=== PATIENT | female | born 1980 | race Caucasian/White ===

== ENCOUNTER → 2017-04-23 12:18 | Outpatient (CLI) | payer OTHER, SELFPAY ==
--- NOTE | 2017-04-23 12:27 | RAD_ITS ---
STUDY: X-RAY - LUMBAR SPINE REASON FOR EXAM: Female, 36 years old. Back pain TECHNIQUE: 5 view(s) of the lumbar spine were obtained. COMPARISON: None FINDINGS: Normal lumbar lordosis. There is no substantial scoliosis. There is a normal alignment of the vertebrae. Normal vertebral bodies and endplates. Normal disc space heights. The soft tissue structures are unremarkable. Left renal calculi. Tubal ligation clips in the pelvis. RAD/L/S Spine Min 4 Views IMPRESSION: No acute bone injury of the lumbar spine. Left renal calculi. Electronically Signed: Leo Unger DO at 22:17 EST Tel [phone], Service support ,
== END ==
PROVIDERS: Family Provider Family Medicine; PCP Family Medicine; Visit Provider Family Medicine
DX: M43.17 Spondylolisthesis, lumbosacral region (principal); N20.0 Calculus of kidney
CPT/HCPCS: 72110

== ENCOUNTER → 2018-08-20 10:00 | Outpatient (CLI) | payer OTHER, SELFPAY ==
[2017-12-31 10:02] VITALS: BMI 24.3
--- NOTE | 2018-08-20 10:06 | BI_ITS ---
MAMMOGRAPHY - BILATERAL SCREENING REASON FOR EXAM: Female, 38 years old. Routine annual screening examination. PERTINENT HISTORY: Grandmother with breast cancer. TECHNIQUE: Digital bilateral breast tian (3D mammographic acquisition) in the CC and MLO projections. 2-D mediolateral oblique (MLO) and craniocaudad (CC) views of both breasts were obtained. CAD: Full Field Digital Mammography with Computer Added Detection was performed. COMPARISON: Comparison is made with prior study October 20, 2013. FINDINGS: Breast Composition: The breasts are extremely dense, which lowers the sensitivity of mammography. There are no dominant masses or suspicious calcifications. No other significant abnormalities are identified. There has been no significant change since the prior study. BI/SCREEN MAMM (CAD) W/TIAN BILAT IMPRESSION: Stable bilateral screening mammogram. Yearly follow-up mammogram recommended. (A) ASSESSMENT CATEGORY: BIRADS Category 1: Negative. A letter regarding these results will be sent to the patient by the facility within 30 days. Approximately 10% of breast cancers are not detected by mammography. A normal mammogram should not delay biopsy of a clinically suspicious abnormality. [id number] Electronically Signed: Jesus Lizama, at 11:03 EDT , Service support ,
== END ==
PROVIDERS: Family Provider Family Medicine; PCP Family Medicine; Referring Provider Obstetrics & Gynecology; Visit Provider Obstetrics & Gynecology
DX: Z12.31 Encounter for screening mammogram for malignant neoplasm of breast (principal)
CPT/HCPCS: 77063; 77067

== ENCOUNTER 2019-03-02 12:00 | Outpatient (RCR) | payer OTHER, SELFPAY ==
--- NOTE | 2018-06-19 07:58 | MASS.EVAL ---
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 SHE WAS REFERRED TO [facility] FOR A MASSOTHERAPY EVALUATION BY DR. SHER WITH THE DIAGNOSIS OF SHOULDER/BACK PAIN. SHE PRESENTS TODAY WITH TENSION IN THE BACK AND NECK. SHE REPORTS THAT SHE HAS MORE OF A DULL ACHE THAN REPORTING IT PAIN. THE SYMPTOMS HAVE BEEN PRESENT FOR A FEW YEARS RELATED TO WORKING AND STRESS OF LIFE. JARAD RATES HER OVERALL HEALTH TO BE IN GREAT CONDITION WITH NO LIMITATIONS DURING HER DAILY ACTIVITIES. SHE IS CURRENTLY TAKING ALDACTONE, VYANSE, AND BRISPAR. OBJECTIVE: THE FIRST TREATMENT CONSISTED OF A MOD-DEEP TISSUE UPPER BODY MASSAGE. I FOCUSED ON THE TEMPORALIS, SUBOCCIPITALS, LEVATOR, UPPER TRAPEZIUM, SCALENES, PECTORALS, RHOMBOIDS, AND PARASPINALS. NECK STRETCHES, TRIGGER POINT THERAPY, MUSCLE STRIPPING, AND MYOFASCIAL RELEASE WERE ALL PERFORMED. ASSESSMENT: THE MOST TENDERNESS PLACES FOR THE PATIENT WAS THE TOP OF THE SHOULDERS AND AND BASE OF NECK. THE MUSCLE TISSUE WAS VERY HARD WITH NO NATURAL MYOFASCIAL MOVEMENT. THE WHOLE NECK AND UPPER BACK WAS TIGHT WITH TRIGGER POINTS IN LEVATOR, UPPER TRAPS, AND RHOMBOIDS. WELL ALONG THE SPINE. MODERATE RELEASE POST THE MASSAGE. THE PATIENT HAS NOT BEEN TREATED FOR A FEW YEARS. I FEEL JARAD IS A GREAT CANDIDATE FOR MASSOTHERAPY AT THIS TIME. PLAN: THE PLAN OF CARE WAS REVIEWED WITH THE PATIENT. THE PATIENT IS TO BE SEEN IN TWO WEEKS THEN ON A MONTHLY BASIS FOR A TOTAL OF 10 VISITS FOR ONE HOUR SESSIONS OF MASSOTHERAPY.
--- NOTE | 2018-06-19 08:14 | MASS.EVAL_ITS ---
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 SHE WAS REFERRED TO [facility] FOR A MASSOTHERAPY EVALUATION BY DR. SHER WITH THE DIAGNOSIS OF SHOULDER/BACK PAIN. SHE PRESENTS TODAY WITH TENSION IN THE BACK AND NECK. SHE REPORTS THAT SHE HAS MORE OF A DULL ACHE THAN REPORTING IT PAIN. THE SYMPTOMS HAVE BEEN PRESENT FOR A FEW YEARS RELATED TO WORKING AND STRESS OF LIFE. JARAD RATES HER OVERALL HEALTH TO BE IN GREAT CONDITION WITH NO LIMITATIONS DURING HER DAILY ACTIVITIES. SHE IS CURRENTLY TAKING ALDACTONE, VYANSE, AND BRISPAR. OBJECTIVE: THE FIRST TREATMENT CONSISTED OF A MOD-DEEP TISSUE UPPER BODY MASSAGE. I FOCUSED ON THE TEMPORALIS, SUBOCCIPITALS, LEVATOR, UPPER TRAPEZIUM, SCALENES, PECTORALS, RHOMBOIDS, AND PARASPINALS. NECK STRETCHES, TRIGGER POINT THERAPY, MUSCLE STRIPPING, AND MYOFASCIAL RELEASE WERE ALL PERFORMED. ASSESSMENT: THE MOST TENDERNESS PLACES FOR THE PATIENT WAS THE TOP OF THE SHOULDERS AND AND BASE OF NECK. THE MUSCLE TISSUE WAS VERY HARD WITH NO NATURAL MYOFASCIAL MOVEMENT. THE WHOLE NECK AND UPPER BACK WAS TIGHT WITH TRIGGER POINTS IN LEVATOR, UPPER TRAPS, AND RHOMBOIDS. WELL ALONG THE SPINE. MODERATE RELEASE POST THE MASSAGE. THE PATIENT HAS NOT BEEN TREATED FOR A FEW YEARS. I FEEL JARAD IS A GREAT CANDIDATE FOR MASSOTHERAPY AT THIS TIME. PLAN: THE PLAN OF CARE WAS REVIEWED WITH THE PATIENT. THE PATIENT IS TO BE SEEN IN TWO WEEKS THEN ON A MONTHLY BASIS FOR A TOTAL OF 10 VISITS FOR ONE HOUR SESSIONS OF MASSOTHERAPY.
--- NOTE | 2019-03-03 10:53 | MASS.DISCH ---
Massage Therapy Discharge Summary: DATE: 03/03/19 V#: [id number] PT NAME: JARAD AVALOS : 1980 REF PHYS: DR. SHER THE PATIENT WAS SEEN FOR MASSOTHERAPY EVALUATION ON 06/09/18 WITH A DIAGNOSIS OF NECK/BACK PAIN. THE PATIENT WAS TREATED WITH 9 SESSIONS OF MASSAGE CONSISTING OF DEEP TISSUE UPPER BODY MASSAGE. HER GOALS OF TREATMENT WERE MET SHE REPORTED THAT SHE IS NOT IN PAIN SHE USE TO BE. AT THIS TIME I AM DISCHARGING THE PATIENT FROM OUR CARE AT THE [facility] FOR 2019. ROMELIA SHEETS LMT
== END 2019-03-02 19:00 | disposition home or self-care (01) ==
LOC: MASS 12:00
PROVIDERS: Family Provider Family Medicine; PCP Family Medicine; Referring Provider Family Medicine; Visit Provider Family Medicine
DX: M25.519 Pain in unspecified shoulder (principal); M54.9 Dorsalgia, unspecified
CPT/HCPCS: 97124

== ENCOUNTER 2019-05-23 10:30 | Outpatient (RCR) | payer OTHER, SELFPAY ==
[2019-05-06 06:55] VITALS: BMI 25.7
--- NOTE | 2019-05-12 12:16 | HP.PTEVAL ---
Patient's Visit Information JARAD AVALOS is a 38 year old F referred to Physical Therapy by Indigo Diaz NP-C with a diagnosis of LOW BACK PAIN,CHRONIC BACK PAIN. Date of Evaluation: 05/11/19 Physical Therapist: Stanley Hatch, PT, Cert MDT, OCS - Visit Plan Frequency: 2x /Week Duration: 4 Weeks Plan: PT INTERVENTION INTIALLY POSTURE TRAINING,TANIYA EX'S ,PROGRESS TO DLS WHEN FUNCTION OF RECOVERY IMPROVES/PAIN,MANUAL THERAPY AND MOD LITIES NEEDED - Subjective Findings: This 38 y/o female presents to physical therapy with back paiin. Patient injuried LBP and radiated to Right L-S while bending foward to brass pickler ball of floor. Patient had immediate pain fell to ground due to pain.[facility]. Patient followed MODEL DRESSER on Thursday recommended. Patient to seen chiroprcator ESTIM ,adjustmentsAggraveting factors,suitting,bending twisting,lifting. Allevaiting factors heat TENS. Coughing/sneezing -. Bowel/bladder -. Denies parathesia/tingling. Stmptoms described as cahe ,burbing. Pateint symptoms affects sleeping. Patient has h/o lumbar pain picking laundry basket. Patient affects ability to perform job demands ,housework tasks . Patient symptoms affects QOL. 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 GAIT: reciprocal pattern antalgic gait. SYMMTRIES: align. PALAPTION: tender LS. MMT: quads/hams/hip 4/5,ankle 4/5. LUMBAR ROM: flexion mod loss,extension min loss,side glides min loss. MUSCULAR ENDUARNCE: poor - Special Tests L/S Slump test left side: Negative L/S Slump test right side: Positive L/S Left Straight Leg Raise: Negative L/S Right Straight Leg Raise: Negative Lumbar Standing: Flexion - Mechanical Response: No effect Lumbar Standing: Flexion - Symptoms During Testing: Increases Lumbar Standing: Flexion - Symptoms After Testing: Worse Lumbar Standing: Extension - Mechanical Response: No effect Lumbar Standing: Extension - Symptoms During Testing: Decreases Lumbar Standing: Extension - Symptoms After Testing: Better Lumbar Standing: Right Side Glides - Mechanical Response: No effect Lumbar Standing: Right Side [place] - Symptoms During Testing: Increases Lumbar Standing: Right Side [place] - Symptoms After Testing: No worse Lumbar Standing: Left Side [place] - Mechanical Response: No effect Lumbar Standing: Left Side [place] - Symptoms During Testing: No effect Lumbar Standing: Left Side [place] - Symptoms After Testing: No effect Lumbar Lying: Flexion - Mechanical Response: No effect Lumbar Lying: Flexion - Symptoms During Testing: Increases Lumbar Lying: Flexion - Symptoms After Testing: Worse Lumbar Lying: Extension - Mechanical Response: Increases motion Lumbar Lying: Extension - Symptoms During Testing: Increases Lumbar Lying: Extension - Symptoms After Testing: Better - Goals Goal 1:: Patient to be I with HEP Goal Time Frame: 4-6 Weeks Goal 2:: Patient improve posture/body meechanics for jod demamds. Goal Time Frame: 4-6 Weeks Goal 3:: Patient to decrease low back pain by 50% or > to improve function. Goal Time Frame: 4-6 Weeks Goal 4:: Patient to improve lumbar ROM for function of recovery Goal Time Frame: 4-6 Weeks Goal 5:: Patient to increase back owestry score by 5 points or > to improve QOL. Goal Time Frame: 4-6 Weeks - Rehabilitation Potential Physical Therapy Diagnosis: This patient has lumbar pain with possible derrangement symptoms worse with flexion,unable to return to function of recovery, pain that affects to perform ADLS'and job demands , Rehabilitation Potential: Good - Anticipated Interventions Patient/Client Instruction: Educate patient on: Condition, Plan of Care For the Purpose of:: To decrease pain, To increase ROM, To improve muscle performance and motor function, To improve ability to perform ADL's, To increase tolerance to activity/condition/position, To improve ability of physical actions for home/community/work/leisure, To improve health of tissue, To decrease soft tissue restriction, To increase flexibility/ROM, To reduce risk of recurrence Therapeutic Exercise to Include: Strength training, Postural training, Dynamic Lumbar Stabilization, Taniya Exercises For the Purpose of:: To decrease pain, To increase ROM, To improve muscle performance and motor function, To increase tolerance to activity/condition/position, To improve ability of physical actions for home/community/work/leisure, To improve health of tissue, To decrease soft tissue restriction, To increase flexibility/ROM, To reduce risk of recurrence Thank you for the opportunity to evaluate your patient. For Medicare and Medicare HMO plans, please review the plan of care and approve it. It will need to be FAXED BACK to us at [phone] for Medicare purposes. For Medicare only, by signing this I certify the plan of care. Please let me know if there are questions or concerns regarding this plan of care. Physician Signature: Date:
--- NOTE | 2019-05-12 12:20 | HP.PTEVAL_ITS ---
Patient's Visit Information JARAD AVALOS is a 38 year old F referred to Physical Therapy by Indigo Diaz NP-C with a diagnosis of LOW BACK PAIN,CHRONIC BACK PAIN. Date of Evaluation: 05/11/19 Physical Therapist: Stanley Hatch, PT, Cert MDT, OCS - Visit Plan Frequency: 2x /Week Duration: 4 Weeks Plan: PT INTERVENTION INTIALLY POSTURE TRAINING,TANIYA EX'S ,PROGRESS TO DLS WHEN FUNCTION OF RECOVERY IMPROVES/PAIN,MANUAL THERAPY AND MOD LITIES NEEDED - Subjective Findings: This 38 y/o female presents to physical therapy with back paiin. Patient injuried LBP and radiated to Right L-S while bending foward to picker and sorter load and unload ball of floor. Patient had immediate pain fell to ground due to pain.[facility]. Patient followed CUSTOMER SERVICE SUPERVISOR on Thursday recommended. Patient to seen chiroprcator ESTIM ,adjustmentsAggraveting factors,suitting,bending twisting,lifting. Allevaiting factors heat TENS. Coughing/sneezing -. Bowel/bladder -. Denies parathesia/tingling. Stmptoms described as cahe ,burbing. Pateint symptoms affects sleeping. Patient has h/o lumbar pain picking laundry basket. Patient affects ability to perform job demands ,housework tasks . Patient symptoms affects QOL. 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 GAIT: reciprocal pattern antalgic gait. SYMMTRIES: align. PALAPTION: tender LS. MMT: quads/hams/hip 4/5,ankle 4/5. LUMBAR ROM: flexion mod loss,extension min loss,side glides min loss. MUSCULAR ENDUARNCE: poor - Special Tests L/S Slump test left side: Negative L/S Slump test right side: Positive L/S Left Straight Leg Raise: Negative L/S Right Straight Leg Raise: Negative Lumbar Standing: Flexion - Mechanical Response: No effect Lumbar Standing: Flexion - Symptoms During Testing: Increases Lumbar Standing: Flexion - Symptoms After Testing: Worse Lumbar Standing: Extension - Mechanical Response: No effect Lumbar Standing: Extension - Symptoms During Testing: Decreases Lumbar Standing: Extension - Symptoms After Testing: Better Lumbar Standing: Right Side Glides - Mechanical Response: No effect Lumbar Standing: Right Side [place] - Symptoms During Testing: Increases Lumbar Standing: Right Side [place] - Symptoms After Testing: No worse Lumbar Standing: Left Side [place] - Mechanical Response: No effect Lumbar Standing: Left Side [place] - Symptoms During Testing: No effect Lumbar Standing: Left Side [place] - Symptoms After Testing: No effect Lumbar Lying: Flexion - Mechanical Response: No effect Lumbar Lying: Flexion - Symptoms During Testing: Increases Lumbar Lying: Flexion - Symptoms After Testing: Worse Lumbar Lying: Extension - Mechanical Response: Increases motion Lumbar Lying: Extension - Symptoms During Testing: Increases Lumbar Lying: Extension - Symptoms After Testing: Better - Goals Goal 1:: Patient to be I with HEP Goal Time Frame: 4-6 Weeks Goal 2:: Patient improve posture/body meechanics for jod demamds. Goal Time Frame: 4-6 Weeks Goal 3:: Patient to decrease low back pain by 50% or > to improve function. Goal Time Frame: 4-6 Weeks Goal 4:: Patient to improve lumbar ROM for function of recovery Goal Time Frame: 4-6 Weeks Goal 5:: Patient to increase back owestry score by 5 points or > to improve QOL. Goal Time Frame: 4-6 Weeks - Rehabilitation Potential Physical Therapy Diagnosis: This patient has lumbar pain with possible derrang ement symptoms worse with flexion,unable to return to function of recovery, pain that affects to perform ADLS'and job demands , Rehabilitation Potential: Good - Anticipated Interventions Patient/Client Instruction: Educate patient on: Condition, Plan of Care For the Purpose of:: To decrease pain, To increase ROM, To improve muscle performance and motor function, To improve ability to perform ADL's, To increase tolerance to activity/condition/position, To improve ability of physical actions for home/community/work/leisure, To improve health of tissue, To decrease soft tissue restriction, To increase flexibility/ROM, To reduce risk of recurrence Therapeutic Exercise to Include: Strength training, Postural training, Dynamic Lumbar Stabilization, Taniya Exercises For the Purpose of:: To decrease pain, To increase ROM, To improve muscle performance and motor function, To increase tolerance to activity/condition/position, To improve ability of physical actions for home/community/work/leisure, To improve health of tissue, To decrease soft tissue restriction, To increase flexibility/ROM, To reduce risk of recurrence Manual Therapy Techniques to Include: Mobilization Comment: LUMBAR For the Purpose of:: To decrease pain, To improve health of tissue, To decrease soft tissue restriction TENS: Yes IF ES: Yes Cryotherapy (ice pack, ice massage): Yes Thermo therapy (hot pack): Yes Ultrasound (thermal/non thermal): Yes For the Purpose of:: To decrease pain, To increase ROM, To improve nutrient delivery to tissue, To increase oxygenation perfusion, To improve health of tissue, To decrease soft tissue restriction Thank you for the opportunity to evaluate your patient. For Medicare and Medicare HMO plans, please review the plan of care and approve it. It will need to be FAXED BACK to us at [phone] for Medicare purposes. For Medicare only, by signing this I certify the plan of care. Please let me know if there are questions or concerns regarding this plan of care. Physician Signature: Date:
--- NOTE | 2019-07-06 09:20 | HP.PTDCSUM ---
It has been my pleasure to treat JARAD AVALOS referred by ALFONSO Lopez, with the diagnosis of LOW BACK PAIN,CHRONIC BACK PAIN for a total of 4 visit(s). Discharge Date: Please see the following information for a summary of their discharge status. Subjective: Doing well ..ready to RTW. Right Back Pain Intensity (Out of 10): 0 % Improvement: 90 Objective/Function: Thang tx well with tx. Lumbar ROM flexion min loss,extension WNL,side glides WFL,improved lumbar ROM for function of recovery. okay to RTW without restriction Goal 1:: Patient to be I with HEP Goal 2:: Patient improve posture/body meechanics for jod demamds. Goal 3:: Patient to decrease low back pain by 50% or > to improve function. Goal 4:: Patient to improve lumbar ROM for function of recovery Goal 5:: Patient to increase back owestry score by 5 points or > to improve QOL. Plan: PT INTERVENTION INTIALLY POSTURE TRAINING,TANIYA EX'S ,PROGRESS TO DLS WHEN FUNCTION OF RECOVERY IMPROVES/PAIN,MANUAL THERAPY AND MOD LITIES NEEDED If there are questions or concerns regarding this patient's physical therapy, please feel free to call me at [phone]. Thank you for the referral of this patient. Sincerely, Stanley Hatch, PT, Cert MDT, OCS
== END 2019-05-23 19:00 | disposition home or self-care (01) ==
LOC: PT 10:30
PROVIDERS: PCP Family Medicine; Visit Provider Nurse Practitioner Adult Health
DX: M54.5 Low back pain (principal); G89.29 Other chronic pain
CPT/HCPCS: 97014; 97110; 97161; 97530; G0283

== ENCOUNTER → 2019-08-03 11:32 | Outpatient (CLI) | payer OTHER, SELFPAY ==
[2019-05-06 06:55] VITALS: BMI 25.7
[2019-08-05 03:07] LABS: Age Gdln ACOG Testing 30-65 (.)
[2019-08-05 03:39] LABS: HPV APTIMA, High Risk Negative (Negative); HPV Reflexed? YES, CHARGE PATIENT
== END ==
PROVIDERS: PCP Family Medicine; Visit Provider Obstetrics & Gynecology
DX: Z12.4 Encounter for screening for malignant neoplasm of cervix (principal)
CPT/HCPCS: 87624; 88175; G0145

== ENCOUNTER 2019-08-31 08:15 | Outpatient (RCR) | payer OTHER, SELFPAY ==
--- NOTE | 2019-04-09 07:53 | MASS.EVAL ---
Massage Therapy Evaluation: INITIAL EVALUATION: DATE: 04/07/2019 PT NAME: JARAD AVALOS : 1980 V#: [id number] REF PHYS: DR. 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 WILBERT SHER WITH THE DIAGNOSIS OF NECK AND SHOULDER PAIN. SHE PRESENTS TODAY WITH A HEADACHE IN THE BACK OF THE NECK, AND TIGHTNESS ACROSS HER SHOULDERS AND UPPER BACK. THE SYMPTOMS COMMENCED DUE TO STRESS AND WORKING LONG HOURS. JARAD RATES HER HEALTH TO BE IN GOOD CONDITION WITH NO LIMITATIONS DURING HER DAILY ACTIVITIES. JARAD IS CURRENTLY TAKING VYVAUSE, AIDACTONE, BUSPAR. OBJECTIVE: UPON PALPATION THE PATIENTS MUSCLES HAD HIGH TENSION AND NO NATURAL MYOFASCIAL MOVEMENT. THE FIRST TREATMENT CONSISTED OF AN UPPER BODY DEEP TISSUE ONE HOUR MASSAGE. I FOCUSED ON THE TEMPORALIS, SUBOCCIPITALS, CERVICAL AND THORACIC PARASPINALS, LEVATOR, SCALENES, PECTORALS, UPPER TRAPEZIUM, AND RHOMBOIDS. TRIGGER POINT THERAPY, MYOFASCIAL RELEASE, AND MUSCLE STRIPPING WERE PERFORMED. ASSESSMENT: THE PATIENTS MUSCLES WERE VERY HARD AND ROPEY. THE PATIENT SEEMED TO HAVE A HARD TIME RELAXING AND LETTING GO OF THE TENSION. I HAVE WORKED WITH THE PATIENT IN THE PAST AND HAD GREAT SUCCESS WITH REDUCING STRESS LEVEL, RELIEVING HEADACHES, AND PAIN IN THE NECK AND SHOULDERS. I FEEL THAT JARAD IS A GREAT CANDIDATE FOR MASSOTHERAPY AT THIS TIME. PLAN: THE PLAN OF CARE WAS REVIEWED WITH THE PATIENT. THE PATIENT IS TO BE SEEN ON A REGULAR BASIS FOR ONE HOUR SESSIONS OF MASSOTHERAPY.
--- NOTE | 2020-02-23 09:09 | DS.PCM_ITS ---
Massage Therapy Discharge Summary: DATAE: 02/23/20 PT NAME: JARAD AVALOS V#: [id number] : 76 REF PHYS: CHRISTOS THE PATIENT WAS SEEN FOR A MASSOTHERAPY EVALUATION ON 04/07/19 WITH A DIAGNOSIS OF NECK/SHOULDER/HEADACHE PAIN. THE PATIENT WAS TREATED WITH 5 SESSIONS OF MASSAGE CONSISTING OF UPPER BODY DEEP TISSUE WITH TRIGGER POINT THERAPY. AT THIS TIME I AM DISCHARGING THE PATIENT FROM OUR CARE AT THE [facility]. ROMELIA SHEETS LMT
== END 2019-08-31 19:00 | disposition home or self-care (01) ==
LOC: MASS 08:15
PROVIDERS: Family Provider Family Medicine; PCP Family Medicine; Referring Provider Family Medicine; Visit Provider Family Medicine
DX: M25.519 Pain in unspecified shoulder (principal); M54.9 Dorsalgia, unspecified
CPT/HCPCS: 97124

== ENCOUNTER 2019-09-01 11:30 | Outpatient (RCR) | payer OTHER, SELFPAY ==
[2019-05-06 06:55] VITALS: BMI 25.7
--- NOTE | 2019-08-10 10:08 | HP.PTEVAL ---
Patient's Visit Information JARAD AVALOS is a 39 year old F referred to Physical Therapy by Dr. Hernan Esparza MD with a diagnosis of L lateral epicondylitis. Date of Evaluation: 08/10/19 Physical Therapist: Hernan Perdomo, MAHINT, OCS, CSCS - Visit Plan Frequency: 3x /Week Duration: 2-4 Weeks Plan: 3x/week for 3-4 weeks for. 1. wrist ext massage STM and stretching. 2. eccentric strength wrist ext. 3. activitiy mdofiication to limit future inflammation. 4. ionto with dex(US until it gets here) - Subjective L elbow hurts for a couple months since April adn may have started with pressups for LBP. Got slightly better but worse again over the last month due to painting house. R handed. Mostly lateral pain up to 2-5/10 and is worse in am and at night. stiff and achy in the am. Repetitive movement adn lifting make it worse. Had injection August 02 and prednisone taper which helped 80%. But is worse again. Tried a compression sleeve for elbow and wrap for golfer's elbow but still wears compression wrap, not sure it helps. Sleeps on back and it used to wake her up at night but not since dose pack. 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 Working sporadically right now. Does most things at home but hurt L elbow. - Pain L elbow pain laterally. Pain Intensity (Out of 10): 2 Pain Intensity Range: 2, 5 - Objective L elbow tender at lateral epicondyle. Full wrist and shoulder AROM without pain. wrist extension max painful as is middle finger ext. strength wrist ext is 4 on L and 5 on R, wrist flexion is not painful and 4+ B. Elbow flexion and ext is 4+/5. Shoulder 4/5 without pain. Neck aROM WFL and without pain. - Goals Goal 1:: No tenderness L lateral epicondyle adn pain 90% better at 1/10 intermittently Goal Time Frame: 4-6 Weeks Goal 2:: Sleep without waking with pain. Goal Time Frame: 4-6 Weeks Goal 3:: Quick DASH 12 or less. Goal Time Frame: 4-6 Weeks - Rehabilitation Potential Physical Therapy Diagnosis: L lateral epicondylitis Rehabilitation Potential: Fair - Anticipated Interventions Patient/Client Instruction: Educate patient on: Condition, Plan of Care For the Purpose of:: To decrease pain, To improve muscle performance and motor function, To improve ability of physical actions for home/community/work/leisure Therapeutic Exercise to Include: Strength training, Passive ROM, Active ROM For the Purpose of:: To decrease pain, To improve muscle performance and motor function, To increase tolerance to activity/condition/position Manual Therapy Techniques to Include: Mobilization, Passive ROM, Soft tissue mobilization For the Purpose of:: To decrease pain, To decrease swelling/inflammation, To improve muscle performance and motor function, To increase tolerance to activity/condition/position, To improve ability of physical actions for home/community/work/leisure Iontophoresis (with Dexamethozone, with Acetic acid): Yes Cryotherapy (ice pack, ice massage): Yes Ultrasound (thermal/non thermal): Yes - nonthermal For the Purpose of:: To decrease pain, To decrease swelling/inflammation Thank you for the opportunity to evaluate your patient. For Medicare and Medicare HMO plans, please review the plan of care and approve it. It will need to be FAXED BACK to us at [phone] for Medicare purposes. For Medicare only, by signing this I certify the plan of care. Please let me know if there are questions or concerns regarding this plan of care. Physician Signature: Date:
--- NOTE | 2019-09-01 11:55 | HP.PTDCSUM ---
It has been my pleasure to treat JARAD AVALOS referred by Dr. Hernan Esparza MD, with the diagnosis of L lateral epicondylitis for a total of 10 visit(s). Discharge Date: 09/01/19 Please see the following information for a summary of their discharge status. Subjective: Better but up and down. 3/10 pain intermittent since last session. Worse after doing stuff as in pouring pot or using hand alot. Will call doctor after this visit. can carry a gallon of milk now. No pain at rest currently. Not needing wrist brace for a while. Exercises with 3# weight elbow and wrist concentrics. Also stretches adn icing. L elbow pain laterally. Pain Intensity (Out of 10): 2 % Improvement: 80 Objective/Function: ROM L wrist and elbow full, wrist felx adn ext painfree, resisted supinationa dn pronation still mildly painful. Overall much improvement and wants to cotninue herself with HEP vs more therapy and contact doctor if condition worsens. Goal 1:: No tenderness L lateral epicondyle adn pain 90% better at 1/10 intermittently Goal Progress: Progressing Goal 2:: Sleep without waking with pain. Goal Progress: Goal Met Goal 3:: Quick DASH 12 or less. Goal Progress: Progressing Plan: d/c If there are questions or concerns regarding this patient's physical therapy, please feel free to call me at [phone]. Thank you for the referral of this patient. Sincerely, Hernan Perdomo, DPT, OCS, CSCS
== END 2019-09-01 19:00 | disposition home or self-care (01) ==
LOC: PT 11:30
PROVIDERS: PCP Family Medicine; Referring Provider Family Medicine; Visit Provider Family Medicine
DX: M77.10 Lateral epicondylitis, unspecified elbow (principal)
CPT/HCPCS: 97033; 97035; 97110; 97140; 97162; 97164

== ENCOUNTER → 2020-03-01 11:59 | Outpatient (CLI) | payer OTHER, SELFPAY ==
[2019-05-06 06:55] VITALS: BMI 25.7
[2020-03-01 12:03] LABS: Bacteria 0 SEEN /hpf (None Seen); Mucous, Urine 0 SEEN /hpf (<or=2+); Red Blood Cells-Urine 0 SEEN /hpf (0-5); White Blood Cells 0 SEEN /hpf (0-5)
[2020-03-01 12:35] LABS: Color, Urine Yellow (Yellow); Glucose, Dipstick Normal (Normal); Ketone-Dipstick Negative (Negative); Leukocyte Esterase-Dipstick Negative /ul (Negative); Nitrite-Dipstick Negative (Negative); Occult Blood-Urine Negative /ul (Negative); Protein-Dipstick Negative (Negative); Urine Bilirubin Dipstick Negative (Negative); Urine Clarity Sl. Cloudy (Clear); Urine Urobilinogen Normal (Normal)
[2020-03-01 12:48] LABS: Squamous Epithelial Cells - UA 0-5 SEEN /hpf (5-10)
== END ==
PROVIDERS: PCP Family Medicine; Referring Provider Family Medicine; Visit Provider Family Medicine
DX: R30.0 Dysuria (principal)
CPT/HCPCS: 81001; 87086

== ENCOUNTER → 2020-09-06 06:28 | Outpatient (CLI) | payer OTHER, SELFPAY ==
[2019-05-06 06:55] VITALS: BMI 25.7
[2020-09-06 08:52] LABS: Vitamin D,25 Hydroxy 39.2 ng/mL
== END ==
PROVIDERS: PCP Family Medicine; Referring Provider Family Medicine; Visit Provider Family Medicine
DX: E55.9 Vitamin D deficiency, unspecified (principal)
CPT/HCPCS: 36415; 82306

== ENCOUNTER 2020-11-13 11:26 | Outpatient (RCR) | payer OTHER, SELFPAY | END 2020-11-13 23:59 | LOC: EMPH 11:26 | PROVIDERS: PCP Family Medicine; Referring Provider Family Medicine Geriatric Medicine; Visit Provider Family Medicine Geriatric Medicine | DX: Z03.818 Encounter for observation for suspected exposure to other biological agents ruled out (principal) | CPT/HCPCS: 87426 ==

== ENCOUNTER → 2020-12-18 12:21 | Outpatient (CLI) | payer OTHER, SELFPAY | PROVIDERS: PCP Family Medicine; Referring Provider Family Medicine; Visit Provider Family Medicine | DX: J34.89 Other specified disorders of nose and nasal sinuses (principal) | CPT/HCPCS: 87633; 87635; U0005; U0003 ==

== ENCOUNTER → 2021-02-12 13:12 | Outpatient (CLI) | payer OTHER, SELFPAY ==
[2021-02-12 16:34] LABS: AST(SGOT) 28 U/L (15-37); Alanine Aminotransfer ALT/SGPT 77 U/L (13-56); Albumin, Serum 3.9 g/dL (3.2-5.0); Alkaline Phosphatase 136 U/L (45-117); Anion Gap 7 (5-15); BUN 12 mg/dL (7-18); BUN/Creat Ratio 18.8 RATIO (10-20); Calcium,Total 8.9 mg/dL (8.5-10.1); Chloride 103 mmol/L (98-107); Creatinine, Serum 0.64 mg/dL (0.55-1.02); EST Glomerular Filtration Rate 109 mL/min (>60); Est Glom Filt Rate - Afr Amer 131 mL/min (>60); Glucose 132 mg/dL (74-106); Potassium 3.8 mmol/L (3.5-5.1); Protein, Total 7.9 g/dL (6.4-8.2); Sodium Level 138 mmol/L (136-145); Thyroid Stim Hormone (TSH) 0.82 uIU/mL (0.358-3.74)
== END ==
PROVIDERS: PCP Family Medicine; Referring Provider Family Medicine; Visit Provider Family Medicine
DX: F41.9 Anxiety disorder, unspecified (principal)
CPT/HCPCS: 36415; 80053; 84443

== ENCOUNTER 2021-02-13 09:30 | Outpatient (RCR) | payer OTHER, SELFPAY ==
[2019-05-06 06:55] VITALS: BMI 25.7
--- NOTE | 2020-03-26 15:02 | MASS.EVAL ---
Massage Therapy Evaluation: Initial Evaluation Date: 03/20/2020 SUBJECTIVE: Farrah is a 39 year old female who was referred to the [facility] facility for a massotherapy evaluation by Dr. Hernan Esparza with the diagnosis of neck, back, shoulder and head pain. She presents today with the symptoms of pain, stiffness and tension in the neck, mid back, low back and hips. Farrah reports having a past medical history of radiating pain in her neck and right leg. She reports having minimal improvement with exercise and stretching over the last few months. OBJECTIVE: Upon observation Farrah has some posture issues with her head and shoulders forward from the neutral position in sitting and standing. After examination and palpation, I found Farrah to have high muscle tension with tenderness and myofascial restrictions in her sub occipitals, levator scapulae, trapezius, rhomboids, scalenes, and thoracic paraspinals. Her QL?s, lumbar paraspinals, piriformis, glute medius and minimus all were very tight with fascial restrictions, tender points and trigger points. The first treatment consisted of a one hour massage to her upper body with myofascial release, muscle stripping, trigger point compression techniques, and cervical manual traction. ASSESSMENT: I feel that Farrah is a good candidate for massotherapy at this time. She had a favorable response to the first treatment with reduction in her muscle aches, pain and tension. She also had improvement in her cervical flexibility and low back flexibility. PLAN: The plan of care was reviewed with the patient. The patient is to be seen on an as needed basis for a total of ten sessions with the recommendation of once every month for a one hour treatment.
--- NOTE | 2021-02-28 13:04 | DS.PCM_ITS ---
Massage Therapy Discharge Summary: Discharge Date: 02/28/2021 Farrah was seen for a massotherapy evaluation on 03/20/2020 with the diagnosis of myalgias. She was treated with ten sessions of massage therapy consisting of deep pressure soft tissue techniques, myofascial release and trigger point compression to his cervical, thoracic, lower back and hips. Farrah responded well to the therapy by reporting decreased tension and pain throughout her neck, shoulders, lower back, lower extremities and hips. Her goals for therapy were met throughout the treatment sessions. At this time this patient is being discharged from our care at [facility] facility.
== END 2021-02-13 19:00 | disposition home or self-care (01) ==
LOC: MASS 09:30
PROVIDERS: PCP Family Medicine; Referring Provider Family Medicine; Visit Provider Family Medicine
DX: M54.2 Cervicalgia (principal); M54.9 Dorsalgia, unspecified; M25.519 Pain in unspecified shoulder; R51.9 Headache, unspecified
CPT/HCPCS: 97124

== ENCOUNTER → 2021-02-26 15:49 | Outpatient (CLI) | payer OTHER, SELFPAY ==
[2021-02-26 18:13] LABS: AST(SGOT) 28 U/L (15-37); Alanine Aminotransfer ALT/SGPT 55 U/L (13-56); Albumin, Serum 3.6 g/dL (3.2-5.0); Alkaline Phosphatase 125 U/L (45-117); Bilirubin, Direct 0.06 mg/dL (0.00-0.30); Globulin 3.7 g/dL (2.2-4.2); Protein, Total 7.3 g/dL (6.4-8.2)
== END ==
PROVIDERS: PCP Family Medicine; Referring Provider Family Medicine; Visit Provider Family Medicine
DX: R74.01 Elevation of levels of liver transaminase levels (principal)
CPT/HCPCS: 36415; 80076

== ENCOUNTER 2021-03-26 08:39 | Outpatient (CLI) | payer OTHER, SELFPAY ==
--- NOTE | 2021-03-26 08:42 | BI_ITS ---
MAMMOGRAPHY - BILATERAL SCREENING REASON FOR EXAM: Female, 40 years old. Routine annual screening examination. PERTINENT HISTORY: Grandmother with breast cancer. TECHNIQUE: Digital bilateral breast sheila (3D mammographic acquisition) in the CC and MLO projections. 2-D mediolateral oblique (MLO) and craniocaudad (CC) views of both breasts were obtained. CAD: Full Field Digital Mammography with Computer Added Detection was performed. COMPARISON: Comparison is made with prior study dated 08/20/2018 and 10/20/2013. FINDINGS: Breast Composition: The breasts are extremely dense, which lowers the sensitivity of mammography. There are no dominant masses or suspicious calcifications. No other significant abnormalities are identified. There has been no significant change since the prior study. BI/SCREENING MAMM (CAD), BILAT IMPRESSION: Stable bilateral screening mammogram. Yearly follow-up mammogram recommended. (A) ASSESSMENT CATEGORY: BIRADS Category 1: Negative. A letter regarding these results will be sent to the patient by the facility within 30 days. Approximately 10% of breast cancers are not detected by mammography. A normal mammogram should not delay biopsy of a clinically suspicious abnormality. [id number] Electronically Signed: Jesus Lizama MD at 9:56 EST , Service support ,
== END 2021-03-26 23:59 | disposition short-term general hospital (02) ==
LOC: OPBI 08:40
PROVIDERS: PCP Family Medicine; Referring Provider Family Medicine; Visit Provider Family Medicine
DX: Z12.31 Encounter for screening mammogram for malignant neoplasm of breast (principal); Z80.3 Family history of malignant neoplasm of breast
CPT/HCPCS: 77067

== ENCOUNTER → 2021-12-11 | Outpatient (CLI) | payer OTHER, SELFPAY ==
--- NOTE | 2021-12-11 07:51 | US_ITS ---
STUDY: ABDOMINAL ULTRASOUND REASON FOR EXAM: Female, 41 years old. Elevated liver enzymes; dull ache. TECHNIQUE: Transabdominal ultrasound was performed with real-time and static lincoln scale imaging. TECHNICAL QUALITY: Adequate. COMPARISON: Comparison is made with prior examination dated 04/03/2015. FINDINGS: Liver: The liver measures 16.5 cm. There is normal echogenicity of the liver. The bile ducts are within normal limits. There is hepatic color flow. The direction of portal flow is hepatopetal. There is no demonstrated mass lesion. Gallbladder: Normal distended gallbladder. The gallbladder wall measures 1.4 mm. There is a negative sonographic Cline''s sign. There is no pericholecystic fluid. There are no gallstones. Common Bile Duct (C.B.D.): The common bile duct measures 2.2 mm. Pancreas: Normal size of the head, body and tail of the pancreas. There is increased echogenicity of the pancreas. There is no demonstrated pancreatic mass or cyst. Spleen: Normal size of the spleen. The spleen measures 9.1 cm x 7.7 cm x 2.9 cm. Right Kidney: Normal size of the right kidney. The right kidney measures 10.7 cm x 5.1 cm x 4.2 cm. Normal renal cortex. The right cortex measures 1.0 cm. There is no demonstrated renal mass or cyst. There is no right hydronephrosis. Left Kidney: Normal size of the left kidney. The left kidney measures 10.5 cm x 4.6 cm x 5.1 cm. Normal renal cortex. The left cortex measures 1.1 cm. There is no demonstrated renal mass or cyst. There is no left hydronephrosis. Aorta: Unremarkable I.V.C.: The IVC is patent. There is no ascites. US/Abdomen Complete IMPRESSION: Normal abdominal ultrasound examination. Electronically Signed: Jesus Lizama MD at 10:37 EDT ,
== END | disposition home or self-care (01) ==
LOC: US 07:49
PROVIDERS: PCP Family Medicine; Referring Provider Nurse Practitioner Family; Visit Provider Nurse Practitioner Family
DX: R74.8 Abnormal levels of other serum enzymes (principal)
CPT/HCPCS: 76700

== ENCOUNTER → 2022-01-09 | Outpatient (CLI) | payer OTHER, SELFPAY | END | disposition home or self-care (01) | LOC: MFPLAB 14:01 | PROVIDERS: PCP Family Medicine; Referring Provider Family Medicine; Visit Provider Family Medicine | DX: J06.9 Acute upper respiratory infection, unspecified (principal) | CPT/HCPCS: 87070 ==

== ENCOUNTER → 2022-01-21 | Outpatient (CLI) | payer OTHER, SELFPAY ==
--- NOTE | 2022-01-21 09:44 | NM_ITS ---
CLINICAL: 41-year-old female with history of right upper quadrant abdominal pain. RADIONUCLIDE HEPATOBILIARY SCINTIGRAPHY COMPARISON: Abdominal ultrasound report 12/11/2021 FINDINGS: Following the intravenous administration of 5.5 mCi of 99m Tc Mebrofenin, hepatobiliary images reveal: 1. Relatively prompt and homogeneous radiopharmaceutical concentration is noted by a normal sized liver. No parenchymal defects are identified. 2. Gallbladder activity is identified at 15 minutes post radiopharmaceutical administration. 3. Small intestinal tract is observed at 15 minutes following tracer injection. 4. Washout of the radiopharmaceutical by the hepatic parenchyma appears qualitatively normal. Cholecystokinin (0.02 ug/kg) was administered intravenously over a 30-minute period. The post CCK gallbladder ejection fraction calculated at 20 minutes following Cholecystokinin administration was noted to be 93.0 % (normal greater than 35%). During 30 minutes of post CCK imaging, there is no scintigraphic evidence of reflux of the radiotracer into the common hepatic duct or refilling of the gallbladder. MA/Hepatobilliary Img w/Pharm Int IMPRESSION: 1. NORMAL 99m Tc Mebrofenin hepatobiliary imaging examination with Cholecystokinin. A. A gallbladder ejection fraction calculated to be greater than 35% following the administration of Cholecystokinin makes the probability of functional hepatobiliary disease (gallbladder and/or sphincter of Oddi dyskinesia) and/or organic hepatobiliary disease (chronic acalculous cholecystitis and/or cystic duct syndrome) to be low. (Mandy Underwood et al, Journal of Nuclear Medicine 32:1695, 1991). Electronically Signed: Jerrod Gonzales, at 21:41 EST ,
== END | disposition home or self-care (01) ==
LOC: NM 09:43
PROVIDERS: PCP Family Medicine; Referring Provider Family Medicine; Visit Provider Family Medicine
DX: R10.11 Right upper quadrant pain (principal)
CPT/HCPCS: 78227; A9537; J2805

== ENCOUNTER → 2022-01-28 | Outpatient (CLI) | payer OTHER, SELFPAY ==
[2022-01-28 07:35] LABS: Absolute Lymphocyte Count 1.98 X10^3/uL (0.83-4.51); Absolute Neutrophil Count 3.2 X10^3/uL (2.0-7.7); Basophil# 0.05 X10^3/uL; Basophil% 0.8 % (0-1); Eosinophil# 0.37 X10^3/uL; Hematocrit 38.7 % (37-47); Hemoglobin 12.6 g/dL (12.0-15.0); Lymphocyte # 1.98 X10^3/ul (0.83-4.51); Lymphocyte % 31.9 % (19-41); Mean Corp Hgb Conc 32.6 g/dL (32-36); Mean Corpuscular Hgb 31.2 pg (27.0-32.0); Mean Corpuscular Volume 95.8 fL (81-99); Mean Platelet Vol. 12.1 fl (6.2-12.0); Monocyte# 0.62 X10^3/uL; NRBC Flagged by Analyzer 0 % (0-5); Neutrophil # 3.17 X10^3/uL (2.7-7.7); Platelet Count 159 K/mm3 (150-450); RBC Distribution Width CV 13.3 % (11.6-14.6); RBC Distribution Width SD 46.7 fl (35.1-43.9); Red Blood Count 4.04 M/mm3 (4.2-5.4); White Blood Count 6.2 K/mm3 (4.4-11.0)
[2022-01-28 08:04] LABS: AST(SGOT) 22 U/L (15-37); Alanine Aminotransfer ALT/SGPT 44 U/L (13-56); Albumin, Serum 3.3 g/dL (3.2-5.0); Alkaline Phosphatase 112 U/L (45-117); Anion Gap 5 (5-15); BUN 12 mg/dL (7-18); BUN/Creat Ratio 17.5 RATIO (10-20); Calcium,Total 8.6 mg/dL (8.5-10.1); Chloride 105 mmol/L (98-107); Creatinine, Serum 0.68 mg/dL (0.55-1.02); EST Glomerular Filtration Rate 99 mL/min (>60); Est Glom Filt Rate - Afr Amer 120 mL/min (>60); GGTP 70 U/L (5-55); Globulin 3.4 g/dL (2.2-4.2); Glucose 144 mg/dL (74-106); Potassium 3.8 mmol/L (3.5-5.1); Protein, Total 6.7 g/dL (6.4-8.2); Sodium Level 139 mmol/L (136-145)
== END | disposition home or self-care (01) ==
LOC: LAB 06:52
PROVIDERS: PCP Family Medicine; Referring Provider Family Medicine; Visit Provider Family Medicine
DX: R74.8 Abnormal levels of other serum enzymes (principal)
CPT/HCPCS: 36415; 80053; 82977; 85025

== ENCOUNTER → 2022-02-20 | Outpatient (CLI) | payer OTHER, SELFPAY ==
[2022-02-20 12:29] LABS: Erythrocyte Sedimentation Rate 15 mm/hr (0-30)
[2022-02-20 12:40] LABS: Prothrombin Time (Protime)PT. 12.8 SECONDS (11.7-14.9)
[2022-02-20 13:00] LABS: AST(SGOT) 20 U/L (15-37); Alanine Aminotransfer ALT/SGPT 38 U/L (13-56); Albumin, Serum 4.1 g/dL (3.2-5.0); Alkaline Phosphatase 120 U/L (45-117); Bilirubin, Direct 0.12 mg/dL (0.00-0.30); CRP 4.53 mg/L (0.0-3.0); Ferritin 119 ng/mL (8-252); GGTP 49 U/L (5-55); Globulin 3.8 g/dL (2.2-4.2); LDH 178 U/L (84-246); Protein, Total 7.9 g/dL (6.4-8.2)
[2022-02-21 15:08] LABS: Anti-Centromere B Ab <0.2 AI (0.0-0.9); Anti-Chromatin <0.2 AI (0.0-0.9); Anti-Jo <0.2 AI (0.0-0.9); Anti-Scleroderma-70 AB <0.2 AI (0.0-0.9); RNP Ab <0.2 AI (0.0-0.9); SJOGREN'S Anti-SS-A test < 0.2 AI (0.0-0.9); SJOGREN'S Anti-SS-B test < 0.2 AI (0.0-0.9); Smith Ab <0.2 AI (0.0-0.9)
[2022-02-21 16:38] LABS: Anti-Mitochondrial AB <20.0 Units (0.0-20.0); Anti-dsDNA Ab 1 IU/mL (0-9)
== END | disposition home or self-care (01) ==
PROVIDERS: PCP Family Medicine; Referring Provider Nurse Practitioner Adult Health; Visit Provider Nurse Practitioner Adult Health
DX: R74.8 Abnormal levels of other serum enzymes (principal); R74.01 Elevation of levels of liver transaminase levels
CPT/HCPCS: 36415; 80074; 80076; 82105; 82140; 82390; 82525; 82728; 82977; 83010; 83516; 83615; 85610; 85652; 86140; 86225; 86235; 86256

== ENCOUNTER → 2022-04-21 | Outpatient (CLI) | payer OTHER, SELFPAY ==
--- NOTE | 2022-04-21 08:07 | MRI_ITS ---
ACR Level 3 findings have been noted. An addendum which confirms receipt of the report will follow. INDICATION: RUQ pain, elevated liver/bile enzymes EXAMINATION: MR MRCP W/O Contrast TECHNIQUE: Multiplanar and multisequence MR images of the abdomen were obtained with MRCP sequence. Three-dimensional post-processing reconstructions were performed. IV Contrast Dosage and Agent: None. COMPARISON: None. FINDINGS: LIVER: No mass. Questionable slightly nodular contour. GALLBLADDER AND BILIARY TREE: No gallstones. No gallbladder distension or wall edema. The CBD measures 2 mm. There is a slightly beaded appearance to the intra and axial hepatic biliary ducts. The peripheral intrahepatic biliary ducts are not well depicted. There is focal dilatation of the distal common hepatic duct at the bifurcation of the left and right hepatic ducts. No choledochal filling defect. PANCREAS: Prominent size. No obvious mass. No pancreatic duct dilation. SPLEEN: Non-enlarged. ADRENAL GLANDS: No nodules. KIDNEYS: Normal renal size and position. No hydronephrosis. No mass. LYMPH NODES: No enlarged periportal or retroperitoneal lymph nodes. PERITONEUM: No ascites or fluid collection. VESSELS: Aorta is non-dilated. LOWER CHEST: No pleural effusion. 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 Focal dilatation of the distal common hepatic duct could represent a choledochal cyst versus versus a saccular dilatation/diverticula secondary to a distal stricture. Consider ERCP. Prominent pancreas with no surrounding inflammatory changes. Correlate with lipase and IgG4 levels for possible autoimmune pancreatitis. Electronically Signed: Julian Padgett MD at 16:56 EST ,
== END | disposition home or self-care (01) ==
PROVIDERS: PCP Family Medicine; Referring Provider Nurse Practitioner Adult Health; Visit Provider Nurse Practitioner Adult Health
DX: R10.11 Right upper quadrant pain (principal); R74.8 Abnormal levels of other serum enzymes; R74.01 Elevation of levels of liver transaminase levels
CPT/HCPCS: 74181

== ENCOUNTER → 2022-04-22 | Outpatient (CLI) | payer OTHER, SELFPAY ==
[2022-04-22 09:26] LABS: Lipase 120 U/L (73-393)
[2022-04-22 09:43] LABS: AST(SGOT) 25 U/L (15-37); Alanine Aminotransfer ALT/SGPT 48 U/L (13-56); Albumin, Serum 3.8 g/dL (3.2-5.0); Alkaline Phosphatase 110 U/L (45-117); Bilirubin, Direct 0.09 mg/dL (0.00-0.30); Globulin 3.7 g/dL (2.2-4.2); Protein, Total 7.5 g/dL (6.4-8.2)
[2022-04-23 17:07] LABS: IgG, Quant 1055 mg/dL (586-1602); Immunoglobulin G, Subclass 1 580 mg/dL (248-810); Immunoglobulin G, Subclass 2 309 mg/dL (130-555); Immunoglobulin G, Subclass 3 50 mg/dL (15-102)
[2022-04-23 20:19] LABS: Immunoglobulin G, Subclass 4 12 mg/dL (2-96)
== END | disposition home or self-care (01) ==
LOC: LAB 07:31
PROVIDERS: PCP Family Medicine; Referring Provider Nurse Practitioner Adult Health; Visit Provider Nurse Practitioner Adult Health
DX: R93.3 Abnormal findings on diagnostic imaging of other parts of digestive tract (principal); R74.01 Elevation of levels of liver transaminase levels
CPT/HCPCS: 36415; 80076; 82784; 82787; 83690

== ENCOUNTER → 2022-04-23 | Outpatient (CLI) | payer OTHER, SELFPAY | END | disposition home or self-care (01) | PROVIDERS: PCP Family Medicine; Visit Provider Nurse Practitioner Adult Health | DX: K60.4 Rectal fistula (principal) | CPT/HCPCS: 36415 ==

== ENCOUNTER → 2022-04-24 | Outpatient (CLI) | payer OTHER, SELFPAY ==
[2022-04-28 23:25] LABS: Calprotectin, Stool <16 ug/g (0-120)
== END | disposition home or self-care (01) ==
LOC: LABSPEC 10:50
PROVIDERS: PCP Family Medicine; Referring Provider Nurse Practitioner Adult Health; Visit Provider Nurse Practitioner Adult Health
DX: K60.4 Rectal fistula (principal); R79.82 Elevated C-reactive protein (CRP)
CPT/HCPCS: 83630; 83993

== ENCOUNTER → 2022-04-29 | Outpatient (CLI) | payer OTHER, SELFPAY ==
[2022-04-29] VITALS (7 sets, daily range): BP systolic 110–127; BP diastolic 61–82; PULSE 88–101; RESP 13–19; TEMP 36.6–36.9; O2SAT 95–100; BMI 27.1
--- NOTE | 2022-04-29 | LIVB_PTH ---
PATIENT: JARAD AVALOS LOC: CT U#:[id number] AGE/SX: 41/F ROOM: RE04/29/[address]: ALFONSO Casey : 1980 BED: DIS: 04/29/2022 SPEC #: [id number] RECD: 04/29/22 09:32 STATUS: KELLY REBrit #: [id number] HAYDEN: 04/29/22 00:[address]: Jarad Dillon NP DEPT: SURGICAL PATHOLOGY RECD BY: Cindy Steven ENTERED: 04/29/22 11:09 SP TYPE: LIVER BX OTHR DR: Dr. Hernan Esparza MD Tissues: Liver, NOS Procedures: PAS with Diastase (control) Trichrome (control) Special Stain Group II PAS Stain (control) Surgery Specimen Level V Retic (control) Iron Stain (control) HEADER OPERATION: CT-guided left biopsy PRE-OP DIAGNOSIS: PSC, PBC, autoimmune hepatitis TISSUE SUBMITTED: Right lobe liver 18-gauge core x4 MICROSCOPIC DIAGNOSIS Right lobe liver, CT-guided core biopsy: Liver parenchymal tissue with focal mild macrovesicular steatosis. See microscopic description and comment. SJ:phoebe 04/30/2022 COMMENT Correlation with clinical, laboratory and radiologic findings and appropriate follow up are necessary. MICROSCOPIC DESCRIPTION Slides are reviewed. The specimen shows liver parenchymal tissue with preserved lobular architecture. Hepatocytes show focal mild macrovesicular steatosis. Portal areas are essentially unremarkable. No significant portal or lobular inflammation is noted. Iron stain shows trace amount of iron in the hepatocytes. Reticulin stain show normal hepatic architecture. Trichrome stain does not show significant increased portal or periportal fibrosis. PAS stain with and without diastase do not show any abnormal accumulation of protein. All stains are performed with appropriate matched controls. GROSS DESCRIPTION Received in fixative is one container labeled with the patient's name and designated liver biopsy. The specimen consists of multiple elongated fragments of davalos tissue that in aggregate measure 1.5 x 0.2 x <0.1 cm. The specimen is totally submitted in one cassette. / AM:phoebe 04/29/2022 TC:5 CPT: 69282, 72773 x5
--- NOTE | 2022-04-29 08:08 | CT_ITS ---
PROCEDURE: CT DIRECTED CORE LIVER BIOPSY INDICATION: Female, 41 years old. Nodular liver contour on MRCP, possible PSC PHYSICIAN: Dr. THIERNO Phillips CONSENT: Written informed consent was obtained having explained the risks, benefits and alternatives in detail with the patient who accepted the risks and agreed to proceed. Laboratory review and clinical assessment was performed. CONSCIOUS SEDATION PROTOCOL: The Drugs used were: 3 mg Versed, IV., and 75 mcg Fentanyl, IV. The sedation time was: 17 minutes. Conscious sedation was started at 8:58 AM and terminated at 9:15 AM The conscious sedation protocol was independently monitored. RADIATION DOSAGE (If Supplied By Facility): CTDIvol = ( 18 ) mGy, DLP = ( 250.08 ) mGycm Individualized dose optimization techniques were used for this CT. TECHNIQUE: Using CT image guidance with image documentation, a suitable location in the right lobe of the liver was identified. Using an anterior approach, puncture of the liver was uneventful with an 18-gauge core needle system. 4, 18-gauge core samples were obtained, and submitted in formalin to the pathologist for further assessment. Followup CT scan revealed no distinct sequelae. CT/Biopsy/Inj or Needle Placement IMPRESSION: 1. CT directed core needle biopsy of the liver, using CT image guidance with image documentation as described. 2. Conscious Sedation protocol utilized with independent monitoring. Electronically Signed: Jesus Lizama MD at 9:41 EST ,
[2022-04-29 08:09] LABS: Platelet Count 203 K/mm3 (150-450)
[2022-04-29 08:48] LABS: International Normalized Ratio 1.1; Partial Thromboplast Time 32.1 Seconds (24.1-36.2); Prothrombin Time (Protime)PT. 13.4 SECONDS (11.7-14.9)
[2022-04-29] MEDS: fentaNYL 100 MCG/2 ML Ampul IV ×3 (08:58→10:04)
[2022-04-29] MEDS: Midazolam 2 MG/2 ML Syringe IV ×3 (08:58→10:04)
[2022-04-29] MEDS: Lidocaine 2% (20 ml mdv) 20 ML Vial INFILT (09:00)
== END | disposition home or self-care (01) ==
PROVIDERS: PCP Family Medicine; Referring Provider Nurse Practitioner Adult Health; Visit Provider Nurse Practitioner Adult Health
DX: R93.3 Abnormal findings on diagnostic imaging of other parts of digestive tract (principal); R93.2 Abnormal findings on diagnostic imaging of liver and biliary tract; R74.8 Abnormal levels of other serum enzymes; R10.11 Right upper quadrant pain; K76.0 Fatty (change of) liver, not elsewhere classified
CPT/HCPCS: 47000; 36415; 77012; 85049; 85610; 85730; 88307; 88313; 99156; J7050; A4216

== ENCOUNTER → 2022-05-09 | Outpatient (CLI) | payer OTHER, SELFPAY ==
[2022-05-11 09:11] LABS: Carbohydrate Ag 19-9 2261 7 U/mL (0-35); Carcinoembryonic Antigen 1.2 ng/mL (0.0-4.7)
== END | disposition home or self-care (01) ==
LOC: LAB 09:49
PROVIDERS: PCP Family Medicine; Visit Provider Nurse Practitioner Adult Health
DX: K83.01 Primary sclerosing cholangitis (principal)
CPT/HCPCS: 36415; 82378; 86301

== ENCOUNTER → 2022-06-19 | Outpatient (CLI) | payer OTHER, SELFPAY ==
[2022-06-23 04:06] LABS: Beef <0.10 kU/L (Class 0); Corn <0.10 kU/L (Class 0); Egg, Whole <0.10 kU/L (Class 0); Milk (Cow) <0.10 kU/L (Class 0); Peanut <0.10 kU/L (Class 0); Pork <0.10 kU/L (Class 0); Soybean <0.10 kU/L (Class 0); Wheat <0.10 kU/L (Class 0)
[2022-06-23 11:14] LABS: Chocolate <0.10 kU/L (Class 0)
== END | disposition home or self-care (01) ==
PROVIDERS: PCP Family Medicine; Referring Provider Nurse Practitioner Adult Health; Visit Provider Nurse Practitioner Adult Health
DX: R10.11 Right upper quadrant pain (principal)
CPT/HCPCS: 36415; 86003; 86005

== ENCOUNTER → 2022-07-02 | Outpatient (CLI) | payer OTHER, SELFPAY ==
--- NOTE | 2022-07-02 09:17 | BI_ITS ---
MAMMOGRAPHY - BILATERAL SCREENING REASON FOR EXAM: Female, 41 years old. Routine annual screening examination. PERTINENT HISTORY: Grandmother with breast cancer. TECHNIQUE: Digital bilateral breast tian (3D mammographic acquisition) in the CC and MLO projections. 2-D mediolateral oblique (MLO) and craniocaudad (CC) views of both breasts were obtained. CAD: Full Field Digital Mammography with Computer Added Detection was performed. FINDINGS: Breast Composition: The breasts are extremely dense, which lowers the sensitivity of mammography. There are no dominant masses or suspicious calcifications. No other significant abnormalities are identified. There has been no significant change since the prior study. BI/SCRN MAMM (CAD)W/TIAN BILAT IMPRESSION: Stable bilateral screening mammogram. Yearly follow-up mammogram recommended. (A) ASSESSMENT CATEGORY: BIRADS Category 1: Negative. A letter regarding these results will be sent to the patient by the facility within 30 days. Approximately 10% of breast cancers are not detected by mammography. A normal mammogram should not delay biopsy of a clinically suspicious abnormality. [id number] Electronically Signed: Jesus Lizama MD at 9:52 EDT ,
--- NOTE | 2022-07-02 09:37 | NM_ITS ---
CLINICAL: 41-year-old female with history of right upper quadrant abdominal pain. SEMI-SOLID PHASE 99m Tc SULFUR COLLOID GASTRIC EMPTYING STUDY COMPARISON: None available FINDINGS: The patient was administered 1.2 mCi of 99m Tc sulfur colloid mixed with oatmeal and consumed per os. Image acquisitions in the anterior-posterior projections were obtained for 60 minutes. There is prompt visualization of the stomach. There is no gastroesophageal reflux identified. First order kinetics are maintained throughout the duration of the acquisitions. The T ? linear fit was calculated to be 92.46 minutes, (Normal: 12-56 minutes). NM/Gastric Emptying Study IMPRESSION: 1. ABNORMAL 99m Tc sulfur colloid semi-solid phase (oatmeal) gastric emptying imaging examination. A. There is delayed semi-solid phase gastric emptying compared to normal controls with maintained first order kinetics throughout all components of the examination. (Daryl et al, J Nucl Med Tech 38: 186, 2010). Electronically Signed: Jerrod Gonzales, at 20:26 EDT ,
== END | disposition home or self-care (01) ==
LOC: NM 09:16
PROVIDERS: PCP Family Medicine; Referring Provider Student in an Organized Health Care Education/Training Program; Visit Provider Student in an Organized Health Care Education/Training Program
DX: R10.11 Right upper quadrant pain (principal); Z12.31 Encounter for screening mammogram for malignant neoplasm of breast
CPT/HCPCS: 77063; 77067; 78264; A9541

== ENCOUNTER 2022-07-15 13:50 | Day surgery (SDC) | payer OTHER, SELFPAY ==
[2022-07-15 14:29] VITALS: BP 122/72; PULSE 88; RESP 16; TEMP 37.1; O2SAT 100; BMI 25.7
[2022-07-15] MEDS: Lactated Ringers 1,000 ML 15 ML IV (14:43)
--- NOTE | 2022-07-15 15:00 | EGD_PTH ---
PATIENT: JARAD AVALOS LOC: EN U#:[id number] AGE/SX: 41/F ROOM: RE07/15/[address]: Dr. Morgan Dexter DO : 1980 BED: DIS: 07/15/2022 SPEC #: [id number] RECD: 07/15/22 18:51 STATUS: KELLY SCHNEIDERBrit #: [id number] HAYDEN: 07/15/22 15:[address]: Morgan Dexter DEPT: SURGICAL PATHOLOGY RECD BY: Franco Austin ENTERED: 07/16/22 07:40 SP TYPE: EGD BIOPSY NAT DR: Dr. Hernan Esparza MD Tissues: A - Duodenum, NOS B - Esophagus, NOS Procedures: Surgery Specimen Level IV HEADER OPERATION: EGD with biopsy and dilation (MAC) PRE-OP DIAGNOSIS: Dysphagia TISSUE SUBMITTED: A ? Duodenum, B ? Distal esophagus MICROSCOPIC DIAGNOSIS A. Duodenum, biopsy: Fragments of duodenal mucosa, no pathologic diagnosis. B. Distal esophagus, biopsy: Fragments of squamous mucosa with chronic inflammation. EDILMA:phoebe 07/17/2022 MICROSCOPIC DESCRIPTION Slides are reviewed. GROSS DESCRIPTION A - Received in fixative is one container labeled with the patient's name and designated duodenum. The specimen consists of multiple irregular fragments of light davalos soft tissue that in aggregate measure 1.0 x 0.4 x 0.1 cm. The specimen is totally submitted in one cassette. B - Received in fixative is one container labeled with the patient's name and designated distal esophagus. The specimen consists of multiple irregular fragments of light davalos soft tissue that in aggregate measure 0.5 x 0.5 x 0.1 cm. The specimen is totally submitted in one cassette. / EDILMA:phoebe 07/16/2022 TC:3 [facility]: [id number] x2
[2022-07-15 16:50] VITALS: BP 121/72; BP 122/72; PULSE 112; RESP 16; TEMP 36.7; O2SAT 100
--- NOTE | 2022-07-15 16:51 | HP.PCM_ITS ---
History and Physical Date of Admission: 07/15/22 41 F who presents to the office today for f/u intermittent RUQ pain, intermittent mild elevation in ALT, alk phos and GGT. For approx one yr she has had intermittent RUQ pain and transient elevations of ALT, alkaline phosphatase and GGT. She had normal RUQ US and normal HIDA scan. MRCP is abnormal--a slightly beaded appearance to the intra and extra hepatic biliary ducts; focal dilatation of the distal common hepatic duct at the bifurcation of the left and right hepatic ducts; slightly nodular liver contour; and prominent pancreas. Radiologist raised question of PSC considering the beaded appearance of biliary ducts, slightly nodular liver contour, and hx rectal fistula. She had fistula in ano repaired by Dr Vizcarra in approx 2009; it was thought possibly due to constipation post-. AMA and ASMA negative. IgG subclasses normal. Liver biopsy was obtained due to nodular contour of liver on MRCP and the possibility of PSC--focal mild macrovesicular steatosis. We started her on ursodiol 300 mg BID for possible PSC and liver steatosis. The RUQ pain is never severe, feels like a spasm, is dull. Maybe occurs 1-2x per week. Pain doesn't radiate. Can occur after eating, but doesn't have to be postprandial. No associated symptom, no nausea or vomiting. The RUQ pain didn't occur when on decadron for bronchitis, but she did have acid reflux while on steroid. Takes pepcid prn for heartburn. Intermittent bloating upper abd. No bowel issues; no diarrhea, constipation, melena, hematochezia. 04/2022 liver panel normal, lipase normal 120, IgG subclasses normal, stool calprotectin normal, stool lactoferrin normal 02/2022 esr 15, crp 4.5, ferr 119, normal ggt, normal ast, normal alt, alk phos 120 H, LDH normal, AFP normal, AMA neg, ASMA neg, ROBB-comprehensive neg, ANCA normal 01/2022 Elevated GGT 70 (5-55), remainder of liver profile normal 10/2021 ast normal 35, alt slighty elevated 59, alk phos slightly elevated 119 01/2021 ast normal 28, alt 77, alk phos 136 08/2020 ast normal 18, alt normal 29, alk phos 119 2014 colonoscopy for abd pain, minimal erythema, no gross inflammatory changes, no pathologic diagnosis on biopsies 04/30/22 Liver Biopsy MICROSCOPIC DIAGNOSIS Right lobe liver, CT-guided core biopsy: ?Liver parenchymal tissue with focal mild macrovesicular steatosis. ?See microscopic description and comment. MICROSCOPIC DESCRIPTION Slides are reviewed. The specimen shows liver parenchymal tissue with preserved lobular architecture.? Hepatocytes show focal mild macrovesicular steatosis.? Portal areas are essentially unremarkable.? No significant portal or lobular inflammation is noted.? Iron stain shows trace amount of iron in the hepatocytes.? Reticulin stain show normal hepatic architecture.? Trichrome stain does not show significant increased portal or periportal fibrosis.? PAS stain with and without diastase do not show any abnormal accumulation of protein.? All stains are performed with appropriate matched controls 04/21/22 MRI/MRCP Abdomen without Contrast IMPRESSION: FINDINGS: LIVER: No mass. Questionable slightly nodular contour. GALLBLADDER AND BILIARY TREE: No gallstones. No gallbladder distension or wall edema. The CBD measures 2 mm. There is a slightly beaded appearance to the intra and axial hepatic biliary ducts. The peripheral intrahepatic biliary ducts are not well depicted. There is focal dilatation of the distal common hepatic duct at the bifurcation of the left and right hepatic ducts. No choledochal filling defect. PANCREAS: Prominent size.? No obvious mass. No pancreatic duct dilation. SPLEEN: Non-enlarged. ADRENAL GLANDS: No nodules. KIDNEYS: Normal renal size and position. No hydronephrosis.? No mass. LYMPH NODES: No enlarged periportal or retroperitoneal lymph nodes. PERITONEUM: No ascites or fluid collection. VESSELS: Aorta is non-dilated. LOWER CHEST: No pleural effusion. Constellation of findings including beaded appearance to the intrahepatic and extrahepatic biliary ducts, slightly nodular liver contour and history of rectal fistulas is concerning for primary sclerosing cholangitis. Focal dilatation of the distal common hepatic duct could represent a choledochal cyst versus versus a saccular dilatation/diverticula secondary to a distal stricture.? Consider ERCP. Prominent pancreas with no surrounding inflammatory changes.? Correlate with lipase and IgG4 levels for possible autoimmune pancreatitis. 12/11/21 US/Abdomen Complete IMPRESSION: Normal abdominal ultrasound examination. 01/21/22 NM/Hepatobilliary Img w/Pharm Int IMPRESSION: 1.? NORMAL 99m Tc Mebrofenin hepatobiliary imaging examination with Cholecystokinin. A.? A gallbladder ejection fraction calculated to be greater than 35% following the administration of Cholecystokinin makes the probability of functional hepatobiliary disease (gallbladder and/or sphincter of Oddi dyskinesia) and/or organic hepatobiliary disease (chronic acalculous cholecystitis and/or cystic duct syndrome) to be low. (Mandy Marmolejo al, Journal of Nuclear Medicine 32:1695, 1991). ROS Const Constitutional: No fatigue ENT ENT: No difficulty swallowing Gastro GI: No abdominal pain, belching, bloating, change in bowel habits, change in stool character, coffee ground emesis, constipation, cramping, diarrhea, heartburn, difficulty swallowing, feeling full early, excessive flatus, incontinent of stools, Vomiting blood/hematemesis, Blood in stool, loose stools, Black,tarry stools, nausea/dyspepsia, pain with swallowing, vomiting or other Musc Musculoskeletal: No joint pain Skin Skin: No yellowing of the eye or itchy eyes Psych Psychiatric: No anxiety and No depression Endo Endocrine: No fatigue Aller/Imm Allergy/Immunologic: No itchy eyes Dariusz/Lymp Hematologic/Lymphatic: No easy bleeding or easy bruising Exam Const General: cooperative, healthy appearing and comfortable Nutritional Appearance: average body habitus Orientation: alert, awake and oriented x3 Quality Reporting Tobacco Screening ([facility] 138) Smoking Status: Never smoker Assessment and Plan Assessment and Plan (1) PSC (primary sclerosing cholangitis): ?Status:?Chronic ?Plan: 41 yr old female with intermittent RUQ pain, intermittent elevations of alk phos, ggt, ALT. Working diagnosis of PSC based on beaded appearance of bile ducts on MRCP. Next step is ERCP so Dr Dexter can evaluate for strictures and chaparrita greer, get biopsies. Liver bx showed focal mild macrovesicular steatosis. She is now on ursodiol 300 mg bid. f/u with Dr Dexter after the ERCP. I have examined the patient and the H&P has been reviewed. There are no clinical changes since date of exam.
[2022-07-15 16:55] VITALS: BP 122/72; BP 122/85; PULSE 110; RESP 16; O2SAT 100
--- NOTE | 2022-07-15 16:57 | OP.CCLET_ITS ---
07/15/2022 Hernan Esparza [address] [place] [address] Re : Upper GI endoscopy procedure for Farrah Frederick Dear Dr. Esparza This procedure was performed on Friday, July 15, 2022. My impressions and recommendations are as follows: Impressions : - Non-severe chronic esophagitis. Biopsied. - Moderate Schatzki ring. Dilated. - Normal stomach. - Chronic duodenitis. Biopsied. Recommendations : - Discharge patient to home. - Resume previous diet. - Continue present medications. - Await pathology results. My findings are described in the full procedure note, which is enclosed. If I can be of further assistance, please feel free to contact me at . Sincerely, Morgan Dexter, 07/15/2022 4:56:17 PM This report has been signed electronically.
--- NOTE | 2022-07-15 16:57 | OP.EGD_ITS ---
Patient Name: Farrah Mack Procedure Date: 07/15/2022 4:18 PM Date of : 1980 Age: 41 Procedure: Upper GI endoscopy Indications: Epigastric abdominal pain Providers: Morgan Dexter DO Medicines: Monitored Anesthesia Care Patient Profile: This is a 41 year old female. Refer to note in patient chart for documentation of history and physical. Patient has symptoms of acute abdominal cramping and chronic right upper quadrant abdominal pain. Complications: No immediate complications. Procedure: Pre-Anesthesia Assessment: - Prior to the procedure, a History and Physical was performed, and patient medications and allergies were reviewed. The patient is competent. The risks and benefits of the procedure and the sedation options and risks were discussed with the patient. All questions were answered and informed consent was obtained. Patient identification and proposed procedure were verified by the physician in the pre-procedure area. Mental Status Examination: normal. Prophylactic Antibiotics: The patient does not require prophylactic antibiotics. Prior Anticoagulants: The patient has taken no previous anticoagulant or antiplatelet agents. ASA Grade Assessment: II - A patient with mild systemic disease. After reviewing the risks and benefits, the patient was deemed in satisfactory condition to undergo the procedure. The anesthesia plan was to use monitored anesthesia care (MAC). Immediately prior to administration of medications, the patient was re-assessed for adequacy to receive sedatives. The heart rate, respiratory rate, oxygen saturations, blood pressure, adequacy of pulmonary ventilation, and response to care were monitored throughout the procedure. The physical status of the patient was re-assessed after the procedure. After obtaining informed consent, the endoscope was passed under direct vision. Throughout the procedure, the patient's blood pressure, pulse, and oxygen saturations were monitored continuously. The Endoscope was introduced through the mouth, and advanced to the second part of duodenum. The upper GI endoscopy was accomplished without difficulty. The patient tolerated the procedure well. Scope In: 4:35:35 PM Scope Out: 4:43:18 PM Total Procedure Duration Time 0 hours 7 minutes 43 seconds Findings: Non-severe esophagitis with no bleeding was found 39 to 40 cm from the incisors. Biopsies were taken with a cold forceps for histology. Verification of patient identification for the specimen was done. Estimated blood loss was minimal. A moderate Schatzki ring was found in the lower third of the esophagus. A guidewire was placed and the scope was withdrawn. Dilation was performed with a Savary dilator with no resistance at 51 Fr. The dilation site was examined and showed moderate improvement in luminal narrowing. Estimated blood loss was minimal. The entire examined stomach was normal. Localized moderate inflammation characterized by erosions, erythema and serpentine ulcerations was found in the duodenal bulb. Biopsies were taken with a cold forceps for histology. Verification of patient identification for the specimen was done. Estimated blood loss was minimal. Impression: - Non-severe chronic esophagitis. Biopsied. - Moderate Schatzki ring. Dilated. - Normal stomach. - Chronic duodenitis. Biopsied. Recommendation: - Discharge patient to home. - Resume previous diet. - Continue present medications. - Await pathology results. Procedure Code(s): --- Professional --- 29920, Esophagogastroduodenoscopy, flexible, transoral; with insertion of guide wire followed by passage of dilator(s) through esophagus over guide wire 71537, 59,51, Esophagogastroduodenoscopy, flexible, transoral; with biopsy, single or multiple CPT copyright 2017 [employer]. All rights reserved. The codes documented in this report are preliminary and upon button sewer hand review may be revised to meet current compliance requirements. Morgan Dexter DO 07/15/2022 4:56:17 PM This report has been signed electronically. Number of Addenda: 0 Note Initiated On: 07/15/2022 4:18 PM
[2022-07-15 17:00] VITALS: BP 120/85; BP 122/72; PULSE 106; RESP 18; O2SAT 100
[2022-07-15 17:05] VITALS: BP 116/87; BP 122/72; PULSE 108; RESP 18; TEMP 36.8; O2SAT 97
[2022-07-15 17:34] VITALS: BP 122/72
== END 2022-07-15 17:40 | disposition home or self-care (01) ==
LOC: EN 13:52 → AC 13:52
PROVIDERS: PCP Family Medicine; Referring Provider Family Medicine; Visit Provider Internal Medicine Gastroenterology
PROC: 0DJ08ZZ Inspection of Upper Intestinal Tract, Via Natural or Artificial Opening Endoscopic (ICD-10-PCS; CPT 43235; principal; 2022-07-15 14:55)
DX: K22.2 Esophageal obstruction (principal); K20.90 Esophagitis, unspecified without bleeding; K29.80 Duodenitis without bleeding; K83.09 Other cholangitis; F90.9 Attention-deficit hyperactivity disorder, unspecified type; F41.9 Anxiety disorder, unspecified; Z79.899 Other long term (current) drug therapy
CPT/HCPCS: 43248; 43239; 88305; J7120; C1769; J2405

== ENCOUNTER → 2022-09-17 | Outpatient (CLI) | payer OTHER, SELFPAY ==
[2022-09-17 15:38] LABS: Absolute Lymphocyte Count 2.73 X10^3/uL (0.83-4.51); Absolute Neutrophil Count 4.2 X10^3/uL (2.0-7.7); Basophil# 0.05 X10^3/uL; Basophil% 0.6 % (0-1); Eosinophil# 0.16 X10^3/uL; Eosinophils% 2.1 % (0-5); Hematocrit 38.6 % (37-47); Hemoglobin 13.3 g/dL (12.0-15.0); Lymphocyte # 2.73 X10^3/ul (0.83-4.51); Lymphocyte % 35.3 % (19-41); Mean Corp Hgb Conc 34.5 g/dL (32-36); Mean Corpuscular Hgb 31.8 pg (27.0-32.0); Mean Corpuscular Volume 92.3 fL (81-99); Mean Platelet Vol. 11.6 fl (6.2-12.0); Monocyte# 0.54 X10^3/uL; NRBC Flagged by Analyzer 0 % (0-5); Neutrophil # 4.23 X10^3/uL (2.7-7.7); Neutrophil % 54.7 % (47-70); Platelet Count 187 K/mm3 (150-450); RBC Distribution Width CV 12.5 % (11.6-14.6); RBC Distribution Width SD 42.5 fl (35.1-43.9); Red Blood Count 4.18 M/mm3 (4.2-5.4); White Blood Count 7.7 K/mm3 (4.4-11.0)
[2022-09-17 16:14] LABS: AST(SGOT) 20 U/L (15-37); Alanine Aminotransfer ALT/SGPT 26 U/L (13-56); Albumin, Serum 3.7 g/dL (3.2-5.0); Alkaline Phosphatase 103 U/L (45-117); Anion Gap 4 (5-15); BUN 17 mg/dL (7-18); BUN/Creat Ratio 22.3 RATIO (10-20); Calcium,Total 8.9 mg/dL (8.5-10.1); Chloride 105 mmol/L (98-107); Creatinine, Serum 0.76 mg/dL (0.55-1.02); EST Glomerular Filtration Rate 88 mL/min (>60); Est Glom Filt Rate - Afr Amer 106 mL/min (>60); Globulin 3.7 g/dL (2.2-4.2); Glucose 108 mg/dL (74-106); Potassium 3.6 mmol/L (3.5-5.1); Protein, Total 7.4 g/dL (6.4-8.2); Sodium Level 137 mmol/L (136-145)
== END | disposition home or self-care (01) ==
LOC: LAB 15:12
PROVIDERS: PCP Family Medicine; Referring Provider Family Medicine; Visit Provider Family Medicine
DX: R10.11 Right upper quadrant pain (principal)
CPT/HCPCS: 36415; 80053; 85025

== ENCOUNTER → 2022-12-02 | Outpatient (CLI) | payer OTHER, SELFPAY ==
--- NOTE | 2022-12-02 10:13 | NM_ITS ---
CLINICAL: 42-year-old female with history of gastroparesis. SOLID PHASE 99m Tc SULFUR COLLOID GASTRIC EMPTYING STUDY COMPARISON: Previous gastric emptying study report dated 06/22/2022 FINDINGS: The patient was administered 1.1 mCi of 99m Tc sulfur colloid mixed with egg and consumed per os. Image acquisitions in the anterior-posterior projections were obtained for 233 minutes following meal consumption. There is prompt visualization of the stomach. There is no gastroesophageal reflux identified. First order kinetics are maintained throughout the duration of the acquisitions. The T ? linear fit was extrapolated to be 152.06 minutes, (Normal 65-110 minutes). 79 % emptying and 21 % retention are defined at 4 hours post meal ingestion. NM/Gastric Emptying Study - 4 HR IMPRESSION: 1. ABNORMAL 99m Tc sulfur colloid solid phase gastric emptying imaging examination. A. There is abnormal solid phase gastric emptying compared to normal controls with maintained first order kinetics throughout all components of the examination. (Zeferino et al, Gastroenterology 77: 75, 1979 Shahida et al, Semin Nucl Med 12: 116, 1981 Sg et al, SNM Procedure Guidelines Adult Solid Meal Gastric Emptying Study 3.0 [email or web address]). B. Greater than 10% retention of the initial gastric contents at 4 hours post dose is consistent with abnormal solid phase gastric emptying which correlates with the results of the T ? emptying calculation. (Digna et al, J Nucl Med 48: 568, 2007). Electronically Signed: Jerrod Gonzales DO at 22:59 EDT ,
== END | disposition home or self-care (01) ==
LOC: NM 10:13
PROVIDERS: PCP Family Medicine; Referring Provider Internal Medicine Gastroenterology; Visit Provider Internal Medicine Gastroenterology
DX: K31.84 Gastroparesis (principal)
CPT/HCPCS: 78264; A9541

== ENCOUNTER → 2023-02-19 | Outpatient (CLI) | payer OTHER, SELFPAY ==
[2023-02-19 08:14] LABS: Erythrocyte Sedimentation Rate 2 mm/hr (0-30)
[2023-02-19 08:32] LABS: CPK Total, Creatine Kinase 72 U/L (26-192); CRP < 2.90 mg/L (0.0-3.0); LDH 212 U/L (84-246); T4 Free Direct 1.11 ng/dL (0.76-1.46); Thyroid Stim Hormone (TSH) 1.08 uIU/mL (0.358-3.74)
[2023-02-19 09:06] LABS: Hemoglobin A1c 5.5 % (3.8-5.6)
[2023-02-23 16:08] LABS: Acetylcholine Receptor Binding < 0.03 nmol/L (0.00-0.24); Estrogen, Total, Serum 358 pg/mL (.); Immunoglobulin A 279 mg/dL (87-352); Immunoglobulin G 1021 mg/dL (586-1602); Immunoglobulin M 118 mg/dL (26-217)
== END | disposition home or self-care (01) ==
PROVIDERS: PCP Family Medicine
DX: K31.84 Gastroparesis (principal)
CPT/HCPCS: 36415; 82550; 82672; 82784; 83036; 83615; 84238; 84439; 84443; 85652; 86140

== ENCOUNTER → 2023-02-26 | Outpatient (CLI) | payer OTHER, SELFPAY | END | disposition home or self-care (01) | PROVIDERS: PCP Family Medicine | DX: K31.84 Gastroparesis (principal) | CPT/HCPCS: 36415 ==

== ENCOUNTER → 2023-04-23 | Outpatient (CLI) | payer OTHER, SELFPAY ==
[2023-04-23 17:57] LABS: AST(SGOT) 17 U/L (15-37); Alanine Aminotransfer ALT/SGPT 29 U/L (13-56); Alkaline Phosphatase 99 U/L (45-117); Bilirubin, Direct 0.09 mg/dL (0.00-0.30); Globulin 3.8 g/dL (2.2-4.2); Protein, Total 7.8 g/dL (6.4-8.2)
[2023-04-25 12:08] LABS: Carbohydrate Ag 19-9 2261 3 U/mL (0-35)
== END | disposition home or self-care (01) ==
LOC: LAB 17:13
PROVIDERS: PCP Family Medicine; Referring Provider Internal Medicine Gastroenterology; Visit Provider Internal Medicine Gastroenterology
DX: K83.01 Primary sclerosing cholangitis (principal)
CPT/HCPCS: 36415; 80076; 82378; 86301

== ENCOUNTER → 2023-04-24 | Outpatient (CLI) | payer OTHER, SELFPAY ==
--- NOTE | 2023-04-24 07:20 | MRI_ITS ---
Abdominal MRI and MRCP without contrast 04/24/2023 7:49 AM COMPARISON: 04/21/2022 CLINICAL HISTORY: Primary sclerosing cholangitis, YEARLY FOLLOW UP PLEASE COMPARE TO PREVIOUS TECHNIQUE: Multiplanar and multisequence MR images of the abdomen were obtained with MRCP sequence. Three-dimensional post-processing reconstructions were performed. FINDINGS: LIVER: No mass. Questionable slightly nodular contour. GALLBLADDER AND BILIARY TREE: No gallstones. No gallbladder distension or wall edema. The CBD measures 2 mm. There is a slightly beaded appearance to the intra and extra hepatic biliary ducts, similar as prior. The peripheral intrahepatic biliary ducts are again not well depicted. Stable 1.8 cm choledochol cyst of the distal common hepatic duct at the bifurcation of the left and right hepatic ducts. No choledochal filling defect. PANCREAS: No obvious mass. No pancreatic duct dilation. SPLEEN: Non-enlarged. ADRENAL GLANDS: No nodules. KIDNEYS: Normal renal size and position. No hydronephrosis. No mass. LYMPH NODES: No enlarged periportal or retroperitoneal lymph nodes. PERITONEUM: No ascites or fluid collection. VESSELS: Aorta is non-dilated. LOWER CHEST: No pleural effusion. MRI/MRCP Abdomen without Contrast IMPRESSION: Stable appearance of primary sclerosing cholangitis. Stable 1.8 cm choledochol cyst of the common hepatic duct. Electronically Signed: Julian Padgett MD at 18:36 EST ,
--- OUTSIDE RECORDS SUMMARY | 2023-04-24 07:31 | XMS RPT_ITS | CCD ---
Author Name Unknown Address [facility] [address] [place] [address] Organization [facility] Care Team Providers Care Account Installer Name Role Phone Unavailable Primary Care Provider Unavailabl e FRIEND, ONEAL Temple Referring Unavailable FRIEND, ONEAL Temple Referring Unavailable CECI MCKINNEY Attending Unavailable MARIO HEREDIA Attending Unavailable FRIEND, ONEAL Temple Referring Unavailable ASHLIE TORRES Attending Unavaila ble FRIEND, ONEAL Temple Referring Unavailable Allergies Allergy Classification Reported Allergen(s) Allergy Type Date of Onset Reaction(s) Facility (5 sources) Clarithromycin; Translations: [CLARITHROMYCIN ] Drug Allergy 9 GI Upset [facility] Work Phone: (5 sources) Latex; Translations: [LATEX] Drug Intolerance 5 Other: See Comments [facility] (5 sources) levoFLOXacin; Translations: [LEVOFLOXACIN] Drug Allergy 4 Intolerance [facility] Work Phone: Medications Completed/Discontinued Medications Medication Drug Class(es) Dates Sig (Normalized) Sig (Original) busPIRone hydrochloride 5 mg oral tablet (5 sources) Start: 02-18-2023 take 1 tablet by mouth three times daily busPIRone (BUSPAR) 5 mg tablet Indications: Gastroparesis Take 1 tablet by mouth three times a day. 90 tablet 5 02/18/2023 Active Problems Active Problems Problem Classification Problem Date Documented Date Episodic/Chronic Other disorders of stomach and duodenum (7 sources) Gastroparesis syndrome; Translations: [Gastroparesis] Onset: 02-18-2023 02-18-2023 Episodic Past or Other Problems Problem Classification Problem Date Documented Da te Episodic/Chronic Allergic reactions (4 sources) Inflammatory dermatosis; Translations: [Irritant contact dermatitis, unspecified cause] Onset: 02-26-2010 02-26-2010 Episodic Anal and rectal conditions (8 sources) Anal fistula; Translations: [Anal fistula] Onset: 07-11-2008 07-11-2008 Episodic Other skin disorders (4 sources) Acne; Translations: [Other acne] Onset: 02-26-2010 02-26-2010 Episodic Other skin disorders (4 sources) Scar; Translations: [Scar conditions and fibrosis of skin] Onset: 02-26-2010 02-26-2010 Episodic Other skin disorders (4 sources) Asteatosis cutis; Translations: [Xerosis cutis] Onset: 02-26-2010 02-26-2010 Episodic Results Test Name Value Interpretation Reference Range Facil ity Vital Signs Date Time Vital Sign Value Performing Clinician Faci satish 02-18-2023 09:46-0500 Body height 157.5 cm Ceci Mckinney MD Work Phone: [facility] 02-18-2023 09:46-0500 Body weight 55.5 kg Ceci Mckinney MD Work Phone: [facility] 02-18-2023 09:46-0500 Diastolic blood pressure 70 mm[Hg] Ceci Mckinney MD Work Phone: [facility] 02-18-2023 09:46-0500 Heart rate 76 /min Ceci Mckinney MD Work Phone: [facility] 02-18-2023 09:46-0500 Systolic blood pressure 112 mm[Hg] Ceci Mckinney MD Work Phone: [facility] 02-18-2023 09:15-0500 Body height 157.5 cm Mario Heredia DO Work Phone: [facility] 02-18-2023 09:15-0500 Body weight 55.5 kg Mario Heredia DO Work Phone: [facility] 02-18-2023 09:15-0500 Diastolic blood pressure 70 mm[Hg] Mario Heredia DO Work Phone: [facility] 02-18-2023 09:15-0500 Heart rate 76 /min Mario Heredia DO Work Phone: [facility] 02-18-2023 09:15-0500 SaO2% (BldA) [Mass fraction] 100 % Mario Heredia DO Work Phone: [facility] 02-18-2023 09:15-0500 Systolic blood pressure 112 mm[Hg] Mario Heredia DO Work Phone: [facility] Encounters Encounter Date Encounter Type Care Provider Facility Start: 02-24-2023 Telephone encounter Mario Heredia DO Work Phone: Gastroenterology Start: 02-18-2023 End: 02-18-2023 ambulatory ONEAL Temple FRIEND Facility:[facility] Start: 02-18-2023 End: 02-18-2023 Patient encounter procedure Mario Heredia DO Work Phone: Gastroenterology Plan of Treatment Date Care Activity Detail Author Start: 12-10-2030 Urine microalbumin profile DTaP,Tdap,Td Vaccine (10 - Td or Tdap) [facility] Start: 02-18-2023 End: 05-20-2023 ACETYLCHOLINE REC BINDING AB ACETYLCHOLINE REC BINDING AB Lab Routine Gastroparesis Expected: 02/18/2023, Expires: 05/20/2023 [facility] Work Phone: Payers Date Payer Category Payer Private Health Insurance [facility] [id number] 2022-Present [phone] [address] [place] [address] PPO [id number] 2022 Private Health Insurance [id number] Social History Date Type Detail Facility Start: 03-28-2014 Tobacco smoking stat us KSIS Never smoked tobacco [facility] Start: 03-28-2014 Tobacco use and exposure Smoke less tobacco non-user [facility] Start: 02-18-2023 Alcohol intake 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 Patient outside medical report scanned into [employer] documented in this encounter [facility] Progress note 02-18-2023 Note Date & Type Note Facility 02-18-2023 Note HNO ID: [id number] Author: Ashlie Torres, PhD Service: ? Author Type: Psychologist Type: Progress Notes Filed: 02/18/2023 4:45 PM Note Text: [facility] [place] Name: Farrah Mack MR#: [id number] Date: 02/18/2023 Time: ? hour Referred by: Dr. Heredia Reason for Referral: gastroparesis interdisciplinary clinic - address psychological factors as they affect physical condition Information relayed back to referral source via electronic medical record Her chart was reviewed, and she gave her own medical and psych history. She was seen with her . 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 The basic principles of the brain gut connection were explored. Emphasis was placed on the effects of stress and emotions on physiology. She discussed ways in which her medical condition had had an effect on her life. She has been eating much less and her lost ~20#. She was given information about ways to mediate her emotional and physiological response. She was introduced to relaxation training. She was given the website for the [facility] and shown the relaxation recordings with the recommendation to practice this and the rationale behind their use. Follow-up with Dr. Campos was discussed. Ashlie Schultz, Ph.D. [facility] History of Present illness Narrative 02-18-2023 Ashlie Torres, PhD - 02/18/2023 4:40 PM EST Note Date & Type Note Facility 02-18-2023 History of Presen t illness Narrative [facility] Name: Farrah Mack MR#: [id number] Date: 02/18/2023 Time: hour Referred by: Dr. Heredia Reason for Referral: gastroparesis interdisciplinary clinic - address psychological factors as they affect physical condition Information relayed back to referral source via electronic medical record Her chart was reviewed, and she gave her own medical and psych history. She was seen with her . 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 The basic principles of the brain gut connection were explored. Emphasis was placed on the effects of stress and emotions on physiology. She discussed ways in which her medical condition had had an effect on her life. She has been eating much less and her lost ~20#. She was given information about ways to mediate her emotional and physiological response. She was introduced to relaxation training. She was given the website for the [facility] and shown the relaxation recordings with the recommendation to practice this and the rationale behind their use. Follow-up with Dr. Campos was discussed. Ashlie Schultz, Ph.D. documented in this encounter [facility] Progress note 02-18-2023 Note Date & Type Note Facility 02-18-2023 Note HNO ID: [id number] Author: Ceci Mckinney MD Service: ? Author Type: Physician Type: Progress Notes Filed: 02/18/2023 10:18 AM Note Text: Assessment ASSESSMENT 42 year old female with medical refractory gastroparesis. PLAN I discussed surgical therapy for gastroparesis in detail. Farrah Mack is candidate for Continued diet and medical management as her GCSI score is relatively low with diet control. She will contact me if that changes. We did briefly discuss a POP if her symptoms should worsen. NAME: Farrah Mack CLINIC NO: [id number] DATE OF SERVICE: February 16, 2023 This is an initial consultation for Farrah Mack who was referred to me by Dr. Mario Heredia for evaluation of medical refractory gastroparesis. My final recommendation will be communicated via shared electronic medical record. CHIEF COMPLAINT Idiopathic Gastroparesis HISTORY OF PRESENT ILLNESS Farrah Mack is a 42 year old female who comes in today for surgical evaluation for management of gastroparesis. The patient has been evaluated thoroughly including an EGD, and gastric emptying study. History of rectal fistula, primary sclerosing cholangitis, MRCP 04/21/2022, lower esophageal obstruction/Schatzki's ring dilated, elevated LFTs with CT directed core core liver biopsy 04/29/2022 Duration of symptoms (months): Started 2020 with bloating and then RUQ pain in 2021, better now with diet changes back in July Weight changes in last 3 months: Loss of 7 pounds since October 2022 Diet: Breakfast: 2% milk with pure protein and carnation instant breakfast, chobani flip with peanut butter. Lunch leftovers - protein and potato, pretzels body armour or Gatorade. Dinner if at work milk with protein powder, home - protein and a carb, ice cream with protein powder GERD: No Dysphagia: At times - did resolve after dilation but now back, mid chest (pills only, not food) Bowel Movements: Daily BMs with metamucil Pain: Intermittent RUQ abdominal pain with eating, controlled by small portions Narcotics: No Smoking/Vaping: No THC: No Previous surgery: x 2, fistulotomy with seton placement 07/22/2008. 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 Impression: Abnormal solid phase gastric emptying imaging exa SMART Pill (none) Anorectal Manometry 03/28/2014 IMPRESSION: Normal resting and squeeze pressures. Low volume studies. Patient experienced cramping during at [employer]. RAIR present. Normal defecometry. Patient expelled balloon Gastroparesis cardinal symptom index 1. nausea 1 2. retching 0 3. vomiting 0 4. stomach fullness 3 5. not able to finish a normal-sized meal 5 6. feeling excessively full after meals 3 7. loss of appetite 0 8. bloating (feeling like you need to loosen your clothes) 1 9. stomach or belly visibly larger 0 GCSI - 1.25 Scale (0-none; 1-very mild; 2-mild; 3-moderate; 4-severe; 5-very severe) PAST HISTORY PAST MEDICAL HISTORY Diagnosis Date ADD (attention deficit disorder) 02/26 Anal fistula Mitral valve prolapse 1997 Repeat ecchos are neg, no premedication prior to dental appts. Rosacea PAST SURGICAL HISTORY Procedure Laterality Date ADENOIDECTOMY PRIMARY Adenoidectomy DELIVERY ONLY 06/2005 , low cervical DELIVERY ONLY 12/2007 , low cervical DELIVERY ONLY 2005, 2007 , low transverse COLONOSCOPY W/BIOPSY SINGLE/MULTIPLE 04-14-14 ENDOMETRIAL ABLATION WITH US GUIDANCE 04/26 EXC BARTHOLINS GLAND/CYST 02/2001 LIG/TRNSXJ FLP TUBE ABDL/VAG APPR UNI/BI 2007 PAST SURGICAL HISTORY OF 07/22/08 fistulotomy w/seton suture placement PAST SURGICAL HISTORY OF 10/18/08 fistula curettage w/placement of cutting 2/0 silk seton suture PAST SURGICAL HISTORY OF 11/21/08 debridement interior perianal granulation tissue SIGMOIDOSCOPY FLX DX W/COLLJ SPEC BR/WA IF PFRMD 07/30/10 Normal SIGMOIDOSCOPY FLX DX W/COLLJ SPEC BR/WA IF PFRMD 06/11/12 Sigmoidoscopy, biopsy TONSILLECTOMY PRIMARY/SECONDARY Tonsillectomy FAMILY HISTORY Problem Relation Age of Onset Allergies Father Coronary Artery Disease Paternal Grandmother Coronary Artery Disease Paternal Grandfather Diabetes Paternal Grandmother Heart Paternal Grandmother 59 CHF Heart Paternal Grandfather (more content not included)... [facility] Progress note 02-18-2023 Note Date & Type Note Facility 02-18-2023 Note HNO ID: [id number] Author: Mario Heredia, DO Service: ? Author Type: Physician Type: Progress Notes Filed: 02/18/2023 9:56 AM Note Text: GASTROPARESIS CONSULT Patient is referred by Dr. Oneal Temple Friend for an opinion regarding GP and my final recommendations will be communicated back to the requesting physician by way of a copy of today's office notes. PRESENTING COMPLAINT AND HISTORY Farrah is a 42 yr old female w/hx of ADD, anal fistula, Schatzki's ring, PSC, former mitral valve prolapse, C section x2, endometrial ablation, fistulotomy w/seton, tubal ligation, and uterine ablation that had an abnormal gastric emptying study 11/2022 showing 21% retention at 4 hours. Symptoms started in 2020 with severe bloating and then in 2021 developed a sharp pain with eating. Abdominal pain with eating is controlled with monitoring food intake. Has daily bms with metamucil daily. C/o stomach fullness, early satiety and unable to finish a meal. Diet: tries to eat throughout the day; smaller portioned meals. Pure Protein powder. Taking Buspar for anxiety. The abdominal pain that started the work up has now resolved. She is controlling the symptoms with diet including soft diet and protein shakes. Last 3 months she has lost 5 more pounds. Patient is interested in learning more about EMPTIES Trial: Yes Patient is a candidate for EMPTIES Trial: Yes Gastrointestinal Symptoms Reflux/heartburn: No Abdominal pain/discomfort: intermittent with eating too much. Has to monitor the amount Weight loss: Yes Lost 20 lbs over 1 year Weight gain: No Do you have less than 3 bowel movements per week? No Diarrhea: No Constipation: No daily bms with metamucil Malnutrition: No Gastroparesis Cardinal Symptom Index (CGSI) 1. Nausea: 1 2. Retchin 3. Vomitin 4. Stomach fullness: 3 5. Not able to finish a normal-sized meal: 5 6. Feeling excessively full after meals: 3 7. Loss of appetite: 0 8. Bloating (feeling like you need to loosen your clothes): 1 9. Stomach or belly visibly larger: 0 CGSI Score: 1.25 Scale (0-none; 1-very mild; 2-mild; 3-moderate; 4-severe; 5-very severe) MEDICATION HISTORY Promotility Drugs - Reglan (Metoclopramide): No - Gimoti (Metoclopramide nasal): No - Motilium (Domperidone): No - Erythromycin (E-mycin): No - Propulsid (Cisapride)_: No Other - Tricyclic Antidepressants (nortriptyline - Pamelor; amitriptyline - Elavil): No - Buspirone (Buspar): Yes currently taking for anxiety - Mirtazapin (Remeron): No Anti-Nausea Medications - Compazine (Prochlorperazine): No - Phenergan (Promethazine): No - Benadryl (Diphenhydramine): No - Zofran (Ondansetron): No - Scopace (Scopolamine Patch): No - Granisetron (Kytril or Sancuso): No - Tigan (Trimethobenzamide)_: No Constipation Medications - Bulking Agents (Metamucil,Citrucel, Fibercon): Yes daily - Osmotic Laxatives (MOM, Polyethylene glycol (PEG), lactulose, sorbitol,MiraLax, Chronulal, Cephulac,Xylitol): No - Stimulant Laxatives (Ex-Lax, Senokot,Correctol, Dulcolax): No - Stool Softeners (Colace): No - Chloride Channel Activator (Amitiza): No - Linzess: No - Trulance: No - Motegrity: No Pain Medications - Does the patient see a apprentice painter brush for chronic abdominal pain?No - Is the patient taking narcotic pain medication for chronic abdominal pain? 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 No - Jejunostomy (J-tube): _No - Gastrostomy (G-tube): No - Gastro-Jejunostomy (GJ-tube): _No - Nasojejunal (NJ-tube): _No - Nasogastric (NG-tube): _No - TPN (IV): _No - IV home hydration (IV): _No Medical Records - Has the patient had a smart capsule study completed? No - Does the patient have a history of any foregut surgery (vagotomy, hiatal hernia repair/SUNSHINE Fundoplication, Heller Myotomy, gastrectomy, gastric bypass)?No If surgery, recent UGI? No - EGD: Yes - Botox Injections: No Patient Name Farrah Mack Age [id number] year old Gastroparesis Consult Test Date Completed Results Labs EGD Findings: Impression: Pathology: Colonoscopy 04/14/14 [facility] Op: minimal erythema of the transverse colon and proximal descending colon. MRI/MRCP Abd 04/21/22 [facility] Impression: See scanned records Gastric Emptying Study 12/02/2022 [facility] Findings: 79% emptying and 21% retention are defined at 4 hours post meal ing (more content not included)... [facility] History of Present illness Narrative 02-18-2023 Ceci Mckinney MD - 02/18/2023 10:00 AM EST Note Date & Type Note Facility 02-18-2023 History of Presen t illness Narrative Assessment ASSESSMENT 42 year old female with medical refractory gastroparesis. PLAN I discussed surgical therapy for gastroparesis in detail. Farrah Mack is candidate for Continued diet and medical management as her GCSI score is relatively low with diet control. She will contact me if that changes. We did briefly discuss a POP if her symptoms should worsen. NAME: Farrah Mack CLINIC NO: [id number] DATE OF SERVICE: February 16, 2023 This is an initial consultation for Farrah Mack who was referred to me by Dr. Mario Heredia for evaluation of medical refractory gastroparesis. My final recommendation will be communicated via shared electronic medical record. CHIEF COMPLAINT Idiopathic Gastroparesis HISTORY OF PRESENT ILLNESS Farrah Mack is a 42 year old female who comes in today for surgical evaluation for management of gastroparesis. The patient has been evaluated thoroughly including an EGD, and gastric emptying study. History of rectal fistula, primary sclerosing cholangitis, MRCP 04/21/2022, lower esophageal obstruction/Schatzki's ring dilated, elevated LFTs with CT directed core core liver biopsy 04/29/2022 Duration of symptoms (months): Started 2020 with bloating and then RUQ pain in 2021, better now with diet changes back in July Weight changes in last 3 months: Loss of 7 pounds since October 2022 Diet: Breakfast: 2% milk with pure protein and carnation instant breakfast, chobani flip with peanut butter. Lunch leftovers - protein and potato, pretzels body armour or Gatorade. Dinner if at work milk with protein powder, home - protein and a carb, ice cream with protein powder GERD: No Dysphagia: At times - did resolve after dilation but now back, mid chest (pills only, not food) Bowel Movements: Daily BMs with metamucil Pain: Intermittent RUQ abdominal pain with eating, controlled by small portions Narcotics: No Smoking/Vaping: No THC: No Previous surgery: x 2, fistulotomy with seton placement 07/22/2008. 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 Impression: Abnormal solid phase gastric emptying imaging exa SMART Pill (none) Anorectal Manometry 03/28/2014 IMPRESSION: Normal resting and squeeze pressures. Low volume studies. Patient experienced cramping during at [employer]. RAIR present. Normal defecometry. Patient expelled balloon Gastroparesis cardinal symptom index 1. nausea 1 2. retching 0 3. vomiting 0 4. stomach fullness 3 5. not able to finish a normal-sized meal 5 6. feeling excessively full after meals 3 7. loss of appetite 0 8. bloating (feeling like you need to loosen your clothes) 1 9. stomach or belly visibly larger 0 GCSI - 1.25 Scale (0-none; 1-very mild; 2-mild; 3-moderate; 4-severe; 5-very severe) PAST HISTORY PAST MEDICAL HISTORY Diagnosis Date ADD (attention deficit disorder) 02/26 Anal fistula Mitral valve prolapse 1997 Repeat ecchos are neg, no premedication prior to dental appts. Rosacea PAST SURGICAL HISTORY Procedure Laterality Date ADENOIDECTOMY PRIMARY <AGE 10 Adenoidectomy DELIVERY ONLY 06/2005 , low cervical DELIVERY ONLY 12/2007 , low cervical DELIVERY ONLY 2005, 2007 , low transverse COLONOSCOPY W/BIOPSY SINGLE/MULTIPLE 04-14-14 ENDOMETRIAL ABLATION WITH US GUIDANCE 04/26 EXC BARTHOLINS GLAND/CYST 02/2001 LIG/TRNSXJ FLP TUBE ABDL/VAG APPR /2007 PAST SURGICAL HISTORY OF 07/22/08 fistulotomy w/seton suture placement PAST SURGICAL HISTORY OF 10/18/08 fistula curettage w/placement of cutting 2/0 silk seton suture PAST SURGICAL HISTORY OF 11/21/08 debridement interior perianal granulation tissue SIGMOIDOSCOPY FLX DX W/COLLJ SPEC BR/WA IF PFRMD 07/30/10 Normal SIGMOIDOSCOPY FLX DX W/COLLJ SPEC BR/WA IF PFRMD 06/11/12 Sigmoidoscopy, biopsy TONSILLECTOMY PRIMARY/SECONDARY <AGE 10 1984 Tonsillectomy FAMILY HISTORY Problem Relation Age of Onset Allergies Father Coronary Artery Disease Paternal Grandmother Coronary Artery Disease Paternal Grandfather Diabetes Paternal Grandmother Heart Paternal Grandmother 59 CHF Heart Paternal Grandfather CO - at 70 Hypertension Paternal Grandmother Hypertension Paternal Grandfather Hypertension Father Psychiatry Paternal Grandfather nervous breakdown - no diagnosis Stroke Maternal Grandfather massisve anneurysm in brain 2001, hereditary per pt other (colon polyp [Other]) Paternal Grandfather Breast Cancer Maternal Grandmother diagnosed 12/26 mets to colon, pancreas and bone Social History Tobacco Use Smoking status: Never Smokeless tobacco: Never Substance Use Topics Alcohol use: No Drug use: No Current Outpatient Medications on File Prior to Visit Medication Sig busPIRone (BUSPAR) 5 mg tablet Take 5 mg by mouth twice daily. Only takes 1/2 pill during October through August lisdexamfetamine (VYVANSE) 40 mg capsule Take 40 mg by mouth once daily. spironolactone (ALDACTONE) 100 mg tablet Take 100 mg by mouth once daily. ERGOCALCIFEROL Take 1 tablet by mouth once daily. Psyllium Seed-Sucrose (METAMUCIL) ORAL Powd Take one tablespoon daily. No current facility-administered medications on file prior to visit. REVIEW OF SYSTEMS: General: Weight loss Neuro: No Hx of stroke or seizures Respiratory: No history of current cough or dyspnea, or pneumonia in the past 6 weeks. No history of respiratory/pulmonary symptoms or problems Cardiovascular: Positive for: Nothing GI: See HPI : No history of UTI in past 6 weeks. No history of renal failure. Not currently on or requiring dialysis. No history of symptoms or problems. AREA DEVELOPMENT CONSULTANT: Negative for abnormal vaginal bleeding, abnormal vaginal discharge., N/A : N/A Endocrine: No history of diabetes. Has not taken steroids within the past 30 days. No history of endocrinological symptoms or problems. Hematology: No history of bleeding or clotting disorder. Pt is not taking anti-coagulation or platelet medications. No history of hematological symptoms or problems. Oncology: No history of CA metastasis, chemo within 30 days, or radiotherapy within 90 days. Has not lost 10% of body wt in 6 months. No history of oncological symptoms or problems. Psych: Anxiety, ADD Musculoskeletal: Negative for joint pain or swelling, back pain or muscle pain. Skin: Negative for lesions, rash and itching. Physical Exam BP 112/70 (BP Site: Right Arm, BP Position: Sitting, BP Cuff Size: Large Adult) Pulse 76 Ht 157.5 cm (5' 2 ) Wt 55.5 kg (122 lb 5.7 oz) BMI 22.38 kg/m Gen - NAD Cervical - No Cervical LN, normal ROM HEENT - Anicteric sclera, MMM CV - RRR Pulm - No accessory muscle use, breaths appear even Abd - Soft, ND, NT Ext - No LE Edema documented in this encounter [facility] History of Present illness Narrative 02-18-2023 Mario Heredia, DO - 02/18/2023 9:30 AM EST Note Date & Type Note Facility 02-18-2023 History of Presen t illness Narrative GASTROPARESIS CONSULT Patient is referred by Dr. Oneal Temple Friend for an opinion regarding GP and my final recommendations will be communicated back to the requesting physician by way of a copy of today's office notes. PRESENTING COMPLAINT & HISTORY Farrah is a 42 yr old female w/hx of ADD, anal fistula, Schatzki's ring, PSC, former mitral valve prolapse, C section x2, endometrial ablation, fistulotomy w/seton, tubal ligation, and uterine ablation that had an abnormal gastric emptying study 11/2022 showing 21% retention at 4 hours. Symptoms started in 2020 with severe bloating and then in 2021 developed a sharp pain with eating. Abdominal pain with eating is controlled with monitoring food intake. Has daily bms with metamucil daily. C/o stomach fullness, early satiety and unable to finish a meal. Diet: tries to eat throughout the day; smaller portioned meals. Pure Protein powder. Taking Buspar for anxiety. The abdominal pain that started the work up has now resolved. She is controlling the symptoms with diet including soft diet and protein shakes. Last 3 months she has lost 5 more pounds. Patient is interested in learning more about EMPTIES Trial: Yes Patient is a candidate for EMPTIES Trial: Yes Gastrointestinal Symptoms Reflux/heartburn: No Abdominal pain/discomfort: intermittent with eating too much. Has to monitor the amount Weight loss: Yes Lost 20 lbs over 1 year Weight gain: No Do you have less than 3 bowel movements per week? No Diarrhea: No Constipation: No daily bms with metamucil Malnutrition: No Gastroparesis Cardinal Symptom Index (CGSI) 1. Nausea: 1 2. Retchin 3. Vomitin 4. Stomach fullness: 3 5. Not able to finish a normal-sized meal: 5 6. Feeling excessively full after meals: 3 7. Loss of appetite: 0 8. Bloating (feeling like you need to loosen your clothes): 1 9. Stomach or belly visibly larger: 0 CGSI Score: 1.25 Scale (0-none; 1-very mild; 2-mild; 3-moderate; 4-severe; 5-very severe) MEDICATION HISTORY Promotility Drugs - Reglan (Metoclopramide): No - Gimoti (Metoclopramide nasal): No - Motilium (Domperidone): No - Erythromycin (E-mycin): No - Propulsid (Cisapride)_: No Other - Tricyclic Antidepressants (nortriptyline - Pamelor; amitriptyline - Elavil): No - Buspirone (Buspar): Yes currently taking for anxiety - Mirtazapin (Remeron): No Anti-Nausea Medications - Compazine (Prochlorperazine): No - Phenergan (Promethazine): No - Benadryl (Diphenhydramine): No - Zofran (Ondansetron): No - Scopace (Scopolamine Patch): No - Granisetron (Kytril or Sancuso): No - Tigan (Trimethobenzamide)_: No Constipation Medications - Bulking Agents (Metamucil,Citrucel, Fibercon): Yes daily - Osmotic Laxatives (MOM, Polyethylene glycol (PEG), lactulose, sorbitol,MiraLax, Chronulal, Cephulac,Xylitol): No - Stimulant Laxatives (Ex-Lax, Senokot,Correctol, Dulcolax): No - Stool Softeners (Colace): No - Chloride Channel Activator (Amitiza): No - Linzess: No - Trulance: No - Motegrity: No Pain Medications - Does the patient see a apprentice painter brush for chronic abdominal pain?No - Is the patient taking narcotic pain medication for chronic abdominal pain? 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 No - Jejunostomy (J-tube): _No - Gastrostomy (G-tube): No - Gastro-Jejunostomy (GJ-tube): _No - Nasojejunal (NJ-tube): _No - Nasogastric (NG-tube): _No - TPN (IV): _No - IV home hydration (IV): _No Medical Records - Has the patient had a smart capsule study completed? No - Does the patient have a history of any foregut surgery (vagotomy, hiatal hernia repair/SUNSHINE Fundoplication, Heller Myotomy, gastrectomy, gastric bypass)?No If surgery, recent UGI? No - EGD: Yes - Botox Injections: No Patient Name Farrah Mack Age [age] year old Gastroparesis Consult Test Date Completed Results Labs EGD Findings: Impression: Pathology: Colonoscopy 04/14/14 [facility] Post Op: minimal erythema of the transverse colon and proximal descending colon. MRI/MRCP Abd 04/21/22 [facility] Impression: See scanned records Gastric Emptying Study 12/02/2022 [facility] Findings: 79% emptying and 21% retention are defined at 4 hours post meal ingestion. Impression: Abnormal solid phase gastric emptying imaging exam. Consults GI PAST SURGICAL HISTORY Procedure Laterality Date ADENOIDECTOMY PRIMARY <AGE 10 Adenoidectomy DELIVERY ONLY 06/2005 , low cervical DELIVERY ONLY 12/2007 , low cervical DELIVERY ONLY 2005, 2007 , low transverse COLONOSCOPY W/BIOPSY SINGLE/MULTIPLE 04-14-14 ENDOMETRIAL ABLATION WITH US GUIDANCE 04/26 EXC BARTHOLINS GLAND/CYST 02/2001 LIG/TRNSXJ FLP TUBE ABDL/VAG APPR UNI/BI 2007 PAST SURGICAL HISTORY OF 07/22/08 fistulotomy w/seton suture placement PAST SURGICAL HISTORY OF 10/18/08 fistula curettage w/placement of cutting 2/0 silk seton suture PAST SURGICAL HISTORY OF 11/21/08 debridement interior perianal granulation tissue SIGMOIDOSCOPY FLX DX W/COLLJ SPEC BR/WA IF PFRMD 07/30/10 Normal SIGMOIDOSCOPY FLX DX W/COLLJ SPEC BR/WA IF PFRMD 06/11/12 Sigmoidoscopy, biopsy TONSILLECTOMY PRIMARY/SECONDARY <AGE 10 1984 Tonsillectomy Current Outpatient Medications Medication Sig Dispense Refill busPIRone (BUSPAR) 5 mg tablet Take 5 mg by mouth twice daily. Only takes 1/2 pill during October through August lisdexamfetamine (VYVANSE) 40 mg capsule Take 40 mg by mouth once daily. spironolactone (ALDACTONE) 100 mg tablet Take 100 mg by mouth once daily. ERGOCALCIFEROL Take 1 tablet by mouth once daily. Psyllium Seed-Sucrose (METAMUCIL) ORAL Powd Take one tablespoon daily. No current facility-administered medications for this visit. ALLERGIES Allergen Reactions Biaxin [Clarithromy* GI Upset Latex Other: See Comments Cold sore on lips after dental appt. Levaquin [Levofloxa* Intolerance very red hands and feet/ burning/ itching Family History Problem Relation Age of Onset Allergies Father Coronary Artery Disease Paternal Grandmother Coronary Artery Disease Paternal Grandfather Diabetes Paternal Grandmother Heart Paternal Grandmother 59 CHF Heart Paternal Grandfather CO - at 70 Hypertension Paternal Grandmother Hypertension Paternal Grandfather Hypertension Father Psychiatry Paternal Grandfather nervous breakdown - no diagnosis Stroke Maternal Grandfather massisve anneurysm in brain 2001, hereditary per pt other (colon polyp [Other]) Paternal Grandfather Breast Cancer Maternal Grandmother diagnosed 12/26 mets to colon, pancreas and bone Social History Tobacco Use Smoking status: Never Smokeless tobacco: Never Substance Use Topics Alcohol use: No Drug use: No GI SPECIFIC ROS Difficulty swallowing / foods sticking in throat: No Hoarseness: No Chronic cough: No Regurgitation: Yes Chest pain: No Recent change in bowel movements: No Bloody or black, bowel movements: No Loss of control of bowel movements: No Night sweats, fever, chills: No Thought or memory problems: No Fluid in abdomen (ascites): No Prominent leg swelling: No Vomiting blood: No REVIEW OF SYSTEMS GENERAL: Weight loss HEENT: No changes in hearing or vision, no nose bleeds or other nasal problems RESPIRATORY: Negative for cough, hemoptysis, wheezing, COPD, dyspnea or shortness of breath CARDIOVASCULAR: Negative for chest pain, leg swelling, hypertension, CHF or palpitations : No history of dysuria, frequency or incontinence AREA DEVELOPMENT CONSULTANT: SEE HPI MUSCULOSKELETAL: Negative for joint pain or swelling, back pain or muscle pain SKIN: Negative for lesions, rash, and itching PSYCH: sleep disturbance ENDOCRINE: Negative for cold or heat intolerance, polyuria, polydipsia and goiter NEURO: SEE HPI PHYSICAL EXAMINATION There were no vitals taken for this visit. General appearance: alert and in no acute distress Skin: Skin color, texture, turgor normal, no suspicious rashes or lesions Head: normal Eyes: Anicteric sclera. Pupils are equally round and reactive to light. Extraocular movements are intact. Ears: Negative Nose/Sinuses: Negative Oropharynx: Negative findings: lips normal without lesions Neck: Negative findings: no jugular venous distention Back: motor and sensory appear to be normal Lungs: Unlabored on room air Heart: RRR without murmur, gallop, or rubs. No ectopy Abdomen: Normal abdominal exam Extremities: Negative findings: No deformities present Musculoskeletal: No joint swelling or tenderness Peripheral pulses: Normal Neuro: Negative findings: speech normal, mental status intact, cranial nerves 2-12 intact Plan Given the risk of autoimmune gastrointestinal dysmotility (AGID) as a possible cause for this patient's symptoms, as well as the fact the patient has yet to be evaluated for AGID, a full workup will be undertaken. If the antibody tests reveal a positive result the patient will then need to be treated with IVIG therapy as this is the only known treatment available at this time for AGID. Encounter Diagnosis ICD-10-CM 1. Gastroparesis K31.84 busPIRone (BUSPAR) 5 mg tablet CK CREATINE KINASE LD LACTATE DEHYDRO HGB A1C TSH BLD T4 FREE/FREE THYROX PYRUVATE+LACTATE BL AMINO ACIDS, PLASMA W/ CONSULTATION CARNITINE FREE/TOTAL, PLASMA ACETYLCHOLINE REC BINDING AB VOLTAGE GATED CA IGG VOLTAGE-GATED POTASSIUM MAHAN AB GLUTAMIC AC DECARBOXYLASE AB ORGANIC ACIDS UR, QUANT W/CONSULTATION IGA BLD IGG IGM C-REACTIVE PROTEIN (CRP) SED RATE [facility] CYTOKINE PANEL 13, SERUM ESTROGEN FRACTION BL Mario Heredia DO 02/17/2023 documented in this encounter [facility] Evaluation note Note Date & Type Note Facility documented in this encounter [facility] Evaluation note Note Date & Type Note Facility documented in this encounter [facility] Evaluation note Note Date & Type Note Facility documented in this encounter [facility] Summary Purpose Family History No Family History Records Found Advance Directives No Advanced Directives Records Found Additional Source Comments Source Comments (unrecognize d section and content) In the event this informatio n is protected by the Federal Confidentiality of Alcohol and Drug Abuse Patient Records regulations: The Federal rules restrict any use of the information to criminally investigate or prosecute any alcohol or drug abuse patient.[facility] the event this information is protected by the Federal Confidentiality of Alcohol and Drug Abuse Patient Records regulations: The Federal rules restrict any use of the information to criminally investigate or prosecute any alcohol or drug abuse patient.[facility] the event this information is protected by the Federal Confidentiality of Alcohol and Drug Abuse Patient Records regulations: The Federal rules restrict any use of the information to criminally investigate or prosecute any alcohol or drug abuse patient.[facility] the event this information is protected by the Federal Confidentiality of Alcohol and Drug Abuse Patient Records regulations: The Federal rules restrict any use of the information to criminally investigate or prosecute any alcohol or drug abuse patient.[facility] Reason for Visit (unrecogniz ed section and content) Reason Comments New Patient Gp consult INFORMATION SOURCE (unrecogn ized section and content) FOR RECORDS PERTAINING TO PATIENTS WHO ARE OR HAVE BEEN ENROLLED IN A CHEMICAL DEPENDENCY/SUBSTANCEABUSE PROGRAM, SOME INFORMATION MAY BE OMITTED. This clinical summary was aggregated from multiple sources. Caution should be exercised in using it in the provision of clinical care. This summary normalizes information from multiple sources, and as a consequence, information in this document may materially change the coding, format and clinical context of patient data. In addition, data may be omitted in some cases. CLINICAL DECISIONS SHOULD BE BASED ON THE PRIMARY CLINICAL RECORDS. [employer] provides no warranty or guarantee of the accuracy or completeness of information in this document.
== END | disposition home or self-care (01) ==
LOC: MRI 07:17
PROVIDERS: PCP Family Medicine; Referring Provider Internal Medicine Gastroenterology; Visit Provider Internal Medicine Gastroenterology
DX: K83.01 Primary sclerosing cholangitis (principal)
CPT/HCPCS: 74181

== ENCOUNTER → 2023-06-01 | Outpatient (CLI) | payer OTHER, SELFPAY ==
[2023-06-01 11:17] LABS: Vitamin B12 1158 pg/mL (211-911)
[2023-06-03 15:08] LABS: Anti-Parietal Cell AB, QN 20.9 Units (0.0-20.0); Gastrin, Serum 117 pg/mL (0-115); Intrinsic Factor Ab 1.1 AU/mL (0.0-1.1)
== END | disposition home or self-care (01) ==
LOC: LAB 10:08
PROVIDERS: PCP Family Medicine; Visit Provider Internal Medicine Gastroenterology
DX: Q44.4 Choledochal cyst (principal); K31.84 Gastroparesis; K22.2 Esophageal obstruction
CPT/HCPCS: 36415; 82607; 82746; 82941; 83516; 86340

== ENCOUNTER → 2023-07-27 | Outpatient (CLI) | payer OTHER, SELFPAY ==
--- NOTE | 2023-07-27 07:36 | MRI_ITS ---
MRI Abdomen w/ and w/out contrast 07/27/2023 8:12 AM COMPARISON: None CLINICAL HISTORY: PRIMARY SCLEROSING CHOLANGITIS WITH CHOLEDOCHAL CYST, EVALUATE CIRRHOSIS TECHNIQUE: Multiplanar T1 and T2 weighted, diffusion and dynamic post-gadolinium images were obtained through the abdomen before and after administration of 12 cc of IV Clariscan. FINDINGS: Liver: Questionable slightly nodular liver contour, unchanged since prior. Gallbladder: Unremarkable Pancreas: Unremarkable Spleen: Unremarkable Adrenal Glands: Unremarkable Kidneys: Unremarkable GI Tract: Unremarkable Lymphadenopathy: Absent Ascites: Absent Bones: No suspicious lesions MRI/MRI Abd WITH and W/O Contrast IMPRESSION: Difficult to evaluate previously described choledochal cyst and primary sclerosing cholangitis without MRCP sequences. Questionable slightly nodular liver contour, unchanged since prior. No arterially hyperenhancing or delayed washout lesions. Electronically Signed: Julian Padgett MD at 23:44 EDT ,
== END | disposition home or self-care (01) ==
LOC: MRI 07:10
PROVIDERS: PCP Family Medicine
DX: K83.01 Primary sclerosing cholangitis (principal)
CPT/HCPCS: 74183; A9575; A4216

== ENCOUNTER → 2023-07-29 | Outpatient (CLI) | payer OTHER, SELFPAY ==
[2023-07-29 08:45] LABS: Absolute Lymphocyte Count 2.44 X10^3/uL (0.83-4.51); Absolute Neutrophil Count 3.6 X10^3/uL (2.0-7.7); Basophil# 0.04 X10^3/uL; Basophil% 0.6 % (0-1); Eosinophil# 0.18 X10^3/uL; Eosinophils% 2.6 % (0-5); Hematocrit 40.2 % (37-47); Hemoglobin 13.5 g/dL (12.0-15.0); Lymphocyte # 2.44 X10^3/ul (0.83-4.51); Lymphocyte % 35.4 % (19-41); Mean Corp Hgb Conc 33.6 g/dL (32-36); Mean Corpuscular Hgb 31.7 pg (27.0-32.0); Mean Corpuscular Volume 94.4 fL (81-99); Mean Platelet Vol. 11.5 fl (6.2-12.0); Monocyte% 8.7 % (0-10); NRBC Flagged by Analyzer 0 % (0-5); Neutrophil # 3.63 X10^3/uL (2.7-7.7); Neutrophil % 52.6 % (47-70); Platelet Count 203 K/mm3 (150-450); RBC Distribution Width CV 13.2 % (11.6-14.6); RBC Distribution Width SD 45.4 fl (35.1-43.9); Red Blood Count 4.26 M/mm3 (4.2-5.4); White Blood Count 6.9 K/mm3 (4.4-11.0)
[2023-07-29 08:57] LABS: International Normalized Ratio 1.1; Prothrombin Time (Protime)PT. 14.3 SECONDS (11.7-14.9)
[2023-07-29 09:12] LABS: AST(SGOT) 15 U/L (15-37); Alanine Aminotransfer ALT/SGPT 20 U/L (13-56); Albumin, Serum 3.7 g/dL (3.2-5.0); Alkaline Phosphatase 89 U/L (45-117); Anion Gap 3 (5-15); BUN 10 mg/dL (7-18); BUN/Creat Ratio 15.2 RATIO (10-20); Bilirubin, Direct 0.13 mg/dL (0.00-0.30); Calcium,Total 8.5 mg/dL (8.5-10.1); Chloride 106 mmol/L (98-107); Cholesterol 185 mg/dL (200); Creatinine, Serum 0.66 mg/dL (0.55-1.02); EST Glomerular Filtration Rate 103 mL/min (>60); Est Glom Filt Rate - Afr Amer 125 mL/min (>60); Ferritin 88 ng/mL (8-252); Globulin 3.4 g/dL (2.2-4.2); Glucose 95 mg/dL (74-106); High Density Lipoprotein 59 mg/dL; Iron 106 ug/dL (50-170); Iron Binding Capacity,Total 332 ug/dL (250-450); PERCENT IRON SATURATION 31.9 % (15.0-55.0); Potassium 3.7 mmol/L (3.5-5.1); Protein, Total 7.1 g/dL (6.4-8.2); Sodium Level 137 mmol/L (136-145); Triglycerides 51 mg/dL; Very Low Density Lipoprotein 10 mg/dL (5-40)
[2023-07-30 16:10] LABS: AFP, Tumor Marker < 1.8 ng/mL (0.0-6.4); Anti-Mitochondrial AB <20.0 Units (0.0-20.0); Anti-Nuclear Antibody Test Negative (.); Anti-Smooth Muscle ABS 7 Units (0-19); Ceruloplasmin 20.5 mg/dL (19.0-39.0); Hepatitis A AB, Total Negative (Negative); PROEL- A/G Ratio 1.4 (0.7-1.7); PROEL- Albumin 3.9 g/dL (2.9-4.4); PROEL- Alpha-1 Globulin 0.2 g/dL (0.0-0.4); PROEL- Alpha-2 Globulin 0.6 g/dL (0.4-1.0); PROEL- Beta Globulin 0.9 g/dL (0.7-1.3); PROEL- Globulin, Total 2.7 g/dL (2.2-3.9); PROEL- TOTAL PROTEIN 6.6 g/dL (6.0-8.5); PROEL-M-Spike Not Observed g/dL (Not Observed); Transferrin 257 mg/dL (192-364)
== END | disposition home or self-care (01) ==
LOC: LAB 07-27 07:21 → LAB.FUTURE 06:41 → LAB 06:44
PROVIDERS: PCP Family Medicine
DX: K83.01 Primary sclerosing cholangitis (principal)
CPT/HCPCS: 36415; 80048; 80061; 80076; 82105; 82390; 82728; 83516; 83540; 83550; 84165; 84466; 85025; 85610; 86038; 86708

== ENCOUNTER → 2023-07-31 | Outpatient (CLI) | payer OTHER, SELFPAY ==
[2023-07-31 11:57] LABS: Hepatitis B Surface Antibody Reactive; Hepatitis B Surface Antigen Non-Reactive (Nonreactive); Hepatitis C Antibody Non-Reactive (Nonreactive)
[2023-08-03 16:56] LABS: Hepatitis B Core AB IgM Negative (Negative); Hepatitis B Core Ab Total Negative (Negative); IgG, Quant 1033 mg/dL (586-1602); Immunoglobulin G, Subclass 1 533 mg/dL (248-810); Immunoglobulin G, Subclass 2 303 mg/dL (130-555); Immunoglobulin G, Subclass 3 45 mg/dL (15-102); Immunoglobulin G, Subclass 4 11 mg/dL (2-96)
== END | disposition home or self-care (01) ==
PROVIDERS: PCP Family Medicine
DX: K83.01 Primary sclerosing cholangitis (principal)
CPT/HCPCS: 36415; 82784; 82787; 86704; 86705; 86706; 86803; 87340

== ENCOUNTER 2023-08-21 10:43 | Day surgery (SDC) | payer OTHER, SELFPAY ==
[2023-08-21 10:58] VITALS: BP 120/79; PULSE 96; RESP 20; TEMP 36.6; O2SAT 100; BMI 23.1
[2023-08-21] MEDS: Lactated Ringers 1,000 ML 15 ML IV (11:11)
--- NOTE | 2023-08-21 11:17 | HP.PCM_ITS ---
History and Physical Date of Admission: 08/21/23 42 F who presents to the office today for PCP OV 12.03.21 for annual appointment noting history of elevated LFT. ? Biochemical 11.01.21 CBC, CMP, LDH, triglycerides without pertinent abnormality. ? AST 35-ALT H59-AP H119, cholesterol 211 ? US complete 12.11.21 hepatic measurement 16.5cm with normal ech ogenicity. ? HIDA 01.21.22 EF 93% ? Biochemical 01.28.22 CBC, CMP, LFT without pertinent abnormality ? GGT H70 *BGI established 02.20.22 with RUQ discomfort and abnormal bloodwork. ? Biochemical ESR, haptoglobin, coag, ferritin, ammonia, LDH, ceruloplasmin, AFP, ASM, ANCA, ROBB comp, AMA WNL. ? NCO26-LSO03-OJ H120, CRP H4.53 MRCP 2.6.23 beaded appearance of intra/axial hepatic biliary ducts; focal dilation of distal common hepatic duct at bifurcation; slightly nodular hepatic contour, with history of rectal fistula concerning for PSC. Biochemical 2.7.23 IgG subclasses, lipase, LFT WNL ? Stool 2.9.23 calprotectin, lactoferrin WNL ? Liver biopsy 2.14.23 mild macrovesicular steatosis. ? Biochemical 2.24.23 CEA, CA19-9 WNL OV 2.22.23 recommending ursodiol and ERCP. ? Biochemical 4.6.23 RAST WNL. GET 4.19.23 92.46 minutes. ERCP 5.2.23 esophagitis; moderate Schatzki ring, Savary 51F moderate improvement ; local inflammation with serpentine ulcerations of duodenal bulb. OV 08.25.22 finished Carafate, while on this she was not having any abdominal pain. Since cessation (Thursday) she has had a return of RUQ ache/pressure postprandially. ? GET 4Hour 12.02.22 152.06 minutes (65-110) Contact, portal 12.08.22 recommend proceeding with gastroparesis clinic. [facility] gastroparesis clinic 02.16.23 start buspar. Referred to GI behavioral medicine ? Biochemical 04.23.23 LFT, CEA, CA19-9 WNL MRCP 04.24.23 slightly beaded intra/extra hepatic ductal appearance, stable; poor visualization of peripheral intrahepatic ducts; stable 1.8cm choledochal cyst of distal CHD at bifurcation. Stable primary sclerosing cholangitis. Contact 05.07.23 recommending referral to [facility] for choledochal cyst OV 3 report intermittent pressure in RUQ but is much improved. She did establish with [facility] gastroparesis who did biochemical testing which she reports as normal and does not require f/u; they did increase buspar to 5mg TID. [facility] hepatology apt scheduled for June to review cyst. ROS Const Constitutional: No fatigue ENT ENT: No difficulty swallowing Gastro GI: No abdominal pain, belching, bloating, change in bowel habits, change in s tool character, coffee ground emesis, constipation, cramping, diarrhea, heartburn, difficulty swallowing, feeling full early, excessive flatus, incontinent of stools, Vomiting blood/hematemesis, Blood in stool, loose stools, Black,tarry stools, nausea/dyspepsia, pain with swallowing, vomiting or other Musc Musculoskeletal: No joint pain Skin Skin: No yellowing of the eye or itchy eyes Psych Psychiatric: No anxiety and No depression Endo Endocrine: No fatigue Aller/Imm Allergy/Immunologic: No itchy eyes Dariusz/Lymp Hematologic/Lymphatic: No easy bleeding or easy bruising Exam Const General: cooperative, healthy appearing and comfortable Nutritional Appearance: average body habitus Orientation: alert, awake and oriented x3 Quality Reporting Tobacco Screening ([facility] 138) Smoking Status: Never smoker Assessment and Plan Assessment and Plan (1) Choledochal cyst: Status: Chronic Plan: She is scheduled to go down to [facility] for evaluation of her choledochal cyst. 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 We will see what the recommendations are from [facility] hepatology. (2) PSC (primary sclerosing cholangitis): Status: Chronic Plan: As of now she is doing very well regarding her primary sclerosing cholangitis. She did have a liver biopsy and that did not show any signs of significant liver disease. Her CA 19-9 was 7 and her CEA was 1.2. We will continue with surveillance MRIs yearly and yearly CA 19-9 along with CEA's. Recommendations are for colonoscopy in the future. I think she can wait until she is 43 in order to have a screening colonoscopy. (3) Schatzki's ring: Status: Chronic Plan: She is not having any signs or symptoms of esophageal dysphagia at this time. She is doing well on PPI therapy and we will continue that. (4) Gastroparesis: Status: Chronic Plan: Her gastric emptying time was 92 minutes with solid foods. We will put her on a gastroparesis diet prior to instituting medications for her. After 3 months she will need a 4-hour gastric emptying time so we can see exactly how she is doing with a more diagnostic test and the screening 1 hour gastric emptying time. From her for-hour gastric emptying study it was still prolonged more than 20% at 4 hours. She was started on BuSpar therapy and is at 5 mg p.o. 3 times daily and doing very well. We will get gastrin level along with antiparietal cell antibody and antiintrinsic factor antibody because of the association with autoimmune gastritis with idiopathic gastroparesis. (5) Duodenitis: Status: Acute Plan: She did have duodenitis that was seen on upper endoscopy and I think that is secondary to her underlying gastroparesis being that she has bile descending around in her duodenal sweep in the first portion of the duodenum causing inflammation in the area as she does not take NSAID therapy. She completed Carafate therapy and was doing very well while she was taking the Carafate however she did have some pain that she attributed to her duodenitis. I have examined the patient and the H&P has been reviewed. There are no clinical changes since date of exam.
--- NOTE | 2023-08-21 12:00 | EGD_PTH ---
PATIENT: JARAD AVALOS LOC: EN U#:[id number] AGE/SX: 43/F ROOM: RE08/21/[address]: Dr. Morgan Dexter DO : 1980 BED: DIS: 08/21/2023 SPEC #: [id number] RECD: 08/21/23 18:29 STATUS: KELLY MAYNOR #: [id number] HAYDEN: 08/21/23 12:[address]: Morgan Dexter DEPT: SURGICAL PATHOLOGY RECD BY: Cindy Steven ENTERED: 08/24/23 11:34 SP TYPE: EGD BIOPSY OT DR: Dr. Hernan Esparza MD Tissues: A - Duodenum, NOS B - Esophagus, NOS C - Cecum, NOS D - Rectum, NOS Procedures: Special Stain Group I Surgery Specimen Level IV Alcian Blue/PAS (control) HEADER OPERATION: Colonoscopy with biopy, bipolar electrohemostasis, EGD PRE-OP DIAGNOSIS: Choledochal cyst, primary sclerosing cholangitis, Schatzki's ring, gastroparesis, duodenitis TISSUE SUBMITTED: A- Duodenum biopsy, B- Distal esophagus, C- Cecum biopsy, D- Rectum biopsy MICROSCOPIC DIAGNOSIS A. Duodenum, biopsy: No pathologic change. B. Distal esophagus, biopsy: Gastroesophageal junction mucosa with mild chronic inflammation. No evidence of goblet cell metaplasia. See comment. C. Cecum, biopsy: No pathologic change. D. Rectum, biopsy: No pathologic change. / 08/25/2023 COMMENT B. Alcian blue/PAS stain with matched control is used in the evaluation of the specimen. MICROSCOPIC DESCRIPTION Slides are reviewed. GROSS DESCRIPTION A. Received in fixative is one container labeled with the patient's name and designated Duodenum biopsy. The specimen consists of two irregular fragments of light davalos soft tissue that in aggregate measure 0.6 x 0.6 x 0.1 cm. The specimen is totally submitted in one cassette. B. Received in fixative is one container labeled with the patient's name and designated Distal esophagus biopsy. The specimen consists of multiple irregular fragments of light davalos soft tissue that in aggregate measure 0.8 x 0.8 x 0.1 cm. The specimen is totally submitted in one cassette. C. Received in fixative is one container labeled with the patient's name and designated Cecum biopsy. The specimen consists of two irregular fragments of light davalos soft tissue that in aggregate measure 1.0 x 0.5 x 0.1 cm. The specimen is totally submitted in one cassette. D. Received in fixative is one container labeled with the patient's name and designated Rectum biopsy. The specimen consists of one irregular fragment of light davalos soft tissue that measures 0.4 x 0.3 x 0.1 cm. The specimen is totally submitted in one cassette. EDILMA/ 08/24/23 TC:3 CPT:[id number]
[2023-08-21 12:45] VITALS: BP 110/71; BP 120/79; PULSE 103; RESP 16; TEMP 36.4; O2SAT 100
--- NOTE | 2023-08-21 12:49 | OP.EGD_ITS ---
Patient Name: Farrah Mack Procedure Date: 08/21/2023 12:03 PM Date of : 1980 Age: 43 Procedure: Upper GI endoscopy Indications: Functional Dyspepsia Providers: Morgan Dexter DO Medicines: Monitored Anesthesia Care Patient Profile: This is a 43 year old female. Refer to note in patient chart for documentation of history and physical. Patient has symptoms of chronic dyspepsia and chronic nausea. Complications: No immediate complications. Procedure: Pre-Anesthesia Assessment: - Prior to the procedure, a History and Physical was performed, and patient medications and allergies were reviewed. The patient is competent. The risks and benefits of the procedure and the sedation options and risks were discussed with the patient. All questions were answered and informed consent was obtained. Patient identification and proposed procedure were verified by the physician in the pre-procedure area. Mental Status Examination: alert and oriented. Airway Examination: normal oropharyngeal airway and neck mobility. Respiratory Examination: clear to auscultation. CV Examination: normal. Prophylactic Antibiotics: The patient does not require prophylactic antibiotics. Prior Anticoagulants: The patient has taken no anticoagulant or antiplatelet agents. ASA Grade Assessment: II - A patient with mild systemic disease. After reviewing the risks and benefits, the patient was deemed in satisfactory condition to undergo the procedure. The anesthesia plan was to use monitored anesthesia care (MAC). Immediately prior to administration of medications, the patient was re-assessed for adequacy to receive sedatives. The heart rate, respiratory rate, oxygen saturations, blood pressure, adequacy of pulmonary ventilation, and response to care were monitored throughout the procedure. The physical status of the patient was re-assessed after the procedure. After obtaining informed consent, the endoscope was passed under direct vision. Throughout the procedure, the patient's blood pressure, pulse, and oxygen saturations were monitored continuously. The colonoscope was introduced through the mouth, and advanced to the duodenal bulb. The upper GI endoscopy was accomplished without difficulty. The patient tolerated the procedure well. Scope In: 12:13:28 PM Scope Out: 12:18:11 PM Total Procedure Duration Time 0 hours 4 minutes 43 seconds Findings: A moderate Schatzki ring was found at the gastroesophageal junction. Biopsies were taken with a cold forceps for histology. Verification of patient identification for the specimen was done. Estimated blood loss was minimal. A small hiatal hernia was present. No other significant abnormalities were identified in a careful examination of the stomach. Patchy mildly erythematous mucosa without active bleeding and with no stigmata of bleeding was found in the duodenal bulb. Biopsies were taken with a cold forceps for histology. Verification of patient identification for the specimen was done. Estimated blood loss was minimal. Impression: - Moderate Schatzki ring. Biopsied. - Small hiatal hernia. - Erythematous duodenopathy. Biopsied. Recommendation: - Discharge patient to home. - Resume previous diet. - Continue present medications. - Await pathology results. Procedure Code(s): --- Professional --- 42594, Esophagogastroduodenoscopy, flexible, transoral; with biopsy, single or multiple CPT copyright 2021 [employer]. All rights reserved. The codes documented in this report are preliminary and upon customer assistant review may be revised to meet current compliance requirements. Morgan Dexter DO 08/21/2023 12:48:48 PM This report has been signed electronically. Number of Addenda: 0 Note Initiated On: 08/21/2023 12:03 PM
--- NOTE | 2023-08-21 12:49 | OP.CCLET_ITS ---
08/21/2023 Hernan Esparza [address] [facility] [address] [place] [address] Re : Upper GI endoscopy procedure for Farrah Mack Dear Dr. Esparza This procedure was performed on Monday, August 21, 2023. My impressions and recommendations are as follows: Impressions : - Moderate Schatzki ring. Biopsied. - Small hiatal hernia. - Erythematous duodenopathy. Biopsied. Recommendations : - Discharge patient to home. - Resume previous diet. - Continue present medications. - Await pathology results. My findings are described in the full procedure note, which is enclosed. If I can be of further assistance, please feel free to contact me at . Sincerely, Morgan Dexter, 08/21/2023 12:48:48 PM This report has been signed electronically.
[2023-08-21 12:50] VITALS: BP 103/74; BP 120/79; PULSE 96; RESP 16; O2SAT 100
[2023-08-21 12:55] VITALS: BP 103/66; BP 120/79; PULSE 95; RESP 16; TEMP 36.1; O2SAT 98
--- NOTE | 2023-08-21 12:56 | OP.COLON_ITS ---
Patient Name: Farrah Mack Procedure Date: 08/21/2023 12:18 PM Date of : 1980 Age: 43 Procedure: Colonoscopy Indications: Screening for colorectal malignant neoplasm Providers: Morgan Dexter DO Medicines: Monitored Anesthesia Care Patient Profile: This is a 43 year old female. Refer to note in patient chart for documentation of history and physical. Patient has symptoms of chronic dyspepsia and chronic nausea. Last Colonoscopy: none. The patient's first colonoscopy is today. Complications: No immediate complications. Procedure: Pre-Anesthesia Assessment: - Prior to the procedure, a History and Physical was performed, and patient medications and allergies were reviewed. The patient is competent. The risks and benefits of the procedure and the sedation options and risks were discussed with the patient. All questions were answered and informed consent was obtained. Patient identification and proposed procedure were verified by the physician in the pre-procedure area. Mental Status Examination: alert and oriented. Airway Examination: normal oropharyngeal airway and neck mobility. Respiratory Examination: clear to auscultation. CV Examination: normal. Prophylactic Antibiotics: The patient does not require prophylactic antibiotics. Prior Anticoagulants: The patient has taken no anticoagulant or antiplatelet agents. ASA Grade Assessment: II - A patient with mild systemic disease. After reviewing the risks and benefits, the patient was deemed in satisfactory condition to undergo the procedure. The anesthesia plan was to use monitored anesthesia care (MAC). Immediately prior to administration of medications, the patient was re-assessed for adequacy to receive sedatives. The heart rate, respiratory rate, oxygen saturations, blood pressure, adequacy of pulmonary ventilation, and response to care were monitored throughout the procedure. The physical status of the patient was re-assessed after the procedure. After I obtained informed consent, the scope was passed under direct vision. Throughout the procedure, the patient's blood pressure, pulse, and oxygen saturations were monitored continuously. The colonoscope was introduced through the anus and advanced to the terminal ileum. The colonoscopy was performed without difficulty. The patient tolerated the procedure well. The quality of the bowel preparation was good. The terminal ileum, ileocecal valve, appendiceal orifice, and rectum were photographed. Scope In: 12:20:12 PM Scope Withdrawal Time 0 hours 13 minutes 59 seconds Scope Out: 12:37:03 PM Total Procedure Duration Time 0 hours 16 minutes 51 seconds Findings: The perianal and digital rectal examinations were normal. An area of mildly congested mucosa was found in the rectum and in the cecum. Biopsies were taken with a cold forceps for histology. Verification of patient identification for the specimen was done. Estimated blood loss was minimal. The exam was otherwise without abnormality on direct and retroflexion views. Impression: - Congested mucosa in the rectum and in the cecum. Biopsied. - The examination was otherwise normal on direct and retroflexion views. Recommendation: - Discharge patient to home. - Resume previous diet. - Continue present medications. - Await pathology results. - Repeat colonoscopy in 10 years for screening purposes. Procedure Code(s): --- Professional --- 66614, Colonoscopy, flexible; with biopsy, single or multiple CPT copyright 2021 [employer]. All rights reserved. The codes documented in this report are preliminary and upon home supervisor review may be revised to meet current compliance requirements. Morgan Dexter DO 08/21/2023 12:56:07 PM This report has been signed electronically. Number of Addenda: 0 Note Initiated On: 08/21/2023 12:18 PM
--- NOTE | 2023-08-21 12:56 | OP.CCLET_ITS ---
08/21/2023 Hernan Esparza [address] [facility] [address] [place] [address] Re : Colonoscopy procedure for Farrah Mack Dear Dr. Esparza This procedure was performed on Monday, August 21, 2023. My impressions and recommendations are as follows: Impressions : - Congested mucosa in the rectum and in the cecum. Biopsied. - The examination was otherwise normal on direct and retroflexion views. Recommendations : - Discharge patient to home. - Resume previous diet. - Continue present medications. - Await pathology results. - Repeat colonoscopy in 10 years for screening purposes. My findings are described in the full procedure note, which is enclosed. If I can be of further assistance, please feel free to contact me at . Sincerely, Morgan Dexter, 08/21/2023 12:56:07 PM This report has been signed electronically.
[2023-08-21 13:11] VITALS: BP 120/79
== END 2023-08-21 13:19 | disposition home or self-care (01) ==
LOC: EN 10:45 → AC 10:45
PROVIDERS: PCP Family Medicine; Referring Provider Family Medicine; Visit Provider Internal Medicine Gastroenterology
PROC: 0DJD8ZZ Inspection of Lower Intestinal Tract, Via Natural or Artificial Opening Endoscopic (ICD-10-PCS; CPT 45378; principal; 2023-08-21 11:55)
DX: K83.01 Primary sclerosing cholangitis (principal); Q44.4 Choledochal cyst; K44.9 Diaphragmatic hernia without obstruction or gangrene; K22.2 Esophageal obstruction; K31.84 Gastroparesis; K29.80 Duodenitis without bleeding; K31.89 Other diseases of stomach and duodenum; K62.89 Other specified diseases of anus and rectum; K63.89 Other specified diseases of intestine
CPT/HCPCS: 45380; 43239; 88305; 88312; J7120; J2405

== ENCOUNTER 2023-10-30 07:59 | Outpatient (RCR) | payer OTHER, SELFPAY ==
[2023-10-30 08:56] LABS: Absolute Lymphocyte Count 2.01 X10^3/uL (0.83-4.51); Absolute Neutrophil Count 2.4 X10^3/uL (2.0-7.7); Basophil# 0.05 X10^3/uL; Eosinophil# 0.15 X10^3/uL; Hematocrit 41.8 % (37-47); Hemoglobin 13.9 g/dL (12.0-15.0); Lymphocyte # 2.01 X10^3/ul (0.83-4.51); Lymphocyte % 40.6 % (19-41); Mean Corp Hgb Conc 33.3 g/dL (32-36); Mean Corpuscular Hgb 31.2 pg (27.0-32.0); Mean Corpuscular Volume 93.7 fL (81-99); Mean Platelet Vol. 11.4 fl (6.2-12.0); Monocyte# 0.35 X10^3/uL; Monocyte% 7.1 % (0-10); NRBC Flagged by Analyzer 0 % (0-5); Neutrophil # 2.38 X10^3/uL (2.7-7.7); Neutrophil % 48.1 % (47-70); Platelet Count 193 K/mm3 (150-450); RBC Distribution Width SD 42.1 fl (35.1-43.9); Red Blood Count 4.46 M/mm3 (4.2-5.4)
[2023-10-30 09:00] LABS: International Normalized Ratio 1.1
[2023-10-30 09:15] LABS: AST(SGOT) 20 U/L (15-37); Alanine Aminotransfer ALT/SGPT 33 U/L (13-56); Alkaline Phosphatase 104 U/L (45-117); Bilirubin, Direct 0.13 mg/dL (0.00-0.30); Globulin 3.6 g/dL (2.2-4.2); Protein, Total 7.6 g/dL (6.4-8.2)
[2023-10-30 09:18] LABS: Vitamin B12 1043 pg/mL (211-911)
[2023-10-30 09:22] LABS: ALB/GLOB Ratio 1.1 RATIO (0.9-2.4); AST(SGOT) 24 U/L (15-37); Alanine Aminotransfer ALT/SGPT 33 U/L (13-56); Albumin, Serum 3.9 g/dL (3.2-5.0); Alkaline Phosphatase 100 U/L (45-117); Anion Gap 5 (5-15); BUN 14 mg/dL (7-18); BUN/Creat Ratio 19.4 RATIO (10-20); Bilirubin, Direct 0.12 mg/dL (0.00-0.30); Calcium,Total 8.8 mg/dL (8.5-10.1); Chloride 105 mmol/L (98-107); Creatinine, Serum 0.72 mg/dL (0.55-1.02); EST Glomerular Filtration Rate 93 mL/min (>60); Est Glom Filt Rate - Afr Amer 112 mL/min (>60); Globulin 3.7 g/dL (2.2-4.2); Glucose 102 mg/dL (74-106); Protein, Total 7.6 g/dL (6.4-8.2); Sodium Level 138 mmol/L (136-145)
[2023-10-31 08:16] LABS: Carbohydrate AG 19-9 3 U/mL (0-35)
[2023-11-02 17:07] LABS: Gastrin, Serum 19 pg/mL (0-115)
== END 2023-10-30 18:00 | disposition home or self-care (01) ==
LOC: LAB 07:59
PROVIDERS: Internal Medicine Gastroenterology; PCP Family Medicine
DX: K83.01 Primary sclerosing cholangitis (principal); Q44.4 Choledochal cyst
CPT/HCPCS: 36415; 80053; 80076; 82248; 82607; 82746; 82941; 85025; 85610; 86301; 86340

== ENCOUNTER → 2023-12-24 | Outpatient (CLI) | payer OTHER, SELFPAY ==
[2023-12-30 16:11] LABS: HPV APTIMA, High Risk Negative (Negative)
== END | disposition home or self-care (01) ==
LOC: LABSPEC 13:59
PROVIDERS: PCP Family Medicine; Referring Provider Nurse Practitioner Family; Visit Provider Nurse Practitioner Family
DX: Z12.4 Encounter for screening for malignant neoplasm of cervix (principal)
CPT/HCPCS: 87624; 88175; G0145

== ENCOUNTER → 2024-01-22 | Outpatient (CLI) | payer OTHER, SELFPAY | END | disposition home or self-care (01) | LOC: OPBI 13:02 | PROVIDERS: PCP Family Medicine; Referring Provider Nurse Practitioner Family; Visit Provider Nurse Practitioner Family | DX: Z12.31 Encounter for screening mammogram for malignant neoplasm of breast (principal) | CPT/HCPCS: 77063; 77067 ==

== ENCOUNTER 2024-01-27 09:01 | Outpatient (RCR) | payer OTHER, SELFPAY ==
[2024-01-27 09:21] LABS: Absolute Lymphocyte Count 2.08 X10^3/uL (0.83-4.51); Absolute Neutrophil Count 2.2 X10^3/uL (2.0-7.7); Basophil# 0.04 X10^3/uL; Basophil% 0.8 % (0-1); Eosinophil# 0.15 X10^3/uL; Eosinophils% 3.1 % (0-5); Lymphocyte # 2.08 X10^3/ul (0.83-4.51); Lymphocyte % 42.8 % (19-41); Mean Corp Hgb Conc 33.3 g/dL (32-36); Mean Corpuscular Hgb 31.2 pg (27.0-32.0); Mean Corpuscular Volume 93.5 fL (81-99); Mean Platelet Vol. 11.3 fl (6.2-12.0); Monocyte# 0.37 X10^3/uL; Monocyte% 7.6 % (0-10); NRBC Flagged by Analyzer 0 % (0-5); Neutrophil # 2.22 X10^3/uL (2.7-7.7); Neutrophil % 45.7 % (47-70); Platelet Count 179 K/mm3 (150-450); RBC Distribution Width SD 41.9 fl (35.1-43.9); Red Blood Count 4.49 M/mm3 (4.2-5.4); White Blood Count 4.9 K/mm3 (4.4-11.0)
[2024-01-27 09:33] LABS: Prothrombin Time (Protime)PT. 13.5 SECONDS (11.7-14.9)
[2024-01-27 09:41] LABS: AST(SGOT) 17 U/L (15-37); Alanine Aminotransfer ALT/SGPT 27 U/L (13-56); Alkaline Phosphatase 103 U/L (45-117); Anion Gap 5 (5-15); BUN 14 mg/dL (7-18); BUN/Creat Ratio 19.2 RATIO (10-20); Bilirubin, Direct 0.13 mg/dL (0.00-0.30); Calcium,Total 9.2 mg/dL (8.5-10.1); Chloride 106 mmol/L (98-107); Creatinine, Serum 0.73 mg/dL (0.55-1.02); EST Glomerular Filtration Rate 92 mL/min (>60); Est Glom Filt Rate - Afr Amer 111 mL/min (>60); Globulin 3.7 g/dL (2.2-4.2); Glucose 74 mg/dL (74-106); Protein, Total 7.7 g/dL (6.4-8.2); Sodium Level 140 mmol/L (136-145)
[2024-02-01 13:07] LABS: AFP, Tumor Marker < 1.8 ng/mL (0.0-6.4); Anti-Parietal Cell AB, QN 23.4 Units (0.0-20.0); Carbohydrate AG 19-9 4 U/mL (0-35); Intrinsic Factor Ab 1.1 AU/mL (0.0-1.1)
== END 2024-02-13 23:59 ==
LOC: PAVLAB 09:01
PROVIDERS: Student in an Organized Health Care Education/Training Program; PCP Family Medicine
DX: K83.01 Primary sclerosing cholangitis (principal); K31.84 Gastroparesis; K29.80 Duodenitis without bleeding
CPT/HCPCS: 36415; 80048; 80076; 82105; 83516; 85025; 85610; 86301; 86340

== ENCOUNTER 2024-05-05 10:00 | Outpatient (RCR) | payer OTHER, SELFPAY ==
[2024-05-05 10:32] LABS: Absolute Lymphocyte Count 2.53 X10^3/uL (0.83-4.51); Absolute Neutrophil Count 5.1 X10^3/uL (2.0-7.7); Basophil# 0.05 X10^3/uL; Basophil% 0.6 % (0-1); Eosinophil# 0.14 X10^3/uL; Eosinophils% 1.6 % (0-5); Hematocrit 39.9 % (37-47); Hemoglobin 13.2 g/dL (12.0-15.0); Lymphocyte # 2.53 X10^3/ul (0.83-4.51); Lymphocyte % 29.7 % (19-41); Mean Corp Hgb Conc 33.1 g/dL (32-36); Mean Corpuscular Hgb 30.6 pg (27.0-32.0); Mean Corpuscular Volume 92.4 fL (81-99); Mean Platelet Vol. 11.1 fl (6.2-12.0); Monocyte# 0.64 X10^3/uL; Monocyte% 7.5 % (0-10); NRBC Flagged by Analyzer 0 % (0-5); Neutrophil # 5.12 X10^3/uL (2.7-7.7); Neutrophil % 60.2 % (47-70); Platelet Count 212 K/mm3 (150-450); RBC Distribution Width CV 12.4 % (11.6-14.6); RBC Distribution Width SD 42.1 fl (35.1-43.9); Red Blood Count 4.32 M/mm3 (4.2-5.4); White Blood Count 8.5 K/mm3 (4.4-11.0)
[2024-05-05 11:04] LABS: AST(SGOT) 22 U/L (15-37); Alanine Aminotransfer ALT/SGPT 38 U/L (13-56); Albumin, Serum 3.9 g/dL (3.2-5.0); Alkaline Phosphatase 120 U/L (45-117); Anion Gap 6 (5-15); BUN 17 mg/dL (7-18); BUN/Creat Ratio 24.4 RATIO (10-20); Calcium,Total 9.3 mg/dL (8.5-10.1); Chloride 103 mmol/L (98-107); EST Glomerular Filtration Rate 96 mL/min (>60); Est Glom Filt Rate - Afr Amer 117 mL/min (>60); Globulin 3.9 g/dL (2.2-4.2); Glucose 93 mg/dL (74-106); Potassium 3.8 mmol/L (3.5-5.1); Protein, Total 7.8 g/dL (6.4-8.2); Sodium Level 138 mmol/L (136-145); Thyroid Stim Hormone (TSH) 0.944 uIU/mL (0.358-3.740)
[2024-05-05 12:22] LABS: International Normalized Ratio 1.1
[2024-05-10 17:08] LABS: AFP, Tumor Marker < 1.8 ng/mL (0.0-6.4); Carbohydrate Ag 19-9 2261 4 U/mL (0-35); Gastrin, Serum 81 pg/mL (0-115)
== END 2024-05-13 23:59 ==
LOC: PAVLAB 10:00
PROVIDERS: Student in an Organized Health Care Education/Training Program; PCP Family Medicine
DX: K83.01 Primary sclerosing cholangitis (principal); K31.84 Gastroparesis; K29.80 Duodenitis without bleeding
CPT/HCPCS: 36415; 80053; 82105; 82378; 82941; 84443; 85025; 85610; 86301

== ENCOUNTER → 2024-05-10 | Outpatient (CLI) | payer OTHER, SELFPAY ==
[2024-05-11 04:27] LABS: Estradiol 25.5 pg/mL; Follicle Stimulating Hormone 93.6 mIU/mL
== END | disposition home or self-care (01) ==
LOC: PAVLAB 09:38
PROVIDERS: PCP Family Medicine; Referring Provider Nurse Practitioner Family; Visit Provider Nurse Practitioner Family
DX: R23.2 Flushing (principal)
CPT/HCPCS: 36415; 82670; 83001

== ENCOUNTER → 2024-05-31 | Outpatient (CLI) | payer OTHER, SELFPAY ==
--- NOTE | 2024-05-31 08:36 | BD_ITS ---
PROCEDURE: DEXA BONE DENSITY STUDY REASON FOR EXAM: HX OF PRIMARY SCLEROSING CHOLANGITIS TECHNIQUE: DEXA scan of the lumbar spine and hip(s). COMPARISON: None FINDINGS: LUMBAR SPINE: Bone mineral denisty, L1-L4: 0.976 g/cm??? T-score: -0.6 LEFT FEMORAL NECK: Bone mineral denisty: 0.707 g/cm??? T-score: -1.3 LEFT TOTAL HIP: Bone mineral denisty: 0.892 g/cm??? T-score: -0.4 RIGHT FEMORAL NECK: Bone mineral denisty: 0.718 g/cm??? T-score: -1.2 RIGHT TOTAL HIP: Bone mineral denisty: 0.878 g/cm??? T-score: -0.5 FRAX*: 10 Year Probability of Fracture: Major Osteoporotic Fracture(1): 3.0% Hip Fracture(2): 0.2% *FRAX is a trademark of the [employer]'s [employer] for Metabolic Bone Disease, World Health Organization (WHO) Collaborating [employer]. 1-Major Osteoporotic Fracture: Clinical Spine, Forearm, Hip or Shoulder. 2-The 10-year probability of fracture may be lower than reported if the patient has received treatment. BD/Dexa Bone Density Study IMPRESSION: 1. Osteopenia. 2. No prior exams are available for comparison. 3. Additional description as above. Reading Location: [id number]
== END | disposition home or self-care (01) ==
LOC: OPBD 08:32
PROVIDERS: PCP Family Medicine; Referring Provider Student in an Organized Health Care Education/Training Program; Visit Provider Student in an Organized Health Care Education/Training Program
DX: K83.01 Primary sclerosing cholangitis (principal)
CPT/HCPCS: 77080

== ENCOUNTER → 2024-06-29 | Outpatient (CLI) | payer OTHER, SELFPAY ==
[2024-07-02 22:06] LABS: PROLACTIN 13.1 ng/mL (4.8-33.4); Testosterone Free 7.3 pg/mL (0.0-4.2)
== END | disposition home or self-care (01) ==
LOC: LAB 15:51
PROVIDERS: PCP Family Medicine; Referring Provider Nurse Practitioner Family; Visit Provider Nurse Practitioner Family
DX: N95.1 Menopausal and female climacteric states (principal)
CPT/HCPCS: 36415; 82627; 84146; 84402; 82626

== ENCOUNTER 2024-08-03 09:09 | Outpatient (RCR) | payer OTHER, SELFPAY ==
[2024-08-03 09:30] LABS: Absolute Lymphocyte Count 2.35 X10^3/uL (0.83-4.51); Absolute Neutrophil Count 3.2 X10^3/uL (2.0-7.7); Basophil# 0.04 X10^3/uL; Basophil% 0.6 % (0-1); Eosinophil# 0.15 X10^3/uL; Eosinophils% 2.4 % (0-5); Hematocrit 38.2 % (37-47); Hemoglobin 12.8 g/dL (12.0-15.0); Lymphocyte # 2.35 X10^3/ul (0.83-4.51); Lymphocyte % 36.8 % (19-41); Mean Corp Hgb Conc 33.5 g/dL (32-36); Mean Corpuscular Hgb 31.3 pg (27.0-32.0); Mean Corpuscular Volume 93.4 fL (81-99); Mean Platelet Vol. 10.9 fl (6.2-12.0); Monocyte# 0.61 X10^3/uL; Monocyte% 9.6 % (0-10); NRBC Flagged by Analyzer 0 % (0-5); Neutrophil % 50.1 % (47-70); Platelet Count 185 K/mm3 (150-450); RBC Distribution Width CV 13.1 % (11.6-14.6); RBC Distribution Width SD 44.8 fl (35.1-43.9); Red Blood Count 4.09 M/mm3 (4.2-5.4); White Blood Count 6.4 K/mm3 (4.4-11.0)
[2024-08-03 09:41] LABS: International Normalized Ratio 1.1; Prothrombin Time (Protime)PT. 13.9 SECONDS (11.7-14.9)
[2024-08-03 10:08] LABS: AST(SGOT) 19 U/L (<=31); Alanine Aminotransfer ALT/SGPT 17 U/L (<=34); Albumin, Serum 4.3 g/dL (3.5-5.0); Alkaline Phosphatase 91 U/L (35-104); Anion Gap 10 (5-15); BUN 15 mg/dL (4-19); BUN/Creat Ratio 24.4 RATIO (10-20); Bilirubin, Direct 0.19 mg/dL (0.00-0.30); Calcium,Total 9.1 mg/dL (7.6-11.0); Carbon Dioxide 24.5 mmol/L (21.0-32.0); Chloride 103 mmol/L (98-108); Creatinine, Serum 0.62 mg/dL (0.70-1.20); EST Glomerular Filtration Rate 111 (>60); Globulin 2.9 g/dL (2.2-4.2); Glucose 96 mg/dL (70-99); Potassium 4.2 mmol/L (3.3-5.1); Protein, Total 7.2 g/dL (5.9-8.4); Sodium Level 137 mmol/L (133-145); Total Bilirubin 0.47 mg/dL (0.00-1.30)
[2024-08-03 10:17] LABS: Estradiol 13.5 pg/mL; Follicle Stimulating Hormone 38.3 mIU/mL
[2024-08-06 21:07] LABS: Testosterone Free 8.3 pg/mL (0.0-4.2)
== END 2024-08-13 23:59 ==
LOC: PAVLAB 09:09
PROVIDERS: Nurse Practitioner Family; PCP Family Medicine
DX: K83.01 Primary sclerosing cholangitis (principal); Q44.4 Choledochal cyst; N95.1 Menopausal and female climacteric states; R23.2 Flushing
CPT/HCPCS: 36415; 80048; 80076; 82670; 83001; 84402; 85025; 85610

== ENCOUNTER → 2024-08-16 | Outpatient (CLI) | payer OTHER, SELFPAY ==
--- NOTE | 2024-08-16 12:26 | US_ITS ---
PROCEDURE: PELVIC W/ TRANSVAGINAL 08/16/2024 REASON FOR EXAM: ELEVATED TESTOSTERONE--OVARIAN CONCERN. TECHNIQUE: Transabdominal and transvaginal pelvic ultrasound. Color doppler analysis of the ovaries. COMPARISON: None. FINDINGS: Measurements: Uterus: 8.9 x 3.8 x 6.5 cm for volume of 114.1 mL Endometrial Thickness: Not well visualized due to the prominent vessels Right Ovary: 2.6 x 1.2 x 2.6 cm for volume of 4.3 mL. Left Ovary: Not well visualized due to shadowing bowel gas Uterus: Retroverted. There is an anechoic avascular lesion in the lower uterine segment measuring 2.8 x 2.2 x 2.4 cm.. There are prominent myometrial vessels throughout the uterus. Right ovary: Normal size and echotexture. Left ovary: Not well visualized due to shadowing bowel gas Cul-de-sac: No free intraperitoneal fluid identified. Color Doppler: Normal color flow doppler signal in the right ovary. US/Pelvic w/ Transvaginal IMPRESSION: 1. Numerous prominent myometrial vessels, as can be seen with enhanced myometr ial vascularity or pelvic congestion syndrome. Correlate with symptoms. 2. Cystic lesion near the cervix measuring up to 2.8 cm, likely a nabothian cy st. 3. Poor visualization of the endometrium and left ovary. Unremarkable right o vary. Reading Location: [id number]
== END | disposition home or self-care (01) ==
PROVIDERS: PCP Family Medicine; Referring Provider Nurse Practitioner Family; Visit Provider Nurse Practitioner Family
DX: R79.89 Other specified abnormal findings of blood chemistry (principal)
CPT/HCPCS: 76830; 76856

== ENCOUNTER → 2024-09-07 | Outpatient (CLI) | payer OTHER, SELFPAY ==
--- NOTE | 2024-09-07 13:14 | MRI_ITS ---
PROCEDURE: PELVIS W/WO CONTRAST, 09/07/2024 REASON FOR EXAM: PELVIC CONGESTION SYNDROME TECHNIQUE: Multisequence multiplanar MR of the pelvis was performed with and without IV contrast. IV contrast: 11 mL Clariscan COMPARISON: 08/16/2024 FINDINGS: Variable overall mild motion limitation. Some sequences are mild/moderately motion degraded. Note axial T1 fat-sat precontrast, diffusion, and large [id number] sequences were not performed. Visualized bowel: Grossly unremarkable. Lymph nodes: Unremarkable. Vasculature: Redemonstrated prominent bilateral parauterine vasculature. Peritoneum: Unremarkable. Bladder: Underdistended and suboptimally evaluated, grossly unremarkable. Reproductive Organs: Markedly heterogeneous and slightly atrophic appearance of the uterus with distorted architecture, conceivably in part related to reported uterine ablation and/or adenomyosis. Unable to identify/measure a normal endometrium. Prominent myometrial vascularity again noted and may be related to the above findings. Cystic structure along the cervix measures 2.1 x 1.0 x 1.5 cm and may reflect a prominent nabothian cyst. There are 2 small T1 bright RIGHT ovarian likely hemorrhagic cysts up to 5 mm. LEFT ovary nonvisualized, obscured by prominent parauterine vasculature; difficult to utilize the LEFT ovarian vein to aid in localization in the absence of a large [id number] sequence. Body Wall: Operative changes. Bones: Unremarkable. MRI/Pelvis W/WO Contrast IMPRESSION: 1. Prominent bilateral parauterine vasculature, nonspecific finding which can b e seen in the setting of pelvic congestion syndrome given the appropriate clinical context as previously suggested. Consi loraine CT abdomen and pelvis with contrast for visualization of the more proximal ovarian veins above the field of view of thi s exam, as indicated. 2. Markedly heterogeneous and slightly atrophic appearance of the uterus with d istorted architecture and prominent myometrial vasculature, conceivably related to a combination of the reported history of ut erine ablation, possible underlying adenomyosis, and pelvic congestion syndrome. Unable to identify or measure a normal endomet rium, which may be an associated finding. 3. LEFT ovary again nonvisualized, possibly obscured by prominent vasculature a nd artifact. CT could be helpful as above to allow better tracing of the LEFT ovarian vein. 4. Tiny hemorrhagic cysts in the RIGHT ovary up to 5 mm. 5. Additional description as above. Reading Location: [id number]
== END | disposition home or self-care (01) ==
LOC: OPMRI 13:10
PROVIDERS: PCP Family Medicine; Referring Provider Nurse Practitioner Family; Visit Provider Nurse Practitioner Family
DX: N94.89 Other specified conditions associated with female genital organs and menstrual cycle (principal)
CPT/HCPCS: 72197; A9575

== ENCOUNTER → 2024-10-15 | Outpatient (CLI) | payer OTHER, SELFPAY ==
--- OUTSIDE RECORDS SUMMARY | 2024-10-15 10:14 | XMS RPT_ITS | CCD ---
Author Organization [facility] Care Team Providers Care Nursing Informatics Clinical Analyst Name Role Phone Dr. Wilbert Esparza Primary Care Provider Dr. Wilbert Esparza Referring Provider [phone] GOPAL Boss Attending Provider GOPAL Mac Attending Provider Dr. Wilbert Esparza Primary Care Provider [phone] Wilbert Esparza Referring Provider [phone] GOPAL Boss Attending Provider GOPAL Mac Attending Provider [phone] Santana INDUSTRIAL PAINTER, INDUSTRIAL PAINTER-C Jarad Shay Attending Provider [phone] Dr. Wilbert Esparza Primary Care Provider [phone] Wilbert Esparza Referring Provider [phone] GOPAL Boss Attending Provider Dr. Wilbert Esparza Primary Care Provider [phone] Wilbert Esparza Referring Provider Dr. Wilbert Esparza Primary Care Provider [phone] Wilbert Esparza Referring Provider Dr. Wilbert Esparza Primary Care Provider [phone] Wilbert Esparza Referring Provider Santana CURRIE, INDUSTRIAL PAINTER-C Jarad Shay Attending Provider [phone] Friend, Dr. Mora Attending Provider [phone]Dr[address] Mora Other Provider Dr. Wilbert Esparza Primary Care Provider [phone] Wilbert Esparza Referring Provider Dr. Wilbert Esparza Primary Care Provider Dr. Wilbert Esparza Referring Provider Dr. Oneal Villalobos Attending Provider Unavailable Primary Care Provider Dr. Wilbert Somers Primary Care Provider [phone] Wilbert Esparza Referring Provider Chai HERRON PA Felipe Shay Attending Provider FRIENDONEAL Referring Unavailable ONEAL VILLALOBOS Referring Unavailable CECI MCKINNEY Attending Unavailable NEO HEREDIA Attending Unavailable FRIENDONEAL Referring Unavailable ASHLIE TORRES Attending Unavaila ble ONEAL VILLALOBOS Referring Unavailable Dr. Wilbert Esparza Primary Care Provider [phone] Wilbert Esparza Referring Provider GOPAL Boss Attending Provider Dr. Wilbert Esparza Referring Provider [phone] Dr. Oneal Villalobos Attending Provider Unavailable Primary Care Provider Wilbert Somers MD Primary Care Provider [phone] Oneal Villalobos DO Unavailable Unavailable Dr. Wilbert Esparza MD Primary Care Provider HAYES MENJIVAR Attending Provider [phone] HAYES MENJIVAR Referring Provider AMITA CALDWELL Other Provider Dr. Oneal Villalobos DO Other Provider [phone] ABENA ZUNIGA Other Provider Nathaly Braxton Other Provider Cleveland CURRIE-CElvia Attending Provider Cleveland CASTILLOCElvia Referring Provider Dr. Wilbert Esparza MD Primary Care Provider TIARA, KHALID Attending Provider TIARA, KHALID Referring Provider JAVI AMITA Other Provider Isacc DO, Dr. Mora Other Provider ABENA ZUNIGA Other Provider Nathaly Braxton Other Provider Isaias RODRIGUEZ, Dr. Becerra Referring Provider Nathaly Braxton Attending Provider Nathaly Braxton Referring Provider Wilbert Esparza MD A Primary Care Provider [place] CURRIE-CElvia Other Provider JAVI, AMITA A Referring Unavailable ROLAND RUIZ Attending Unavailable ESPARZA, WILBERT A Primary Care Unavailable ESPARZA, WILBERT A Primary Care Unavailable TIARA, KHALID Referring Unavailable LESLIE, ROLAND M Attending Unavailable ESPARZA, WILBERT A Primary Care Unavailable LESLIEROLAND M Attending Unavailable SELF, SELF Referring Unavailable ESPARZA, WILBERT A Primary Care Unavailable JAVI, AMITA A Referring Unavailable JAVI, AMITA A Attending Unavailable TIARA, KHALID Attending Unavailable SELF, SELF Referring Unavailable ESPARZA, WILBERT A Primary Care Unavailable LESLIEROLAND M Attending Unavailable LESLIEROLAND M Referring Unavailable ESPARZA, WILBERT A Primary Care Unavailable JAVI, AMITA A Referring Unavailable LESLIE, ROLAND M Attending Unavailable ESPARZA, WILBERT A Primary Care Unavailable EFRAIN, ABENA L Attending Unavailable EFRAIN, ABENA L Referring Unavailable ESPARZA, WILBERT A Primary Care Unavailable LESLIE, ROLAND M Attending Unavailable SELF, SELF Referring Unavailable ESPARZA, WILBERT A Primary Care Unavailable Isaias RODRIGUEZ, Dr. Becerra Primary Care Provider [place] CURRIE-CElvia Attending Provider [place] INDUSTRIAL PAINTER-CElvia Referring Provider TIARA, KHALIMarie Attending Provider TIARA, KHALID Referring Provider JAVI AMITA Other Provider Isacc DO, Dr. Mora Other Provider [phone] ABENA ZUNIGA Other Provider Nathaly Braxton Other Provider Esparza, Wilbert Primary Care Unavailable Barkman, Elvia Referring Unavailable Barkman, Elvia Attending Unavailable Esparza, Wilbert Primary Care Unavailable Barkman, Elvia Referring Unavailable Barkman, Elvia Attending Unavailable Esparza, Wilbert Primary Care Unavailable Barkman, Elvia Referring Unavailable Barkman, Elvia Attending Unavailable Eve, Nathaly Attending Unavailable Esparza, Wilbert Referring Unavailable Esparza, Wilbert Primary Care Unavailable Esparza, Wilbert Referring Unavailable Esparza, Wilbert Primary Care Unavailable Barkman, Elvia Attending Unavailable Esparza, Wilbert Referring Unavailable Esparza, Wilbert Primary Care Unavailable Barkman, Elvia Attending Unavailable Esparza, Wilbert Primary Care Unavailable Nathaly Prado Attending Unavailable Esparza, Wilbert Referring Unavailable Esparza, Wilbert Primary Care Unavailable Esparza, Wilbert Referring Unavailable Elvia Guthrie Attending Unavailable GEORGIN, BOZENA Attending Unavailable GEORGIN, BOZENA Referring Unavailable Friend, Oneal Consulting Unavailable Esparza, Wilbert Primary Care Unavailable GEORGIN, BOZENA Consulting Unavailable Esparza, Wilbert Primary Care Unavailable Barkman, Elvia Referring Unavailable Barkgabriel, Elvia Attending Unavailable Esparza, Wilbert Primary Care Unavailable Barkman, Elvia Referring Unavailable Barkgabriel, Elvia Attending Unavailable GEORGIN, BOZENA Attending Unavailable GEORGIN, BOZENA Referring Unavailable Friend, Oneal Consulting Unavailable Esparza, Wilbert Primary Care Unavailable GEORGIN, BOZENA Consulting Unavailable Nathaly Prado Consulting Unavailable Froy Guthriemen Consulting Unavailable GEORGIN, BOZENA Attending Unavailable GEORGIN, BOZENA Referring Unavailable Esparza, Wilbert Primary Care Unavailable Friend, Oneal Consulting Unavailable ISABELGIN, BOZENA Consulting Unavailable Eve, Nathaly Consulting Unavailable Elvia Guthrie Consulting Unavailable GEORGIN, BOZENA Attending Unavailable GEORGIN, BOZENA Referring Unavailable Esparza, Wilbert Primary Care Unavailable Friend, Oneal Consulting Unavailable BENJAMIN, BOZENA Consulting Unavailable Nathaly Prado Consulting Unavailable Assessment, Health Risk Attending Unavaila ble Assessment, Health Risk Referring Unavaila ble Esparza, Wilbert Primary Care Unavailable BOZENA ALEXANDER Attending Unavailable BOZENA ALEXANDER Referring Unavailable Esparza, Wilbert Primary Care Unavailable Friend, Oneal Consulting Unavailable BOZENA ALEXANDER Consulting Unavailable Nathaly Prado Consulting Unavailable Esparza, Wilbert Primary Care Unavailable Elvia Guthrie Referring Unavailable Elvia Guthrie Attending Unavailable Nathaly Prado Attending Unavailable Nathaly Prado Referring Unavailable Esparza, Wilbert Primary Care Unavailable Allergies Allergy Classification Reported Allergen(s) Allergy Type Date of Onset Reaction(s) Facility (20 sources) Clarithromycin; Translations: [CLARITHROMYCIN] Drug Allergy 07-12-19 09 GI Upset [facility] (20 sources) levoFLOXacin; Translations: [LEVOFLOXACIN] Drug Allergy 02-24-20 14 Intolerance, Abdominal Discomfort, Itching [facility] (20 sources) Latex; Translations: [LATEX] Allergy to substance 03-28-19 15 Other: See Comments [facility] (8 sources) Latex Propensity to adverse reactions to drug 03-28-19 [facility]) Clarithromycin Propensity to adverse reactions to drug 09-03-19 24 Nausea Only [facility] (1 source) Clarithromycin Drug Allergy 06-10-19 25 [facility] (1 source) Latex Drug allergy (disorder) 06-10-19 25 [facility] (1 source) levoFLOXacin Drug Allergy 06-10-19 25 [facility] Medications Current Medications Medication Drug Class(es) Dates Sig (Normalized) Sig (Original) baclofen 5 mg oral tablet (20 sources) gamma-Aminobutyri c Acid-ergic Agonist Start: 12-24-2023 take 1 tablet by mouth twice daily Baclofen 5 mg tablet Active 5 mg PO TWICE A DAY December 24, 2023 12:00am Start: 05-06-2019 End: 05-11-2019 take 1 tablet by mouth three times daily as needed for muscle spasms Baclofen 5 mg tablet Discontinued 5 mg PO THREE TIMES A DAY as needed for spasms 14 5 0 May 06, 2019 1:00am May 10, 2019 1:00am May 11, 2019 1:08am busPIRone hydrochloride 5 mg oral tablet (20 sources) Start: 04-01-2017 take 1 tablet by mouth three times daily Buspirone 5 mg tablet Active 5 mg PO THREE TIMES A DAY April 01, 2017 1:00am GASTROPARESIS Start: 04-01-2017 take 5 mg by mouth twice daily Buspirone Active 5 MG PO TWICE A DAY April 01, 2017 1:00am Start: 04-01-2017 take 5 mg by mouth once Buspir one Active 5 MG PO ONCE April 01, 2017 1:00am End: 02-18-2023 take 0.5 tablet by mouth every month busPIRone (BUSPAR) 5 mg tablet Take 5 mg by mouth twice daily. Only takes 1/2 pill during October through August 0 02/18/2023 Discontinued Comment on above: Take 1 tablet by [facility] three times a day. Take 5 mg by mouth t wice daily. Only takes 1/2 pill during October through August cholecalciferol 1.25 mg oral capsule (18 sources) Vitamin D Start: 12-24-19 take 1 capsule by mouth every week Cholecalciferol (Vitamin D3) 1,250 mcg (50,000 unit) capsule Active 1250 ug PO EVERY WEEK December 24, 2023 12:00am Start: 02-12-2013 take 2500 [IU] by [facility] once daily Cholecalciferol (Vitamin D3) Active 2500 UNITS PO DAILY February 12, 2013 1:00am estradiol 0.1 mg/ml vaginal cream (4 sources) Estrogen Start: 06-21-2024 Estradiol 0.01 % (0.1 mg/gram) cream Active 0 VAGINAL DAILY 42.5 0 June 21, 2024 12:00am pea sized amount using finger tip method every night x 2 weeks then 2-3 times a week there after. fexofenadine hydrochloride 180 mg oral tablet (15 sources) Histamine-1 Receptor Antagonist Start: 08-19-2023 take 1 tablet by mouth once daily Fexofenadine (Willow Allergy) 180 mg tablet Active 180 mg PO DAILY August 19, 2023 12:00am fexofenadine HCl (WILLOW ORAL) Take by mouth. 0 Active Comment on above: Take by mouth. lisdexamfetamine dimesylate 20 mg oral capsule (20 sources) Central Nervous System Stimulant Start: take 1 capsule by mouth once daily Lisdexamfetamine (Vyvanse) 20 mg capsule Active 20 mg PO DAILY 0 December 18, 2021 12:00am Start: 04-14-2014 End: 02-18-2023 take 1 capsule by mouth once daily Lisdexamfetamine 40 MG capsule Discontinued 40 mg PO DAILY April 14, 2014 1:00am February 21, 2022 8:26am Comment on above: Take 40 mg by mouth once daily. melatonin 3 mg oral capsule (20 sources) Start: 2021 take 1 capsule by mouth at bedtime as needed Melatonin 3 mg capsule Active 3 mg PO BEDTIME as needed for Insomnia December 18, 2021 12:00am Multiple Vitamins-Minerals (WOMENS MULTI VITAMIN & MINERAL PO) (7 sources) take 1 tablet by mouth once daily Multiple Vitamins-Minerals (WOMENS MULTI VITAMIN & MINERAL PO) Take 1 tablet by mouth daily. Active Multivitamin (Daily Multi-Vitamin) tablet (6 sources) Start: 2023 Multivitamin (Daily Multi-Vitamin) tablet Active 1 {tbl} PO DAILY August 19, 2023 12:00am pantoprazole 40 mg delayed release oral tablet (20 sources) Proton Pump Inhibitor Start: 2022 End: 2022 take 1 tablet by mouth once daily Pantoprazole [address] tablet DR Take 1 tablet by mouth daily. 01/12/2023 Active prochlorperazine 10 mg oral tablet (6 sources) Phenothiazine Start: 2023 take 1 tablet by mouth three times daily as needed for nausea and vomiting Prochlorperazine Maleate 10 mg tablet Active 10 mg PO THREE TIMES A DAY as needed for nausea and vomiting 90 30 November 25, 2023 12:00am psyllium 3400 mg powder for oral suspension (20 sources) Start: 2012 take 1 dose by mouth once daily Psyllium Husk 1 PACKET packet Active 1 NMA PO DAILY February 12, 2013 1:00am spironolactone 25 mg oral tablet (20 sources) Aldosterone Antagonist Start: 2022 take 1 tablet by mouth once daily Spironolactone 25 MG tablet Take 1 tablet by mouth daily. 01/12/2023 Active Start: 04-14-2014 Spironolactone 100 MG tablet Active 25 mg PO DAILY April 14, 2014 1:00am Start: 04-14-2014 take 25 mg by mouth once daily Spironolactone Active 25 MG PO DAILY April 14, 2014 1:00am Start: 04-14-2014 End: 02-18-2023 take 100 mg by mouth once daily Spironolactone Active 100 MG PO DAILY April 14, 2014 1:00am Comment on above: Take 100 mg by mouth once daily. valACYclovir 500 mg oral tablet (18 sources) Herpesvirus Nucleoside Analog DNA Polymerase Inhibitor, Herpes Simplex Virus Nucleoside Analog DNA Polymerase Inhibitor, Herpes Zoster Virus Nucleoside Analog DNA Polymerase Inhibitor Start: take 1 tablet by mouth twice daily Valacyclovir (Valtrex) 500 mg tablet Active 500 mg PO TWICE A DAY December 24, 2023 12:00am Start: 12-05-2022 take 1 tablet by mychal th twice daily as needed Valacyclovir 1 g tablet Take 1 tablet by mouth 2 times daily as needed for Other (cold sores). 12/05/2022 Active Completed/Discontinued Medications Medication Drug Class(es) Dates Sig (Normalized) Sig (Original) amoxicillin 500 mg oral capsule (20 sources) Penicillin-class Antibacterial Start: 11-28-2021 End: 12-08-2021 take 2 capsules by mouth twice daily Amoxicillin 500 mg capsule Discontinued 1000 mg PO TWICE A DAY 40 10 November 28, 2021 12:00am December 07, 2021 12:00am December 08, 2021 12:04am Start: 11-28-2021 End: 12-08-2021 take 1000 mg by mouth twice daily Amoxicillin Discontinued 1000 MG PO TWICE A DAY 40 November 28, 2021 12:00am December 08, 2021 12:04am Start: 04-01-2017 End: 04-11-2017 take 2 capsules by mouth twice daily Amoxicillin 500 mg capsule Discontinued 1000 mg PO TWICE A DAY 40 10 April 01, 2017 1:00am April 10, 2017 1:00am April 11, 2017 1:09am Start: 04-01-2017 End: 04-11-2017 take 1000 mg by mouth twice daily Amoxicillin Discontinued 1000 MG PO TWICE A DAY 40 April 01, 2017 1:00am April 11, 2017 1:09am amoxicillin 875 mg / clavulanate 125 mg oral tablet (20 sources) Penicillin-class Antibacterial Start: 12-19-2020 End: 12-29-2020 Amoxicillin-Pot Clavulanate (Augmentin) 875-125 mg tablet Discontinued 1 {tbl} PO Q12H 20 10 0 December 19, 2020 12:00am December 28, 2020 12:00am December 29, 2020 12:01am Acute sinusitis, unspecified DULoxetine 20 mg delayed release oral capsule (20 sources) Serotonin and Norepinephrine Reuptake Inhibitor Start: 05-03-2014 End: 04-01-2017 take 1 capsule by mouth once daily Duloxetine 20 MG capsule Discontinued 20 mg PO DAILY May 03, 2014 1:00am April 01, 2017 9:47am Ergocalciferol (3 sources) Provitamin D2 Compound End: 02-18-2023 take 1 tablet by mouth once daily ERGOCALCIFEROL Take 1 tablet by mouth once daily. 0 02/18/2023 Discontinued Comment on above: Take 1 tablet by mychal th once daily. Gadopiclenol SOLN 1-25 mL (3 sources) Start: 08-23-2024 End: 08-23-2024 1-25 mL, Intravenous, ONCE, 1 dose, On Thu08/23/24 at 0900 Start: 02-22-2024 End: 02-22-2024 1-25 mL, Intravenous, ONCE, 1 dose, On Thu02/22/24 at 0815 Start: 11-24-2023 End: 11-24-2023 1-25 mL, Intravenous, ONCE, 1 dose, On Thu11/24/23 at 0815 hyoscyamine sulfate 0.125 mg disintegrating oral tablet (20 sources) Start: 06-10-2022 End: 06-01-2023 Hyoscyamine Sulfate 0.125 mg tablet,disintegrating Discontinued 0.125 mg PO NEEDED as needed for Indigestion July 10, 2022 1:21pm June 01, 2023 9:37am medroxyPROGESTERone acetate 10 mg oral tablet (4 sources) Progestin Start: 06-29-2024 End: 07-09-2024 take 1 tablet by mouth once daily Medroxyprogesterone (Provera) 10 mg tablet Discontinued 10 mg PO daily 10 10 0 June 29, 2024 12:00am July 08, 2024 12:00am July 09, 2024 12:14am multivit with calcium,iron,min (WOMEN'S MULTIPLE VITAMINS ORAL) (4 sources) multivit with calcium,iron,min (WOMEN'S MULTIPLE VITAMINS ORAL) Take by mouth. 0 Active Comment on above: Take by mouth. ondansetron 4 mg disintegrating oral tablet (6 sources) Serotonin-3 Receptor Antagonist Start: 07-13-2023 End: 12-24-2023 take 1 tablet by mouth every eight hours as needed for nausea and vomiting Ondansetron 4 mg tablet,disintegrating Discontinued 4 mg PO Q8H as needed for nausea and vomiting 90 0 July 13, 2023 12:00am December 24, 2023 1:02pm predniSONE 10 mg oral tablet (20 sources) Start: 12-31-2017 End: 02-20-2022 take 4 tablets by mouth once daily, then take 3 tablets by mouth once daily, then take 2 tablets by mouth once daily, then take 1 tablet by mouth once daily Prednisone 10 mg tablet Discontinued 10 mg PO DAILY 30 December 31, 2017 12:00am February 20, 2022 12:41pm 4 tabs daily for 3 days, then 3 tabs daily for 3 days, then 2 tabs daily for 3 days, then 1 tab daily for 3 days Psyllium Seed-Sucrose (METAMUCIL) ORAL Powd (4 sources) Psyllium Seed-Valente crose (METAMUCIL) ORAL Powd Take one tablespoon daily. 0 Active Comment on above: Take one tablespoon daily. 20 ml sodium chloride 9 mg/ml injection (3 sources) Start: 08-23-2024 End: 08-23-2024 1-250 mL, Intravenous, ONCE NEEDED, 1 dose, Starting on Thu08/23/24 at 0859, Until Thu08/23/24 at 0859, Flush, MR Procedure Start: 02-22-2024 End: 02-22-2024 1-250 mL, Intravenous, ONCE NEEDED, 1 dose, Starting on Thu02/22/24 at 0811, Until Thu02/22/24 at 0853, Flush, MR Procedure Start: 11-24-2023 End: 11-24-2023 1-250 mL, Intravenous, ONCE NEEDED, 1 dose, Starting on Thu11/24/23 at 0805, Until Thu11/24/23 at 0923, Flush, MR Procedure sucralfate 1000 mg oral tablet (12 sources) Aluminum Complex Start: 07-21-2022 End: 06-01-2023 take 1 tablet by mouth before mealtime Sucralfate 1 gram tablet Discontinued 1 g PO before meals 90 0 July 21, 2022 12:00am June 01, 2023 9:37am ursodiol 300 mg oral capsule (20 sources) Bile Acid Start: 04-24-2022 End: 05-12-2022 take 1 capsule by mouth twice daily Ursodiol 300 mg capsule Discontinued 300 mg PO TWICE A DAY 180 3 April 24, 2022 1:00am May 12, 2022 10:40am Problems Active Problems Problem Classification Problem Date Documented Date Episodic/Chronic Abdominal pain (20 sources) Right upper quadrant pain; Translations: [Right upper quadrant pain] Episodic Administrative/socia l admission (20 sources) Occupational exposure to unspecified risk factor; Translations: [Occupational exposure in workplace] 02-12-2013 Episodic Allergic reactions (20 sources) Contact dermatitis due to poison hermelindo; Translations: [Allergic contact dermatitis due to plants, except food] Onset: 02-26-2010 12-31-2017 Episodic Anal and rectal conditions (20 sources) Rectal fistula; 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] Onset: 07-11-2008 04-23-2022 Episodic Biliary tract disease (20 sources) Primary sclerosing cholangitis; 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] Onset: 07-03-2023 05-07-2022 Chronic Digestive congenital anomalies (20 sources) Choledochal cyst; 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] Onset: 11-15-2023 06-01-2023 Chronic Esophageal disorders (15 sources) Lower esophageal ring; Translations: [Esophageal obstruction] 08-25-2022 Chronic Immunizations and screening for infectious disease (20 sources) Contact with and (suspected) exposure to other viral communicable diseases; Translations: [Contact with or suspected exposure to other viral communicable disease] Episodic Menopausal disorders (5 sources) Menopausal syndrome; Translations: [Menopausal and female climacteric states] Onset: 08-14-2024 06-29-2024 Chronic Other disorders of stomach and duodenum (20 sources) Gastroparesis syndrome; Translations: [Gastroparesis] Onset: 02-18-2023 08-25-2022 Episodic Other female genital disorders (1 source) Other specified conditions associated with female genital organs and menstrual cycle; Translations: [Other specified conditions associated with female genital organs and menstrual cycle] Onset: 09-12-2024 Episodic Other liver diseases (20 sources) Alkaline phosphatase raised; Translations: [Abnormal levels of other serum enzymes] 02-20-2022 Episodic Other liver diseases (20 sources) ALT (SGPT) level raised; Translations: [High alanine aminotransferase (ALT) level] Episodic Other liver diseases (20 sources) Gamma-glutamyl transferase raised; Translations: [Abnormal levels of other serum enzymes] 02-20-2022 Episodic Other liver diseases (12 sources) Abnormal levels of other serum enzymes; Translations: [Other nonspecific abnormal serum enzyme levels] Episodic Other liver diseases (20 sources) Liver enzymes abnormal; Translations: [Abnormal levels of other serum enzymes] 04-23-2022 Episodic Other screening for suspected conditions (not mental disorders or infectious disease) (20 sources) Imaging of liver abnormal; Translations: [Abnormal findings on diagnostic imaging of liver and biliary tract] Onset: 01-12-2024 04-23-2022 Episodic Other upper respiratory infections (20 sources) Sinusitis; Translations: [Chronic sinusitis, unspecified] 04-01-2017 Chronic Other upper respiratory infections (20 sources) Acute sinusitis; Translations: [Acute sinusitis, unspecified] Episodic Residual codes; unclassified (10 sources) Flushing; Translations: [Flushing] 05-09-2024 Episodic Residual codes; unclassified (1 source) Flushing; Translations: [Flushing] Onset: 08-14-2024 Episodic Sprains and strains (20 sources) Low back strain; Translations: [Strain of muscle, fascia and tendon of lower back, initial encounter] 05-06-2019 Episodic Past or Other Problems Problem Classification Problem Date Documented Da te Episodic/Chronic Gastritis and duodenitis (17 sources) Duodenitis; Translations: [Duodenitis without bleeding] Onset: 11-15-2023 08-25-2022 Episodic Mood disorders (5 sources) Mood disorders Onset: 12-03-2023 Resolved: 02-25-2024 12-03-2023 Other disorders of stomach and duodenum (4 sources) Gastroparesis; Translations: [Gastroparesis] Onset: 05-14-2024 08-25-2022 Episodic Other skin disorders (4 sources) Acne; Translations: [Other acne] Onset: 02-26-2010 02-26-2010 Episodic Other skin disorders (4 sources) Scar; Translations: [Scar conditions and fibrosis of skin] Onset: 02-26-2010 02-26-2010 Episodic Other skin disorders (4 sources) Asteatosis cutis; Translations: [Xerosis cutis] Onset: 02-26-2010 02-26-2010 Episodic Unclassified (20 sources) uterine ablation 10-12-2021 Unclassified (1 source) Choledochal cyst 08-23-2024 Results Test Name Value Interpretation Reference Range Facility Magnetic resonance imaging r eportOrdered By: Carmen Myers on 09-08-2024 Study report [facility] [address] [place] [address] Pelvis W/WO Contrast MR#: [id number] Acct: [id number] Name: JARAD AVALOS LOUISE Rep #: [id number] : [id number] F [id number] From: Aida Myers MD PCP: Dr. Wilbert Esparza MD Status: REG CLI Study:Pelvis W/WO Contrast Date of Exam: 09/07/24 Exam# [id number] Ordering Dr: Elvia Guthrie INDUSTRIAL PAINTER-C PROCEDURE: PELVIS W/WO CONTRAST, 09/07/2024 REASON FOR EXAM: PELVIC CONGESTION SYNDROME TECHNIQUE: Multisequence multiplanar MR of the pelvis was performed with and without IV contrast. IV contrast: 11 mL Clariscan COMPARISON: 08/16/2024 FINDINGS: Variable overall mild motion limitation. Some sequences are mild/moderately motion degraded. Note axial T1 fat-sat precontrast, diffusion, and large [id number] sequences were not performed. Visualized bowel: Grossly unremarkable. Lymph nodes: Unremarkable. Vasculature: Redemonstrated prominent bilateral parauterine vasculature. Peritoneum: Unremarkable. Bladder: Underdistended and suboptimally evaluated, grossly unremarkable. Reproductive Organs: Markedly heterogeneous and slightly atrophic appearance of the uterus with distorted architecture, conceivably in part related to reported uterine ablation and/or adenomyosis. Unable to identify/measure a normal endometrium. Prominent myometrial vascularity again noted and may be related to the above findings. Cystic structure along the cervix measures 2.1 x 1.0 x 1.5 cm and may reflect a prominent nabothian cyst. There are 2 small T1 bright RIGHT ovarian likely hemorrhagic cysts up to 5 mm. LEFT ovary nonvisualized, obscured by prominent parauterine vasculature; difficult to utilize the LEFT ovarian vein to aid in localization in the absence of a large eytmw-cw-qegejxcslnux. Body Wall: Operative changes. Bones: Unremarkable. MRI/Pelvis W/WO Contrast IMPRESSION: 1. Prominent bilateral parauterine vasculature, nonspecific finding which can beseen in the setting of pelvic congestion syndrome given the appropriate clinical context as previously suggested. Consider CT abdomen and pelvis with contrast for visualization of the more proximal ovarian veins above the field of view of thisexam, as indicated. 2. Markedly heterogeneous and slightly atrophic appearance of the uterus with distorted architecture and prominent myometrial vasculature, conceivably related to a combination of the reported history of uterine ablation, possible underlying adenomyosis, and pelvic congestion syndrome. Unable to identify or measure a normal endometrium, which may be an associated finding. 3. LEFT ovary again nonvisualized, possibly obscured by prominent vasculature and artifact. CT could be helpful as above to allow better tracing of the LEFT ovarian vein. 4. Tiny hemorrhagic cysts in the RIGHT ovary up to 5 mm. 5. Additional description as above. Reading Location: [facility] CC: ALFONSO Guthrie; Dr. Wilbert Esparza MD ~ Legal Billing Analyst: Signed [facility] Pelvis W/WO Contraston 09-07 Pelvis W/WO Contrast [facility] [address] [place] [address] Pelvis W/WO Contrast MR#: [id number] Acct: [id number] Name: JARAD AVALOS LOUISE Rep #: [id number] : 1980 F 44 From: Carmen Myers MD PCP: Dr. Wilbert Esparza MD Status: REG CLI Study: Pelvis W/WO Contrast Date of Exam: 09/07/24 Exam# [id number] Ordering Dr: Elvia Guthrie PROCEDURE: PELVIS W/WO CONTRAST, 09/07/2024 REASON FOR EXAM: PELVIC CONGESTION SYNDROME TECHNIQUE: Multisequence multiplanar MR of the pelvis was performed with and without IV contrast. IV contrast: 11 mL Clariscan COMPARISON: 08/16/2024 FINDINGS: Variable overall mild motion limitation. Some sequences are mild/moderately motion degraded. Note axial T1 fat-sat precontrast, diffusion, and large czalz-am-wnyy sequences were not performed. Visualized bowel: Grossly unremarkable. Lymph nodes: Unremarkable. Vasculature: Redemonstrated prominent bilateral parauterine vasculature. Peritoneum: Unremarkable. Bladder: Underdistended and suboptimally evaluated, grossly unremarkable. Reproductive Organs: Markedly heterogeneous and slightly atrophic appearance of the uterus with distorted architecture, conceivably in part related to reported uterine ablation and/or adenomyosis. Unable to identify/measure a normal endometrium. Prominent myometrial vascularity again noted and may be related to the above findings. Cystic structure along the cervix measures 2.1 x 1.0 x 1.5 cm and may reflect a prominent nabothian cyst. There are 2 small T1 bright RIGHT ovarian likely hemorrhagic cysts up to 5 mm. LEFT ovary nonvisualized, obscured by prominent parauterine vasculature; difficult to utilize the LEFT ovarian vein to aid in localization in the absence of a large nauts-gt-izgd sequence. Body Wall: Operative changes. Bones: Unremarkable. MRI/Pelvis W/WO Contrast IMPRESSION: 1. Prominent bilateral parauterine vasculature, nonspecific finding which can be seen in the setting of pelvic congestion syndrome given the appropriate clinical context as previously suggested. Consider CT abdomen and pelvis with contrast for visualization of the more proximal ovarian veins above the field of view of this exam, as indicated. 2. Markedly heterogeneous and slightly atrophic appearance of the uterus with distorted architecture and prominent myometrial vasculature, conceivably related to a combination of the reported history of uterine ablation, possible underlying adenomyosis, and pelvic congestion syndrome. Unable to identify or measure a normal endometrium, which may be an associated finding. 3. LEFT ovary again nonvisualized, possibly obscured by prominent vasculature and artifact. CT could be helpful as above to allow better tracing of the LEFT ovarian vein. 4. Tiny hemorrhagic cysts in the RIGHT ovary up to 5 mm. 5. Additional description as above. Reading Location: [facility] CC: ALFONSO Guthrie; Dr. Wilbert Esparza MD Legal Billing Analyst: Signed Normal [facility] MR Abdomen WO and W contrast [place] 08-23-2024 IMPRESSION: 1. 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 No enhancement or nodularity to suggest malignant transformation. 2. No biliary ductal dilatation. No imaging evidence of PSC. 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 T2 weighted MRCP imaging was performed. CONTRAST: Gadopiclenol SOLN 1-25 mL; Route of Administration: Intravenous; Dose: 5.5 mL. FINDINGS: Lung Bases: Normal. Liver: Normal size and morphology. No focal liver lesion. Gallbladder: Normal. Bile Ducts: Assessment is limited due to motion on both standard and T2 and MRCP images, but to the extent of valuable, there is no stricturing or irregularity to correspond with the clinically reported PSC. Cystic structure near the kate hepatis has increased slightly in size measuring 1.7 x 1.3 cm (8/32), previously 1.5 x 1.1 cm. This appears to communicate with the cystic duct along its inferior margin (13/50-47). No enhancement or nodularity. Spleen: Normal. Pancreas: Normal. Adrenals: Normal. Right Kidney: Normal. No hydronephrosis. Left Kidney: Normal. No hydronephrosis. Gastrointestinal: No bowel dilation or wall thickening. Peritoneum/retroperitoneu m: No ascites. Lymph nodes: No enlarged or morphologically abnormal lymph nodes. Vasculature: The abdominal aorta is normal in course and caliber. Patent celiac and superior mesenteric arteries. Patent portal, splenic, and superior mesenteric veins. Body Wall: Normal. Bones: Normal for patient age. No aggressive lesion. 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 T2 weighted MRCP imaging was performed. CONTRAST: Gadopiclenol SOLN 1-25 mL; Route of Administration: Intravenous; Dose: 5.5 mL. FINDINGS: Lung Bases: Normal. Liver: Normal size and morphology. No focal liver lesion. Gallbladder: Normal. Bile Ducts: Assessment is limited due to motion on both standard and T2 and MRCP images, but to the extent of valuable, there is no stricturing or irregularity to correspond with the clinically reported PSC. Cystic structure near the kate hepatis has increased slightly in size measuring 1.7 x 1.3 cm (/32), previously 1.5 x 1.1 cm. This appears to communicate with the cystic duct along its inferior margin (/50-47). No enhancement or nodularity. Spleen: Normal. Pancreas: Normal. Adrenals: Normal. Right Kidney: Normal. No hydronephrosis. Left Kidney: Normal. No hydronephrosis. Gastrointestinal: No bowel dilation or wall thickening. Peritoneum/retroperitoneu m: No ascites. Lymph nodes: No enlarged or morphologically abnormal lymph nodes. Vasculature: The abdominal aorta is normal in course and caliber. Patent celiac and superior mesenteric arteries. Patent portal, splenic, and superior mesenteric veins. Body Wall: Normal. Bones: Normal for patient age. No aggressive lesion. IMPRESSION IMPRESSION: 1. 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 No enhancement or nodularity to suggest malignant transformation. 2. No biliary ductal dilatation. No imaging evidence of PSC. [facility] Radiology [facility]narrative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 T2 weighted MRCP imaging was performed. CONTRAST: Gadopiclenol SOLN 1-25 mL; Route of Administration: Intravenous; Dose: 5.5 mL. FINDINGS: Lung Bases: Normal. Liver: Normal size and morphology. No focal liver lesion. Gallbladder: Normal. Bile Ducts: Assessment is limited due to motion on both standard and T2 and MRCP images, but to the extent of valuable, there is no stricturing or irregularity to correspond with the clinically reported PSC. Cystic structure near the kate hepatis has increased slightly in size measuring 1.7 x 1.3 cm (/32), previously 1.5 x 1.1 cm. This appears to communicate with the cystic duct along its inferior margin (/50-47). No enhancement or nodularity. Spleen: Normal. Pancreas: Normal. Adrenals: Normal. Right Kidney: Normal. No hydronephrosis. Left Kidney: Normal. No hydronephrosis. Gastrointestinal: No bowel dilation or wall thickening. Peritoneum/retroperitoneu m: No ascites. Lymph nodes: No enlarged or morphologically abnormal lymph nodes. Vasculature: The abdominal aorta is normal in course and caliber. Patent celiac and superior mesenteric arteries. Patent portal, splenic, and superior mesenteric veins. Body Wall: Normal. Bones: Normal for patient age. No aggressive lesion. IMPRESSION: 1. 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 No enhancement or nodularity to suggest malignant transformation. 2. No biliary ductal dilatation. No imaging evidence of PSC. Normal [facility] Pelvic w/ Transvaginalon Pelvic w/ Transvaginal [facility] [address] [place], [place] [address] Pelvic w/ Transvaginal MR#: [id number] Acct: [id number] Name: JARAD AVALOS Rep #: [id number] : 1980 F 44 From: Jamie Bowens MD PCP: Dr. Wilbert Esparza MD Status: REG CLI Study: Pelvic w/ Transvaginal Date of Exam: 08/16/24 Exam# [id number] Ordering Dr: Elvia Guthrie [employer] PROCEDURE: PELVIC W/ TRANSVAGINAL 08/16/2024 REASON FOR EXAM: ELEVATED TESTOSTERONE--OVARIAN CONCERN. TECHNIQUE: Transabdominal and transvaginal pelvic ultrasound. Color doppler analysis of the ovaries. COMPARISON: None. FINDINGS: Measurements: Uterus: 8.9 x 3.8 x 6.5 cm for volume of 114.1 mL Endometrial Thickness: Not well visualized due to the prominent vessels Right Ovary: 2.6 x 1.2 x 2.6 cm for volume of 4.3 mL. Left Ovary: Not well visualized due to shadowing bowel gas Uterus: Retroverted. There is an anechoic avascular lesion in the lower uterine segment measuring 2.8 x 2.2 x 2.4 cm.. There are prominent myometrial vessels throughout the uterus. Right ovary: Normal size and echotexture. Left ovary: Not well visualized due to shadowing bowel gas Cul-de-sac: No free intraperitoneal fluid identified. Color Doppler: Normal color flow doppler signal in the right ovary. US/Pelvic w/ Transvaginal IMPRESSION: 1. Numerous prominent myometrial vessels, as can be seen with enhanced myometrial vascularity or pelvic congestion syndrome. Correlate with symptoms. 2. Cystic lesion near the cervix measuring up to 2.8 cm, likely a nabothian cyst. 3. Poor visualization of the endometrium and left ovary. Unremarkable right ovary. Reading Location: [id number] CC: INDUSTRIAL PAINTER-C Elvia Guthrie; Dr. Wilbert Esparza MD Legal Billing Analyst: Signed Normal [facility] Testosterone Freeon 08-07-19 TESTOSTER FREE 8.3 pg/mL Abnormal 0.0-4.2 [facility] Comment on above: Result Comment: Perf ormed at: - [facility] [id number] [employer] Developer: Daryn Grande MD, Phone: [phone] Performed By: #### L 3100.5125, L3300.5770, L3400.0570 #### [facility] [address] [place], [address] Absolute lymphocyte counton 08-03-2024 Lymphocytes Auto (Unsp spec) [#/Vol] 2.35 10*3/uL 0.83-4.51 [facility] Absolute neutrophil counton 08-03-2024 Neutrophils (Bld) [#/Vol] 3.2 10*3/uL 2.0-7.7 [facility] Anion gap in Serum or Plasma on 08-03-2024 Anion gap [Moles/Vol] 10 mmol/L 5- [facility] Automated lymphocyte count a s percentage of total leukocyteson 08-03-2024 Lymphocytes/100 WBC Auto (Unsp spec) 36.8 % [facility] BUN/creatinine ratioon 08-03 Urea nitrogen/Creatinine [Mass ratio] 24.4 mg/mg High 01-02 [facility] Basic Metabolic Profile (BMP )on 08-03-2024 BUN/CRE 24.4 RATIO High 01-02 [facility] Comment on above: Performed By: #### L 100.0100, L500.2500, L500.3400, L300.3900 #### [facility] [address] [place], [address] Calcium [Mass/Vol] 9.1 mg/dL Normal 7.6-11.0 [facility] Comment on above: Performed By: #### L 100.0100, L500.2500, L500.3400, L300.3900 #### [facility] [address] [place], [address] Chloride [Moles/Vol] 103 mmol/L Normal 98-108 [facility] Comment on above: Performed By: #### L 100.0100, L500.2500, L500.3400, L300.3900 #### [facility] [address] [place], [address] CO2 [Moles/Vol] 24.5 mmol/L Normal 21.0-32.0 [facility] Comment on above: Performed By: #### L 100.0100, L500.2500, L500.3400, L300.3900 #### [facility] [address] [place], [address] Creatinine [Mass/Vol] 0.62 mg/dL Low 0.70-1.20 [facility] Comment on above: Performed By: #### L 100.0100, L500.2500, L500.3400, L300.3900 #### [facility] [address] [place], [address] GAP 10 Normal 5-15 [facility] Comment on above: Performed By: #### L 100.0100, L500.2500, L500.3400, L300.3900 #### [facility] [address] [place], [address] GFR/1.73 sq M.predicted among non-blacks MDRD (S/P/Bld) [Vol rate/Area] 111 mL/min/{1.73_m2} Normal >60 [facility] Comment on above: Result Comment: mL/m in/1.73m2 CKD-EPI Creatinine Equation (2020) Performed By: #### L 100.0100, L500.2500, L500.3400, L300.3900 #### [facility] [address] [place], [address] Glucose [Mass/Vol] 96 mg/dL Normal 70-99 [facility] Comment on above: Performed By: #### L 100.0100, L500.2500, L500.3400, L300.3900 #### [facility] [address] [place], [address] Potassium [Moles/Vol] 4.2 mmol/L Normal 3.3-5.1 [facility] Comment on above: Performed By: #### L 100.0100, L500.2500, L500.3400, L300.3900 #### [facility] [address] [place], [address] Sodium [Moles/Vol] 137 mmol/L Normal 133-145 [facility] Comment on above: Performed By: #### L 100.0100, L500.2500, L500.3400, L300.3900 #### [facility] [address] [place], [address] Urea nitrogen [Mass/Vol] 15 mg/dL Normal 4-19 [facility] Comment on above: Performed By: #### L 100.0100, L500.2500, L500.3400, L300.3900 #### [facility] [address] [place], [address] Basophil percentageon 2024 Basophils/100 WBC (Bld) 0.6 % 0-1 [facility] Bilirubin directon 5 Bilirubin.direct [Mass/Vol] 0.19 mg/dL 0.00-0.30 [facility] Bilirubin, totalon 5 Bilirubin [Mass/Vol] 0.47 mg/dL 0.00-1.30 [facility] CBC W/Diff, Automatedon - Absolute Lymph 2.35 X10 3/uL Normal 0.83-4.51 [facility] Comment on above: Performed By: #### L 100.0100, L500.2500, L500.3400, L300.3900 #### [facility] [address] [place], [address] Absolute Neut 3.2 X10 3/uL Normal 2.0-7.7 [facility] Comment on above: Performed By: #### L 100.0100, L500.2500, L500.3400, L300.3900 #### [facility] [address] [place], [address] Basophils/100 WBC (Bld) 0.6 % Normal 0-1 [facility] Comment on above: Performed By: #### L 100.0100, L500.2500, L500.3400, L300.3900 #### [facility] [address] [place], [address] Eosinophils/100 WBC (Bld) 2.4 % Normal 0-5 [facility] Comment on above: Performed By: #### L 100.0100, L500.2500, L500.3400, L300.3900 #### [facility] [address] [place], [address] Erythrocyte distribution width (RBC) [Ratio] 13.1 % Normal 11.6-14.6 [facility] Comment on above: Performed By: #### L 100.0100, L500.2500, L500.3400, L300.3900 #### [facility] [address] [place], [address] Hematocrit (Bld) [Volume fraction] 38.2 % Normal 37-47 [facility] Comment on above: Performed By: #### L 100.0100, L500.2500, L500.3400, L300.3900 #### [facility] [address] [place], [address] Hemoglobin (Bld) [Mass/Vol] 12.8 g/dL Normal 12.0-15.0 [facility] Comment on above: Performed By: #### L 100.0100, L500.2500, L500.3400, L300.3900 #### [facility] [address] [place], [address] IG% 0.500 Normal 0.0-0.9 [facility] Comment on above: Result Comment: IG% - Immature Granulocytes (promyelocytes, myelocytes and metamyelocytes) > 1% indicates that a LEFT SHIFT is Present. Performed By: #### L 100.0100, L500.2500, L500.3400, L300.3900 #### [facility] [address] [place], [address] Lymphocytes/100 WBC (Bld) 36.8 % Normal 19-41 [facility] Comment on above: Performed By: #### L 100.0100, L500.2500, L500.3400, L300.3900 #### [facility] [address] [place], [address] MCH (RBC) [Entitic mass] 31.3 pg Normal 27.0-32.0 [facility] Comment on above: Performed By: #### L 100.0100, L500.2500, L500.3400, L300.3900 #### [facility] [address] [place], [address] MCHC (RBC) [Mass/Vol] 33.5 g/dL Normal 32-36 [facility] Comment on above: Performed By: #### L 100.0100, L500.2500, L500.3400, L300.3900 #### [facility] [address] [place], [address] MCV (RBC) [Entitic vol] 93.4 fL Normal 81-99 [facility] Comment on above: Performed By: #### L 100.0100, L500.2500, L500.3400, L300.3900 #### [facility] [address] [place], [address] Monocytes/100 WBC (Bld) 9.6 % Normal 0-10 [facility] Comment on above: Performed By: #### L 100.0100, L500.2500, L500.3400, L300.3900 #### [facility] [address] [place], [address] Neutrophils/100 WBC (Bld) 50.1 % Normal 47-70 [facility] Comment on above: Performed By: #### L 100.0100, L500.2500, L500.3400, L300.3900 #### [facility] [address] [place], [address] Nucleated RBC (Bld) [#/Vol] 0 10*3/uL Normal 0-5 [facility] Comment on above: Performed By: #### L 100.0100, L500.2500, L500.3400, L300.3900 #### [facility] [address] [place], [address] Platelet mean volume (Bld) [Entitic vol] 10.9 fL Normal 6.2-12.0 [facility] Comment on above: Performed By: #### L 100.0100, L500.2500, L500.3400, L300.3900 #### [facility] [address] [place], [address] Platelets (Bld) [#/Vol] 185 10*3/uL Normal 150-450 [facility] Comment on above: Performed By: #### L 100.0100, L500.2500, L500.3400, L300.3900 #### [facility] [address] [place], [address] RBC (Bld) [#/Vol] 4.09 10*6/uL Low 4.2-5.4 [facility] Comment on above: Performed By: #### L 100.0100, L500.2500, L500.3400, L300.3900 #### [facility] [address] [place], [address] RDW SD 44.8 fl High 35.1-43.9 [facility] Comment on above: Performed By: #### L 100.0100, L500.2500, L500.3400, L300.3900 #### [facility] [address] [place], [address] WBC (Bld) [#/Vol] 6.4 10*3/uL Normal 4.4-11.0 [facility] Comment on above: Performed By: #### L 100.0100, L500.2500, L500.3400, L300.3900 #### [facility] [address] [place], [address] Carbon dioxide, total [Moles /volume] in Central venous bloodon 08-03-2024 CO2 [Moles/Vol] 24.5 mmol/L 21.0-32.0 [facility] Chloride assayon 08-03-2024 Chloride [Moles/Vol] 103 mmol/L 98-108 [facility] Eosinophil percentageon 05- Eosinophils/100 WBC (Bld) 2.4 % 0-5 [facility] Erythrocyte distribution wid th ratioon 08-03-2024 Erythrocyte distribution width (RBC) [Ratio] 13.1 % 11.6-14.6 [facility] Erythrocyte distribution wid th standard deviationon 08-03-2024 Erythrocyte distribution width (RBC) [Ratio] 44.8 fl High 35.1-43.9 [facility] Estradiolon 08-03-2024 ESTRADIOL 13.5 pg/mL Normal [facility] Comment on above: Result Comment: FEMA LES ADULT FEMALE: Premenopausal: 15-350 pg/mL(E2 levels vary widely through the menstrual cycle) Postmenopausal: <10 pg/mL VENU STAGES MEAN AGE REFERENCE RANGES Stage I(>14 days and prepubertal) 7.1 years Undetectable-20 pg/mLL Stage II 10.5 years Undetectable-24 pg/mL Stage III 11.6 years Undetectable-60 pg/mL Stage IV 12.3 years 15-85 pg/mL Stage V 14.5 years 15-350 pg/mL Puberty onset (transition from Venu stage I to Venu stage II) occurs for girls at a median age of 10.5 (/- 2) years. There is evidence that it may occur up to 1 year earlier in obese girls and in girls. Progression through Venu stages is variable. Venu stage V (adult) should be reached by age 18. Performed By: #### L 3100.5125, L3300.1750, L3400.4800 #### [facility] [address] [place], [place], [address] Follicle Stimulating Hormone on 08-03-2024 FSH 38.3 mIU/mL Normal [facility] Comment on above: Result Comment: FEMA LE: Follicular: 1.4 - 18.1 mIU/mL Midcycle: 3.4 - 33.4 mIU/mL Luteal: 1.5 - 9.1 mIU/mL Post Menopause: 23.0 - 116.3 mIU/mL MALE: 1.4 - 18.1 mIU/mL NORMAL REFERENCE RANGES FEMALE FOLLICULAR 2.3 - 12.6 mIU/mL MID-CYCLE PEAK 5.2 - 17.5 mIU/mL LUTEAL 1.7 - 12.9 mIU/mL POST-MENOPAUSAL ON MHT 5.9 - 72.8 mIU/mL NOT ON MHT 12.7 - 132.2 mlU/mL MALE 0.7 - 10.8 mIU/mL Performed By: #### L 3100.5125, L3300.1750, L3400.4800 #### [facility] [address] [place], [place], [address] Glomerular filtration rate ( GFR) estimation/1.73 sq m using serum, plasma, or whole bon 08-03-2024 GFR/1.73 sq M.predicted among non-blacks MDRD (S/P/Bld) [Vol rate/Area] 111 mL/min/{1.73_m2} >60 [facility] Comment on above: mL/min/1.73m2 CKD-EP I Creatinine Equation (2020) Hematocrit Auto (Bld) [Volum e fraction]on 08-03-2024 Hematocrit (Bld) [Volume fraction] 38.2 % 37-47 [facility] Hemoglobin measurementon Hemoglobin (Bld) [Mass/Vol] 12.8 g/dL 12.0-15.0 [facility] Immature granulocytes/100 WB C Auto (Bld)on 08-03-2024 Immature granulocytes/100 WBC (Bld) 0.500 % 0.0-0.9 [facility] Comment on above: IG% - Immature Granu locytes (promyelocytes, myelocytes and metamyelocytes) > 1% indicates that a LEFT SHIFT is Present. International normalized rat io (INR) calculationon 08-03-2024 INR Coag (Bld) [Relative time] 1.1 {INR} [facility] Laboratory - Chemistry and C hemistry - challengeon 08-03-2024 AST [Catalytic activity/Vol] 19 U/L <32 [facility] Liver Profileon 08-03-2024 Albumin [Mass/Vol] 4.3 g/dL Normal 3.5-5.0 [facility] Comment on above: Performed By: #### L 100.0100, L500.2500, L500.3400, L300.3900 #### [facility] [address] [place], [address] ALK PHOS 91 U/L Normal 35-104 [facility] Comment on above: Performed By: #### L 100.0100, L500.2500, L500.3400, L300.3900 #### [facility] [address] [place], [address] ALT [Catalytic activity/Vol] 17 U/L Normal <=34 [facility] Comment on above: Performed By: #### L 100.0100, L500.2500, L500.3400, L300.3900 #### [facility] [address] [place], [address] AST [Catalytic activity/Vol] 19 U/L Normal <=31 [facility] Comment on above: Performed By: #### L 100.0100, L500.2500, L500.3400, L300.3900 #### [facility] [address] [place], [address] Bilirubin [Mass/Vol] 0.47 mg/dL Normal 0.00-1.30 [facility] Comment on above: Performed By: #### L 100.0100, L500.2500, L500.3400, L300.3900 #### [facility] [address] [place], [address] Bilirubin.direct [Mass/Vol] 0.19 mg/dL Normal 0.00-0.30 [facility] Comment on above: Performed By: #### L 100.0100, L500.2500, L500.3400, L300.3900 #### [facility] [address] [place], [address] Globulin (S) [Mass/Vol] 2.9 g/dL Normal 2.2-4.2 [facility] Comment on above: Performed By: #### L 100.0100, L500.2500, L500.3400, L300.3900 #### [facility] [address] [place], [address] T PROT 7.2 g/dL Normal 5.9-8.4 [facility] Comment on above: Performed By: #### L 100.0100, L500.2500, L500.3400, L300.3900 #### [facility] [address] [place], [address] MCV (mean corpuscular volume ) determinationon 08-03-2024 MCV (RBC) [Entitic vol] 93.4 fL 81-99 [facility] Mean corpuscular hemoglobin (MCH) determinationon 08-03-2024 MCH (RBC) [Entitic mass] 31.3 pg 27.0-32.0 [facility] Mean corpuscular hemoglobin concentration (MCHC) determinationon 08-03-2024 MCHC (RBC) [Mass/Vol] 33.5 g/dL 32-36 [facility] Mean platelet volume determi nationon 08-03-2024 Platelet mean volume (Bld) [Entitic vol] 10.9 fL 6.2-12.0 [facility] Monocyte percentageon 2024 Monocytes/100 WBC (Bld) 9.6 % 0-10 [facility] Neutrophil percentageon - Neutrophils/100 WBC (Bld) 50.1 % 47-70 [facility] Nucleated red blood cell per centageon 08-03-2024 Nucleated RBC/100 WBC (Bld) [Ratio] 0 % 0-5 [facility] Platelet counton 08-03-2024 Platelets (Bld) [#/Vol] 185 10*3/uL 150-450 [facility] Potassium measurement (mass/ volume)on 08-03-2024 Potassium (Unsp spec) [Mass/Vol] 4.2 mmol/L 3.3-5.1 [facility] Prothrombin Time w/INRon INR Coag (PPP) [Relative time] 1.1 {INR} Normal [facility] Comment on above: Performed By: #### L 100.0100, L500.2500, L500.3400, L300.3900 #### [facility] [address] [place], [address] PT Coag (PPP) [Time] 13.9 s Normal 11.7-14.9 [facility] Comment on above: Performed By: #### L 100.0100, L500.2500, L500.3400, L300.3900 #### [facility] [address] [place], [address] Prothrombin timeon PT Coag (PPP) [Time] 13.9 s 11.7-14.9 [facility] RBC Auto (Bld) [#/Vol]on RBC (Bld) [#/Vol] 4.09 10*6/uL Low 4.2-5.4 [facility] Serum creatinine measurement (mass/volume)on 08-03-2024 Creatinine [Mass/Vol] 0.62 mg/dL Low 0.70-1.20 [facility] Serum globulin measurementon 08-03-2024 Globulin (S) [Mass/Vol] 2.9 g/dL 2.2-4.2 [facility] Serum glucose measurement (m ass/volume)on 08-03-2024 Glucose [Mass/Vol] 96 mg/dL 70-99 [facility] Serum or plasma alanine valdes otransferase (ALT) measurementon 08-03-2024 ALT [Catalytic activity/Vol] 17 U/L <35 [facility] Serum or plasma albumin eunice urement (mass/volume)on 08-03-2024 Albumin [Mass/Vol] 4.3 g/dL 3.5-5.0 [facility] Serum or plasma alkaline iraj sphatase measurementon 08-03-2024 ALP [Catalytic activity/Vol] 91 U/L 35-104 [facility] Serum or plasma calcium eunice urement (mass/volume)on 08-03-2024 Calcium [Mass/Vol] 9.1 mg/dL 7.6-11.0 [facility] Serum or plasma estradiol me asurement after follitropin dose (mass/volume)Ordered By: Elvia Guthrie on 08-03-2024 E2 post dose follitropin [Mass/Vol] 13.5 pg/mL [facility] Comment on above: FEMALES ADULT FEMALE : Premenopausal: 15-350 pg/mL(E2 levels vary widely through the menstrual cycle) Postmenopausal: <10 pg/mL VENU STAGES MEAN AGE REFERENCE RANGES Stage I(>14 days and prepubertal) 7.1 years Undetectable-20 pg/mLL Stage II 10.5 years Undetectable-24 pg/mL Stage III 11.6 years Undetectable-60 pg/mL Stage IV 12.3 years 15-85 pg/mL Stage V 14.5 years 15-350 pg/mL Puberty onset (transition from Venu stage I to Venu stage II) occurs for girls at a median age of 10.5 (/- 2) years. There is evidence that it may occur up to 1 year earlier in obese girls and in girls.Progression through Venu stages is variable. Venu stage V (adult) should be reached by age 18. Serum or plasma free testost erone measurement (mass/volume)Ordered By: Elvia Guthrie on 08-03-2024 Testosterone Free [Mass/Vol] 8.3 pg/mL High 0.0-4.2 [facility] Comment on above: Performed at: [facility] [address] [id number] Director: Daryn Grande MD, Phone: [phone] Serum or plasma urea nitroge n measurement (mass/volume)on 08-03-2024 Urea nitrogen [Mass/Vol] 15 mg/dL 07-02 [facility] Sodium levelon 08-03-2024 Sodium [Moles/Vol] 137 mmol/L 133-145 [facility] Total proteinon 08-03-2024 Protein [Mass/Vol] 7.2 g/dL 5.9-8.4 [facility] White blood cell (WBC) count on 08-03-2024 WBC (Bld) [#/Vol] 6.4 10*3/uL 4.4-11.0 [facility] DHEA Sulfateon 07-02-2024 DHEA SULFATE 153.0 ug/dL Normal 41.2-243.7 [facility] Comment on above: Order Comment: N Performed By: #### L 3100.5125, L3300.1750, L3400.4800 #### [facility] [address] [place], [place], [address] PROLACTIN 4465on 07-02-2024 PROLACTIN 13.1 ng/mL Normal 4.8-33.4 [facility] Comment on above: Performed By: #### L 3100.5125, L3300.1750, L3400.4800 #### [facility] [address] [place], [address] Testosterone Freeon 07-03-19 25 TESTOSTER FREE 7.3 pg/mL Abnormal 0.0-4.2 [facility] Comment on above: Result Comment: Perf ormed at: CB - [facility] [address] [id number] [employer] Developer: Lloyd Garnica PhD, Phone: [phone] Performed at: [facility] [id number] [employer] Developer: Daryn Grande MD, Phone: [phone] Performed By: #### L 3100.5125, L3300.1750, L3400.4800 #### [facility] [address] [place], [address] Dehydroepiandrosterone sulfa te (DHEA-S) measurementOrdered By: Elvia Guthrie on 06-29-2024 Dehydroepiandrosterone Sulfate 153.0 ug/dL 41.2-243.7 [facility] Prolactin [Mass/Vol]Ordered By: Elvia Guthrie on 06-29-2024 Prolactin 13.1 ng/mL 4.8-33.4 [facility] Serum or plasma free testost erone measurement (mass/volume)Ordered By: Elvia Guthrie on 06-29-2024 Testosterone Free [Mass/Vol] 7.3 pg/mL High 0.0-4.2 [facility] Comment on above: Performed at: [facility] [address] [id number] Director: Lloyd Garnica PhD, Phone: [phone] at: [employer] [id number] Director: Daryn Grande MD, Phone: [phone] Serum or plasma prolactin me asurement (mass/volume)Ordered By: Elvia Guthrie on 06-29-2024 Prolactin [Mass/Vol] 13.1 ng/mL 4.8-33.4 [facility] Testosterone Free [Mass/Vol] Ordered By: Elvia Guthrie on 06-29-2024 Free Testosterone 7.3 pg/mL High 0.0-4.2 [facility] Comment on above: Performed at: [facility] [address] [id number] Director: Lloyd Garnica PhD, Phone: [phone] at: [employer] [id number] Director: Daryn Grande MD, Phone: [phone] Remote Rec[employer]iter Office Visit Reporton 06-09-2024 Remote Recruiter Office Visit Report [facility] [address], [address] [place] [address] OFFICE VISIT Date of Service: 06/09/24 MR#: [id number] Acct: [id number] Name: JARAD AVALOS Rep #: [id number] : 1980 Provider: ALFONSO Peralta Age/Sex: 43/F Location: [facility] Status: Signed Intake Vital Signs 12/24/23 13:07 06/09/24 10:30 Height 5 ft 1 in 5 ft 1 in Weight: 122 lb 4 oz BMI 23.1 BP 111/74 Intake Visit Reasons: MENOP[facility]SE LAB F/U Program Administrator Required: No Is patient in pain?: No Feel stressed/tense/nervous/an xious/difficulty sleeping: not at all Allergies latex Allergy (Intermediate, Verified 06/09/24 10:33) Rash levofloxacin (From Levaquin) Allergy (Verified 06/09/24 10:33) Itching clarithromycin (From Biaxin) Adverse Reaction (Verified 06/09/24 10:33) Nausea Medications ???Medication ???Instructions ???Recorded ???Confirmed ???Type psyllium husk (aspartame) 3.4 gram 1 packet PO DAILY 02/12/1306/09 History oral powder packet spironolactone 100 mg tablet 25 mg PO DAILY 04/14/14 06/09/24 H istory buspirone 5 mg tablet 5 mg PO TID GASTROPARESIS 04/01/17 06/09/24 History lisdexamfetamine 20 mg capsule 20 mg PO DAILY 12/18/21 06/09/24 H istory (Vyvanse) melatonin 3 mg capsule 3 mg PO HS PRN Insomnia 12/18/21 0 06/09/24 History pantoprazole 40 mg tablet,delayed 40 mg PO QAM #90 tabs 12/30/22 Rx release fexofenadine 180 mg tablet 180 mg PO DAILY 08/19/23 06/09/24 History ([facility] All[facility]) multivitamin (Daily Multi-Vitamin 1 tab PO DAILY 08/19/23 06/09/24 History tablet) prochlorperazine maleate 10 mg 10 mg PO TID PRN nausea and 06/09/24 Rx tablet vomiting 1 month #90 tabs baclofen 5 mg tablet 5 mg PO BID 12/24/23 06/09/24 Hist ory cholecalciferol (vitamin D3) 1,250 1,250 mcg PO QWEEK 12/24/2305/15 History mcg (50,000 unit) capsule valacyclovir 500 mg tablet 500 mg PO BID 12/24/23 06/09/24 Hi story (Valtrex) Patient : No : No PFSH Medical History Primary sclerosing cholangitis Gastroparesis Wears contact lenses Injury of back Heartburn History of echocardiogram Wears glasses Non-smoker Mitral valve prolapse Vitamin D deficiency Hyperlipidemia Anxiety Elevated liver enzymes Acute sinusitis, unspecified Contact with and (suspected) exposure to other viral communicable diseases Rosacea ADHD (attention deficit hyperactivity disorder) Hemorrhoids Surgical History History of esophagogastroduodenoscop y (EGD) History of liver biopsy uterine ablation Fistula Hx of section H/O removal of cyst Tubal ligation status History of tonsillectomy and adenoidectomy Family History Grandmother Breast cancer, Onset Age: 80 Social History adopted: No number of children: 2 current occupational status: employed 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 She had an FSH level that confirms she was post menopausal; she deals with hot flashes as well as insomnia at night time. LMP greater than 1 year ago. She is interested in her treatment options. She does have history of gastroparesis. History 2 Elective abortions Hx Para 2 Spontaneous abortions Hx # Term Pregnancies Ectopic pregnancies Hx # Pregnancies Multiple births # of living children 2 Past Pregnancies Del. Date Name GA/Weeks Outcome Route Bth Weight Gen Labor Lgth Anesthesia Del Locatn Provider FOB 07/04/05 Brian live - full term 5 lbs [address] 12/20/07 Rene live - full term 8 lbs 9 oz [place] ROS Const ROS Unobtainable: All systems reviewed are unremarkable except as noted in H Exam Const General: cooperative, healthy appearing, comfortable, no acute distress, well groomed and well hydrated Nutritional Appearance: well nourished Orientation: alert, awake and oriented x3 Eyes General: appearance normal, both eyes and all related structures Resp Effort Inspection: normal respiratory effort, able to speak in complete sentences and symmetric chest movement Neuro General: patient alert, patient awake and patient oriented x3 Psych Appearanc (more content not included)... Normal [facility] Bone density reportOrdered B y: Carmen Myers on 05-31-2024 Study report Skeletal system DXA [facility] [address] [place] [address] Dexa Bone Density Study MR#: [id number] Acct: [id number] Name: JARAD AVALOS LOUISE Rep #: [id number] : 1980 F 43 From: Aida Myers MD PCP: Dr. Wilbert Esparza MD Status: [facility] Study:Dexa Bone Density Study Date of Exam: 05/31/24 Exam# [id number] Ordering Dr: Nathaly Prado PROCEDURE: DEXA BONE DENSITY STUDY REASON FOR EXAM: HX OF PRIMARY SCLEROSING CHOLANGITIS TECHNIQUE: DEXA scan of the lumbar spine and hip(s). COMPARISON: None FINDINGS: LUMBAR SPINE: Bone mineral denisty, L1-L4: 0.976 g/cm? T-score: -0.6 LEFT FEMORAL NECK: Bone mineral denisty: 0.707 g/cm? T-score: -1.3 LEFT TOTAL HIP: Bone mineral denisty: 0.892 g/cm? T-score: -0.4 RIGHT FEMORAL NECK: Bone mineral denisty: 0.718 g/cm? T-score: -1.2 RIGHT TOTAL HIP: Bone mineral denisty: 0.878 g/cm? T-score: -0.5 FRAX*: 10 Year Probability of Fracture: Major Osteoporotic Fracture(1): 3.0% Hip Fracture(2): 0.2% *FRAX is a trademark of the [employer]'s [facility] for Metabolic Bone Disease, World Health Organization (WHO) Collaborating Nicollet. 1-Major Osteoporotic Fracture: Clinical Spine, Forearm, Hip or Shoulder. 2-The 10-year probability of fracture may be lower than reported if the patient has received treatment. BD/Dexa Bone Density Study IMPRESSION: 1. Osteopenia. 2. No prior exams are available for comparison. 3. Additional description as above. Reading Location: [facility] CC: Dr. Wilbert Esparza MD; Hayes Menjivar MD; GOPAL Farah ~ Legal Billing Analyst: Signed [facility] Dexa Bone Density Studyon Dexa Bone Density Study [facility] Imaging Services [address] [place] [id number] Dexa Bone Density Study MR#: [id number] Acct: [id number] Name: JARAD AVALOS Rep #: [id number] : 1980 F 43 From: Carmen Myers MD PCP: Dr. Wilbert Esparza MD Status: REG CLI Study: Dexa Bone Density Study Date of Exam: 05/31/24 Exam# [id number] Ordering Dr: Nathaly Prado PROCEDURE: DEXA BONE DENSITY STUDY REASON FOR EXAM: HX OF PRIMARY SCLEROSING CHOLANGITIS TECHNIQUE: DEXA scan of the lumbar spine and hip(s). COMPARISON: None FINDINGS: LUMBAR SPINE: Bone mineral denisty, L1-L4: 0.976 g/cm??? T-score: -0.6 LEFT FEMORAL NECK: Bone mineral denisty: 0.707 g/cm??? T-score: -1.3 LEFT TOTAL HIP: Bone mineral denisty: 0.892 g/cm??? T-score: -0.4 RIGHT FEMORAL NECK: Bone mineral denisty: 0.718 g/cm??? T-score: -1.2 RIGHT TOTAL HIP: Bone mineral denisty: 0.878 g/cm??? T-score: -0.5 FRAX*: 10 Year Probability of Fracture: Major Osteoporotic Fracture(1): 3.0% Hip Fracture(2): 0.2% *FRAX is a trademark of the [employer]'s [facility] for Metabolic Bone Disease, World Health Organization (WHO) Collaborating Nicollet. 1-Major Osteoporotic Fracture: Clinical Spine, Forearm, Hip or Shoulder. 2-The 10-year probability of fracture may be lower than reported if the patient has received treatment. BD/Dexa Bone Density Study IMPRESSION: 1. Osteopenia. 2. No prior exams are available for comparison. 3. Additional description as above. Reading Location: [id number] CC: Dr. Wilbert Esparza MD; Hayes Menjivar MD; GOPAL Farah Legal Billing Analyst: Signed Normal [facility] Gastroenterology Visit Repor ton 05-31-2024 Gastroenterology Visit Report [facility] [address] [place] [address] OFFICE VISIT Date of Service: 05/31/24 MR#: [id number] Acct: [id number] Name: JARAD AVALOS LOUISE Rep #: [id number] : 1980 Provider: GOPAL Farah Age/Sex: 43/F Location: [facility] Status: Signed Intake Vital Signs 08/21/23 10:58 12/24/23 13:07 Height 5 ft 1 in 5 ft 1 in Intake Visit Reasons: 6 M FU Chief Complaint: annual Allergies latex Allergy (Intermediate, Verified 12/24/23 13:01) Rash levofloxacin (From Levaquin) Allergy (Verified 12/24/23 13:01) Itching clarithromycin (From Biaxin) Adverse Reaction (Verified 12/24/23 13:01) Nausea Nurse's Note: OV 05.03.24 Pt here for f/u. Pt reports nausea and RUQ abdominal pain. Denies vomiting. Continues pantoprazole. [facility] Medical History Primary sclerosing cholangitis Gastroparesis Wears contact lenses Injury of back Heartburn History of echocardiogram Wears glasses Non-smoker Mitral valve prolapse Vitamin D deficiency Hyperlipidemia Anxiety Elevated liver enzymes Acute sinusitis, unspecified Contact with and (suspected) exposure to other viral communicable diseases Rosacea ADHD (attention deficit hyperactivity disorder) Hemorrhoids Surgical History History of esophagogastroduodenoscop y (EGD) History of liver biopsy uterine ablation Fistula Hx of section H/O removal of cyst Tubal ligation status History of tonsillectomy and adenoidectomy Family History (Updated 12/24/23 @ 13:05 by Faviola Zamora) Grandmother Breast cancer, Onset Age: 80 Social History (Updated 12/24/23 @ 13:06 by Faviola Zamora) adopted: No number of children: 2 current occupational status: employed 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 BGI established in 2021 with RUQ discomfort and elevated LFTs Biochemical ESR, haptoglobin, coag, ferritin, ammonia, LDH, ceruloplasmin, AFP, ASM, ANCA, ROBB comp, AMA WNL. 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 Biochemical 2.7.23 IgG subclasses, lipase, LFT WNL Stool 2.9.23 calprotectin, lactoferrin WNL Liver biopsy 2.14.23 mild macrovesicular steatosis. GET 4.19.23 92.46 minutes. ERCP 5.2.23 esophagitis; moderate Schatzki ring, Savary 51F moderate improvement; local inflammation with serpentine ulcerations of duodenal bulb. 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 Stable primary sclerosing cholangitis. Contact 05.07.23 recommending referral to [facility] for choledochal cyst Last OV 9 with occasional RUQ pain and nausea. Overall doing well. Continues Buspar and gastroparesis diet. Following with [facility] for choledochal cyst. Biochemical work up 05.11.24; AFP wnl, CA 19-9 wnl, CEA wnl, AST wnl, ALT wnl, ALP 120 H OV 3.. Pt doing well since last visit. SHe has upcoming MRCP in August 2024. Bone density test following appointment today. She has occasional RUQ pain and nausea. ROS Const Constitutional: No fatigue, fever(s) or weight change ENT ENT: No difficulty swallowing Gastro GI: Positive for abdominal pain and nausea/dyspepsia; No belching, bloating, change in bowel habits, change in stool character, coffee ground emesis, constipation, cramping, diarrhea, heartburn, difficulty swallowing, feeling full early, excessive flatus, incontinent of stools, Vomiting blood/hematemesis, Blood in stool, loose stools, Black,tarry stools, pain with swallowing, vomiting or other Musc Musculoskeletal: No joint pain Skin Skin: No yellowing of the eye or itchy eyes Psych Psychiatric: No anxiety and No depression Endo Endocrine: No fatigue or weight change Aller/Imm Allergy/Immunologic: No itchy eyes Dariusz/Lymp Hematologic/Lymphatic: No easy bleeding or easy bruising Exam Const General: cooperative and comfortable Nutritional Appearance: average body habitus and well nourished [facility] Head: normal to inspection Ears: hearing grossly normal bilaterally Nose: external nose normal Face and sinus: normal facial exam Eyes General: appearance normal, both eyes (more content not included)... Normal [facility] Estradiolon 05-11-2024 ESTRADIOL 25.5 pg/mL Normal [facility] Comment on above: Result Comment: FEMA LES ADULT FEMALE: Premenopausal: 15-350 pg/mL(E2 levels vary widely through the menstrual cycle) Postmenopausal: <10 pg/mL VENU STAGES MEAN AGE REFERENCE RANGES Stage I(>14 days and prepubertal) 7.1 years Undetectable-20 pg/mLL Stage II 10.5 years Undetectable-24 pg/mL Stage III 11.6 years Undetectable-60 pg/mL Stage IV 12.3 years 15-85 pg/mL Stage V 14.5 years 15-350 pg/mL Puberty onset (transition from Venu stage I to Venu stage II) occurs for girls at a median age of 10.5 (/- 2) years. There is evidence that it may occur up to 1 year earlier in obese girls and in girls. Progression through Venu stages is variable. Venu stage V (adult) should be reached by age 18. Performed By: #### L 100.0100, L500.2500, L500.3400, L300.3900 #### [facility] [address] [place], [address] Follicle Stimulating Hormone on 05-11-2024 FSH 93.6 mIU/mL Normal [facility] Comment on above: Result Comment: FEMA LE: Follicular: 1.4 - 18.1 mIU/mL Midcycle: 3.4 - 33.4 mIU/mL Luteal: 1.5 - 9.1 mIU/mL Post Menopause: 23.0 - 116.3 mIU/mL MALE: 1.4 - 18.1 mIU/mL NORMAL REFERENCE RANGES FEMALE FOLLICULAR 2.3 - 12.6 mIU/mL MID-CYCLE PEAK 5.2 - 17.5 mIU/mL LUTEAL 1.7 - 12.9 mIU/mL POST-MENOPAUSAL ON MHT 5.9 - 72.8 mIU/mL NOT ON MHT 12.7 - 132.2 mlU/mL MALE 0.7 - 10.8 mIU/mL Performed By: #### L 100.0100, L500.2500, L500.3400, L300.3900 #### [facility] [address] [place], [address] AFP, Tumor Markeron 05-10-19 AFP TUMOR CARMEN < 1.8 Normal 0.0-6.4 [facility] Comment on above: Order Comment: N Result Comment: [employer] Electrochemiluminescence Immunoassay (ECLIA) Values obtained with different assay methods or kits cannot be used interchangeably. Results cannot be interpreted as absolute evidence of the presence or absence of malignant disease. This test is not interpretable in females. Performed By: #### L 100.0100, L500.2500, L500.3400, L300.3900 #### [facility] [address] [place], [address] CA 19-9 Serial Monitoron CA 19-9 4 U/mL Normal 0-35 [facility] Comment on above: Result Comment: [employer] Electrochemiluminescence Immunoassay (ECLIA) Values obtained with different assay methods or kits cannot be used interchangeably. Results cannot be interpreted as absolute evidence of the presence or absence of malignant disease. Performed By: #### L 100.0100, L500.2500, L500.3400, L300.3900 #### [facility] [address] [place], [address] Carcinoembryonic Antigenon 0 05-10-2024 CEA 1.0 ng/mL Normal 0.0-4.7 [facility] Comment on above: Result Comment: Nons mokers <3.9 Smokers <5.6 [employer] Electrochemiluminescence Immunoassay (ECLIA) Values obtained with different assay methods or kits cannot be used interchangeably. Results cannot be interpreted as absolute evidence of the presence or absence of malignant disease. Performed By: #### L 100.0100, L500.2500, L500.3400, L300.3900 #### [facility] [address] [place], [address] E2 post dose follitropin [Ma ss/Vol]Ordered By: Elvia Guthrie on 05-10-2024 Estradiol (E2) Level 25.5 pg/mL [facility] Comment on above: FEMALES ADULT FEMALE : Premenopausal: 15-350 pg/mL(E2 levels vary widely through the menstrual cycle) Postmenopausal: <10 pg/mL VENU STAGES MEAN AGE REFERENCE RANGES Stage I(>14 days and prepubertal) 7.1 years Undetectable-20 pg/mLL Stage II 10.5 years Undetectable-24 pg/mL Stage III 11.6 years Undetectable-60 pg/mL Stage IV 12.3 years 15-85 pg/mL Stage V 14.5 years 15-350 pg/mL Puberty onset (transition from Venu stage I to Venu stage II) occurs for girls at a median age of 10.5 (/- 2) years. There is evidence that it may occur up to 1 year earlier in obese girls and in girls.Progression through Venu stages is variable. Venu stage V (adult) should be reached by age 18. Follicle stimulating hormone (FSH) levelOrdered By: Elvia Guthrie on 05-10-2024 Follicle Stimulating Hormone 93.6 mIU/mL [facility] Comment on above: FEMALE:Follicular: 1 .4 - 18.1 mIU/mLMidcycle: 3.4 - 33.4 mIU/mLLuteal: 1.5 - 9.1 mIU/mLPost Menopause: 23.0 - 116.3 mIU/mLMALE: 1.4 - 18.1 mIU/mL NORMAL REFERENCE RANGES FEMALE FOLLICULAR 2.3 - 12.6 mIU/mL MID-CYCLE PEAK 5.2 - 17.5 mIU/mL LUTEAL 1.7 - 12.9 mIU/mL POST-MENOPAUSAL ON MHT 5.9 - 72.8 mIU/mL NOT ON MHT 12.7 - 132.2 mlU/mL MALE 0.7 - 10.8 mIU/mL Gastrin, Serumon 05-10-2024 GASTRIN 81 pg/mL Normal 0-115 [facility] Comment on above: Result Comment: [employer] 2000 Immunochemiluminometric assay (ICMA) Values obtained with different assay methods or kits cannot be used interchangeably. Results cannot be interpreted as absolute evidence of the presence or absence of malignant disease. Performed at: [address] [id number] [employer] Developer: Lloyd Garnica PhD, Phone: [phone] Performed at: [facility] [id number] [employer] Developer: Daryn Grande MD, Phone: [phone] Performed By: #### L 100.0100, L500.2500, L500.3400, L300.3900 #### [facility] [place], [address] Serum or plasma estradiol me asurement after follitropin dose (mass/volume)Ordered By: Elvia Guthrie on 05-10-2024 E2 post dose follitropin [Mass/Vol] 25.5 pg/mL [facility] Comment on above: FEMALES ADULT FEMALE : Premenopausal: 15-350 pg/mL(E2 levels vary widely through the menstrual cycle) Postmenopausal: <10 pg/mL VENU STAGES MEAN AGE REFERENCE RANGES Stage I(>14 days and prepubertal) 7.1 years Undetectable-20 pg/mLL Stage II 10.5 years Undetectable-24 pg/mL Stage III 11.6 years Undetectable-60 pg/mL Stage IV 12.3 years 15-85 pg/mL Stage V 14.5 years 15-350 pg/mL Puberty onset (transition from Venu stage I to Venu stage II) occurs for girls at a median age of 10.5 (/- 2) years. There is evidence that it may occur up to 1 year earlier in obese girls and in girls.Progression through Venu stages is variable. Venu stage V (adult) should be reached by age 18. Absolute lymphocyte countOrd ered By: Nathaly Prado on 05-05-2024 Lymphocytes Auto (Unsp spec) [#/Vol] 2.53 10*3/uL 0.83-4.51 [facility] Absolute neutrophil countOrd ered By: Nathaly Prado on 05-05-2024 Neutrophils (Bld) [#/Vol] 5.1 10*3/uL 2.0-7.7 [facility] Albumin to globulin ratioOrd ered By: Nathaly Prado on 05-05-2024 Albumin/Globulin [Mass ratio] 1.0 {ratio} 0.9-2.4 [facility] Alpha fetoprotein measuremen t as tumor markerOrdered By: Nathaly Prado on 05-05-2024 Tumor Marker Alpha Fetoprotein < 1.8 ng/mL 0.0-6.4 [facility] Comment on above: [employer] El ectrochemiluminescence Immunoassay(ECLIA)Values obtained with different assay methods or kits cannotbe used interchangeably. Results cannot be interpreted asabsolute evidence of the presence or absence of malignantdisease.This test is not interpretable in females. Automated lymphocyte count a s percentage of total leukocytesOrdered By: Nathaly Prado on 05-05-2024 Lymphocytes/100 WBC Auto (Unsp spec) 29.7 % [facility] Basophil percentageOrdered B y: Nathaly Prado on 05-05-2024 Basophils/100 WBC (Bld) 0.6 % 0-1 [facility] Bilirubin, totalOrdered By: Nathaly Prado on 05-05-2024 Bilirubin [Mass/Vol] 0.50 mg/dL 0.20-1.00 [facility] Comment on above: For patients on eltr ombopag therapy, use of Dimension [place] TBIL is not recommended. Blood urea nitrogen (BUN)/cr eatinine ratioOrdered By: Nathaly Prado on 05-05-2024 Urea nitrogen/Creatinine [Mass ratio] 24.4 mg/mg High 01-02 [facility] CBC W/Diff, Automatedon 04-17 Absolute Lymph 2.53 X10 3/uL Normal 0.83-4.51 [facility] Comment on above: Performed By: #### L 100.0100, L500.2500, L500.3400, L300.3900 #### [facility] [address] [place], [address] Absolute Neut 5.1 X10 3/uL Normal 2.0-7.7 [facility] Comment on above: Performed By: #### L 100.0100, L500.2500, L500.3400, L300.3900 #### [facility] [address] [place], [address] Basophils/100 WBC (Bld) 0.6 % Normal 0-1 [facility] Comment on above: Performed By: #### L 100.0100, L500.2500, L500.3400, L300.3900 #### [facility] [address] [place], [address] Eosinophils/100 WBC (Bld) 1.6 % Normal 0-5 [facility] Comment on above: Performed By: #### L 100.0100, L500.2500, L500.3400, L300.3900 #### [facility] [address] [place], [address] Erythrocyte distribution width (RBC) [Ratio] 12.4 % Normal 11.6-14.6 [facility] Comment on above: Performed By: #### L 100.0100, L500.2500, L500.3400, L300.3900 #### [facility] [address] [place], [address] Hematocrit (Bld) [Volume fraction] 39.9 % Normal 37-47 [facility] Comment on above: Performed By: #### L 100.0100, L500.2500, L500.3400, L300.3900 #### [facility] [address] [place], [address] Hemoglobin (Bld) [Mass/Vol] 13.2 g/dL Normal 12.0-15.0 [facility] Comment on above: Performed By: #### L 100.0100, L500.2500, L500.3400, L300.3900 #### [facility] [address] [place], [address] IG% 0.400 Normal 0.0-0.9 [facility] Comment on above: Result Comment: IG% - Immature Granulocytes (promyelocytes, myelocytes and metamyelocytes) > 1% indicates that a LEFT SHIFT is Present. Performed By: #### L 100.0100, L500.2500, L500.3400, L300.3900 #### [facility] [address] [place], [address] Lymphocytes/100 WBC (Bld) 29.7 % Normal 19-41 [facility] Comment on above: Performed By: #### L 100.0100, L500.2500, L500.3400, L300.3900 #### [facility] [address] [place], [address] MCH (RBC) [Entitic mass] 30.6 pg Normal 27.0-32.0 [facility] Comment on above: Performed By: #### L 100.0100, L500.2500, L500.3400, L300.3900 #### [facility] [address] [place], [address] MCHC (RBC) [Mass/Vol] 33.1 g/dL Normal 32-36 [facility] Comment on above: Performed By: #### L 100.0100, L500.2500, L500.3400, L300.3900 #### [facility] [address] [place], [address] MCV (RBC) [Entitic vol] 92.4 fL Normal 81-99 [facility] Comment on above: Performed By: #### L 100.0100, L500.2500, L500.3400, L300.3900 #### [facility] [address] [place], [address] Monocytes/100 WBC (Bld) 7.5 % Normal 0-10 [facility] Comment on above: Performed By: #### L 100.0100, L500.2500, L500.3400, L300.3900 #### [facility] [address] [place], [address] Neutrophils/100 WBC (Bld) 60.2 % Normal 47-70 [facility] Comment on above: Performed By: #### L 100.0100, L500.2500, L500.3400, L300.3900 #### [facility] [address] [place], [address] Nucleated RBC (Bld) [#/Vol] 0 10*3/uL Normal 0-5 [facility] Comment on above: Performed By: #### L 100.0100, L500.2500, L500.3400, L300.3900 #### [facility] [address] [place], [address] Platelet mean volume (Bld) [Entitic vol] 11.1 fL Normal 6.2-12.0 [facility] Comment on above: Performed By: #### L 100.0100, L500.2500, L500.3400, L300.3900 #### [facility] [address] [place], [address] Platelets (Bld) [#/Vol] 212 10*3/uL Normal 150-450 [facility] Comment on above: Performed By: #### L 100.0100, L500.2500, L500.3400, L300.3900 #### [facility] [address] [place], [address] RBC (Bld) [#/Vol] 4.32 10*6/uL Normal 4.2-5.4 [facility] Comment on above: Performed By: #### L 100.0100, L500.2500, L500.3400, L300.3900 #### [facility] [address] [place], [address] RDW SD 42.1 fl Normal 35.1-43.9 [facility] Comment on above: Performed By: #### L 100.0100, L500.2500, L500.3400, L300.3900 #### [facility] [address] [place], [address] WBC (Bld) [#/Vol] 8.5 10*3/uL Normal 4.4-11.0 [facility] Comment on above: Performed By: #### L 100.0100, L500.2500, L500.3400, L300.3900 #### [facility] [address] [place], [address] Cancer antigen 19-9 measurem entOrdered By: Nathaly Prado on 05-05-2024 CA 19-9 Antigen 4 U/mL 0-35 [facility] Comment on above: [employer] El ectrochemiluminescence Immunoassay(ECLIA)Values obtained with different assay methods or kits cannotbe used interchangeably. Results cannot be interpreted asabsolute evidence of the presence or absence of malignantdisease. Cancer antigen 19-9 measurement 4 U/mL 0-35 [facility] Comment on above: [employer] El ectrochemiluminescence Immunoassay(ECLIA)Values obtained with different assay methods or kits cannotbe used interchangeably. Results cannot be interpreted asabsolute evidence of the presence or absence of malignantdisease. Carbon dioxide measurementOr dered By: Nathaly Prado on 05-05-2024 CO2 [Moles/Vol] 29.0 mmol/L 21.0-32.0 [facility] Chloride measurementOrdered By: Nathaly Prado on 05-05-2024 Chloride [Moles/Vol] 103 mmol/L 98-107 [facility] Comprehensive Metabolic Prof ilon 05-05-2024 Albumin [Mass/Vol] 3.9 g/dL Normal 3.2-5.0 [facility] Comment on above: Performed By: #### L 100.0100, L500.2500, L500.3400, L300.3900 #### [facility] [address] [place], [address] Albumin/Globulin [Mass ratio] 1.0 {ratio} Normal 0.9-2.4 [facility] Comment on above: Performed By: #### L 100.0100, L500.2500, L500.3400, L300.3900 #### [facility] [address] [place], [address] ALK P 120 U/L High 45-117 [facility] Comment on above: Performed By: #### L 100.0100, L500.2500, L500.3400, L300.3900 #### [facility] [address] [place], [address] ALT [Catalytic activity/Vol] 38 U/L Normal 13-56 [facility] Comment on above: Performed By: #### L 100.0100, L500.2500, L500.3400, L300.3900 #### [facility] [address] [place], [address] AST [Catalytic activity/Vol] 22 U/L Normal 15-37 [facility] Comment on above: Performed By: #### L 100.0100, L500.2500, L500.3400, L300.3900 #### [facility] [address] [place], [address] Bilirubin [Mass/Vol] 0.50 mg/dL Normal 0.20-1.00 [facility] Comment on above: Result Comment: For patients on eltrombopag therapy, use of Dimension [place] TBIL is not recommended. Performed By: #### L 100.0100, L500.2500, L500.3400, L300.3900 #### [facility] [address] [place], [address] BUN/CRE 24.4 RATIO High 10-20 [facility] Comment on above: Performed By: #### L 100.0100, L500.2500, L500.3400, L300.3900 #### [facility] [address] [place], [address] CA,Total 9.3 mg/dL Normal 8.5-10.1 [facility] Comment on above: Performed By: #### L 100.0100, L500.2500, L500.3400, L300.3900 #### [facility] [address] [place], [address] Chloride [Moles/Vol] 103 mmol/L Normal 98-107 [facility] Comment on above: Performed By: #### L 100.0100, L500.2500, L500.3400, L300.3900 #### [facility] [address] [place], [address] CO2 [Moles/Vol] 29.0 mmol/L Normal 21.0-32.0 [facility] Comment on above: Performed By: #### L 100.0100, L500.2500, L500.3400, L300.3900 #### [facility] [address] [place], [address] Creatinine [Mass/Vol] 0.70 mg/dL Normal 0.55-1.02 [facility] Comment on above: Result Comment: The validity of the calculated GFR GFRAA in patients over 70 years has not been determined. Clinical correlation is essential. Performed By: #### L 100.0100, L500.2500, L500.3400, L300.3900 #### [facility] [address] [place], [address] EST GFR - AA 117 mL/min Normal >60 [facility] Comment on above: Result Comment: Afri can Qatari GFR Calc Performed By: #### L 100.0100, L500.2500, L500.3400, L300.3900 #### [facility] [address] [place], [address] GAP 6 Normal 5-15 [facility] Comment on above: Performed By: #### L 100.0100, L500.2500, L500.3400, L300.3900 #### [facility] [address] [place], [address] GFR/1.73 sq M.predicted among non-blacks MDRD (S/P/Bld) [Vol rate/Area] 96 mL/min/{1.73_m2} Normal >60 [facility] Comment on above: Result Comment: Non- GFR Calc Performed By: #### L 100.0100, L500.2500, L500.3400, L300.3900 #### [facility] [address] [place], [address] Globulin (S) [Mass/Vol] 3.9 g/dL Normal 2.2-4.2 [facility] Comment on above: Performed By: #### L 100.0100, L500.2500, L500.3400, L300.3900 #### [facility] [address] [place], [address] Glucose [Mass/Vol] 93 mg/dL Normal 74-106 [facility] Comment on above: Performed By: #### L 100.0100, L500.2500, L500.3400, L300.3900 #### [facility] [address] [place], [address] Potassium [Moles/Vol] 3.8 mmol/L Normal 3.5-5.1 [facility] Comment on above: Performed By: #### L 100.0100, L500.2500, L500.3400, L300.3900 #### [facility] [address] [place], [address] Sodium [Moles/Vol] 138 mmol/L Normal 136-145 [facility] Comment on above: Performed By: #### L 100.0100, L500.2500, L500.3400, L300.3900 #### [facility] [address] [place], [address] T PROT 7.8 g/dL Normal 6.4-8.2 [facility] Comment on above: Performed By: #### L 100.0100, L500.2500, L500.3400, L300.3900 #### [facility] [address] [place], [address] Urea nitrogen [Mass/Vol] 17 mg/dL Normal 7-18 [facility] Comment on above: Performed By: #### L 100.0100, L500.2500, L500.3400, L300.3900 #### [facility] [address] [place], [address] Eosinophil percentageOrdered By: Nathaly Prado on 05-05-2024 Eosinophils/100 WBC (Bld) 1.6 % 0-5 [facility] Erythrocyte distribution wid th ratioOrdered By: Nathaly Prado on 05-05-2024 Erythrocyte distribution width (RBC) [Ratio] 12.4 % 11.6-14.6 [facility] Erythrocyte distribution wid th standard deviationOrdered By: Nathaly Prado on 05-05-2024 Erythrocyte distribution width (RBC) [Entitic vol] 42.1 fL 35.1-43.9 [facility] Erythrocyte distribution width (RBC) [Ratio] 42.1 fl 35.1-43.9 [facility] Estimated glomerular filtrat ion rate (GFR) AmericanOrdered By: Nathaly Prado on 05-05-2024 Estimated GFR (MDRD) Amer 117 mL/min >60 [facility] Comment on above: GFR Calc Gastrin [Mass/Vol]Ordered By : Nathaly Prado on 05-05-2024 Gastrin 81 pg/mL 0-115 [facility] Comment on above: [employer] Immulite 200 0 Immunochemiluminometric assay (ICMA)Values obtained with different assay methods or kits cannotbe used interchangeably. Results cannot be interpreted asabsolute evidence of the presence or absence of malignantdisease.Performed at: [facility] [id number] Director: Lloyd Garnica PhD, Phone: [phone] at: [facility] [id number] Director: Daryn Grande MD, Phone: [phone] Gastrin, serumOrdered By: Rashida Prado on 05-05-2024 Gastrin [Mass/Vol] 81 pg/mL 0-115 [facility] Comment on above: [employer] Immulite 200 0 Immunochemiluminometric assay (ICMA)Values obtained with different assay methods or kits cannotbe used interchangeably. Results cannot be interpreted asabsolute evidence of the presence or absence of malignantdisease.Performed at: [facility] Lab[place] [id number] [place], [place] [id number] Director: Lloyd Garnica PhD, Phone: [phone] at: [address] [id number] Director: Daryn Grande MD, Phone: [phone] Glomerular filtration rate ( GFR) estimationOrdered By: Nathaly Prado on 05-05-2024 Estimated GFR (MDRD) Non-Af Amer 96 mL/min >60 [facility] Comment on above: Non- GFR Calc GFR/1.73 sq M.predicted among non-blacks MDRD (S/P/Bld) [Vol rate/Area] 96 mL/min/{1.73_m2} >60 [facility] Comment on above: Non- GFR Calc Glucose measurementOrdered B y: Nathaly Prado on 05-05-2024 Glucose [Mass/Vol] 93 mg/dL 74-106 [facility] Hematocrit Auto (Bld) [Volum e fraction]Ordered By: Nathaly rPado on 05-05-2024 Hematocrit (Bld) [Volume fraction] 39.9 % 37-47 [facility] Hemoglobin measurementOrdere d By: Nathaly Prado on 05-05-2024 Hemoglobin (Bld) [Mass/Vol] 13.2 g/dL 12.0-15.0 [facility] Immature granulocytes/100 WB C Auto (Bld)Ordered By: Nathaly Prado on 05-05-2024 Immature granulocytes/100 WBC (Bld) 0.400 % 0.0-0.9 [facility] Comment on above: IG% - Immature Granu locytes (promyelocytes, myelocytes and metamyelocytes) > 1% indicates that a LEFT SHIFT is Present. International normalized rat io (INR) calculationOrdered By: Nathaly Prado on 05-05-2024 INR Coag (Bld) [Relative time] 1.1 {INR} [facility] - Chemistry and C hemistry - challengeOrdered By: Nathaly Prado on 05-05-2024 AST [Catalytic activity/Vol] 22 U/L 15-37 [facility] Lymphocytes Auto (Unsp spec) [#/Vol]Ordered By: Nathaly Prado on 05-05-2024 Lymphocytes (Bld) [#/Vol] 2.53 10*3/uL 0.83-4.51 [facility] Lymphocytes/100 WBC Auto (Un sp spec)Ordered By: Nathaly Prado on 05-05-2024 Lymphocytes/100 WBC (Bld) 29.7 % 19-41 [facility] MCV (mean corpuscular volume ) determinationOrdered By: Nathaly Prado on 05-05-2024 MCV (RBC) [Entitic vol] 92.4 fL 81-99 [facility] Mean corpuscular hemoglobin (MCH) determinationOrdered By: Nathaly Prado on 05-05-2024 MCH (RBC) [Entitic mass] 30.6 pg 27.0-32.0 [facility] Mean corpuscular hemoglobin concentration (MCHC) determinationOrdered By: Nathaly Prado on 05-05-2024 MCHC (RBC) [Mass/Vol] 33.1 g/dL 32-36 [facility] Mean platelet volume determi nationOrdered By: Nathaly Prado on 05-05-2024 Platelet mean volume (Bld) [Entitic vol] 11.1 fL 6.2-12.0 [facility] Monocyte percentageOrdered B y: Nathaly Prado on 05-05-2024 Monocytes/100 WBC (Bld) 7.5 % 0-10 [facility] Neutrophil percentageOrdered By: Nathaly Prado on 05-05-2024 Neutrophils/100 WBC (Bld) 60.2 % 47-70 [facility] No Panel InformationOrdered By: Nathaly Prado on 05-05-2024 CA 19-9 Antigen Serial Monitoring Not Reportable [facility] Nucleated red blood cell per centageOrdered By: Nathaly Prado on 05-05-2024 Nucleated RBC/100 WBC (Bld) [Ratio] 0 % 0-5 [facility] Platelet countOrdered By: Rashida Prado on 05-05-2024 Platelets (Bld) [#/Vol] 212 10*3/uL 150-450 [facility] Potassium measurementOrdered By: Nathaly Prado on 05-05-2024 Potassium [Moles/Vol] 3.8 mmol/L 3.5-5.1 [facility] Prothrombin Time w/INRon INR Coag (PPP) [Relative time] 1.1 {INR} Normal [facility] Comment on above: Performed By: #### L 100.0100, L500.2500, L500.3400, L300.3900 #### [facility] [address] [place], [address] PT Coag (PPP) [Time] 14.0 s Normal 11.7-14.9 [facility] Comment on above: Performed By: #### L 100.0100, L500.2500, L500.3400, L300.3900 #### [facility] [address] [place], [address] Prothrombin timeOrdered By: Nathaly Prado on 05-05-2024 PT Coag (PPP) [Time] 14.0 s 11.7-14.9 [facility] RBC Auto (Bld) [#/Vol]Ordere d By: Nathaly Prado on 05-05-2024 RBC (Bld) [#/Vol] 4.32 10*6/uL 4.2-5.4 [facility] Serum anion gap measurementO rdered By: Nathaly Prado on 05-05-2024 Anion gap [Moles/Vol] 6 mmol/L 5-15 [facility] Serum globulin measurementOr dered By: Nathaly Prado on 05-05-2024 Globulin (S) [Mass/Vol] 3.9 g/dL 2.2-4.2 [facility] Serum or plasma alanine valdes otransferase (ALT) measurementOrdered By: Nathaly Prado on 05-05-2024 ALT [Catalytic activity/Vol] 38 U/L 13-56 [facility] Serum or plasma albumin eunice urement (mass/volume)Ordered By: Nathaly Prado on 05-05-2024 Albumin [Mass/Vol] 3.9 g/dL 3.2-5.0 [facility] Serum or plasma alkaline iraj sphatase measurementOrdered By: Nathaly Prado on 05-05-2024 ALP [Catalytic activity/Vol] 120 U/L High 45-117 [facility] Serum or plasma calcium eunice urement (mass/volume)Ordered By: Nathaly Prado on 05-05-2024 Calcium [Mass/Vol] 9.3 mg/dL 8.5-10.1 [facility] Serum or plasma carcinoembry onic antigen measurement (mass/volume)Ordered By: Nathaly Prado on 05-05-2024 Carcinoembryonic Ag [Mass/Vol] 1.0 ng/mL 0.0-4.7 [facility] Comment on above: Nonsmokers <3.9 Smok ers [facility] Electrochemiluminescence Immunoassay(ECLIA)Values obtained with different assay methods or kitscannot be used interchangeably. Results cannot beinterpreted as absolute evidence of the presence orabsence of malignant disease. Serum or plasma creatinine m easurement (mass/volume)Ordered By: Nathaly Prado on 05-05-2024 Creatinine [Mass/Vol] 0.70 mg/dL 0.55-1.02 [facility] Comment on above: The validity of the calculated GFR & GFRAA in patients over 70 years has not been determined. Clinical correlation is essential. Serum or plasma thyroid stim ulating hormone (TSH) measurement (units/volume)Ordered By: Nathaly Prado on 05-05-2024 TSH Qn 0.944 uIU/mL 0.358-3.74 0 [facility] Serum or plasma urea nitroge n measurement (mass/volume)Ordered By: Nathaly Prado on 05-05-2024 Urea nitrogen [Mass/Vol] 17 mg/dL 7-18 [facility] Sodium levelOrdered By: Rafael Prado on 05-05-2024 Sodium [Moles/Vol] 138 mmol/L 136-145 [facility] TSH QnOrdered By: Nathaly donohue on 05-05-2024 Thyroid Stimulating Hormone (TSH) 0.944 uIU/mL 0.358-3.74 0 [facility] Thyroid Stim Hormone (TSH)on 05-05-2024 TSH 0.944 uIU/mL Normal 0.358-3.74 0 [facility] Comment on above: Performed By: #### L 100.0100, L500.2500, L500.3400, L300.3900 #### [facility] [address] [place], [address] Total proteinOrdered By: Kusum Prado on 05-05-2024 Protein [Mass/Vol] 7.8 g/dL 6.4-8.2 [facility] White blood cell (WBC) count Ordered By: Nathaly Prado on 05-05-2024 WBC (Bld) [#/Vol] 8.5 10*3/uL 4.4-11.0 [facility] MR Abdomen WO and W contrast Dallin 02-22-2024 IMPRESSION: 1. 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 No appreciable solid component or enhancement to suggest malignant transformation. 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 T2 weighted MRCP imaging was performed. CONTRAST: Gadopiclenol SOLN 1-25 mL; Route of Administration: Intravenous; Dose: 5.7 mL. FINDINGS: Lung Bases: Grossly clear. Normal heart size. Liver: Normal. No morphologic features of cirrhosis, and no focal observation to suggest hepatocellular carcinoma. Gallbladder: Normal. Bile Ducts: Normal caliber intrahepatic and extra hepatic bile ducts without findings to support the history of PSC. Cystic structure in the kate hepatis, near the confluence of the right and left hepatic ducts, measures approximately 1.5 cm x 1.1 cm (series 8, image 35), previously 2.0 x 1.5 cm. It is difficult to determine with certainty whether this communicates with the common hepatic duct or potentially the cystic duct. No appreciable internal solid component or enhancement. Spleen: Normal. Pancreas: Normal. Adrenals: Normal. Right Kidney: Normal. No hydronephrosis. Left Kidney: Normal. No hydronephrosis. Gastrointestinal: No bowel dilation or wall thickening. Peritoneum/retroperitoneu m: No ascites. Lymph nodes: No enlarged or morphologically abnormal lymph nodes. Vasculature: The abdominal aorta is normal in course and caliber. Patent celiac and superior mesenteric arteries. Patent portal, splenic, and superior mesenteric veins. Body Wall: Normal. Bones: Normal for patient age. No aggressive lesion. 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 T2 weighted MRCP imaging was performed. CONTRAST: Gadopiclenol SOLN 1-25 mL; Route of Administration: Intravenous; Dose: 5.7 mL. FINDINGS: Lung Bases: Grossly clear. Normal heart size. Liver: Normal. No morphologic features of cirrhosis, and no focal observation to suggest hepatocellular carcinoma. Gallbladder: Normal. Bile Ducts: Normal caliber intrahepatic and extra hepatic bile ducts without findings to support the history of PSC. Cystic structure in the kate hepatis, near the confluence of the right and left hepatic ducts, measures approximately 1.5 cm x 1.1 cm (series 8, image 35), previously 2.0 x 1.5 cm. It is difficult to determine with certainty whether this communicates with the common hepatic duct or potentially the cystic duct. No appreciable internal solid component or enhancement. Spleen: Normal. Pancreas: Normal. Adrenals: Normal. Right Kidney: Normal. No hydronephrosis. Left Kidney: Normal. No hydronephrosis. Gastrointestinal: No bowel dilation or wall thickening. Peritoneum/retroperitoneu m: No ascites. Lymph nodes: No enlarged or morphologically abnormal lymph nodes. Vasculature: The abdominal aorta is normal in course and caliber. Patent celiac and superior mesenteric arteries. Patent portal, splenic, and superior mesenteric veins. Body Wall: Normal. Bones: Normal for patient age. No aggressive lesion. IMPRESSION IMPRESSION: 1. 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 No appreciable solid component or enhancement to suggest malignant transformation. 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 T2 weighted MRCP imaging was performed. CONTRAST: Gadopiclenol SOLN 1-25 mL; Route of Administration: Intravenous; Dose: 5.7 mL. FINDINGS: Lung Bases: Grossly clear. Normal heart size. Liver: Normal. No morphologic features of cirrhosis, and no focal observation to suggest hepatocellular carcinoma. Gallbladder: Normal. Bile Ducts: Normal caliber intrahepatic and extra hepatic bile ducts without findings to support the history of PSC. Cystic structure in the kate hepatis, near the confluence of the right and left hepatic ducts, measures approximately 1.5 cm x 1.1 cm (series 8, image 35), previously 2.0 x 1.5 cm. It is difficult to determine with certainty whether this communicates with the common hepatic duct or potentially the cystic duct. No appreciable internal solid component or enhancement. Spleen: Normal. Pancreas: Normal. Adrenals: Normal. Right Kidney: Normal. No hydronephrosis. Left Kidney: Normal. No hydronephrosis. Gastrointestinal: No bowel dilation or wall thickening. Peritoneum/retroperitoneu m: No ascites. Lymph nodes: No enlarged or morphologically abnormal lymph nodes. Vasculature: The abdominal aorta is normal in course and caliber. Patent celiac and superior mesenteric arteries. Patent portal, splenic, and superior mesenteric veins. Body Wall: Normal. Bones: Normal for patient age. No aggressive lesion. IMPRESSION: 1. 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 No appreciable solid component or enhancement to suggest malignant transformation. Normal [facility] AFP, Tumor Markeron 02-01-20 AFP TUMOR CARMEN < 1.8 Normal 0.0-6.4 [facility] Comment on above: Order Comment: EULOGIO STINSON ORDERED Intrinsic Factor Ab, Anti-Parietal CellAB, QNALL OTHER ORDERS GO TO INDUSTRIAL PAINTER.ABENA SCHMIDT Result Comment: [employer] [facility] Electrochemiluminescence Immunoassay (ECLIA) Values obtained with different assay methods or kits cannot be used interchangeably. Results cannot be interpreted as absolute evidence of the presence or absence of malignant disease. This test is not interpretable in females. Performed By: #### L 100.0100, L500.2500, L500.3400, L300.3900 #### [facility] [address] [place], [place], [id number] Anti-Parietal Cell AB, QNon 02-01-2024 ANTIPARIET CELL 23.4 Units High 0.0-20.0 [facility] Comment on above: Order Comment: EULOGIO STINSON ORDERED Intrinsic Factor Ab, Anti-Parietal CellAB, QNALL OTHER ORDERS GO TO ОЛЕГ SCHMIDT Result Comment: Ve rified by repeat analysis Negative 0.0 - 20.0 Equivocal 20.1 - 24.9 Positive >24.9 Parietal Cell Antibodies are found in 90% of patients with pernicious anemia and 30% of first degree relatives with pernicious anemia. Performed By: #### L 100.0100, L500.2500, L500.3400, L300.3900 #### [facility] [address] [place], [place], [id number] Carbohydrate AG 19-9on 01-31 CA 19-9 4 U/mL Normal 0-35 [facility] Comment on above: Order Comment: EULOGIO STINSON ORDERED Intrinsic Factor Ab, Anti-Parietal CellAB, QNALL OTHER ORDERS GO TO INDUSTRIAL PAINTER.ABENA SCHMIDT Result Comment: [employer] [facility] Electrochemiluminescence Immunoassay (ECLIA) Values obtained with different assay methods or kits cannot be used interchangeably. Results cannot be interpreted as absolute evidence of the presence or absence of malignant disease. Performed By: #### L 100.0100, L500.2500, L500.3400, L300.3905 #### [facility] [address] [place], [address] Intrinsic Factor Abon 2023 INTRINS FACT AB 1.1 AU/mL Normal 0.0-1.1 [facility] Comment on above: Order Comment: EULOGIO STINSON ORDERED Intrinsic Factor Ab, Anti-Parietal CellAB, QNALL OTHER ORDERS GO TO INDUSTRIAL PAINTER.ABENA SCHMIDT Result Comment: Perf ormed at: - [facility] [id number] [employer] Developer: Lloyd Garnica PhD, Phone: [phone] Performed at: - [facility] [address] [id number] [employer] Developer: Daryn Grande MD, Phone: [phone] Performed By: #### L 100.0100, L500.2500, L500.3400, L300.3900 #### [facility] [address] [place], [place], [id number] Absolute neutrophil countOrd ered By: Nathaly Prado on 01-27-2024 Neutrophils (Bld) [#/Vol] 2.2 10*3/uL 2.0-7.7 [facility] Alpha fetoprotein measuremen t as tumor markerOrdered By: Nathaly Prado on 01-27-2024 Tumor Marker Alpha Fetoprotein < 1.8 ng/mL 0.0-6.4 [facility] Comment on above: [facility] [facility] El ectrochemiluminescence Immunoassay(ECLIA)Values obtained with different assay methods or kits cannotbe used interchangeably. Results cannot be interpreted asabsolute evidence of the presence or absence of malignantdisease.This test is not interpretable in females. Basic Metabolic Profile (BMP )on 01-27-2024 BUN/CRE 19.2 RATIO Normal 10-20 [facility] Comment on above: Order Comment: EULOGIO STINSON ORDERED Intrinsic Factor Ab, Anti-Parietal Cell AB, QN ALL OTHER ORDERS GO TO INDUSTRIAL PAINTER.ABENA ZUNIGA [employer] Performed By: #### L 100.0100, L300.3900, L500.2500, L500.3400, L3100.5020, L3300.0700, L3410.0900, L3410.1000 #### [facility] [address] [place], [address] CA,Total 9.2 mg/dL Normal 8.5-10.1 [facility] Comment on above: Order Comment: EULOGIO STINSON ORDERED Intrinsic Factor Ab, Anti-Parietal Cell AB, QN ALL OTHER ORDERS GO TO INDUSTRIAL PAINTER.ABENA ZUNIGA [facility] Performed By: #### L 100.0100, L300.3900, L500.2500, L500.3400, L3100.5020, L3300.0700, L3410.0900, L3410.1000 #### [facility] [address] [place], [address] Chloride [Moles/Vol] 106 mmol/L Normal 98-107 [facility] Comment on above: Order Comment: EULOGIO STINSON ORDERED Intrinsic Factor Ab, Anti-Parietal Cell AB, QN ALL OTHER ORDERS GO TO INDUSTRIAL PAINTER.ABENA ZUNIGA [facility] Performed By: #### L 100.0100, L300.3900, L500.2500, L500.3400, L3100.5020, L3300.0700, L3410.0900, L3410.1000 #### [facility] [address] [place], [address] CO2 [Moles/Vol] 29.0 mmol/L Normal 21.0-32.0 [facility] Comment on above: Order Comment: EULOGIO STINSON ORDERED Intrinsic Factor Ab, Anti-Parietal Cell AB, QN ALL OTHER ORDERS GO TO INDUSTRIAL PAINTER.ABENA ZUNIGA [facility] Performed By: #### L 100.0100, L300.3900, L500.2500, L500.3400, L3100.5020, L3300.0700, L3410.0900, L3410.1000 #### [facility] [address] [place], [place], [phone] (244) Creatinine [Mass/Vol] 0.73 mg/dL Normal 0.55-1.02 [facility] Comment on above: Order Comment: EULOGIO STINSON ORDERED Intrinsic Factor Ab, Anti-Parietal Cell AB, QN ALL OTHER ORDERS GO TO INDUSTRIAL PAINTER.ABENA ZUNIGA [employer] Result Comment: The validity of the calculated GFR GFRAA in patients over 70 years has not been determined. Clinical correlation is essential. Performed By: #### L 100.0100, L300.3900, L500.2500, L500.3400, L3100.5020, L3300.0700, L3410.0900, L3410.1000 #### [facility] [address] [place], [place], [id number] EST GFR - AA 111 mL/min Normal >60 [facility] Comment on above: Order Comment: EULOGIO STINSON ORDERED Intrinsic Factor Ab, Anti-Parietal Cell AB, QN ALL OTHER ORDERS GO TO INDUSTRIAL PAINTER.ABENA ZUNIGA [employer] Result Comment: Afri can Qatari GFR Calc Performed By: #### L 100.0100, L300.3900, L500.2500, L500.3400, L3100.5020, L3300.0700, L3410.0900, L3410.1000 #### [facility] [address] [place], [place], [phone] (808) GAP 5 Normal 5-15 [facility] Comment on above: Order Comment: EULOGIO STINSON ORDERED Intrinsic Factor Ab, Anti-Parietal Cell AB, QN ALL OTHER ORDERS GO TO INDUSTRIAL PAINTER.ABENA ZUNIGA [facility] Performed By: #### L 100.0100, L300.3900, L500.2500, L500.3400, L3100.5020, L3300.0700, L3410.0900, L3410.1000 #### [facility] [address] [place], [address] GFR/1.73 sq M.predicted among non-blacks MDRD (S/P/Bld) [Vol rate/Area] 92 mL/min/{1.73_m2} Normal >60 [facility] Comment on above: Order Comment: EULOGIO STINSON ORDERED Intrinsic Factor Ab, Anti-Parietal Cell AB, QN ALL OTHER ORDERS GO TO INDUSTRIAL PAINTER.ABENA ZUNIGA [employer] Result Comment: Non- GFR Calc Performed By: #### L 100.0100, L300.3900, L500.2500, L500.3400, L3100.5020, L3300.0700, L3410.0900, L3410.1000 #### [facility] [address] [place], [address] Glucose [Mass/Vol] 74 mg/dL Normal 74-106 [facility] Comment on above: Order Comment: EULOGIO STINSON ORDERED Intrinsic Factor Ab, Anti-Parietal Cell AB, QN ALL OTHER ORDERS GO TO INDUSTRIAL PAINTER.ABENA ZUNIGA [facility] Performed By: #### L 100.0100, L300.3900, L500.2500, L500.3400, L3100.5020, L3300.0700, L3410.0900, L3410.1000 #### [facility] [address] [place], [address] Potassium [Moles/Vol] 4.0 mmol/L Normal 3.5-5.1 [facility] Comment on above: Order Comment: EULOGIO STINSON ORDERED Intrinsic Factor Ab, Anti-Parietal Cell AB, QN ALL OTHER ORDERS GO TO INDUSTRIAL PAINTER.ABENA ZUNIGA [facility] Performed By: #### L 100.0100, L300.3900, L500.2500, L500.3400, L3100.5020, L3300.0700, L3410.0900, L3410.1000 #### [facility] [address] [place], [place], [phone] Sodium [Moles/Vol] 140 mmol/L Normal 136-145 [facility] Comment on above: Order Comment: EULOGIO STINSON ORDERED Intrinsic Factor Ab, Anti-Parietal Cell AB, QN ALL OTHER ORDERS GO TO INDUSTRIAL PAINTER.ABENA ZUNIGA [facility] Performed By: #### L 100.0100, L300.3900, L500.2500, L500.3400, L3100.5020, L3300.0700, L3410.0900, L3410.1000 #### [facility] [address] [place], [address] Urea nitrogen [Mass/Vol] 14 mg/dL Normal 7-18 [facility] Comment on above: Order Comment: EULOGIO STINSON ORDERED Intrinsic Factor Ab, Anti-Parietal Cell AB, QN ALL OTHER ORDERS GO TO INDUSTRIAL PAINTER.ABENA ZUNIGA [facility] Performed By: #### L 100.0100, L300.3900, L500.2500, L500.3400, L3100.5020, L3300.0700, L3410.0900, L3410.1000 #### [facility] [address] [place], [place], [id number] Basophil percentageOrdered B y: Nathaly Prado on 01-27-2024 Basophils/100 WBC (Bld) 0.8 % 0-1 [facility] Bilirubin directOrdered By: Nathaly Prado on 01-27-2024 Bilirubin.direct [Mass/Vol] 0.13 mg/dL 0.00-0.30 [facility] Bilirubin, totalOrdered By: Nathaly Prado on 01-27-2024 Bilirubin [Mass/Vol] 0.50 mg/dL 0.20-1.00 [facility] Comment on above: For patients on eltr ombopag therapy, use of Dimension [place] TBIL is not recommended. Blood urea nitrogen (BUN)/cr eatinine ratioOrdered By: Nathaly Prado on 01-27-2024 Urea nitrogen/Creatinine [Mass ratio] 19.2 mg/mg 10-20 [facility] CA 19-9 agOrdered By: Bill Prado on 01-27-2024 CA 19-9 Antigen 4 U/mL 0-35 [facility] Comment on above: [facility] El ectrochemiluminescence Immunoassay(ECLIA)Values obtained with different assay methods or kits cannotbe used interchangeably. Results cannot be interpreted asabsolute evidence of the presence or absence of malignantdisease. CBC W/Diff, Automatedon 01-14 Absolute Lymph 2.08 X10 3/uL Normal 0.83-4.51 [facility] Comment on above: Order Comment: EULOGIO STINSON ORDERED Intrinsic Factor Ab, Anti-Parietal Cell AB, QN ALL OTHER ORDERS GO TO INDUSTRIAL PAINTER.ABENA ZUNIGA [facility] Performed By: #### L 100.0100, L300.3900, L500.2500, L500.3400, L3100.5020, L3300.0700, L3410.0900, L3410.1000 #### [facility] [address] [place], [address] Absolute Neut 2.2 X10 3/uL Normal 2.0-7.7 [facility] Comment on above: Order Comment: EULOGIO STINSON ORDERED Intrinsic Factor Ab, Anti-Parietal Cell AB, QN ALL OTHER ORDERS GO TO INDUSTRIAL PAINTER.ABENA ZUNIGA [facility] Performed By: #### L 100.0100, L300.3900, L500.2500, L500.3400, L3100.5020, L3300.0700, L3410.0900, L3410.1000 #### [facility] [address] [facility], [address] Basophils/100 WBC (Bld) 0.8 % Normal 0-1 [facility] Comment on above: Order Comment: EULOGIO STINSON ORDERED Intrinsic Factor Ab, Anti-Parietal Cell AB, QN ALL OTHER ORDERS GO TO INDUSTRIAL PAINTER.ABENAARIANNE ZUNIGA [facility] Performed By: #### L 100.0100, L300.3900, L500.2500, L500.3400, L3100.5020, L3300.0700, L3410.0900, L3410.1000 #### [facility] [address] [place], [address] Eosinophils/100 WBC (Bld) 3.1 % Normal 0-5 [facility] Comment on above: Order Comment: EULOGIO STINSON ORDERED Intrinsic Factor Ab, Anti-Parietal Cell AB, QN ALL OTHER ORDERS GO TO INDUSTRIAL PAINTER.ABENA EFRAIN [facility] Performed By: #### L 100.0100, L300.3900, L500.2500, L500.3400, L3100.5020, L3300.0700, L3410.0900, L3410.1000 #### [facility] [address] [place], [address] Erythrocyte distribution width (RBC) [Ratio] 12.0 % Normal 11.6-14.6 [facility] Comment on above: Order Comment: EULOGIO STINSON ORDERED Intrinsic Factor Ab, Anti-Parietal Cell AB, QN ALL OTHER ORDERS GO TO INDUSTRIAL PAINTER.ABENA EFRAIN [facility] Performed By: #### L 100.0100, L300.3900, L500.2500, L500.3400, L3100.5020, L3300.0700, L3410.0900, L3410.1000 #### [facility] [address] [place], [address] Hematocrit (Bld) [Volume fraction] 42.0 % Normal 37-47 [facility] Comment on above: Order Comment: EULOGIO STINSON ORDERED Intrinsic Factor Ab, Anti-Parietal Cell AB, QN ALL OTHER ORDERS GO TO INDUSTRIAL PAINTER.ABENA EFRAIN [facility] Performed By: #### L 100.0100, L300.3900, L500.2500, L500.3400, L3100.5020, L3300.0700, L3410.0900, L3410.1000 #### [facility] [address] [place], [address] Hemoglobin (Bld) [Mass/Vol] 14.0 g/dL Normal 12.0-15.0 [facility] Comment on above: Order Comment: EULOGIO STINSON ORDERED Intrinsic Factor Ab, Anti-Parietal Cell AB, QN ALL OTHER ORDERS GO TO INDUSTRIAL PAINTER.ABENA ZUNIGA [facility] Performed By: #### L 100.0100, L300.3900, L500.2500, L500.3400, L3100.5020, L3300.0700, L3410.0900, L3410.1000 #### [facility] [address] [place], [address] IG% 0.000 Normal 0.0-0.9 [facility] Comment on above: Order Comment: EULOGIO STINSON ORDERED Intrinsic Factor Ab, Anti-Parietal Cell AB, QN ALL OTHER ORDERS GO TO INDUSTRIAL PAINTER.ABENA ZUNIGA [facility] Result Comment: IG% - Immature Granulocytes (promyelocytes, myelocytes and metamyelocytes) > 1% indicates that a LEFT SHIFT is Present. Performed By: #### L 100.0100, L300.3900, L500.2500, L500.3400, L3100.5020, L3300.0700, L3410.0900, L3410.1000 #### [facility] [address] [place], [address] Lymphocytes/100 WBC (Bld) 42.8 % High 19-41 [facility] Comment on above: Order Comment: EULOGIO STINSON ORDERED Intrinsic Factor Ab, Anti-Parietal Cell AB, QN ALL OTHER ORDERS GO TO INDUSTRIAL PAINTER.ABENA ZUNIGA [facility] Performed By: #### L 100.0100, L300.3900, L500.2500, L500.3400, L3100.5020, L3300.0700, L3410.0900, L3410.1000 #### [facility] [address] [place], [address] MCH (RBC) [Entitic mass] 31.2 pg Normal 27.0-32.0 [facility] Comment on above: Order Comment: EULOGIO STINSON ORDERED Intrinsic Factor Ab, Anti-Parietal Cell AB, QN ALL OTHER ORDERS GO TO INDUSTRIAL PAINTER.ABENA ZUNIGA [facility] Performed By: #### L 100.0100, L300.3900, L500.2500, L500.3400, L3100.5020, L3300.0700, L3410.0900, L3410.1000 #### [facility] [address] [place], [address] MCHC (RBC) [Mass/Vol] 33.3 g/dL Normal 32-36 [facility] Comment on above: Order Comment: EULOGIO STINSON ORDERED Intrinsic Factor Ab, Anti-Parietal Cell AB, QN ALL OTHER ORDERS GO TO INDUSTRIAL PAINTER.ABENA ZUNIGA [facility] Performed By: #### L 100.0100, L300.3900, L500.2500, L500.3400, L3100.5020, L3300.0700, L3410.0900, L3410.1000 #### [facility] [address] [place], [address] MCV (RBC) [Entitic vol] 93.5 fL Normal 81-99 [facility] Comment on above: Order Comment: EULOGIO STINSON ORDERED Intrinsic Factor Ab, Anti-Parietal Cell AB, QN ALL OTHER ORDERS GO TO INDUSTRIAL PAINTER.ABENA ZUNIGA [employer] Performed By: #### L 100.0100, L300.3900, L500.2500, L500.3400, L3100.5020, L3300.0700, L3410.0900, L3410.1000 #### [facility] [address] [place], [address] Monocytes/100 WBC (Bld) 7.6 % Normal 0-10 [facility] Comment on above: Order Comment: EULOGIO STINSON ORDERED Intrinsic Factor Ab, Anti-Parietal Cell AB, QN ALL OTHER ORDERS GO TO INDUSTRIAL PAINTER.ABENA ZUNIGA [employer] Performed By: #### L 100.0100, L300.3900, L500.2500, L500.3400, L3100.5020, L3300.0700, L3410.0900, L3410.1000 #### [facility] [address] [place] [place], [address] Neutrophils/100 WBC (Bld) 45.7 % Low 47-70 [facility] Comment on above: Order Comment: EULOGIO STINSON ORDERED Intrinsic Factor Ab, Anti-Parietal Cell AB, QN ALL OTHER ORDERS GO TO INDUSTRIAL PAINTER.ABENA ZUNIGA [facility] Performed By: #### L 100.0100, L300.3900, L500.2500, L500.3400, L3100.5020, L3300.0700, L3410.0900, L3410.1000 #### [facility] [address] [facility], [address] Nucleated RBC (Bld) [#/Vol] 0 10*3/uL Normal 0-5 [facility] Comment on above: Order Comment: EULOGIO STINSON ORDERED Intrinsic Factor Ab, Anti-Parietal Cell AB, QN ALL OTHER ORDERS GO TO INDUSTRIAL PAINTER.ABENA ZUNIGA [facility] Performed By: #### L 100.0100, L300.3900, L500.2500, L500.3400, L3100.5020, L3300.0700, L3410.0900, L3410.1000 #### [facility] [address] [place], [address] Platelet mean volume (Bld) [Entitic vol] 11.3 fL Normal 6.2-12.0 [facility] Comment on above: Order Comment: EULOGIO STINSON ORDERED Intrinsic Factor Ab, Anti-Parietal Cell AB, QN ALL OTHER ORDERS GO TO INDUSTRIAL PAINTER.ABENA [facility] Performed By: #### L 100.0100, L300.3900, L500.2500, L500.3400, L3100.5020, L3300.0700, L3410.0900, L3410.1000 #### [facility] [address] [place], [address] Platelets (Bld) [#/Vol] 179 10*3/uL Normal 150-450 [facility] Comment on above: Order Comment: EULOGIO STINSON ORDERED Intrinsic Factor Ab, Anti-Parietal Cell AB, QN ALL OTHER ORDERS GO TO INDUSTRIAL PAINTER.ABENA EFRAIN [facility] Performed By: #### L 100.0100, L300.3900, L500.2500, L500.3400, L3100.5020, L3300.0700, L3410.0900, L3410.1000 #### [facility] [address] [place], [address] RBC (Bld) [#/Vol] 4.49 10*6/uL Normal 4.2-5.4 [facility] Comment on above: Order Comment: EULOGIO STINSON ORDERED Intrinsic Factor Ab, Anti-Parietal Cell AB, QN ALL OTHER ORDERS GO TO INDUSTRIAL PAINTER.[facility]ENA [facility] Performed By: #### L 100.0100, L300.3900, L500.2500, L500.3400, L3100.5020, L3300.0700, L3410.0900, L3410.1000 #### [facility] [address] [place], [address] RDW SD 41.9 fl Normal 35.1-43.9 [facility] Comment on above: Order Comment: EULOGIO STINSON ORDERED Intrinsic Factor Ab, Anti-Parietal Cell AB, QN ALL OTHER ORDERS GO TO INDUSTRIAL PAINTER.[facility] Performed By: #### L 100.0100, L300.3900, L500.2500, L500.3400, L3100.5020, L3300.0700, L3410.0900, L3410.1000 #### [facility] [address] [place], [address] WBC (Bld) [#/Vol] 4.9 10*3/uL Normal 4.4-11.0 [facility] Comment on above: Order Comment: EULOGIO STINSON ORDERED Intrinsic Factor Ab, Anti-Parietal Cell AB, QN ALL OTHER ORDERS GO TO ОЛЕГ ZUNIGA [facility] Performed By: #### L 100.0100, L300.3900, L500.2500, L500.3400, L3100.5020, L3300.0700, L3410.0900, L3410.1000 #### [facility] [address] [place], [place], [id number] Carbon dioxide measurementOr dered By: Nathaly Prado on 01-27-2024 CO2 [Moles/Vol] 29.0 mmol/L 21.0-32.0 [facility] Chloride measurementOrdered By: Nathaly Prado on 01-27-2024 Chloride [Moles/Vol] 106 mmol/L 98-107 [facility] Eosinophil percentageOrdered By: Nathaly Prado on 01-27-2024 Eosinophils/100 WBC (Bld) 3.1 % 0-5 [facility] Erythrocyte distribution wid th ratioOrdered By: Nathaly Prado on 01-27-2024 Erythrocyte distribution width (RBC) [Ratio] 12.0 % 11.6-14.6 [facility] Erythrocyte distribution wid th standard deviationOrdered By: Nathaly Prado on 01-27-2024 Erythrocyte distribution width (RBC) [Entitic vol] 41.9 fL 35.1-43.9 [facility] Estimated glomerular filtrat ion rate (GFR) AmericanOrdered By: Nathaly Prado on 01-27-2024 Estimated GFR (MDRD) Amer 111 mL/min >60 [facility] Comment on above: GFR Calc Glomerular filtration rate ( GFR) estimationOrdered By: Nathaly Prado on 01-27-2024 Estimated GFR (MDRD) Non-Af Amer 92 mL/min >60 [facility] Comment on above: Non- GFR Calc Glucose measurementOrdered B y: Nathaly Prado on 01-27-2024 Glucose [Mass/Vol] 74 mg/dL 74-106 [facility] Hematocrit Auto (Bld) [Volum e fraction]Ordered By: Nathaly Prado on 01-27-2024 Hematocrit (Bld) [Volume fraction] 42.0 % 37-47 [facility] Hemoglobin measurementOrdere d By: Nathaly Prado on 01-27-2024 Hemoglobin (Bld) [Mass/Vol] 14.0 g/dL 12.0-15.0 [facility] Immature granulocytes/100 WB C Auto (Bld)Ordered By: Nathaly Prado on 01-27-2024 Immature granulocytes/100 WBC (Bld) 0.000 % 0.0-0.9 [facility] Comment on above: IG% - Immature Granu locytes (promyelocytes, myelocytes and metamyelocytes) > 1% indicates that a LEFT SHIFT is Present. International normalized rat io (INR) calculationOrdered By: Nathaly Prado on 01-27-2024 INR Coag (Bld) [Relative time] 1.0 {INR} [facility] Intrinsic factor abOrdered B y: Nathaly Prado on 01-27-2024 Intrinsic Factor Antibody 1.1 AU/mL 0.0-1.1 [facility] Comment on above: Performed at: [address] [id number] Director: Lloyd Garnica PhD, Phone: [phone] at: [facility] [address] [id number] Director: Daryn Grande MD, Phone: [phone] Laboratory - Chemistry and C hemistry - challengeOrdered By: Nathaly Prado on 01-27-2024 AST [Catalytic activity/Vol] 17 U/L 15-37 [facility] Liver Profileon 01-27-2024 Albumin [Mass/Vol] 4.0 g/dL Normal 3.2-5.0 [facility] Comment on above: Order Comment: EULOGIO STINSON ORDERED Intrinsic Factor Ab, Anti-Parietal CellAB, QNALL OTHER ORDERS GO TO ОЛЕГ ZUNIGA [facility] Performed By: #### L 100.0100, L500.2500, L500.3400, L300.3900 #### [facility] [address] [place], [address] ALK P 103 U/L Normal 45-117 [facility] Comment on above: Order Comment: EULOGIO STINSON ORDERED Intrinsic Factor Ab, Anti-Parietal CellAB, QNALL OTHER ORDERS GO TO INDUSTRIAL PAINTER.ABENA [facility]UNIGA [facility] Performed By: #### L 100.0100, L500.2500, L500.3400, L300.3900 #### [facility] [address] [place], [address] ALT [Catalytic activity/Vol] 27 U/L Normal 13-56 [facility] Comment on above: Order Comment: EULOGIO STINSON ORDERED Intrinsic Factor Ab, Anti-Parietal CellAB, QNALL OTHER ORDERS GO TO INDUSTRIAL PAINTER.[facility]ENA [facility]UNIGA [facility] Performed By: #### L 100.0100, L500.2500, L500.3400, L300.3900 #### [facility] [address] [place], [address] AST [Catalytic activity/Vol] 17 U/L Normal 15-37 [facility] Comment on above: Order Comment: EULOGIO STINSON ORDERED Intrinsic Factor Ab, Anti-Parietal CellAB, QNALL OTHER ORDERS GO TO INDUSTRIAL PAINTER.[facility]ENA [facility]UNIGA [facility] Performed By: #### L 100.0100, L500.2500, L500.3400, L300.3900 #### [facility] [address] [place], [address] Bilirubin [Mass/Vol] 0.50 mg/dL Normal 0.20-1.00 [facility] Comment on above: Order Comment: EULOGIO STINSON ORDERED Intrinsic Factor Ab, Anti-Parietal CellAB, QNALL OTHER ORDERS GO TO INDUSTRIAL PAINTER.[facility]UNIGA [facility] Result Comment: For patients on eltrombopag therapy, use of Dimension [place] TBIL is not recommended. Performed By: #### L 100.0100, L500.2500, L500.3400, L300.3900 #### [facility] [address] [place], [address] Bilirubin.direct [Mass/Vol] 0.13 mg/dL Normal 0.00-0.30 [facility] Comment on above: Order Comment: EULOGIO STINSON ORDERED Intrinsic Factor Ab, Anti-Parietal CellAB, QNALL OTHER ORDERS GO TO INDUSTRIAL PAINTER.[facility]ENA [facility]UNIGA [facility] Performed By: #### L 100.0100, L500.2500, L500.3400, L300.3900 #### [facility] [address] [place], [address] Globulin (S) [Mass/Vol] 3.7 g/dL Normal 2.2-4.2 [facility] Comment on above: Order Comment: EULOGIO STINSON ORDERED Intrinsic Factor Ab, Anti-Parietal CellAB, QNALL OTHER ORDERS GO TO INDUSTRIAL PAINTER.[facility]ENA ZUNIGA [facility] Performed By: #### L 100.0100, L500.2500, L500.3400, L300.3900 #### [facility] [address] [place], [address] T PROT 7.7 g/dL Normal 6.4-8.2 [facility] Comment on above: Order Comment: EULOGIO STINSON ORDERED Intrinsic Factor Ab, Anti-Parietal CellAB, QNALL OTHER ORDERS GO TO INDUSTRIAL PAINTER.ABENA [facility]UNIGA [facility] Performed By: #### L 100.0100, L500.2500, L500.3400, L300.3900 #### [facility] [address] [place], [address] Lymphocytes Auto (Unsp spec) [#/Vol]Ordered By: Nathaly Prado on 01-27-2024 Lymphocytes (Bld) [#/Vol] 2.08 10*3/uL 0.83-4.51 [facility] Lymphocytes/100 WBC Auto (Un sp spec)Ordered By: Nathaly Prado on 01-27-2024 Lymphocytes/100 WBC (Bld) 42.8 % High 19-41 [facility] MCV (mean corpuscular volume ) determinationOrdered By: Nathaly Prado on 01-27-2024 MCV (RBC) [Entitic vol] 93.5 fL 81-99 [facility] Mean corpuscular hemoglobin (MCH) determinationOrdered By: Nathaly Prado on 01-27-2024 MCH (RBC) [Entitic mass] 31.2 pg 27.0-32.0 [facility] Mean corpuscular hemoglobin concentration (MCHC) determinationOrdered By: Nathaly Prado on 01-27-2024 MCHC (RBC) [Mass/Vol] 33.3 g/dL 32-36 [facility] Mean platelet volume determi nationOrdered By: Nathaly Prado on 01-27-2024 Platelet mean volume (Bld) [Entitic vol] 11.3 fL 6.2-12.0 [facility] Monocyte percentageOrdered B y: Nathaly Prado on 01-27-2024 Monocytes/100 WBC (Bld) 7.6 % 0-10 [facility] Neutrophil percentageOrdered By: Nathaly Prado on 01-27-2024 Neutrophils/100 WBC (Bld) 45.7 % Low 47-70 [facility] Nucleated red blood cell per centageOrdered By: Nathaly Prado on 01-27-2024 Nucleated RBC/100 WBC (Bld) [Ratio] 0 % 0-5 [facility] Parietal cell Ab Qn (S)Order ed By: Nathaly Prado on 01-27-2024 Anti-Parietal Cell Antibody 23.4 Units High 0.0-20.0 [facility] Comment on above: Verified by repeat analysis Negative 0.0 - 20.0 Equivocal 20.1 - 24.9 Positive >24.9Parietal Cell Antibodies are found in 90% of patientswith pernicious anemia and 30% of first degreerelatives with pernicious anemia. Platelet countOrdered By: Rashida Prado on 01-27-2024 Platelets (Bld) [#/Vol] 179 10*3/uL 150-450 [facility] Potassium measurementOrdered By: Nathaly Prado on 01-27-2024 Potassium [Moles/Vol] 4.0 mmol/L 3.5-5.1 [facility] Prothrombin Time w/INRon INR Coag (PPP) [Relative time] 1.0 {INR} Normal [facility] Comment on above: Order Comment: EULOGIO STINSON ORDERED Intrinsic Factor Ab, Anti-Parietal Cell AB, QN ALL OTHER ORDERS GO TO INDUSTRIAL PAINTER.[facility]ENA [facility]UNIGA [facility] Performed By: #### L 100.0100, L300.3900, L500.2500, L500.3400, L3100.5020, L3300.0700, L3410.0900, L3410.1000 #### [facility] [address] [place], [address] PT Coag (PPP) [Time] 13.5 s Normal 11.7-14.9 [facility] Comment on above: Order Comment: EULOGIO STINSON ORDERED Intrinsic Factor Ab, Anti-Parietal Cell AB, QN ALL OTHER ORDERS GO TO INDUSTRIAL PAINTER.ABENA [facility]UNIGA [facility] Performed By: #### L 100.0100, L300.3900, L500.2500, L500.3400, L3100.5020, L3300.0700, L3410.0900, L3410.1000 #### [facility] [address] [place], [address] Prothrombin timeOrdered By: Nathaly Prado on 01-27-2024 PT Coag (PPP) [Time] 13.5 s 11.7-14.9 [facility] RBC Auto (Bld) [#/Vol]Ordere d By: Nathaly Prado on 01-27-2024 RBC (Bld) [#/Vol] 4.49 10*6/uL 4.2-5.4 [facility] Serum anion gap measurementO rdered By: Nathaly Prado on 01-27-2024 Anion gap [Moles/Vol] 5 mmol/L 5-15 [facility] Serum globulin measurementOr dered By: Nathaly Prado on 01-27-2024 Globulin (S) [Mass/Vol] 3.7 g/dL 2.2-4.2 [facility] Serum or plasma alanine valdes otransferase (ALT) measurementOrdered By: Nathaly Prado on 01-27-2024 ALT [Catalytic activity/Vol] 27 U/L 13-56 [facility] Serum or plasma albumin eunice urement (mass/volume)Ordered By: Nathaly Prado on 01-27-2024 Albumin [Mass/Vol] 4.0 g/dL 3.2-5.0 [facility] Serum or plasma alkaline iraj sphatase measurementOrdered By: Nathaly Prado on 01-27-2024 ALP [Catalytic activity/Vol] 103 U/L 45-117 [facility] Serum or plasma calcium eunice urement (mass/volume)Ordered By: Nathaly Prado on 01-27-2024 Calcium [Mass/Vol] 9.2 mg/dL 8.5-10.1 [facility] Serum or plasma creatinine m easurement (mass/volume)Ordered By: Nathaly Prado on 01-27-2024 Creatinine [Mass/Vol] 0.73 mg/dL 0.55-1.02 [facility] Comment on above: The validity of the calculated GFR & GFRAA in patients over 70 years has not been determined. Clinical correlation is essential. Serum or plasma urea nitroge n measurement (mass/volume)Ordered By: Nathaly Prado on 01-27-2024 Urea nitrogen [Mass/Vol] 14 mg/dL 7-18 [facility] Sodium levelOrdered By: Rafael Prado on 01-27-2024 Sodium [Moles/Vol] 140 mmol/L 136-145 [facility] Total proteinOrdered By: Kusum Prado on 01-27-2024 Protein [Mass/Vol] 7.7 g/dL 6.4-8.2 [facility] White blood cell (WBC) count Ordered By: Nathaly Prado on 01-27-2024 WBC (Bld) [#/Vol] 4.9 10*3/uL 4.4-11.0 [facility] SCRN MAMM (CAD)W/TIAN BILATo n 01-22-2024 SCRN MAMM (CAD)W/TIAN BILAT [facility] [address] [place] [address] SCRN MAMM (CAD)W/TIAN BILAT MR#: [id number] Acct: [id number] Name: JARAD AVALOS LOUISE Rep #: [id number] : 1980 F 43 From: Jesus blas MD PCP: Dr. Wilbert Esparza MD Status: [facility] Study: SCRN MAMM (CAD)W/TIAN BILAT Date of Exam: 11/06 Exam# [id number] Ordering Dr: Elvia Guthrie INDUSTRIAL PAINTER-C [id number] MAMMOGRAPHY - BILATERAL SCREENING REASON FOR EXAM: Female, 43 years old. Routine annual screening examination. PERTINENT HISTORY: Grandmother with breast cancer. TECHNIQUE: Digital bilateral breast tian (3D mammographic acquisition) in the CC and MLO projections. 2-D mediolateral oblique (MLO) and craniocaudad (CC) views of both breasts were obtained. CAD: Full Field Digital Mammography with Computer Added Detection was performed. COMPARISON: Comparison is made with prior study July 02, 2022 and March 26, 2021. FINDINGS: Breast Composition: The breasts are extremely dense, which lowers the sensitivity of mammography. There are no dominant masses or suspicious calcifications. No other significant abnormalities are identified. There has been no significant change since the prior study. BI/SCRN MAMM (CAD)W/TIAN BILAT IMPRESSION: Stable bilateral screening mammogram. Yearly follow-up mammogram recommended. (A) ASSESSMENT CATEGORY: BIRADS Category 1: Negative. A letter regarding these results will be sent to the patient by the facility within 30 days. Approximately 10% of breast cancers are not detected by mammography. A normal mammogram should not delay biopsy of a clinically suspicious abnormality. [id number] Electronically Signed: Jesus Lizama MD at 7:04 EST , CC: ALFONSO Guthrie; Dr. Wilbert Esparza MD Legal Billing Analyst: Signed Normal [facility] PAP IG HPV APTIMA 16/18,45on 12-30-2023 ADEQ Comment Normal . [facility] Comment on above: Order Comment: Speci men Comment: [id number] Comment: Source.............Cervix;EndocervixSpecimen Comment: Other..............Post MenopausalSpecimen Comment: No. of containers..01 ThinPrep Vial Result Comment: Sati sfactory for evaluation. No endocervical component is identified. Performed By: #### L 100.0100, L500.2500, L500.3400, L300.3900 #### [facility] [address] [place], [address] COMM . Normal . [facility] Comment on above: Order Comment: Speci men Comment: [id number] Comment: Source.............Cervix;EndocervixSpecimen Comment: Other..............Post MenopausalSpecimen Comment: No. of containers..01 ThinPrep Vial Performed By: #### L 100.0100, L500.2500, L500.3400, L300.3900 #### [facility] [address] [place], [place], [address] COMMENT Comment Normal . [facility] Comment on above: Order Comment: Speci men Comment: [id number] Comment: Source.............Cervix;EndocervixSpecimen Comment: Other..............Post MenopausalSpecimen Comment: No. of containers..01 ThinPrep Vial Result Comment: This liquid based ThinPrep(R) pap test was screened with the use of an image guided system. Performed By: #### L 100.0100, L500.2500, L500.3400, L300.3900 #### [facility] [address] [place], [address] DIAG Comment Normal . [facility] Comment on above: Order Comment: Speci men Comment: [id number] Comment: Source.............Cervix;EndocervixSpecimen Comment: Other..............Post MenopausalSpecimen Comment: No. of containers..01 ThinPrep Vial Result Comment: NEGA TIVE FOR INTRAEPITHELIAL LESION OR MALIGNANCY. Performed By: #### L 100.0100, L500.2500, L500.3400, L300.3900 #### [facility] [address] [place], [place], [address] HPV APTIMA, HR Negative Normal Negative [facility] Comment on above: Order Comment: Speci men Comment: [id number] Comment: Source.............Cervix;EndocervixSpecimen Comment: Other..............Post MenopausalSpecimen Comment: No. of containers..01 ThinPrep Vial Result Comment: This nucleic acid amplification test detects fourteen high- risk HPV types (16,18,31,33,35,39,45,51,52,56,58,59,66,68) without differentiation. Performed By: #### L 100.0100, L500.2500, L500.3400, L300.3900 #### [facility] [address] [place], [address] HPV Hafsa Rfx Comment Normal . [facility] Comment on above: Order Comment: Speci men Comment: [id number] Comment: Source.............Cervix;EndocervixSpecimen Comment: Other..............Post MenopausalSpecimen Comment: No. of containers..01 ThinPrep Vial Result Comment: Crit nimco not met, HPV Genotype not performed. Performed at: - [facility] [id number] [employer] Developer: Le Banks MD, Phone: [phone] Performed at: = - [facility] [address] [id number] [employer] Developer: Le Banks MD, Phone: [phone] Performed By: #### L 100.0100, L500.2500, L500.3400, L300.3900 #### [facility] [address] [place], [address] PAPSMR Comment Normal . [facility] Comment on above: Order Comment: Speci men Comment: [id number] Comment: Source.............Cervix;EndocervixSpecimen Comment: Other..............Post MenopausalSpecimen Comment: No. of containers..01 ThinPrep Vial Result Comment: The Pap smear is a screening test designed to aid in the detection of premalignant and malignant conditions of the uterine cervix. It is not a diagnostic procedure and should not be used as the sole means of detecting cervical cancer. Both false-positive and false-negative reports do occur. Performed By: #### L 100.0100, L500.2500, L500.3400, L300.3900 #### [facility] [address] [place], [address] PERFORM Comment Normal . [facility] Comment on above: Order Comment: Speci men Comment: [id number] Comment: Source.............Cervix;EndocervixSpecimen Comment: Other..............Post MenopausalSpecimen Comment: No. of containers..01 ThinPrep Vial Result Comment: Wolfgang Knapp, Trash Collector (ASCP) Performed By: #### L 100.0100, L500.2500, L500.3400, L300.3900 #### [facility] [address] [place], [place], [id number] Remote Recruiter Office Visit Reporton 12-24-2023 Remote Recruiter Office Visit Report 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) Chief Complaint: annual Program Administrator Required: No Is patient in pain?: No Allergies latex Allergy (Intermediate, Verified 12/24/23 13:01) Rash levofloxacin (From Levaquin) Allergy (Verified 12/24/23 13:01) Itching clarithromycin (From Biaxin) Adverse Reaction (Verified 12/24/23 13:01) Nausea Medications ???Medication ???Instructions ???Recorded ???Confirmed ???Type psyllium husk (aspartame) 3.4 gram 1 packet PO DAILY 02/12/13 12/24/23 History oral powder packet spironolactone 100 mg tablet 25 mg PO DAILY 04/14/14 12/24/23 History buspirone 5 mg tablet 5 mg PO TID GASTROPARESIS 04/01/17 12/24/23 History lisdexamfetamine 20 mg capsule 20 mg PO DAILY 12/18/21 12/24/23 History (Vyvanse) melatonin 3 mg capsule 3 mg PO HS PRN Insomnia 12/18/21 12/24/23 History pantoprazole 40 mg tablet,delayed 40 mg PO QAM #90 tabs 12/30/22 12/24/23 Rx release fexofenadine 180 mg tablet 180 mg PO DAILY 08/19/23 12/24/23 History (Willow Allergy) multivitamin (Daily Multi-Vitamin 1 tab PO DAILY 08/19/23 12/24/23 History tablet) prochlorperazine maleate 10 mg 10 mg PO TID PRN nausea and 11/25/23 12/24/23 Rx tablet vomiting 1 month #90 tabs baclofen 5 mg tablet 5 mg PO BID 12/24/23 12/24/23 History cholecalciferol (vitamin D3) 1,250 1,250 mcg PO QWEEK 12/24/23 12/24/23 History mcg (50,000 unit) capsule valacyclovir 500 mg tablet 500 mg PO BID 12/24/23 12/24/23 History (Valtrex) Is last menstrual period known: No Post menopausal: No Patient : No : No Control Method: tubal PFSH Medical History Primary sclerosing cholangitis Gastroparesis Wears contact lenses Injury of back Heartburn History of echocardiogram Wears glasses Non-smoker Mitral valve prolapse Vitamin D deficiency Hyperlipidemia Anxiety Elevated liver enzymes Acute sinusitis, unspecified Contact with and (suspected) exposure to other viral communicable diseases Rosacea ADHD (attention deficit hyperactivity disorder) Hemorrhoids Surgical History History of esophagogastroduodenoscop y (EGD) History of liver biopsy uterine ablation Fistula Hx of section H/O removal of cyst Tubal ligation status History of tonsillectomy and adenoidectomy Family History (Updated 12/24/23 @ 13:05 by Faviola Zamora) Grandmother Breast cancer, Onset Age: 80 Social History (Updated 12/24/23 @ 13:06 by Faviola Zamora) adopted: No number of children: 2 current occupational status: employed 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 Date Name GA/Weeks Outcome Route Bth Weight Infant Gen Labor Lgth Anesthesia Del Locatn Provider FOB 07/04/05 Brian live - full term 5 lbs [address] 12/20/07 Rene live - full term 8 lbs 9 oz [place] HPI Encounter for routine gynecological examination Details: JARAD AVALOS is a 43 year old who presents for annual exam. Doing well; reports no issues or concerns. Last PAP: 07/2019; negative and negative HPV. History of abnormal PAP: ASCUS x 25 yrs ago; normal ever since. Last mammogram: 06/2022; normal History of abnormal mammogram: no Colon cancer screenin: recommended 10 year follow up. Other preventative health care screenings: Wilbert Esparza: Primary Care Doctor. Female Reproductive History Associated symptoms: many years since ablation. Questions: metorrhagia: No, sexually active: Yes, dyspareunia: No and PCB: No ROS Const Constitutional: Denies chills, fatigue, fever(s), headache(s) or weight loss Eyes Eyes: Denies change in vision ENT ENT: Denies dizziness Resp Resp: Denies cough GI GI: Denies abdominal pain, constipation or nausea : Denies d (more content not included)... Normal [facility] Gastroenterology Visit Repor ton 11-30-2023 Gastroenterology Visit Report [facility] [address] [place] [address] OFFICE VISIT Date of Service: 11/30/23 MR#: [id number] Acct: [id number] Name: JARAD AVALOS LOUISE Rep #: [id number] : 1980 Provider: GOPAL Farah Age/Sex: 43/F Location: [facility] Status: Signed Intake Vital Signs 07/15/22 14:29 08/21/23 10:58 Height 5 ft 1 in 5 ft 1 in Intake Visit Reasons: 6 M FU Chief Complaint: gastroparesis, esophagitis, choleducal cyst Allergies latex Allergy (Intermediate, Verified 08/21/23 10:57) Rash levofloxacin (From Levaquin) Allergy (Verified 08/21/23 10:57) Itching clarithromycin (From Biaxin) Adverse Reaction (Verified 08/21/23 10:57) Nausea Medications ???Medication ???Instructions ???Recorded ???Confirmed ???Type psyllium husk (aspartame) 3.4 gram 1 packet PO DAILY 02/12/13 11/30/23 History oral powder packet spironolactone 100 mg tablet 25 mg PO DAILY 04/14/14 11/30/23 History buspirone 5 mg tablet 5 mg PO TID GASTROPARESIS 04/01/17 11/30/23 History lisdexamfetamine 20 mg capsule 20 mg PO DAILY 12/18/21 11/30/23 History (Vyvanse) melatonin 3 mg capsule 3 mg PO HS PRN Insomnia 12/18/21 11/30/23 History pantoprazole 40 mg tablet,delayed 40 mg PO QAM #90 tabs 12/30/22 11/30/23 Rx release ondansetron 4 mg disintegrating 4 mg PO Q8H PRN nausea and 07/13/23 11/30/23 Rx tablet vomiting #90 tabs fexofenadine 180 mg tablet 180 mg PO DAILY 08/19/23 11/30/23 History ([facility]) multivitamin (Daily Multi-Vitamin 1 tab PO DAILY 08/19/23 11/30/23 History tablet) prochlorperazine maleate 10 mg 10 mg PO TID PRN nausea and 11/25/23 11/30/23 Rx tablet vomiting 1 month #90 tabs PFSH Medical History (Updated 08/19/23 @ 08:52 by Aubree Aburto) Primary sclerosing cholangitis Gastroparesis Wears contact lenses Injury of back Heartburn History of echocardiogram Wears glasses Non-smoker Mitral valve prolapse Vitamin D deficiency Hyperlipidemia Anxiety Elevated liver enzymes Acute sinusitis, unspecified Contact with and (suspected) exposure to other viral communicable diseases Rosacea ADHD (attention deficit hyperactivity disorder) Hemorrhoids Surgical History (Updated 08/19/23 @ 08:49 by Aubree Aburto) History of esophagogastroduodenoscop y (EGD) History of liver biopsy uterine ablation Fistula Hx of section H/O removal of cyst Tubal ligation status History of tonsillectomy and adenoidectomy Family History Other Diabetes Hypertension Social History Smoking Status: Never smoker alcohol intake: never HPI HPI Chief Complaint: gastroparesis, esophagitis, choleducal cyst Details: JARAD AVALOS, is a 43 F who presents to the office today for follow up. PCP OV 12.03.21 for annual appointment noting history of elevated LFT. ? Biochemical 11.01.21 CBC, CMP, LDH, triglycerides without pertinent abnormality. ? AST 35-ALT H59-AP H119, cholesterol 211 ? US complete 12.11.21 hepatic measurement 16.5cm with normal echogenicity. ? HIDA 01.21.22 EF 93% ? Biochemical 01.28.22 CBC, CMP, LFT without pertinent abnormality ? GGT H70 *BGI established 02.20.22 with RUQ discomfort and abnormal bloodwork. ? Biochemical ESR, haptoglobin, coag, ferritin, ammonia, LDH, ceruloplasmin, AFP, ASM, ANCA, ROBB comp, AMA WNL. ? 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 Biochemical 2.10.05 IgG subclasses, lipase, LFT WNL ? Stool 04.24.22 calprotectin, lactoferrin WNL ? Liver biopsy 04.29.22 mild macrovesicular steatosis. ? Biochemical 2.. CEA, CA19-9 WNL OV 05.07.22 recommending ursodiol and ERCP. ? Biochemical 4.09.05 RAST WNL. GET 07.02.22 92.46 minutes. ERCP 5.2.23 esophagitis; moderate Schatzki ring, Savary 51F moderate improvement; local inflammation with serpentine ulcerations of duodenal bulb. OV 08.25.22 finished Carafate, while on this she was not having any abdominal pain. Since cessation (Thursday) she has had a return of RUQ ache/pressure postpran (more content not included)... Normal [facility] MR Abdomen WO and W contrast [place] 11-24-2023 IMPRESSION: 1. Focal T2 hyperintense area at the kate hepatis seen in close relation with the common hepatic duct and the cystic duct. This could represent a focally dilated cystic duct or a choledochal cyst probably arising from the common hepatic duct. Possibility of an exophytic simple liver cyst along the kate hepatis cannot be totally excluded 2. No gallstones or biliary ductal dilatation in the remainder of the intra and extrahepatic ducts. No MR evidence to suggest choledocholithiasis. 3. Possible mild background hepatic steatosis. No morphological features of cirrhosis. No enhancing focal liver lesions or areas of washout in the liver. Patent portal vein 4. No upper abdominal ascites or lymphadenopathy by size criteria 5. Punctate T2 bright focus in the pancreatic head could represent an ectatic side branch or a small cystic lesion 6. 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 TECHNIQUE: Multiplanar, multisequence MRI scanning was performed of the abdomen before and after the administration of intravenous contrast. T2 weighted MRCP imaging was performed. CONTRAST: Gadopiclenol SOLN 1-25 mL; Route of Administration: Intravenous; Dose: 5.6 mL. FINDINGS: Lung Bases: Visualized lung bases reveal no definite focal abnormalities in the lower lobes. No pleural or pericardial effusion. No hiatal hernia Visualized cardiomediastinal structures are without focal abnormalities Liver: Liver is normal in size and morphology. Liver outlines are smooth. There are no suspicious discrete T1 or T2 bright focal liver lesions. Subtle signal loss in the liver parenchyma likely relates to background steatosis Portal vein is patent. No intrahepatic biliary ductal dilatation. No perihepatic fluid or collection is seen On the post gadolinium sequences, heterogeneous arterial enhancement is seen in the liver parenchyma without discrete focal hypervascular liver lesions. No clear enhancing liver lesions or areas of washout on the portal venous or the delayed phase images. Main portal vein and its branches are patent. No intrahepatic biliary ductal dilatation. No perihepatic ascites Gallbladder: Gallbladder is distended and folded with no discrete calcified stones or filling defects. Slightly prominent cystic T2 bright focus is noted close to the kate hepatis measuring 2 x 1.5 cm in size on image 45 series 9. This could represent a focally dilated cystic duct or choledochal cyst arising from the common hepatic duct.. No internal filling defects are seen. This appears more conspicuous than the prior comparison studies, previously measured approximately 1.1 x 0.8 cm No GB wall thickening or pericholecystic inflammation. Bile Ducts: Common bile duct is nondilated. No MR evidence to suggest choledocholithiasis Spleen: Spleen is normal in size and signal characteristics. No suspicious focal splenic lesions. Splenic vascular pedicle is patent with no perisplenic fluid or collections. Pancreas: Pancreas shows a punctate T2 bright focus in the pancreatic head which could represent an ectatic side branch measuring up to 3 mm in size on image 71 series 14. Main pancreatic duct is nondilated. There are no peripancreatic inflammatory changes or fluid collections. Adrenals: Both adrenal glands are unremarkable Right Kidney: Right kidney shows normal size and enhancement characteristics. No calculus or hydronephrosis. No definite right renal mass or perinephric collection Left Kidney: Left kidney shows normal size and enhancement characteristics. No calculus or hydronephrosis. No definite focal left renal mass lesions or perinephric collection Gastrointestinal: Stomach is distended with fluid and food residue limiting detailed evaluation. No hiatal hernia. The visualized small bowel loops are grossly unremarkable and nonobstructed. No mesenteric mass or adenopathy is seen. Mild to moderate fecal residue is noted within the colonic loops limiting detailed evaluation. No gross colonic mass or paracolic inflammation is seen. Peritoneum/retroperitoneu m: No ascites. No loculated fluid collections in the abdomen or pelvis Lymph nodes: No enlarged or morphologically abnormal lymph nodes in the upper abdomen or retroperitoneum. Vasculature: The abdominal aorta is normal in course and caliber. Patent celiac and superior mesenteric arteries. Patent portal, splenic, and superior mesenteric veins. Renal veins and IVC are patent Body Wall: Diastasis of the rectus muscles with a small umbilical hernia containing fat Bones: Normal for patient age. No aggressive lesion. 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 TECHNIQUE: Multiplanar, multisequence MRI scanning was performed of the abdomen before and after the administration of intravenous contrast. T2 weighted MRCP imaging was performed. CONTRAST: Gadopiclenol SOLN 1-25 mL; Route of Administration: Intravenous; Dose: 5.6 mL. FINDINGS: Lung Bases: Visualized lung bases reveal no definite focal abnormalities in the lower lobes. No pleural or pericardial effusion. No hiatal hernia Visualized cardiomediastinal structures are without focal abnormalities Liver: Liver is normal in size and morphology. Liver outlines are smooth. There are no suspicious discrete T1 or T2 bright focal liver lesions. Subtle signal loss in the liver parenchyma likely relates to background steatosis Portal vein is patent. No intrahepatic biliary ductal dilatation. No perihepatic fluid or collection is seen On the post gadolinium sequences, heterogeneous arterial enhancement is seen in the liver parenchyma without discrete focal hypervascular liver lesions. No clear enhancing liver lesions or areas of washout on the portal venous or the delayed phase images. Main portal vein and its branches are patent. No intrahepatic biliary ductal dilatation. No perihepatic ascites Gallbladder: Gallbladder is distended and folded with no discrete calcified stones or filling defects. Slightly prominent cystic T2 bright focus is noted close to the kate hepatis measuring 2 x 1.5 cm in size on image 45 series 9. This could represent a focally dilated cystic duct or choledochal cyst arising from the common hepatic duct.. No internal filling defects are seen. This appears more conspicuous than the prior comparison studies, previously measured approximately 1.1 x 0.8 cm No GB wall thickening or pericholecystic inflammation. Bile Ducts: Common bile duct is nondilated. No MR evidence to suggest choledocholithiasis Spleen: Spleen is normal in size and signal characteristics. No suspicious focal splenic lesions. Splenic vascular pedicle is patent with no perisplenic fluid or collections. Pancreas: Pancreas shows a punctate T2 bright focus in the pancreatic head which could represent an ectatic side branch measuring up to 3 mm in size on image 71 series 14. Main pancreatic duct is nondilated. There are no peripancreatic inflammatory changes or fluid collections. Adrenals: Both adrenal glands are unremarkable Right Kidney: Right kidney shows normal size and enhancement characteristics. No calculus or hydronephrosis. No definite right renal mass or perinephric collection Left Kidney: Left kidney shows normal size and enhancement characteristics. No calculus or hydronephrosis. No definite focal left renal mass lesions or perinephric collection Gastrointestinal: Stomach is distended with fluid and food residue limiting detailed evaluation. No hiatal hernia. The visualized small bowel loops are grossly unremarkable and nonobstructed. No mesenteric mass or adenopathy is seen. Mild to moderate fecal residue is noted within the colonic loops limiting detailed evaluation. No gross colonic mass or paracolic inflammation is seen. Peritoneum/retroperitoneu m: No ascites. No loculated fluid collections in the abdomen or pelvis Lymph nodes: No enlarged or morphologically abnormal lymph nodes in the upper abdomen or retroperitoneum. Vasculature: The abdominal aorta is normal in course and caliber. Patent celiac and superior mesenteric arteries. Patent portal, splenic, and superior mesenteric veins. Renal veins and IVC are patent Body Wall: Diastasis of the rectus muscles with a small umbilical hernia containing fat Bones: Normal for patient age. No aggressive lesion. No focal osseous abnormalities IMPRESSION IMPRESSION: 1. Focal T2 hyperintense area at the kate hepatis seen in close relation with the common hepatic duct and the cystic duct. This could represent a focally dilated cystic duct or a choledochal cyst probably arising from the common hepatic duct. Possibility of an exophytic simple liver cyst along the kate hepatis cannot be totally excluded 2. No gallstones or biliary ductal dilatation in the remainder of the intra and extrahepatic ducts. No MR evidence to suggest choledocholithiasis. 3. Possible mild background hepatic steatosis. No morphological features of cirrhosis. No enhancing focal liver lesions or areas of washout in the liver. Patent portal vein 4. No upper abdominal ascites or lymphadenopathy by size criteria 5. Punctate T2 bright focus in the pancreatic head could represent an ectatic side branch or a small cystic (more content not included)... 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 TECHNIQUE: Multiplanar, multisequence MRI scanning was performed of the abdomen before and after the administration of intravenous contrast. T2 weighted MRCP imaging was performed. CONTRAST: Gadopiclenol SOLN 1-25 mL; Route of Administration: Intravenous; Dose: 5.6 mL. FINDINGS: Lung Bases: Visualized lung bases reveal no definite focal abnormalities in the lower lobes. No pleural or pericardial effusion. No hiatal hernia Visualized cardiomediastinal structures are without focal abnormalities Liver: Liver is normal in size and morphology. Liver outlines are smooth. There are no suspicious discrete T1 or T2 bright focal liver lesions. Subtle signal loss in the liver parenchyma likely relates to background steatosis Portal vein is patent. No intrahepatic biliary ductal dilatation. No perihepatic fluid or collection is seen On the post gadolinium sequences, heterogeneous arterial enhancement is seen in the liver parenchyma without discrete focal hypervascular liver lesions. No clear enhancing liver lesions or areas of washout on the portal venous or the delayed phase images. Main portal vein and its branches are patent. No intrahepatic biliary ductal dilatation. No perihepatic ascites Gallbladder: Gallbladder is distended and folded with no discrete calcified stones or filling defects. Slightly prominent cystic T2 bright focus is noted close to the kate hepatis measuring 2 x 1.5 cm in size on image 45 series 9. This could represent a focally dilated cystic duct or choledochal cyst arising from the common hepatic duct.. No internal filling defects are seen. This appears more conspicuous than the prior comparison studies, previously measured approximately 1.1 x 0.8 cm No GB wall thickening or pericholecystic inflammation. Bile Ducts: Common bile duct is nondilated. No MR evidence to suggest choledocholithiasis Spleen: Spleen is normal in size and signal characteristics. No suspicious focal splenic lesions. Splenic vascular pedicle is patent with no perisplenic fluid or collections. Pancreas: Pancreas shows a punctate T2 bright focus in the pancreatic head which could represent an ectatic side branch measuring up to 3 mm in size on image 71 series 14. Main pancreatic duct is nondilated. There are no peripancreatic inflammatory changes or fluid collections. Adrenals: Both adrenal glands are unremarkable Right Kidney: Right kidney shows normal size and enhancement characteristics. No calculus or hydronephrosis. No definite right renal mass or perinephric collection Left Kidney: Left kidney shows normal size and enhancement characteristics. No calculus or hydronephrosis. No definite focal left renal mass lesions or perinephric collection Gastrointestinal: Stomach is distended with fluid and food residue limiting detailed evaluation. No hiatal hernia. The visualized small bowel loops are grossly unremarkable and nonobstructed. No mesenteric mass or adenopathy is seen. Mild to moderate fecal residue is noted within the colonic loops limiting detailed evaluation. No gross colonic mass or paracolic inflammation is seen. Peritoneum/retroperitoneu m: No ascites. No loculated fluid collections in the abdomen or pelvis Lymph nodes: No enlarged or morphologically abnormal lymph nodes in the upper abdomen or retroperitoneum. Vasculature: The abdominal aorta is normal in course and caliber. Patent celiac and superior mesenteric arteries. Patent portal, splenic, and superior mesenteric veins. Renal veins and IVC are patent Body Wall: Diastasis of the rectus muscles with a small umbilical hernia containing fat Bones: Normal for patient age. No aggressive lesion. No focal osseous abnormalities IMPRESSION: 1. Focal T2 hyperintense area at the kate hepatis seen in close relation with the common hepatic duct and the cystic duct. This could represent a focally dilated cystic duct or a choledochal cyst probably arising from the common hepatic duct. Possibility of an exophytic simple liver cyst along the kate hepatis cannot be totally excluded 2. No gallstones or biliary ductal dilatation in the remainder of the intra and extrahepatic ducts. No MR evidence to suggest choledocholithiasis. 3. Possible mild background hepatic steatosis. No morphological features of cirrhosis. No enhancing focal liver lesions or areas of washout in the liver. Patent portal vein 4. No upper abdominal ascites or lymphadenopathy by size criteria 5. Punctate T2 bright focus in the pancreatic head could represent an ectatic side branch or a small cystic lesion 6. Additional ancillary findings as described above Normal [facility] Gastrin, Serumon 11-02-2023 GASTRIN 19 pg/mL Normal 0-115 [facility] Comment on above: Result Comment: Siem [employer] [place] Immulite 2000 Immunochemiluminometric assay (ICMA) Values obtained with different assay methods or kits cannot be used interchangeably. Results cannot be interpreted as absolute evidence of the presence or absence of malignant disease. Performed By: #### L 100.0100, L500.2500, L500.3400, [id number] #### [facility] [address] [place], [address] Intrinsic Factor Abon 2023 INTRINS FACT AB 1.0 AU/mL Normal 0.0-1.1 [facility] Comment on above: Result Comment: Perf ormed at: [facility] [id number] [employer] Developer: Daryn Grande MD, Phone: [phone] Performed By: #### L 100.0100, L500.2500, L500.3400, [id number] #### [facility] [address] [place], [address] Carbohydrate AG 19-9on 10-30 CA 19-9 3 U/mL Normal 0-35 [facility] Comment on above: Result Comment: [facility] Electrochemiluminescence Immunoassay (ECLIA) Values obtained with different assay methods or kits cannot be used interchangeably. Results cannot be interpreted as absolute evidence of the presence or absence of malignant disease. Performed at: [address] [id number] [employer] Developer: Lloyd Garnica PhD, Phone: [phone] Performed By: #### L 100.0100, L500.2500, L500.3400, [id number] #### [facility] [address] [place], [address] Bilirubin, Directon 10-30-19 24 Bilirubin.direct [Mass/Vol] 0.12 mg/dL Normal 0.00-0.30 [facility] Comment on above: Performed By: #### L 100.0100, L500.2500, L500.3400, [id number] #### [facility] [address] [place], [address] CBC W/Diff, Automatedon 10-14 Absolute Lymph 2.01 X10 3/uL Normal 0.83-4.51 [facility] Comment on above: Performed By: #### L 100.0100, L500.2500, L500.3400, [id number] #### [facility] [address] [place], [address] Absolute Neut 2.4 X10 3/uL Normal 2.0-7.7 [facility] Comment on above: Performed By: #### L 100.0100, L500.2500, L500.3400, L300.3900 #### [facility] [address] [place], [address] Basophils/100 WBC (Bld) 1.0 % Normal 0-1 [facility] Comment on above: Performed By: #### L 100.0100, L500.2500, L500.3400, [id number] #### [facility] [address] [place], [address] Eosinophils/100 WBC (Bld) 3.0 % Normal 0-5 [facility] Comment on above: Performed By: #### L 100.0100, L500.2500, L500.3400, [id number] #### [facility] [address] [place], [address] Hemoglobin (Bld) [Mass/Vol] 13.9 g/dL Normal 12.0-15.0 [facility] Comment on above: Performed By: #### L 100.0100, L500.2500, L500.3400, [id number] #### [facility] [address] [place], [address] IG% 0.200 Normal 0.0-0.9 [facility] Comment on above: Result Comment: IG% - Immature Granulocytes (promyelocytes, myelocytes and metamyelocytes) > 1% indicates that a LEFT SHIFT is Present. Performed By: #### L 100.0100, L500.2500, L500.3400, L300.3900 #### [facility] [address] [place], [address] Lymphocytes/100 WBC (Bld) 40.6 % Normal 19-41 [facility] Comment on above: Performed By: #### L 100.0100, L500.2500, L500.3400, [id number] #### [facility] [address] [place], [address] MCH (RBC) [Entitic mass] 31.2 pg Normal 27.0-32.0 [facility] Comment on above: Performed By: #### L 100.0100, L500.2500, L500.3400, [id number] #### [facility] [address] [place], [address] MCHC (RBC) [Mass/Vol] 33.3 g/dL Normal 32-36 [facility] Comment on above: Performed By: #### L 100.0100, L500.2500, L500.3400, [id number] #### [facility] [address] [place], [address] MCV (RBC) [Entitic vol] 93.7 fL Normal 81-99 [facility] Comment on above: Performed By: #### L 100.0100, L500.2500, L500.3400, [id number] #### [facility] [address] [place], [address] Monocytes/100 WBC (Bld) 7.1 % Normal 0-10 [facility] Comment on above: Performed By: #### L 100.0100, L500.2500, L500.3400, [id number] #### [facility] [address] [place], [address] Neutrophils/100 WBC (Bld) 48.1 % Normal 47-70 [facility] Comment on above: Performed By: #### L 100.0100, L500.2500, L500.3400, [id number] #### [facility] [address] [place], [address] Platelet mean volume (Bld) [Entitic vol] 11.4 fL Normal 6.2-12.0 [facility] Comment on above: Performed By: #### L 100.0100, L500.2500, L500.3400, [id number] #### [facility] [address] [place], [address] Platelets (Bld) [#/Vol] 193 10*3/uL Normal 150-450 [facility] Comment on above: Performed By: #### L 100.0100, L500.2500, L500.3400, [id number] #### [facility] [address] [place], [address] RBC (Bld) [#/Vol] 4.46 10*6/uL Normal 4.2-5.4 [facility] Comment on above: Performed By: #### L 100.0100, L500.2500, L500.3400, [id number] #### [facility] [address] [place], [address] RDW SD 42.1 fl Normal 35.1-43.9 [facility] Comment on above: Performed By: #### L 100.0100, L500.2500, L500.3400, [id number] #### [facility] [address] [place], [address] WBC (Bld) [#/Vol] 5.0 10*3/uL Normal 4.4-11.0 [facility] Comment on above: Performed By: #### L 100.0100, L500.2500, L500.3400, L300.3900 #### [facility] [address] [place], [address] CBC, Employee[employer] 10-30-2023 Absolute Lymph 2.13 X10 3/uL Normal 0.83-4.51 [facility] Comment on above: Performed By: #### L 100.0100, L500.2500, L500.3400, L300.3900 #### [facility] [address] [place], [address] Absolute Neut 2.6 X10 3/uL Normal 2.0-7.7 [facility] Comment on above: Performed By: #### L 100.0100, L500.2500, L500.3400, L300.3900 #### [facility] [address] [place], [address] Basophils/100 WBC (Bld) 0.9 % Normal 0-1 [facility] Comment on above: Performed By: #### L 100.0100, L500.2500, L500.3400, L300.3900 #### [facility] [address] [place], [address] Eosinophils/100 WBC (Bld) 3.2 % Normal 0-5 [facility] Comment on above: Performed By: #### L 100.0100, L500.2500, L500.3400, L300.3900 #### [facility] [address] [place], [address] Erythrocyte distribution width (RBC) [Ratio] 12.0 % Normal 11.6-14.6 [facility] Comment on above: Performed By: #### L 100.0100, L500.2500, L500.3400, L300.3900 #### [facility] [address] [place], [address] Hematocrit (Bld) [Volume fraction] 41.8 % Normal 37-47 [facility] Comment on above: Performed By: #### L 100.0100, L500.2500, L500.3400, L300.3900 #### [facility] [address] [place], [address] Hemoglobin (Bld) [Mass/Vol] 13.7 g/dL Normal 12.0-15.0 [facility] Comment on above: Performed By: #### L 100.0100, L500.2500, L500.3400, L300.3900 #### [facility] [address] [place], [address] Lymphocytes/100 WBC (Bld) 40.2 % Normal 19-41 [facility] Comment on above: Performed By: #### L 100.0100, L500.2500, L500.3400, L300.3900 #### [facility] [address] [place], [address] MCH (RBC) [Entitic mass] 30.9 pg Normal 27.0-32.0 [facility] Comment on above: Performed By: #### L 100.0100, L500.2500, L500.3400, L300.3900 #### [facility] [address] [place], [address] MCHC (RBC) [Mass/Vol] 32.8 g/dL Normal 32-36 [facility] Comment on above: Performed By: #### L 100.0100, L500.2500, L500.3400, L300.3900 #### [facility] [address] [place], [address] MCV (RBC) [Entitic vol] 94.1 fL Normal 81-99 [facility] Comment on above: Performed By: #### L 100.0100, L500.2500, L500.3400, L300.3900 #### [facility] [address] [place], [address] Monocytes/100 WBC (Bld) 6.8 % Normal 0-10 [facility] Comment on above: Performed By: #### L 100.0100, L500.2500, L500.3400, L300.3900 #### [facility] [address] [place], [address] Neutrophils/100 WBC (Bld) 48.7 % Normal 47-70 [facility] Comment on above: Performed By: #### L 100.0100, L500.2500, L500.3400, L300.3900 #### [facility] [address] [place], [address] NRBC # 0.00 10 3/uL Normal 0-5 [facility] Comment on above: Performed By: #### L 100.0100, L500.2500, L500.3400, L300.3900 #### [facility] [address] [place], [address] Nucleated RBC (Bld) [#/Vol] 0 10*3/uL Normal 0-5 [facility] Comment on above: Performed By: #### L 100.0100, L500.2500, L500.3400, L300.3900 #### [facility] [address] [place], [address] Platelet mean volume (Bld) [Entitic vol] 11.3 fL Normal 6.2-12.0 [facility] Comment on above: Performed By: #### L 100.0100, L500.2500, L500.3400, L300.3900 #### [facility] [address] [place], [address] Platelets (Bld) [#/Vol] 199 10*3/uL Normal 150-450 [facility] Comment on above: Performed By: #### L 100.0100, L500.2500, L500.3400, L300.3900 #### [facility] [address] [place], [address] RBC (Bld) [#/Vol] 4.44 10*6/uL Normal 4.2-5.4 [facility] Comment on above: Performed By: #### L 100.0100, L500.2500, L500.3400, L300.3900 #### [facility] [address] [place], [address] RDW SD 42.0 fl Normal 35.1-43.9 [facility] Comment on above: Performed By: #### L 100.0100, L500.2500, L500.3400, L300.3900 #### [facility] [address] [place], [address] WBC (Bld) [#/Vol] 5.3 10*3/uL Normal 4.4-11.0 [facility] Comment on above: Performed By: #### L 100.0100, L500.2500, L500.3400, L300.3900 #### [facility] [address] [place], [address] Comprehensive Metabolic Prof [facility] 10-30-2023 Albumin [Mass/Vol] 3.9 g/dL Normal 3.2-5.0 [facility] Comment on above: Performed By: #### L 100.0100, L500.2500, L500.3400, L300.3900 #### [facility] [address] [place], [address] Albumin/Globulin [Mass ratio] 1.1 {ratio} Normal 0.9-2.4 [facility] Comment on above: Performed By: #### L 100.0100, L500.2500, L500.3400, L300.3900 #### [facility] [address] [place], [address] ALK P 100 U/L Normal 45-117 [facility] Comment on above: Performed By: #### L 100.0100, L500.2500, L500.3400, L300.3900 #### [facility] [address] [place], [address] ALT [Catalytic activity/Vol] 33 U/L Normal 13-56 [facility] Comment on above: Performed By: #### L 100.0100, L500.2500, L500.3400, L300.3900 #### [facility] [address] [place], [address] AST [Catalytic activity/Vol] 24 U/L Normal 15-37 [facility] Comment on above: Performed By: #### L 100.0100, L500.2500, L500.3400, L300.3900 #### [facility] [address] [place], [address] Bilirubin [Mass/Vol] 0.40 mg/dL Normal 0.20-1.00 [facility] Comment on above: Result Comment: For patients on eltrombopag therapy, use of Dimension [place] TBIL is not recommended. Performed By: #### L 100.0100, L500.2500, L500.3400, L300.3900 #### [facility] [address] [place], [address] BUN/CRE 19.4 RATIO Normal 10-20 [facility] Comment on above: Performed By: #### L 100.0100, L500.2500, L500.3400, L300.3900 #### [facility] [address] [place], [address] CA,Total 8.8 mg/dL Normal 8.5-10.1 [facility] Comment on above: Performed By: #### L 100.0100, L500.2500, L500.3400, L300.3900 #### [facility] [address] [place], [address] Chloride [Moles/Vol] 105 mmol/L Normal 98-107 [facility] Comment on above: Performed By: #### L 100.0100, L500.2500, L500.3400, L300.3900 #### [facility] [address] [place], [address] CO2 [Moles/Vol] 28.0 mmol/L Normal 21.0-32.0 [facility] Comment on above: Performed By: #### L 100.0100, L500.2500, L500.3400, L300.3900 #### [facility] [address] [place], [address] Creatinine [Mass/Vol] 0.72 mg/dL Normal 0.55-1.02 [facility] Comment on above: Result Comment: The validity of the calculated GFR GFRAA in patients over 70 years has not been determined. Clinical correlation is essential. Performed By: #### L 100.0100, L500.2500, L500.3400, L300.3900 #### [facility] [address] [place], [address] EST GFR - AA 112 mL/min Normal >60 [facility] Comment on above: Result Comment: Afri can [place]at[place] GFR Calc Performed By: #### L 100.0100, L500.2500, L500.3400, L300.3900 #### [facility] [address] [place], [address] GAP 5 Normal 5-15 [facility] Comment on above: Performed By: #### L 100.0100, L500.2500, L500.3400, L300.3900 #### [facility] [address] [place], [address] GFR/1.73 sq M.predicted among non-blacks MDRD (S/P/Bld) [Vol rate/Area] 93 mL/min/{1.73_m2} Normal >60 [facility] Comment on above: Result Comment: Non- GFR Calc Performed By: #### L 100.0100, L500.2500, L500.3400, L300.3900 #### [facility] [address] [place], [address] Globulin (S) [Mass/Vol] 3.7 g/dL Normal 2.2-4.2 [facility] Comment on above: Performed By: #### L 100.0100, L500.2500, L500.3400, L300.3900 #### [facility] [address] [place], [address] Glucose [Mass/Vol] 102 mg/dL Normal 74-106 [facility] Comment on above: Result Comment: Fast ing Glucose result from 100 to 125 mg/dL suggests IMPAIRED HOMEOSTASIS per A.D.A. criteria. Performed By: #### L 100.0100, L500.2500, L500.3400, L300.3900 #### [facility] [address] [place], [address] Potassium [Moles/Vol] 4.0 mmol/L Normal 3.5-5.1 [facility] Comment on above: Performed By: #### L 100.0100, L500.2500, L500.3400, L300.3900 #### [facility] [address] [place], [address] Sodium [Moles/Vol] 138 mmol/L Normal 136-145 [facility] Comment on above: Performed By: #### L 100.0100, L500.2500, L500.3400, L300.3900 #### [facility] [address] [place], [address] T PROT 7.6 g/dL Normal 6.4-8.2 [facility] Comment on above: Performed By: #### L 100.0100, L500.2500, L500.3400, L300.3900 #### [facility] [address] [place], [address] Urea nitrogen [Mass/Vol] 14 mg/dL Normal 7-18 [facility] Comment on above: Performed By: #### L 100.0100, L500.2500, L500.3400, L300.3900 #### [facility] [address] [place], [address] [employer] 4 Albumin [Mass/Vol] 3.9 g/dL Normal 3.2-5.0 [facility] Comment on above: Performed By: #### L 100.0100, L500.2500, L500.3400, L300.3900 #### [facility] [address] [place], [address] Albumin/Globulin [Mass ratio] 1.1 {ratio} Normal 0.9-2.4 [facility] Comment on above: Performed By: #### L 100.0100, L500.2500, L500.3400, L300.3900 #### [facility] [address] [place], [address] ALK P 102 U/L Normal 45-117 [facility] Comment on above: Performed By: #### L 100.0100, L500.2500, L500.3400, L300.3900 #### [facility] [address] [place], [address] ALT [Catalytic activity/Vol] 32 U/L Normal 13-56 [facility] Comment on above: Performed By: #### L 100.0100, L500.2500, L500.3400, L300.3900 #### [facility] [address] [place], [address] AST [Catalytic activity/Vol] 20 U/L Normal 15-37 [facility] Comment on above: Performed By: #### L 100.0100, L500.2500, L500.3400, L300.3900 #### [facility] [address] [place], [address] Bilirubin [Mass/Vol] 0.40 mg/dL Normal 0.20-1.00 [facility] Comment on above: Result Comment: For patients on eltrombopag therapy, use of Dimension [place] TBIL is not recommended. Performed By: #### L 100.0100, L500.2500, L500.3400, L300.3900 #### [facility] [address] [place], [address] Bilirubin.direct [Mass/Vol] 0.13 mg/dL Normal 0.00-0.30 [facility] Comment on above: Performed By: #### L 100.0100, L500.2500, L500.3400, L300.3900 #### [facility] [address] [place], [address] BUN/CRE 20.6 RATIO High 10-20 [facility] Comment on above: Performed By: #### L 100.0100, L500.2500, L500.3400, L300.3900 #### [facility] [address] [place], [address] CA,Total 9.0 mg/dL Normal 8.5-10.1 [facility] Comment on above: Performed By: #### L 100.0100, L500.2500, L500.3400, L300.3900 #### [facility] [address] [place], [address] Chloride [Moles/Vol] 105 mmol/L Normal 98-107 [facility] Comment on above: Performed By: #### L 100.0100, L500.2500, L500.3400, L300.3900 #### [facility] [address] [place], [address] CHOL:HDL 3.30 Normal [facility] Comment on above: Performed By: #### L 100.0100, L500.2500, L500.3400, L300.3900 #### [facility] [address] [place], [address] Cholesterol [Mass/Vol] 212 mg/dL High [address] [facility] Comment on above: Result Comment: <200 mg/dL Desirable 200-240 mg/dL Borderline >240 mg/dL High Risk Performed By: #### L 100.0100, L500.2500, L500.3400, L300.3900 #### [facility] [address] [place], [address] Cholesterol in HDL [Mass/Vol] 64 mg/dL Normal [facility] Comment on above: Result Comment: The drugs N-Acetylcysteine and Metamizole may falsely depress this assay. Reference Range HDL <40 mg/dL Low HDL Cholesterol HDL >or= 60 mg/dL High HDL Cholesterol Performed By: #### L 100.0100, L500.2500, L500.3400, L300.3900 #### [facility] [address] [place], [address] Cholesterol in LDL [Mass/Vol] 139 mg/dL High 0-130 [facility] Comment on above: Performed By: #### L 100.0100, L500.2500, L500.3400, L300.3900 #### [facility] [address] [place], [address] Cholesterol in VLDL [Mass/Vol] 9 mg/dL Normal 5-40 [facility] Comment on above: Performed By: #### L 100.0100, L500.2500, L500.3400, L300.3900 #### [facility] [address] [place], [address] CO2 [Moles/Vol] 28.0 mmol/L Normal 21.0-32.0 [facility] Comment on above: Performed By: #### L 100.0100, L500.2500, L500.3400, L300.3900 #### [facility] [address] [place], [address] Creatinine [Mass/Vol] 0.68 mg/dL Normal 0.55-1.02 [facility] Comment on above: Result Comment: The validity of the calculated GFR GFRAA in patients over 70 years has not been determined. Clinical correlation is essential. Performed By: #### L 100.0100, L500.2500, L500.3400, L300.3900 #### [facility] [address] [place], [address] EST GFR - AA 120 mL/min Normal >60 [facility] Comment on above: Result Comment: Afri can [place] GFR Calc Performed By: #### L 100.0100, L500.2500, L500.3400, L300.3900 #### [facility] [address] [place], [address] GAP 5 Normal 5-15 [facility] Comment on above: Performed By: #### L 100.0100, L500.2500, L500.3400, L300.3900 #### [facility] [address] [place], [address] GFR/1.73 sq M.predicted among non-blacks MDRD (S/P/Bld) [Vol rate/Area] 99 mL/min/{1.73_m2} Normal >60 [facility] Comment on above: Result Comment: Non- GFR Calc Performed By: #### L 100.0100, L500.2500, L500.3400, L300.3900 #### [facility] [address] [place], [address] Globulin (S) [Mass/Vol] 3.6 g/dL Normal 2.2-4.2 [facility] Comment on above: Performed By: #### L 100.0100, L500.2500, L500.3400, L300.3900 #### [facility] [address] [place], [address] Glucose [Mass/Vol] 103 mg/dL Normal 74-106 [facility] Comment on above: Result Comment: Fast ing Glucose result from 100 to 125 mg/dL suggests IMPAIRED HOMEOSTASIS per A.D.A. criteria. Performed By: #### L 100.0100, L500.2500, L500.3400, L300.3900 #### [facility] [address] [place], [address] LDH 160 U/L Normal 84-246 [facility] Comment on above: Performed By: #### L 100.0100, L500.2500, L500.3400, L300.3900 #### [facility] [address] [place], [address] Phosphate [Mass/Vol] 2.8 mg/dL Normal 2.5-4.9 [facility] Comment on above: Performed By: #### L 100.0100, L500.2500, L500.3400, L300.3900 #### [facility] [address] [place], [address] Potassium [Moles/Vol] 4.1 mmol/L Normal 3.5-5.1 [facility] Comment on above: Performed By: #### L 100.0100, L500.2500, L500.3400, L300.3900 #### [facility] [address] [place], [address] Sodium [Moles/Vol] 138 mmol/L Normal 136-145 [facility] Comment on above: Performed By: #### L 100.0100, L500.2500, L500.3400, L300.3900 #### [facility] [address] [place], [address] T PROT 7.5 g/dL Normal 6.4-8.2 [facility] Comment on above: Performed By: #### L 100.0100, L500.2500, L500.3400, L300.3900 #### [facility] [address] [place], [address] Triglyceride [Mass/Vol] 44 mg/dL Normal [facility] Comment on above: Result Comment: The drugs N-Acetylcysteine and Metamizole may falsely depress this assay. Serum Triglycerides Reference Interval Normal <150 mg/dL Borderline high 150 - 199 mg/dL High 200 - 499 mg/dL Very High > or = 500 mg/dL Performed By: #### L 100.0100, L500.2500, L500.3400, L300.3900 #### [facility] [address] [place], [address] Urea nitrogen [Mass/Vol] 14 mg/dL Normal 7-18 [facility] Comment on above: Performed By: #### L 100.0100, L500.2500, L500.3400, L300.3900 #### [facility] [address] [place], [address] URIC 2.4 mg/dL Low 2.6-6.0 [facility] Comment on above: Result Comment: The drugs N-Acetylcysteine and Metamizole may falsely depress this assay. Performed By: #### L 100.0100, L500.2500, L500.3400, L300.3900 #### [facility] [address] [place], [address] Folates, (Folic Acid)on 10-14 FOLATES 27.50 ng/mL Normal 3.1-55.4 [facility] Comment on above: Order Comment: N Performed By: #### L 100.0100, L500.2500, L500.3400, L300.3900 #### [facility] [address] [place], [address] Liver Profileon 10-30-2023 Albumin [Mass/Vol] 4.0 g/dL Normal 3.2-5.0 [facility] Comment on above: Performed By: #### L 100.0100, L500.2500, L500.3400, L300.3900 #### [facility] [address] [place], [address] ALK P 104 U/L Normal 45-117 [facility] Comment on above: Performed By: #### L 100.0100, L500.2500, L500.3400, L300.3900 #### [facility] [address] [place], [address] ALT [Catalytic activity/Vol] 33 U/L Normal 13-56 [facility] Comment on above: Performed By: #### L 100.0100, L500.2500, L500.3400, L300.3900 #### [facility] [address] [place], [address] AST [Catalytic activity/Vol] 20 U/L Normal 15-37 [facility] Comment on above: Performed By: #### L 100.0100, L500.2500, L500.3400, L300.3900 #### [facility] [address] [place], [address] Bilirubin [Mass/Vol] 0.50 mg/dL Normal 0.20-1.00 [facility] Comment on above: Result Comment: For patients on eltrombopag therapy, use of Dimension [place] TBIL is not recommended. Performed By: #### L 100.0100, L500.2500, L500.3400, L300.3900 #### [facility] [address] [place], [address] Bilirubin.direct [Mass/Vol] 0.13 mg/dL Normal 0.00-0.30 [facility] Comment on above: Performed By: #### L 100.0100, L500.2500, L500.3400, L300.3900 #### [facility] [address] [place], [address] Globulin (S) [Mass/Vol] 3.6 g/dL Normal 2.2-4.2 [facility] Comment on above: Performed By: #### L 100.0100, L500.2500, L500.3400, L300.3900 #### [facility] [address] [place], [address] T PROT 7.6 g/dL Normal 6.4-8.2 [facility] Comment on above: Performed By: #### L 100.0100, L500.2500, L500.3400, L300.3900 #### [facility] [address] [place], [address] Prothrombin Time w/INRon INR Coag (PPP) [Relative time] 1.1 {INR} Normal [facility] Comment on above: Performed By: #### L 100.0100, L500.2500, L500.3400, L300.3900 #### [facility] [address] [place], [address] PT Coag (PPP) [Time] 14.0 s Normal 11.7-14.9 [facility] Comment on above: Performed By: #### L 100.0100, L500.2500, L500.3400, L300.3900 #### [facility] [address] [place], [address] Urinalysis, Employeeon 10-29 BILIRUBIN URINE Negative Normal Negative [facility] Comment on above: Performed By: #### L 100.0100, L500.2500, L500.3400, L300.3900 #### [facility] [address] [place], [address] Clarity (U) Clear Normal Clear [facility] Comment on above: Performed By: #### L 100.0100, L500.2500, L500.3400, L300.3900 #### [facility] [address] [place], [address] Color (U) Yellow Normal Yellow [facility] Comment on above: Performed By: #### L 100.0100, L500.2500, L500.3400, L300.3900 #### [facility] [address] [place], [address] GLUCOSE, UR Normal Normal Normal [facility] Comment on above: Performed By: #### L 100.0100, L500.2500, L500.3400, L300.3900 #### [facility] [address] [place], [address] KETONE UR Negative Normal Negative [facility] Comment on above: Performed By: #### L 100.0100, L500.2500, L500.3400, L300.3900 #### [facility] [address] [place], [address] LEUK ESTERASE Negative Normal Negative [facility] Comment on above: Performed By: #### L 100.0100, L500.2500, L500.3400, L300.3900 #### [facility] [address] [place], [address] Nitrite Ql (U) Negative Normal Negative [facility] Comment on above: Performed By: #### L 100.0100, L500.2500, L500.3400, L300.3900 #### [facility] [address] [place], [address] OCCULT BLOOD-UR Negative Normal Negative [facility] Comment on above: Performed By: #### L 100.0100, L500.2500, L500.3400, L300.3900 #### [facility] [address] [place], [address] pH UR 8.0 Normal 5.0 - 8.0 [facility] Comment on above: Performed By: #### L 100.0100, L500.2500, L500.3400, L300.3900 #### [facility] [address] [place], [address] PROT DIPSTX Negative Normal Negative [facility] Comment on above: Performed By: #### L 100.0100, L500.2500, L500.3400, L300.3900 #### [facility] [address] [place], [address] SP.GR. DIPSTX 1.010 Normal 1.002-1.03 0 [facility] Comment on above: Performed By: #### L 100.0100, L500.2500, L500.3400, L300.3900 #### [facility] [address] [place], [address] UROBILI Normal Normal Normal [facility] Comment on above: Performed By: #### L 100.0100, L500.2500, L500.3400, L300.3900 #### [facility] [address] [place], [address] Vitamin B12on 10-30-2023 Cobalamin (Vitamin B12) [Mass/Vol] 1043 pg/mL High 211-911 [facility] Comment on above: Performed By: #### L 100.0100, L500.2500, L500.3400, L300.3900 #### [facility] [address] [place], [address] SURG PATH REQUESTon 09-09-19 Case Report Normal [facility] [facility] Comment on above: Result Comment: Surg ical Pathology Report Case: [id number] Authorizing Provider: Amita Caldwell, Collected: 09/09/2023 09:27 AM MANJU-VALENCIA, GAVIOTA Ordering Location[facility] Received: 09/09/2023 09:26 AM [place] Pathologist: Benito Perry MD Specimen: SURG PATH, Liver biopsy Performed By: #### S URGP #### [facility] (DEFAULT) [address] [place] [address] Gross Description [facility] Comment on above: Result Comment: The following material(s) are received from [facility], [address] [place] [address] with an identifying Surgical Pathology Report: 3 H&E slide(s), 5 non-H&E slide(s), as well as 1 block(s) (1) labeled [id number]. Outside pathology materials are returned in sixty (60) days under separate cover with our number recorded on them. Grosser for this case was: Aubree Silverio Performed By: #### S URGP #### [facility] (DEFAULT) [address] [place] [address] Microscopic Description A microscopic ex amination was performed. [facility] Comment on above: Performed By: #### S URGP #### [facility] (DEFAULT) [address] [address] Pathologic Diagnosis [facility] Comment on above: Result Comment: Outs nicolle Slides: [id number] (04/29/22) Right lobe liver, CT-guided core biopsy: Minimal macrovesicular steatosis, 5% Special stain performed at outside hospital Trichrome shows focal sinusoidal fibrosis PAS with and without diastase are negative for intracytoplasmic globules Iron stain is negative See comment Comment: No evidence of autoimmune hepatitis, PSC and PBC is identified. Performed By: #### S URGP #### [facility] (DEFAULT) [address] [address] Professional Interpretation Performed at: [facility] Comment on above: Result Comment: [facility] For Immediate Release [facility] [address] [address] Performed By: #### S URGP #### [facility] (DEFAULT) [address] [place] [address] Laboratory - Chemistry and C hemistry - challengeOrdered By: Oneal Villalobos on 06-01-2023 Cobalamin (Vitamin B12) [Mass/Vol] 1158 pg/mL 211-911 [facility] No Panel InformationOrdered By: Oneal Villalobos on 06-01-2023 Folate 56.10 ng/mL 3.1-55.4 [facility] Intrinsic Factor Antibody 1.1 AU/mL 0.0-1.1 [facility] Comment on above: Performed at: [employer] [facility] [address] [employer] [id number] Director: Daryn Grande MD, Phone: [phone] at: [employer] [facility] [id number] Director: Lloyd Garnica PhD, Phone: [phone] Serum or plasma gastrin eunice urement (mass/volume)Ordered By: Oneal Villalobos on 06-01-2023 Gastrin [Mass/Vol] 117 pg/mL 0-115 [facility] Comment on above: Siemens Immulite 200 0 Immunochemiluminometric assay (ICMA)Values obtained with different assay methods or kits cannotbe used interchangeably. Results cannot be interpreted asabsolute evidence of the presence or absence of malignantdisease. Serum parietal cell antibody assay (units/volume)Ordered By: Oneal Villalobos on 06-01-2023 Parietal cell Ab Qn (S) 20.9 Units 0.0-20.0 [facility] Comment on above: Verified by repeat analysis Negative 0.0 - 20.0 Equivocal 20.1 - 24.9 Positive >24.9Parietal Cell Antibodies are found in 90% of patientswith pernicious anemia and 30% of first degreerelatives with pernicious anemia. Basophil percentageOrdered B y: Oneal Villalobos on 04-23-2023 Bilirubin [Mass/Vol] 0.40 mg/dL 0.20-1.00 [facility] Comment on above: For patients on eltr ombopag therapy, use of Dimension [place] TBIL is not recommended. Protein [Mass/Vol] 7.8 g/dL 6.4-8.2 [facility] Direct bilirubinOrdered By: Oneal Villalobos on 04-23-2023 Bilirubin.direct [Mass/Vol] 0.09 mg/dL 0.00-0.30 [facility] Laboratory - Chemistry and C hemistry - challengeOrdered By: Oneal Villalobos on 04-23-2023 ALP [Catalytic activity/Vol] 99 U/L 45-117 [facility] ALT [Catalytic activity/Vol] 29 U/L 13-56 [facility] Globulin (S) [Mass/Vol] 3.8 g/dL 2.2-4.2 [facility] No Panel InformationOrdered By: Oneal Villalobos on 04-23-2023 CA 19-9 Antigen 3 U/mL 0-35 [facility] Comment on above: [employer] El ectrochemiluminescence Immunoassay(ECLIA)Values obtained with different assay methods or kits cannotbe used interchangeably. Results cannot be interpreted asabsolute evidence of the presence or absence of malignantdisease. CA 19-9 Antigen Serial Monitoring Not Reportable [facility] Serum or plasma carcinoembry onic antigen measurement (mass/volume)Ordered By: Oneal Villalobos on 04-23-2023 Carcinoembryonic Ag [Mass/Vol] 1.0 ng/mL 0.0-4.7 [facility] Comment on above: Nonsmokers <3.9 Smok ers <5.6[employer] Electrochemiluminescence Immunoassay(ECLIA)Values obtained with different assay methods or kitscannot be used interchangeably. Results cannot beinterpreted as absolute evidence of the presence orabsence of malignant disease.Performed at: [address] [id number] Director: Lloyd Garnica PhD, Phone: [phone] Thin prep Papanicolaou smear with manual screeningOrdered By: Oneal Villalobos on 04-23-2023 Thin prep Papanicolaou smear with manual screening 4.0 g/dL 3.2-5.0 [facility] Thin prep Papanicolaou smear with manual screening 17 U/L 15-37 [facility] CNPNon 02-24-2023 [facility] ----- LAMONTEDDIEJARAD ([id number]) 1980 F Date Time Provider Department 02/24/23 NEO HEREDIA During your visit today, we recorded the following information about you: Kathy Mccray MA 02/24/2023 4:22 PM Signed Patient outside medical report scanned into Britta Murphy LPN 02/27/2023 3:42 PM Signed Scanned in labs from [place] from 02/25/23. Britta Downing LPN Allergies As of Date: 02/24/2023 Noted Allergy Reaction BIAXIN (CLARITHROMYCIN) 07/11/2008 8 - GI Upset LATEX 03/28/2014 14 - Other: See Comments Comments: Cold sore on lips after dental appt. LEVAQUIN (LEVOFLOXACIN) 02/23/2014 5 - Intolerance Comments: very red hands and feet/ burning/ itching Date Reviewed: 02/18/2023 Reviewed by: Ceci Mckinney MD - Fully Assessed Prescriptions as of 02/27/2023 - pantoprazole DR (PROTONIX) 40 mg tablet - valACYclovir (VALTREX) 1 gram tablet - VYVANSE 20 mg capsule - spironolactone (ALDACTONE) 25 mg tablet - fexofenadine HCl (WILLOW ORAL) Take by mouth. - multivit with calcium,iron,min (WOMEN'S MULTIPLE VITAMINS ORAL) Take by mouth. - busPIRone (BUSPAR) 5 mg tablet Take 1 tablet by mouth three times a day. - Psyllium Seed-Sucrose (METAMUCIL) ORAL Powd Take one tablespoon daily. Problem List As Of Date 02/24/2023 Noted Resolved FISTULA ANAL [K60.3] 07/11/2008 Acne Vulgaris: Grade III to IV inflammatory [L7*02/26/2010 Acne Scars [L90.5] 02/26/2010 Xerosis cutis [L85.3] 02/26/2010 Irritant dermatitis [L24.9] 02/26/2010 Rectal pain [K62.89] 08/01/2010 Gastroparesis [K31.84] 02/18/2023 Encounter Status:Closed by NEO HEREDIA on 02/24/23 Normal [facility] Basophil percentageon 2022 LDH [Catalytic activity/Vol] 212 U/L 84-246 [facility] Erythrocyte sedimentation ra meera 02-19-2023 ESR (Bld) [Velocity] 2 mm/h 0-30 [facility] Laboratory - Chemistry and C hemistry - challengeon 02-19-2023 CK [Catalytic activity/Vol] 72 U/L 26-192 [facility] Free T4 [Mass/Vol] 1.11 ng/dL 0.76-1.46 [facility] No Panel Informationon 02-19 Miscellaneous Test See comment [facility] Comment on above: TEST RESULTS LIMITSC ytokine PanelInterleukin 2 <2.1 pg/mL <=2.1Interleukin 2 Rec (CD25), Solu 627.5 pg/mL 175.3-858.2Interleukin 12 <1.9 pg/mL <=1.9Interferon gamma <4.2 pg/mL <=4.2Interleukin 4 <2.2 pg/mL <=2.2Interleukin 5 <2.1 pg/mL <=2.1Interleukin 10 <2.8 pg/mL <=2.8Interleukin 13 2.0 pg/mL <=2.3Interleukin 1 beta <6.5 pg/mL <=6.7Interleukin 6 <2.0 pg/mL <=2.0Interleukin 8 <3.0 pg/mL <=3.0Tumor Necrosis Factor - alpha 3.0 pg/mL <=7.2INTERPRETIVE INFORMATION: CytokinesResults are used to understand the pathophysiology of immune,infectious, or inflammatory disorders, or may be used for research purposes.This test was developed and its performance characteristicsdetermined by [employer]. It has not been cleared orapproved by the [place] Food and Drug Administration. This test wasperformed in a CLIA certified laboratory and is intended forclinical purposes.Interleukin 17 <1.4 pg/mL <=1.4 TESTING PERFORMED AT [facility]. ORIGINAL REPORT ON FILE IN LAB CONTAINS ADDITIONAL TEST SITE INFORMATION. TEST RESULTS LIMITS Organic Acid Analysis, UrineOrganic Acid Interpretation A, Analysis of this urine specimen revealed a normal pattern of organic acids.Organic acid analysis may fail to detect certain disorders which are characterized by minimal or intermittent metabolite excretion. If a specific disorder is suspected, consider submitting a repeat specimen.Specimens collected during an acute metabolic crisis may be more informative than specimens collected when the patient is well.Director ReviewTechnical Component analysis performed at [facility] RTPProfessional Component interpretation performed:Deidra Shetty, PhDDirector, Biochemical Ifceey[address] [place] [id number] discuss these results or other testing for inborn errors ofmetabolism, please contact our Biochemical Geneticists [phone]), [facility] Customer Service, RTP, NCMethodology: Urine organic acids were obtained by solvent extraction and oximated with hydroxylamine hydrochloride. TMS derivatives were and identified by GC/MS. (Jenni Ulloa, Lily MG, Kasper CARLOS, and Noel DK: Biochemical Genetics: A Laboratory Manual.[employer], 1989.)CommentsA: This test was developed and its performance characteristics determined by [facility]. It has not been cleared or approved by the Food and Drug Administration. TESTING PERFORMED AT [facility]. ORIGINAL REPORT ON FILE IN LAB CONTAINS ADDITIONAL TEST SITE INFORMATION. Acetylcholine Receptor Antibody < 0.03 nmol/L 0.00-0.24 [facility] Comment on above: Negative: 0.00 - 0.2 4 Borderline: 0.25 - 0.40 Positive: >0.40 Thyroid Stimulating Hormone (TSH) 1.08 uIU/mL 0.358-3.74 [facility] Serum or plasma C reactive p rotein measurement (mass/volume)on 02-19-2023 CRP [Mass/Vol] mg/L 0.0-3.0 [facility] Comment on above: C-Reactive Protein ( CRP) provides useful information for thediagnosis, therapy and monitoring of inflammatory processesand associated diseases. For the evaluation of Relative Riskfor Cardiovascular Disease, a High Sensitivity CRP (HSCRP)should be ordered. Serum or plasma IgA measurem ent (mass/volume)on 02-19-2023 IgA [Mass/Vol] 279 mg/dL 87-352 [facility] Serum or plasma IgG measurem ent (mass/volume)on 02-19-2023 IgG [Mass/Vol] 1021 mg/dL 586-1602 [facility] Serum or plasma IgM measurem ent (mass/volume)on 02-19-2023 IgM [Mass/Vol] 118 mg/dL 26-217 [facility] Serum or plasma estrogen jah surement (mass/volume)on 02-19-2023 Estrogen [Mass/Vol] 358 pg/mL . [facility] Comment on above: Prepubertal < 40 Fem renny Cycle: 1-10 Days 16 - 328 11-20 Days 34 - 501 21-30 Days 48 - 350 Post-Menopausal 40 - 244Performed at: [facility] [id number] Director: Lloyd Garnica PhD, Phone: [phone] at: [facility] [id number] Director: Daryn Grande MD, Phone: [phone] Whole blood hemoglobin A1c/t otal hemoglobin ratio (mass fraction)on 02-19-2023 HbA1c (Bld) [Mass fraction] 5.5 % 3.8-5.6 [facility] Comment on above: Normal < 5.7 % Predi abetic 5.7 - 6.4 % Diabetic >or= 6.5 % Please note range changes. CNOVon 02-18-2023 CNOV Office Visit (GENSSP ) ----- JARAD AVALOS ([id number]) 1980 F Date Time Provider Department 02/18/23 10:00 AM CECI MCKINNEY During your visit today, we recorded the following information about you: Pulse Blood pressure Weight Height 76/minute 112/70 55.5 kg 1.575 m Ceci Mckinney MD 02/18/2023 10:18 AM Signed Assessment ASSESSMENT 42 year old female with medical refractory gastroparesis. PLAN I discussed surgical therapy for gastroparesis in detail. Jarad Avalos is candidate for Continued diet and medical management as her GCSI score is relatively low with diet control. She will contact me if that changes. We did briefly discuss a POP if her symptoms should worsen. NAME: Jarad Avalos CLINIC NO: [id number] DATE OF SERVICE: February 16, 2023 This is an initial consultation for Jarad Avalos who was referred to me by Dr. Neo Heredia for evaluation of medical refractory gastroparesis. My final recommendation will be communicated via shared electronic medical record. 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 Normal [facility] CNOV Office Visit (GASTSP ) ----- JARAD AVALOS ([id number]) 1980 F Date Time Provider Department 02/18/23 9:30 AM NEO HEREDIA GASTSP During your visit today, we recorded the following information about you: Pulse Blood pressure Weight Height 76/minute 112/70 55.5 kg 1.575 m HerediaNeo ulloa, DO 02/18/2023 9:56 AM Signed GASTROPARESIS CONSULT Patient is referred by Dr. Oneal Temple Friend for an opinion regarding GP and my final recommendations will be communicated back to the requesting physician by way of a copy of today's office notes. PRESENTING COMPLAINT AND HISTORY Jarad is a 42 yr old female w/hx [...] Medications - Does the patient see a plate painter for chronic abdominal pain?No - Is the [...] - Has the patient met with a botany technician for diet recommendations with Gastroparesis? No - [...] Yes - Botox Injections: No Patient Name Jarad Avalos Age [age] year old Gastroparesis Consult Test Date Completed Results Labs EGD Findings: Impression: Pathology: Colonoscopy 04/14/14 [place] [facility] (more content not included)... Normal [facility] Office Visit (GENSSP ) ----- JARAD AVALOS ([id number]) 1980 F Date Time Provider Department 02/18/23 8:00 AM ASHLIE TORRES [facility] During your visit today, we recorded the following information about you: Ashlie Torres, PhD 02/18/2023 4:45 PM Signed [facility] [place] Name: Jarad Avalos MR#: [id number] Date: 02/18/2023 Time: ? hour Referred by: [...] Dr. Campos was discussed. Ashlie Schultz, Ph.D. Referring Provider: FRIEND, ONEAL Temple [[id number]] Allergies As of Date: 02/18/2023 Noted Allergy Reaction BIAXIN (CLARITHROMYCIN) 07/11/2008 8 - GI Upset LATEX 03/28/2014 14 - Other: See Comments Comments: Cold sore on lips after dental appt. LEVAQUIN (LEVOFLOXACIN) 02/23/2014 5 - Intolerance Comments: very red hands and feet/ burning/ itching Date Reviewed: 02/18/2023 Reviewed by: Ceci Mckinney MD - Fully Assessed Primary Visit Diagnosis:Gastroparesis [K31.84] Prescriptions as of 02/18/2023 - pantoprazole DR (PROTONIX) 40 mg tablet - valACYclovir (VALTREX) 1 gram tablet - VYVANSE 20 mg capsule - spironolactone (ALDACTONE) 25 mg tablet - fexofenadine HCl (WILLOW ORAL) Take by mouth. - multivit with calcium,iron,min (WOMEN'S MULTIPLE VITAMINS ORAL) Take by mouth. - busPIRone (BUSPAR) 5 mg tablet Take 1 tablet by mouth three times a day. - Psyllium Seed-Sucrose (METAMUCIL) ORAL Powd Take one tablespoon daily. Problem List As Of Date 02/18/2023 Noted Resolved FISTULA ANAL [K60.3] 07/11/2008 Acne Vulgaris: Grade III to IV inflammatory [L7*02/26/2010 Acne Scars [L90.5] 02/26/2010 Xerosis cutis [L85.3] 02/26/2010 Irritant dermatitis [L24.9] 02/26/2010 Rectal pain [K62.89] 08/01/2010 Gastroparesis [K31.84] 02/18/2023 Encounter Status:Closed by ASHLIE TORRES on 02/18/23 [facility] D[facility]elle 01-27-2023 CNPN Telephone (GASTSP) ----- JARAD AVALOS ([id number]) 1980 F Date Time Provider Department 01/27/23 NEO HEREDIA GASTSP During your visit today, we recorded the following information about you: Allergies As of Date: 01/27/2023 Noted Allergy Reaction BIAXIN (CLARITHROMYCIN) 07/11/2008 8 - GI Upset LATEX 03/28/2014 14 - Other: See Comments Comments: Cold sore on lips after dental appt. LEVAQUIN (LEVOFLOXACIN) 02/23/2014 5 - Intolerance Comments: very red hands and feet/ burning/ itching Date Reviewed: 12/03/2015 Reviewed by: Amita Walker (Rn)(Hist), RN - Fully Assessed Prescriptions as of 03/26/2023 - pantoprazole DR (PROTONIX) 40 mg tablet - valACYclovir (VALTREX) 1 gram tablet - VYVANSE 20 mg capsule - spironolactone (ALDACTONE) 25 mg tablet - fexofenadine HCl (WILLOW ORAL) Take by mouth. - multivit with calcium,iron,min (WOMEN'S MULTIPLE VITAMINS ORAL) Take by mouth. - busPIRone (BUSPAR) 5 mg tablet Take 1 tablet by mouth three times a day. - Psyllium Seed-Sucrose (METAMUCIL) ORAL Powd Take one tablespoon daily. Problem List As Of Date 01/27/2023 Noted Resolved FISTULA ANAL [K60.3] 07/11/2008 Acne Vulgaris: Grade III to IV inflammatory [L7*02/26/2010 Acne Scars [L90.5] 02/26/2010 Xerosis cutis [L85.3] 02/26/2010 Irritant dermatitis [L24.9] 02/26/2010 Rectal pain [K62.89] 08/01/2010 Encounter Status:Closed by KATHY MCCRAY on 03/26/23 Normal [facility] Laboratory - Microbiology an d Antimicrobial susceptibilityon 01-06-2023 SARS-CoV-2 (COVID-19) RNA ALMAS+probe Ql (Unsp spec) Not detected [facility] No Panel Informationon 01-06 POC Nasal Swab Influenza A,B Not detected [facility] POC Nasal Swab RSV Not detected [facility] Laboratory - Microbiology an d Antimicrobial susceptibilityon 12-16-2022 SARS-CoV-2 (COVID-19) RNA ALMAS+probe Ql (Unsp spec) Not detected [facility] No Panel Informationon 12-16 POC Nasal Swab Influenza A,B Not detected [facility] POC Nasal Swab RSV Not detected [facility] CNPNon 12-09-2022 CNPN Telephone (GASTSP) ----- JARAD AVALOS ([id number]) 1980 F Date Time Provider Department 12/09/22 NEO HEREDIA [facility] During your visit today, we recorded the following information about you: Mala Hare 12/09/2022 9:34 AM Signed Patient's ges is in scanned documents ready for review. Neo Heredia DO 12/09/2022 1:33 PM Signed EMPTIES: Me, surgery, behavioral and nutrition, egg is in Mala Hare 12/10/2022 10:50 AM Signed Patient is scheduled with GP team Amita Terrazas RN 12/10/2022 1:12 PM Signed Review of chart shows constipation with fistulotomy and seton placement will need to evaluate at OV Amita Terrazas RN December 10, 2022 1:12 PM Allergies As of Date: 12/09/2022 Noted Allergy Reaction BIAXIN (CLARITHROMYCIN) 07/11/2008 8 - GI Upset LATEX 03/28/2014 14 - Other: See Comments Comments: Cold sore on lips after dental appt. LEVAQUIN (LEVOFLOXACIN) 02/23/2014 5 - Intolerance Comments: very red hands and feet/ burning/ itching Date Reviewed: 12/03/2015 Reviewed by: Amita Walker (Rn)(Hist), RN - Fully Assessed Reason for Visit: Appointment [[id number]] Primary Visit Diagnosis:Gastroparesis [K31.84] Order(s):EGG (ELECTROGASTROGRAPHY) [[id number]] Order #: [id number] Prescriptions as of 12/10/2022 - busPIRone (BUSPAR) 5 mg tablet Take 5 mg by mouth twice daily. Only takes 1/2 pill during October through August months - lisdexamfetamine (VYVANSE) 40 mg capsule Take 40 mg by mouth once daily. - spironolactone (ALDACTONE) 100 mg tablet Take 100 mg by mouth once daily. - ERGOCALCIFEROL Take 1 tablet by mouth once daily. - Psyllium Seed-Sucrose (METAMUCIL) ORAL Powd Take one tablespoon daily. 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] 07/11/2008 Acne Vulgaris: Grade III to IV inflammatory [L7*02/26/2010 Acne Scars [L90.5] 02/26/2010 Xerosis cutis [L85.3] 02/26/2010 Irritant dermatitis [L24.9] 02/26/2010 Rectal pain [K62.89] 08/01/2010 Encounter Status:Closed by MALA HARE on 12/09/22 Normal [facility] Absolute lymphocyte countOrd ered By: HEALTH ASSESSMENT on 10-28-2022 Lymphocytes Auto (Unsp spec) [#/Vol] 2.99 10*3/uL 0.83-4.51 [facility] Absolute reticulocyte countO rdered By: HEALTH ASSESSMENT on 10-28-2022 Reticulocytes (Bld) [#/Vol] 0.00 10*3/uL 0-5 [facility] Basophil percentageOrdered B y: HEALTH ASSESSMENT on 10-28-2022 Basophil percentage 3.0 mg/dL 2.5-4.9 [facility] Bilirubin [Mass/Vol] 0.50 mg/dL 0.20-1.00 [facility] Comment on above: For patients on eltr ombopag therapy, use of Dimension [place] TBIL is not recommended. Chloride [Moles/Vol] 106 mmol/L 98-107 [facility] Cholesterol [Mass/Vol] 175 mg/dL <[address] [facility] Comment on above: <200 mg/dL Desirable 200-240 mg/dL Borderline >240 mg/dL High Risk Glucose [Mass/Vol] 93 mg/dL 74-106 [facility] LDH [Catalytic activity/Vol] 164 U/L 84-246 [facility] Neutrophils (Bld) [#/Vol] 3.9 10*3/uL 2.0-7.7 [facility] Potassium [Moles/Vol] 4.0 mmol/L 3.5-5.1 [facility] Protein [Mass/Vol] 7.1 g/dL 6.4-8.2 [facility] Sodium [Moles/Vol] 138 mmol/L 136-145 [facility] Triglyceride [Mass/Vol] 88 mg/dL <199 [facility] Comment on above: The drugs N-Acetylcy steine and Metamizole may falsely depress this assay.Serum Triglycerides Reference Interval Normal <150 mg/dL Borderline high 150 - 199 mg/dL High 200 - 499 mg/dL Very High > or = 500 mg/dL WBC (Bld) [#/Vol] 7.9 10*3/uL 4.4-11.0 [facility] Blood erythrocytes count (nu mber/volume)Ordered By: HEALTH ASSESSMENT on 10-28-2022 RBC (Bld) [#/Vol] 4.20 10*6/uL 4.2-5.4 [facility] Blood hemoglobin measurement (mass/volume)Ordered By: HEALTH ASSESSMENT on 10-28-2022 Hemoglobin (Bld) [Mass/Vol] 13.2 g/dL 12.0-15.0 [facility] Blood leukocytes count corre cted for nucleated erythrocytes (number/volume)Ordered By: HEALTH ASSESSMENT on 10-28-2022 WBC corrected for nucl RBC (Bld) [#/Vol] [employer] [facility] Blood platelet mean volumeOr dered By: HEALTH ASSESSMENT on 10-28-2022 Platelet mean volume (Bld) [Entitic vol] 12.3 fL 6.2-12.0 [facility] Determination of erythrocyte mean corpuscular volume (MCV)Ordered By: HEALTH ASSESSMENT on 10-28-2022 MCV (RBC) [Entitic vol] 96.2 fL 81-99 [facility] Direct bilirubinOrdered By: HEALTH ASSESSMENT on 10-28-2022 Bilirubin.direct [Mass/Vol] 0.13 mg/dL 0.00-0.30 [facility] Hematocrit Auto (Bld) [Volum e fraction]Ordered By: HEALTH ASSESSMENT on 10-28-2022 Hematocrit (Bld) [Volume fraction] 40.4 % 37-47 [facility] Laboratory - Chemistry and C hemistry - challengeOrdered By: HEALTH ASSESSMENT on 10-28-2022 ALP [Catalytic activity/Vol] 88 U/L 45-117 [facility] ALT [Catalytic activity/Vol] 22 U/L 13-56 [facility] Cholesterol.total/Choles terol in HDL [Mass ratio] 3.60 {ratio} [facility] CO2 [Moles/Vol] 28.0 mmol/L 21.0-32.0 [facility] Globulin (S) [Mass/Vol] 3.5 g/dL 2.2-4.2 [facility] Urea nitrogen/Creatinine [Mass ratio] 17.8 mg/mg 10-20 [facility] Laboratory - Hematology and Cell countsOrdered By: HEALTH ASSESSMENT on 10-28-2022 Erythrocyte distribution width (RBC) [Entitic vol] 44.3 fL 35.1-43.9 [facility] Erythrocyte distribution width (RBC) [Ratio] 12.5 % 11.6-14.6 [facility] MCH (RBC) [Entitic mass] 31.4 pg 27.0-32.0 [facility] Nucleated RBC/100 WBC (Bld) [Ratio] 0 % 0-5 [facility] MCHC Auto (RBC) [Mass/Vol]Or dered By: HEALTH ASSESSMENT on 10-28-2022 MCHC (RBC) [Mass/Vol] 32.7 g/dL 32-36 [facility] No Panel InformationOrdered By: HEALTH ASSESSMENT on 10-28-2022 Estimated Creatinine Clearance Calc [employer] [facility] Estimated GFR (MDRD) Amer 122 mL/min >60 [facility] Comment on above: GFR Calc Estimated GFR (MDRD) Non-Af Amer 101 mL/min >60 [facility] Comment on above: Non- GFR Calc Immature Granulocyte % (Auto) [employer] [facility] Platelets bldOrdered By: KAITLIN LT ASSESSMENT on 10-28-2022 Platelets (Bld) [#/Vol] 182 10*3/uL 150-450 [facility] Review by pathologistOrdered By: HEALTH ASSESSMENT on 10-28-2022 Pathologist review Shay (Unsp spec) [Interp] [employer] [facility] Segmented neutrophils/100 WB C Auto (Bld)Ordered By: HEALTH ASSESSMENT on 10-28-2022 Segmented neutrophils/100 WBC (Bld) 48.6 % 47-70 [facility] Serum or plasma albumin eunice urement (mass/volume)Ordered By: HEALTH ASSESSMENT on 10-28-2022 Albumin [Mass/Vol] 3.6 g/dL 3.2-5.0 [facility] Serum or plasma albumin/glob ulin mass ratioOrdered By: HEALTH ASSESSMENT on 10-28-2022 Albumin/Globulin [Mass ratio] 1.0 {ratio} 0.9-2.4 [facility] Serum or plasma calcium eunice urement (mass/volume)Ordered By: HEALTH ASSESSMENT on 10-28-2022 Calcium [Mass/Vol] 8.7 mg/dL 8.5-10.1 [facility] Serum or plasma cholesterol in HDL measurement (mass/volume)Ordered By: HEALTH ASSESSMENT on 10-28-2022 Cholesterol in HDL [Mass/Vol] 48 mg/dL >40 [facility] Comment on above: The drugs N-Acetylcy steine and Metamizole may falsely depress this assay. Reference Range HDL <40 mg/dL Low HDL Cholesterol HDL >or= 60 mg/dL High HDL Cholesterol Serum or plasma cholesterol in VLDL measurement (mass/volume)Ordered By: HEALTH ASSESSMENT on 10-28-2022 Cholesterol in VLDL [Mass/Vol] 18 mg/dL 5-40 [facility] Serum or plasma creatinine m easurement (mass/volume)Ordered By: HEALTH ASSESSMENT on 10-28-2022 Creatinine [Mass/Vol] 0.68 mg/dL 0.55-1.02 [facility] Comment on above: The validity of the calculated GFR & GFRAA in patients over 70 years has not been determined. Clinical correlation is essential. Serum or plasma low density lipoprotein (LDL) cholesterol measurement (mass/volume)Ordered By: HEALTH ASSESSMENT on 10-28-2022 Cholesterol in LDL [Mass/Vol] 109 mg/dL 0-130 [facility] Serum or plasma urea nitroge n measurement (mass/volume)Ordered By: HEALTH ASSESSMENT on 10-28-2022 Urea nitrogen [Mass/Vol] 12 mg/dL 7-18 [facility] Serum or plasma uric acid me asurement (mass/volume)Ordered By: HEALTH ASSESSMENT on 10-28-2022 Urate [Mass/Vol] 2.0 mg/dL 2.6-6.0 [facility] Comment on above: The drugs N-Acetylcy steine and Metamizole may falsely depress this assay. Thin prep Papanicolaou smear with manual screeningOrdered By: HEALTH ASSESSMENT on 10-28-2022 Thin prep Papanicolaou smear with manual screening 13 U/L 15-37 [facility] Thin prep Papanicolaou smear with manual screening 4 5-15 [facility] Absolute lymphocyte countOrd ered By: Wilbert Esparza on 09-17-2022 Lymphocytes Auto (Unsp spec) [#/Vol] 2.73 10*3/uL 0.83-4.51 [facility] Basophil percentageOrdered B y: Wilbert Esparza on 09-17-2022 Basophils/100 WBC (Bld) 0.6 % 0-1 [facility] Bilirubin [Mass/Vol] 0.20 mg/dL 0.20-1.00 [facility] Comment on above: For patients on eltr ombopag therapy, use of Dimension [place] TBIL is not recommended. Chloride [Moles/Vol] 105 mmol/L 98-107 [facility] Eosinophils/100 WBC (Bld) 2.1 % 0-5 [facility] Glucose [Mass/Vol] 108 mg/dL 74-106 [facility] Comment on above: Fasting Glucose resu lt from 100 to 125 mg/dL suggests IMPAIRED HOMEOSTASIS per A.D.A. criteria. Neutrophils (Bld) [#/Vol] 4.2 10*3/uL 2.0-7.7 [facility] Neutrophils/100 WBC (Bld) 54.7 % 47-70 [facility] Potassium [Moles/Vol] 3.6 mmol/L 3.5-5.1 [facility] Protein [Mass/Vol] 7.4 g/dL 6.4-8.2 [facility] Sodium [Moles/Vol] 137 mmol/L 136-145 [facility] WBC (Bld) [#/Vol] 7.7 10*3/uL 4.4-11.0 [facility] Blood erythrocytes count (nu mber/volume)Ordered By: Wilbert Esparza on 09-17-2022 RBC (Bld) [#/Vol] 4.18 10*6/uL 4.2-5.4 [facility] Blood hemoglobin measurement (mass/volume)Ordered By: Wilbert Esparza on 09-17-2022 Hemoglobin (Bld) [Mass/Vol] 13.3 g/dL 12.0-15.0 [facility] Blood lymphocytes/100 leukoc ytesOrdered By: Wilbert Esparza on 09-17-2022 Lymphocytes/100 WBC (Bld) 35.3 % 19-41 [facility] Blood monocytes/100 leukocyt esOrdered By: Wilbert Esparza on 09-17-2022 Monocytes/100 WBC (Bld) 7.0 % 0-10 [facility] Blood platelet mean volumeOr dered By: Wilbert Esparza on 09-17-2022 Platelet mean volume (Bld) [Entitic vol] 11.6 fL 6.2-12.0 [facility] Determination of erythrocyte mean corpuscular volume (MCV)Ordered By: Wilbert Esparza on 09-17-2022 MCV (RBC) [Entitic vol] 92.3 fL 81-99 [facility] Hematocrit Auto (Bld) [Volum e fraction]Ordered By: Wilbert Esparza on 09-17-2022 Hematocrit (Bld) [Volume fraction] 38.6 % 37-47 [facility] Laboratory - Chemistry and C hemistry - challengeOrdered By: Wilbert Esparza on 09-17-2022 ALP [Catalytic activity/Vol] 103 U/L 45-117 [facility] ALT [Catalytic activity/Vol] 26 U/L 13-56 [facility] CO2 [Moles/Vol] 28.0 mmol/L 21.0-32.0 [facility] Globulin (S) [Mass/Vol] 3.7 g/dL 2.2-4.2 [facility] Urea nitrogen/Creatinine [Mass ratio] 22.3 mg/mg 10-20 [facility] Laboratory - Hematology and Cell countsOrdered By: Wilbert Esparza on 09-17-2022 Erythrocyte distribution width (RBC) [Entitic vol] 42.5 fL 35.1-43.9 [facility] Erythrocyte distribution width (RBC) [Ratio] 12.5 % 11.6-14.6 [facility] Immature granulocytes/100 WBC (Bld) 0.300 % 0.0-0.9 [facility] Comment on above: IG% - Immature Granu locytes (promyelocytes, myelocytes and metamyelocytes) > 1% indicates that a LEFT SHIFT is Present. MCH (RBC) [Entitic mass] 31.8 pg 27.0-32.0 [facility] Nucleated RBC/100 WBC (Bld) [Ratio] 0 % 0-5 [facility] MCHC Auto (RBC) [Mass/Vol]Or dered By: Wilbert Esparza on 09-17-2022 MCHC (RBC) [Mass/Vol] 34.5 g/dL 32-36 [facility] No Panel InformationOrdered By: Wilbert Esparza on 09-17-2022 Estimated GFR (MDRD) Amer 106 mL/min >60 [facility] Comment on above: GFR Calc Estimated GFR (MDRD) Non-Af Amer 88 mL/min >60 [facility] Comment on above: Non- GFR Calc Platelets bldOrdered By: Melany Esparza on 09-17-2022 Platelets (Bld) [#/Vol] 187 10*3/uL 150-450 [facility] Serum or plasma albumin eunice urement (mass/volume)Ordered By: Wilbert Esparza on 09-17-2022 Albumin [Mass/Vol] 3.7 g/dL 3.2-5.0 [facility] Serum or plasma albumin/glob ulin mass ratioOrdered By: Wilbert Esparza on 09-17-2022 Albumin/Globulin [Mass ratio] 1.0 {ratio} 0.9-2.4 [facility] Serum or plasma calcium eunice urement (mass/volume)Ordered By: Wilbert Esparza on 09-17-2022 Calcium [Mass/Vol] 8.9 mg/dL 8.5-10.1 [facility] Serum or plasma creatinine m easurement (mass/volume)Ordered By: Wilbert Esparza on 09-17-2022 Creatinine [Mass/Vol] 0.76 mg/dL 0.55-1.02 [facility] Comment on above: The validity of the calculated GFR & GFRAA in patients over 70 years has not been determined. Clinical correlation is essential. Serum or plasma urea nitroge n measurement (mass/volume)Ordered By: Wilbert Esparza on 09-17-2022 Urea nitrogen [Mass/Vol] 17 mg/dL 7-18 [facility] Thin prep Papanicolaou smear with manual screeningOrdered By: Wilbert Esparza on 09-17-2022 Thin prep Papanicolaou smear with manual screening 20 U/L 15-37 [facility] Thin prep Papanicolaou smear with manual screening 4 5-15 [facility] Chocolate RASTOrdered By: Tosha Dillon on 06-19-2022 Chocolate IgE Qn (S) <0.10 kU/L Class 0 [facility] Comment on above: Performed at: [address] [id number] Director: Daryn Grande MD, Phone: [phone] Laboratory - Miscellaneous t estsOrdered By: Jarad Dillon on 06-19-2022 Service comment (Unsp spec) [Interp] Comment . [facility] Comment on above: Levels of Specific I gE Class Description of Class ----- < 0.10 0 Negative 0.10 - 0.31 0/I Equivocal/Low 0.32 - 0.55 I Low 0.56 - 1.40 II Moderate 1.41 - 3.90 III High 3.91 - 19.00 IV Very High 19.01 - 100.00 V Very High >100.00 [facility] No Panel InformationOrdered By: Jarad Dillon on 06-19-2022 [employer] Allergens (RAST) Negative . [facility] Comment on above: Allergens in this mi x are: Blue mussel Fish [place] Shrimp Tuna Serum beef IgE antibody assa y (units/volume)Ordered By: Jarad Dillon on 06-19-2022 Beef IgE Qn (S) <0.10 kU/L Class 0 [facility] Serum corn IgE antibody assa y (units/volume)Ordered By: Jarad Dillon on 06-19-2022 [place] IgE Qn (S) <0.10 kU/L Class 0 [facility] Serum cow milk IgE antibody assay (units/volume)Ordered By: Jarad Dillon on 06-19-2022 Cow milk IgE Qn (S) <0.10 kU/L Class 0 [facility] Serum peanut IgE antibody as say (units/volume)Ordered By: Jarad Dillon on 06-19-2022 Peanut IgE Qn (S) <0.10 kU/L Class 0 [facility] Serum pork IgE antibody assa y (units/volume)Ordered By: Jarad Dillon on 06-19-2022 Pork IgE Qn (S) <0.10 kU/L Class 0 [facility] Serum soybean IgE antibody a ssay (units/volume)Ordered By: Jarad Dillon on 06-19-2022 Soybean IgE Qn (S) <0.10 kU/L Class 0 [facility] Serum wheat IgE antibody ass ay (units/volume)Ordered By: Jarad Dillon on 06-19-2022 Wheat IgE Qn (S) <0.10 kU/L Class 0 [facility] Serum whole egg IgE antibody assay (units/volume)Ordered By: Jarad Dillon on 06-19-2022 Whole Egg IgE Qn (S) <0.10 kU/L Class 0 [facility] No Panel InformationOrdered By: Jarad Dillon on 05-09-2022 CA 19-9 Antigen 7 U/mL 0-35 [facility] Comment on above: [employer] El ectrochemiluminescence Immunoassay(ECLIA)Values obtained with different assay methods or kits cannotbe used interchangeably. Results cannot be interpreted asabsolute evidence of the presence or absence of malignantdisease. CA 19-9 Antigen Serial Monitoring Not Reportable [facility] Serum or plasma carcinoembry onic antigen measurement (mass/volume)Ordered By: Jarad Dillon on 05-09-2022 Carcinoembryonic Ag [Mass/Vol] 1.2 ng/mL 0.0-4.7 [facility] Comment on above: Nonsmokers <3.9 Smok ers <5.6[employer] Electrochemiluminescence Immunoassay(ECLIA)Values obtained with different assay methods or kitscannot be used interchangeably. Results cannot beinterpreted as absolute evidence of the presence orabsence of malignant disease.Performed at: Done In :[address] [id number] Director: Lloyd Garnica PhD, Phone: [phone] INR in Blood by Coagulation assayOrdered By: Jarad Dillon on 04-29-2022 INR Coag (Bld) [Relative time] 1.1 {INR} [facility] Laboratory - CoagulationOrde red By: Jarad Dillon on 04-29-2022 aPTT Coag (Bld) [Time] 32.1 s 24.1-36.[address] [facility] PT Coag (PPP) [Time] 13.4 s 11.7-14.9 [facility] Platelets bldOrdered By: Diana Dillon on 04-29-2022 Platelets (Bld) [#/Vol] 203 10*3/uL 150-450 [facility] No Panel InformationOrdered By: Jarad Dillon on 04-24-2022 Stool Calprotectin <16 ug/g 0-120 [facility] Comment on above: Concentration Interp retation Follow-Up<16 - 50 ug/g Normal None>50 -120 ug/g Borderline Re-evaluate in 4-6 weeks >120 ug/g Abnormal Repeat as clinically indicatedPerformed at: [place] [id number] Director: Daryn Grande MD, Phone: [phone] Stool lactoferrin detection by immunoassayOrdered By: Jarad Dillon on 04-24-2022 Lactoferrin IA Ql (Stl) [facility] No Panel InformationOrdered By: Jarad Dillon on 04-23-2022 Miscellaneous Test See comment [facility] Comment on above: TEST RESULT LIMITSIB D Expanded Panel Debbie 39 units 0-50 Negative <45 Equivocal 45 - 50 Positive >50 ACCA 30 units 0-90 Negative <80 Equivocal 80 - 90 Positive >90 ALCA 10 units 0-60 Negative <55 Equivocal 55 - 60 Positive >60 AMCA 46 units 0-100 Negative < 90 Equivocal 90 - 100 Positive >100 This test was developed and its performance characteristics determined by [facility]. It has not been cleared or approved by the Food and Drug Administration. The FDA has determined that such clearance or approval is not necessary.Atypical pANCA Negative Negative Comments Pattern is not suggestive of Inflammatory Bowel Disease ___ TESTING PERFORMED AT [facility]. ORIGINAL REPORT ON FILE IN LAB CONTAINS ADDITIONAL TEST SITE INFORMATION. Basophil percentageOrdered B y: Jarad Dillon on 04-22-2022 Bilirubin [Mass/Vol] 0.40 mg/dL 0.20-1.00 [facility] Comment on above: For patients on eltr ombopag therapy, use of Dimension [place] TBIL is not recommended. Protein [Mass/Vol] 7.5 g/dL 6.4-8.2 [facility] Direct bilirubinOrdered By: Jarad Dillon on 04-22-2022 Bilirubin.direct [Mass/Vol] 0.09 mg/dL 0.00-0.30 [facility] Laboratory - Chemistry and C hemistry - challengeOrdered By: Jarad Dillon on 04-22-2022 ALP [Catalytic activity/Vol] 110 U/L 45-117 [facility] ALT [Catalytic activity/Vol] 48 U/L 13-56 [facility] Globulin (S) [Mass/Vol] 3.7 g/dL 2.2-4.2 [facility] Lipase [Catalytic activity/Vol] 120 U/L 73-393 [facility] No Panel InformationOrdered By: Jarad Dillon on 04-22-2022 Immunoglobulin G4 12 mg/dL 2-96 [facility] Comment on above: Performed at: [address] [id number] Director: Lloyd Garnica PhD, Phone: [phone] Serum IgG subclass 1 measure ment (mass/volume)Ordered By: Jarad Dillon on 04-22-2022 IgG subclass 1 (S) [Mass/Vol] 580 mg/dL 248-810 [facility] Serum IgG subclass 2 measure ment (mass/volume)Ordered By: Jarad Dillon on 04-22-2022 IgG subclass 2 (S) [Mass/Vol] 309 mg/dL 130-555 [facility] Serum IgG subclass 3 measure ment (mass/volume)Ordered By: Jarad Dillon on 04-22-2022 IgG subclass 3 (S) [Mass/Vol] 50 mg/dL 15-102 [facility] Serum or plasma IgG measurem ent (mass/volume)Ordered By: Jarad Dillon on 04-22-2022 IgG [Mass/Vol] 1055 mg/dL [phone] [facility] Serum or plasma albumin eunice urement (mass/volume)Ordered By: Jarad Dillon on 04-22-2022 Albumin [Mass/Vol] 3.8 g/dL 3.2-5.0 [facility] Thin prep Papanicolaou smear with manual screeningOrdered By: Jarad Dillon on 04-22-2022 Thin prep Papanicolaou smear with manual screening 25 U/L 15-37 [facility] Basophil percentageOrdered B y: Jarad Dillon on 02-20-2022 Ammonia (P) [Moles/Vol] 14.0 umol/L 11-32 [facility] Basophil percentage < 0.2 AI 0.0-0.9 [facility] Bilirubin [Mass/Vol] 0.40 mg/dL 0.20-1.00 [facility] Comment on above: For patients on eltr ombopag therapy, use of Dimension [place] TBIL is not recommended. Protein [Mass/Vol] 7.9 g/dL 6.4-8.2 [facility] Direct bilirubinOrdered By: Jarad Dillon on 02-20-2022 Bilirubin.direct [Mass/Vol] 0.12 mg/dL 0.00-0.30 [facility] Erythrocyte sedimentation ra teOrdered By: Jarad Dillon on 02-20-2022 ESR (Bld) [Velocity] 15 mm/h 0-30 [facility] INR in Blood by Coagulation assayOrdered By: Jarad Dillon on 02-20-2022 INR Coag (Bld) [Relative time] 1.0 {INR} [facility] Laboratory - Chemistry and C hemistry - challengeOrdered By: Jarad Dillon on 02-20-2022 ALP [Catalytic activity/Vol] 120 U/L 45-117 [facility] ALT [Catalytic activity/Vol] 38 U/L 13-56 [facility] Amylase [Catalytic activity/Vol] 49 U/L 5-55 [facility] Globulin (S) [Mass/Vol] 3.8 g/dL 2.2-4.2 [facility] Laboratory - CoagulationOrde red By: Jarad Dillon on 02-20-2022 PT Coag (PPP) [Time] 12.8 s 11.7-14.9 [facility] No Panel InformationOrdered By: Jarad Dillon on 02-20-2022 Centromere B Antibody <0.2 AI 0.0-0.9 [facility] Ceruloplasmin See comment [facility] Comment on above: TEST RESULT LIMITSCe ruloplasmin 24.9 mg/dL 19.0-39.0 TESTING PERFORMED AT [facility]. ORIGINAL REPORT ON FILE IN LAB CONTAINS ADDITIONAL TEST SITE INFORMATION. Haptoglobin See comment [facility] Comment on above: TEST RESULT LIMITSHa ptoglobinHaptoglobin 150 mg/dL 42-296 __ TESTING PERFORMED AT [facility]. ORIGINAL REPORT ON FILE IN LAB CONTAINS ADDITIONAL TEST SITE INFORMATION. Hepatitis A IgM Antibody See comment [facility] Comment on above: TEST RESULT LIMITSAc elver HepatitisHep A Ab, IgM Negative NegativeHBsAg Screen Negative NegativeHep B Core Ab, IgM Negative NegativeHCV Ab 0.1 s/co ratio 0.0-0.9Interpretation: Negative Not infected with HCV, unless recent infection is suspected or other evidence exists to indicate HCV infection. TESTING PERFORMED AT [facility]. ORIGINAL REPORT ON FILE IN LAB CONTAINS ADDITIONAL TEST SITE INFORMATION. Hepatitis B Core IgM Antibody Not Reportable [facility] Hepatitis C Antibody (EIA) Not Reportable [facility] [employer] Antibody <0.2 AI 0.0-0.9 [facility] Serum DNA double strand anti body assay (units/volume)Ordered By: Jarad Dillon on 02-20-2022 DNA double strand Ab Qn (S) 1 [IU]/mL 0-9 [facility] Comment on above: Negative <5 Equivoca l 5 - 9 Positive >9 Serum Doreen-1 antibody assay (u nits/volume)Ordered By: Jarad Dillon on 02-20-2022 Doreen-1 extractable nuclear Ab Qn (S) <0.2 AI 0.0-0.9 [facility] Serum Scl-70 extractable nuc lear antibody assay (units/volume)Ordered By: Jarad Dillon on 02-20-2022 SCL-70 extractable nuclear Ab Qn (S) <0.2 AI 0.0-0.9 [facility] Serum Esparza extractable nucl ear antibody detectionOrdered By: Jarad Dillon on 02-20-2022 Esparza extractable nuclear Ab Ql (S) <0.2 AI 0.0-0.9 [facility] Serum classic neutrophil cyt oplasmic antibody assay (units/volume)Ordered By: Jarad Dillon on 02-20-2022 Neutrophil cytoplasmic Ab.classic Qn (S) See comment [facility] Comment on above: TEST RESULT LIMITSAn tineutrophil Cytoplasmic AbCytoplasmic (C-ANCA) <1:20 titer Neg:<1:20Perinuclear (P-ANCA) <1:20 titer Neg:<1:20The presence of positive fluorescence exhibiting P-ANCA or C-ANCA patterns alone is not specific for the diagnosis of Maico's Granulomatosis (WG) or microscopic polyangiitis. Decisions about treatment should not be based solely on ANCA IFA results. The [employer] ANCA Group Consensus recommends follow up testing of positive sera with both AR-3 and MPO-ANCA enzyme immunoassays. As many as 5% serum samples are positive only by EIA.Ref. AM J Clin Pathol 1999;111:507-513.Atypical pANCA <1:20 titer Neg:<1:20The atypical pANCA pattern has been observed in a significant percentage of patients with ulcerative colitis, primary sclerosing cholangitis and autoimmune hepatitis. TESTING PERFORMED AT [facility]. ORIGINAL REPORT ON FILE IN LAB CONTAINS ADDITIONAL TEST SITE INFORMATION. Serum mitochondria antibody detectionOrdered By: Jarad Dillon on 02-20-2022 Mitochondria Ab Ql (S) <20.0 Units 0.0-20.0 [facility] Comment on above: Negative 0.0 - 20.0 Equivocal 20.1 - 24.9 Positive >24.9Mitochondrial (M2) Antibodies are found in 90-96% ofpatients with primary biliary cirrhosis.Performed at: [facility] [id number] Director: Lloyd Garnica PhD, Phone: [phone] Serum or plasma C reactive p rotein measurement (mass/volume)Ordered By: Jarad Dillon on 02-20-2022 CRP [Mass/Vol] 4.53 mg/L 0.0-3.0 [facility] Comment on above: C-Reactive Protein ( CRP) provides useful information for thediagnosis, therapy and monitoring of inflammatory processesand associated diseases. For the evaluation of Relative Riskfor Cardiovascular Disease, a High Sensitivity CRP (HSCRP)should be ordered. Serum or plasma actin IgG an tibody assay (units/volume)Ordered By: Jarad Dillon on 02-20-2022 Actin IgG Qn See comment [facility] Comment on above: TEST RESULT LIMITSAc tin (Smooth Muscle) AntibodyActin (Smooth Muscle)Antibody 01 8 Units 0-19 Negative 0 - 19 Weak positive 20 - 30 Moderate to strong positive >30 Actin Antibodies are found in 52-85% of patients with autoimmune hepatitis or chronic active hepatitis and in 22% of patients with primary biliary cirrhosis. TESTING PERFORMED AT [facility]. ORIGINAL REPORT ON FILE IN LAB CONTAINS ADDITIONAL TEST SITE INFORMATION. Serum or plasma albumin eunice urement (mass/volume)Ordered By: Jarad Dillon on 02-20-2022 Albumin [Mass/Vol] 4.1 g/dL 3.2-5.0 [facility] Serum or plasma [id number] protein tumor marker measurement (units/volume)Ordered By: Jarad Dillon on 02-20-2022 AFP.tumor marker Qn See comment [facility] Comment on above: TEST RESULT LIMITSAF P, Serum, Tumor MarkerAFP, Serum, Tumor Marker <1.8 ng/mL 0.0-6.4[facility] Electrochemiluminescence Immunoassay (ECLIA)Values obtained with different assay methods or kits cannot be used interchangeably. Results cannot be interpreted as absolute evidence of the presence or absence of malignant disease. This test is not interpretable in females. ____ TESTING PERFORMED AT [facility]. ORIGINAL REPORT ON FILE IN LAB CONTAINS ADDITIONAL TEST SITE INFORMATION. Serum or plasma ferritin jah surement (mass/volume)Ordered By: Jarad Dillon on 02-20-2022 Ferritin [Mass/Vol] 119 ng/mL 8-252 [facility] Serum or plasma hepatitis B virus surface antigen detection by immunoassayOrdered By: Jarad Dillon on 02-20-2022 HBV surface Ag IA Ql Not Reportable [facility] Serum perinuclear neutrophil cytoplasmic antibody titer by immunofluorescenceOrdered By: Jarad Dillon on 02-20-2022 Neutrophil cytoplasmic Ab.perinuclear IF (S) [Titer] Not Reportable [facility] Thin prep Papanicolaou smear with manual screeningOrdered By: Jarad Dillon on 02-20-2022 Thin prep Papanicolaou smear with manual screening 20 U/L 15-37 [facility] Thin prep Papanicolaou smear with manual screening 178 U/L 84-246 [facility] Thin prep Papanicolaou smear with manual screening See comment [facility] Comment on above: TEST RESULT LIMITSCo pper, Serum or Plasma A, 112 ug/dL 80-158 Detection Limit = 5A: This test was developed and its performance characteristics [facility]. It has not been cleared or approved by the Food and DrugAdministration. [facility] [facility] ORIGINAL REPORT ON FILE IN LAB CONTAINS ADDITIONAL TEST SITE INFORMATION. Absolute lymphocyte countOrd ered By: Dr. Esparza on 01-28-2022 Lymphocytes Auto (Unsp spec) [#/Vol] 1.98 10*3/uL 0.83-4.51 [facility] Basophil percentageOrdered B y: Dr. Esparza on 01-28-2022 Basophils/100 WBC (Bld) 0.8 % 0-1 [facility] Bilirubin [Mass/Vol] 0.40 mg/dL 0.20-1.00 [facility] Comment on above: For patients on eltr ombopag therapy, use of Dimension [place] TBIL is not recommended. Chloride [Moles/Vol] 105 mmol/L 98-107 [facility] Eosinophils/100 WBC (Bld) 6.0 % 0-5 [facility] Glucose [Mass/Vol] 144 mg/dL 74-106 [facility] Comment on above: Fasting Glucose resu lt greater than or equal to 126 mg/dL suggests DIABETES MELLITUS per A.D.A. criteria. Neutrophils (Bld) [#/Vol] 3.2 10*3/uL 2.0-7.7 [facility] Neutrophils/100 WBC (Bld) 51.0 % 47-70 [facility] Potassium [Moles/Vol] 3.8 mmol/L 3.5-5.1 [facility] Protein [Mass/Vol] 6.7 g/dL 6.4-8.2 [facility] Sodium [Moles/Vol] 139 mmol/L 136-145 [facility] WBC (Bld) [#/Vol] 6.2 10*3/uL 4.4-11.0 [facility] Blood erythrocytes count (nu mber/volume)Ordered By: Dr. Esparza on 01-28-2022 RBC (Bld) [#/Vol] 4.04 10*6/uL 4.2-5.4 [facility] Blood hemoglobin measurement (mass/volume)Ordered By: Dr. Esparza on 01-28-2022 Hemoglobin (Bld) [Mass/Vol] 12.6 g/dL 12.0-15.0 [facility] Blood lymphocytes/100 leukoc ytesOrdered By: Dr. Esparza on 01-28-2022 Lymphocytes/100 WBC (Bld) 31.9 % 19-41 [facility] Blood monocytes/100 leukocyt esOrdered By: Dr. Esparza on 01-28-2022 Monocytes/100 WBC (Bld) 10.0 % 0-10 [facility] Blood platelet mean volumeOr dered By: Dr. Esparza on 01-28-2022 Platelet mean volume (Bld) [Entitic vol] 12.1 fL 6.2-12.0 [facility] Determination of erythrocyte mean corpuscular volume (MCV)Ordered By: Dr. Esparza on 01-28-2022 MCV (RBC) [Entitic vol] 95.8 fL 81-99 [facility] Hematocrit Auto (Bld) [Volum e fraction]Ordered By: Dr. Esparza on 01-28-2022 Hematocrit (Bld) [Volume fraction] 38.7 % 37-47 [facility] Laboratory - Chemistry and C hemistry - challengeOrdered By: Dr. Esparza on 01-28-2022 ALP [Catalytic activity/Vol] 112 U/L 45-117 [facility] ALT [Catalytic activity/Vol] 44 U/L 13-56 [facility] Amylase [Catalytic activity/Vol] 70 U/L 5-55 [facility] CO2 [Moles/Vol] 29.0 mmol/L 21.0-32.0 [facility] Globulin (S) [Mass/Vol] 3.4 g/dL 2.2-4.2 [facility] Urea nitrogen/Creatinine [Mass ratio] 17.5 mg/mg 10-20 [facility] Laboratory - Hematology and Cell countsOrdered By: Dr. Esparza on 01-28-2022 Erythrocyte distribution width (RBC) [Entitic vol] 46.7 fL 35.1-43.9 [facility] Erythrocyte distribution width (RBC) [Ratio] 13.3 % 11.6-14.6 [facility] Immature granulocytes/100 WBC (Bld) 0.300 % 0.0-0.9 [facility] Comment on above: IG% - Immature Granu locytes (promyelocytes, myelocytes and metamyelocytes) > 1% indicates that a LEFT SHIFT is Present. MCH (RBC) [Entitic mass] 31.2 pg 27.0-32.0 [facility] Nucleated RBC/100 WBC (Bld) [Ratio] 0 % 0-5 [facility] MCHC Auto (RBC) [Mass/Vol]Or dered By: Dr. Esparza on 01-28-2022 MCHC (RBC) [Mass/Vol] 32.6 g/dL 32-36 [facility] No Panel InformationOrdered By: Dr. Esparza on 01-28-2022 Estimated GFR (MDRD) Amer 120 mL/min >60 [facility] Comment on above: GFR Calc Estimated GFR (MDRD) Non-Af Amer 99 mL/min >60 [facility] Comment on above: Non- GFR Calc Platelets bldOrdered By: Dr. Esparza on 01-28-2022 Platelets (Bld) [#/Vol] 159 10*3/uL 150-450 [facility] Serum or plasma albumin eunice urement (mass/volume)Ordered By: Dr. Esparza on 01-28-2022 Albumin [Mass/Vol] 3.3 g/dL 3.2-5.0 [facility] Serum or plasma albumin/glob ulin mass ratioOrdered By: Dr. Esparza on 01-28-2022 Albumin/Globulin [Mass ratio] 1.0 {ratio} 0.9-2.4 [facility] Serum or plasma calcium eunice urement (mass/volume)Ordered By: Dr. Esparza on 01-28-2022 Calcium [Mass/Vol] 8.6 mg/dL 8.5-10.1 [facility] Serum or plasma creatinine m easurement (mass/volume)Ordered By: Dr. Esparza on 01-28-2022 Creatinine [Mass/Vol] 0.68 mg/dL 0.55-1.02 [facility] Comment on above: The validity of the calculated GFR & GFRAA in patients over 70 years has not been determined. Clinical correlation is essential. Serum or plasma urea nitroge n measurement (mass/volume)Ordered By: Dr. Esparza on 01-28-2022 Urea nitrogen [Mass/Vol] 12 mg/dL 7-18 [facility] Thin prep Papanicolaou smear with manual screeningOrdered By: Dr. Esparza on 01-28-2022 Thin prep Papanicolaou smear with manual screening 22 U/L 15-37 [facility] Thin prep Papanicolaou smear with manual screening 5 5-15 [facility] Throat specimen bacteria nicolle ntification by cultureOrdered By: Dr. Esparza on 01-11-2022 Bacteria identified Cx Nom (Throat) [facility] Laboratory - Microbiology an d Antimicrobial susceptibilityon 01-09-2022 SARS-CoV-2 (COVID-19) RNA ALMAS+probe Ql (Unsp spec) Not detected [facility] No Panel Informationon 01-09 POC Nasal Swab Influenza A,B Not detected [facility] POC Nasal Swab RSV Not detected [facility] Laboratory - Microbiology an d Antimicrobial susceptibilityon 01-07-2022 SARS-CoV-2 (COVID-19) RNA ALMAS+probe Ql (Unsp spec) Not detected [facility] Laboratory - Microbiology an d Antimicrobial susceptibilityon 11-25-2021 SARS-CoV-2 (COVID-19) RNA ALMAS+probe Ql (Unsp spec) Not detected [facility] Work Phone: No Panel Informationon 11-25 Influenza Types A,B Rapid (Clinic) Not detected [facility] Work Phone: Absolute lymphocyte counton 11-01-2021 Lymphocytes Auto (Unsp spec) [#/Vol] 2.80 10*3/uL 0.83-4.51 [facility] Work Phone: Absolute reticulocyte counto n 11-01-2021 Reticulocytes (Bld) [#/Vol] 0.00 10*3/uL 0-5 [facility] Work Phone: Basophil percentageon 2021 Basophil percentage 3.1 mg/dL 2.5-4.9 [facility] Work Phone: Bilirubin [Mass/Vol] 0.50 mg/dL 0.20-1.00 [facility] Work Phone: Comment on above: For patients on eltr ombopag therapy, use of [place] TBIL is not recommended. Chloride [Moles/Vol] 104 mmol/L 98-107 [facility] Work Phone: Cholesterol [Mass/Vol] 211 mg/dL <[address] [facility] Work Phone: Comment on above: <200 mg/dL Desirable 200-240 mg/dL Borderline >240 mg/dL High Risk Glucose [Mass/Vol] 105 mg/dL 74-106 [facility] Work Phone: Comment on above: Fasting Glucose resu lt from 100 to 125 mg/dL suggests IMPAIRED HOMEOSTASIS per A.D.A. criteria. Neutrophils (Bld) [#/Vol] 2.9 10*3/uL 2.0-7.7 [facility] Work Phone: Potassium [Moles/Vol] 4.2 mmol/L 3.5-5.1 [facility] Work Phone: Protein [Mass/Vol] 7.7 g/dL 6.4-8.2 [facility] Work Phone: Sodium [Moles/Vol] 139 mmol/L 136-145 [facility] Work Phone: Triglyceride [Mass/Vol] 90 mg/dL <199 [facility] Work Phone: Comment on above: The drugs N-Acetylcy steine and Metamizole may falsely depress this assay.Serum Triglycerides Reference Interval Normal <150 mg/dL Borderline high 150 - 199 mg/dL High 200 - 499 mg/dL Very High > or = 500 mg/dL WBC (Bld) [#/Vol] 6.5 10*3/uL 4.4-11.0 [facility] Work Phone: Blood erythrocytes count (nu mber/volume)on 11-01-2021 RBC (Bld) [#/Vol] 4.45 10*6/uL 4.2-5.4 [facility] Work Phone: Blood hemoglobin measurement (mass/volume)on 11-01-2021 Hemoglobin (Bld) [Mass/Vol] 13.9 g/dL 12.0-15.0 [facility] Work Phone: Blood platelet mean volumeon 11-01-2021 Platelet mean volume (Bld) [Entitic vol] 11.8 fL 6.2-12.0 [facility] Work Phone: Determination of erythrocyte mean corpuscular volume (MCV)on 11-01-2021 MCV (RBC) [Entitic vol] 94.4 fL 81-99 [facility] Work Phone: Direct bilirubinon 2 Bilirubin.direct [Mass/Vol] 0.12 mg/dL 0.00-0.30 [facility] Work Phone: Hematocrit Auto (Bld) [Volum e fraction]on 11-01-2021 Hematocrit (Bld) [Volume fraction] 42.0 % 37-47 [facility] Work Phone: Laboratory - Chemistry and C hemistry - challengeon 11-01-2021 ALP [Catalytic activity/Vol] 119 U/L 45-117 [facility] Work Phone: ALT [Catalytic activity/Vol] 59 U/L 13-56 [facility] Work Phone: Cholesterol.total/Choles terol in HDL [Mass ratio] 4.20 {ratio} [facility] Work Phone: CO2 [Moles/Vol] 30.0 mmol/L 21.0-32.0 [facility] Work Phone: Globulin (S) [Mass/Vol] 4.0 g/dL 2.2-4.2 [facility] Work Phone: Urea nitrogen/Creatinine [Mass ratio] 13.7 mg/mg 10-20 [facility] Work Phone: Laboratory - Hematology and Cell countson 11-01-2021 Erythrocyte distribution width (RBC) [Entitic vol] 42.9 fL 35.1-43.9 [facility] Work Phone: Erythrocyte distribution width (RBC) [Ratio] 12.5 % 11.6-14.6 [facility] Work Phone: MCH (RBC) [Entitic mass] 31.2 pg 27.0-32.0 [facility] Work Phone: Nucleated RBC/100 WBC (Bld) [Ratio] 0 % 0-5 [facility] Work Phone: MCHC Auto (RBC) [Mass/Vol]on 11-01-2021 MCHC (RBC) [Mass/Vol] 33.1 g/dL 32-36 [facility] Work Phone: No Panel Informationon 11-01 Estimated GFR (MDRD) Amer 100 mL/min >60 [facility] Work Phone: Comment on above: GFR Calc Estimated GFR (MDRD) Non-Af Amer 83 mL/min >60 [facility] Work Phone: Comment on above: Non- GFR Calc Platelets bldon 11-01-2021 Platelets (Bld) [#/Vol] 215 10*3/uL 150-450 [facility] Work Phone: Segmented neutrophils/100 WB C Auto (Bld)on 11-01-2021 Segmented neutrophils/100 WBC (Bld) 43.9 % 47-70 [facility] Work Phone: Serum or plasma albumin eunice urement (mass/volume)on 11-01-2021 Albumin [Mass/Vol] 3.7 g/dL 3.2-5.0 [facility] Work Phone: Serum or plasma albumin/glob ulin mass ratioon 11-01-2021 Albumin/Globulin [Mass ratio] 0.9 {ratio} 0.9-2.4 [facility] Work Phone: Serum or plasma calcium eunice urement (mass/volume)on 11-01-2021 Calcium [Mass/Vol] 9.0 mg/dL 8.5-10.1 [facility] Work Phone: Serum or plasma cholesterol in HDL measurement (mass/volume)on 11-01-2021 Cholesterol in HDL [Mass/Vol] 50 mg/dL >40 [facility] Work Phone: Comment on above: The drugs N-Acetylcy steine and Metamizole may falsely depress this assay. Reference Range HDL <40 mg/dL Low HDL Cholesterol HDL >or= 60 mg/dL High HDL Cholesterol Serum or plasma cholesterol in VLDL measurement (mass/volume)on 11-01-2021 Cholesterol in VLDL [Mass/Vol] 18 mg/dL 5-40 [facility] Work Phone: Serum or plasma creatinine m easurement (mass/volume)on 11-01-2021 Creatinine [Mass/Vol] 0.80 mg/dL 0.55-1.02 [facility] Work Phone: Comment on above: The validity of the calculated GFR & GFRAA in patients over 70 years has not been determined. Clinical correlation is essential. Serum or plasma low density lipoprotein (LDL) cholesterol measurement (mass/volume)on 11-01-2021 Cholesterol in LDL [Mass/Vol] 143 mg/dL 0-130 [facility] Work Phone: Serum or plasma urea nitroge n measurement (mass/volume)on 11-01-2021 Urea nitrogen [Mass/Vol] 11 mg/dL 7-18 [facility] Work Phone: Serum or plasma uric acid me asurement (mass/volume)on 11-01-2021 Urate [Mass/Vol] 3.0 mg/dL 2.6-6.0 [facility] Work Phone: Comment on above: The drugs N-Acetylcy steine and Metamizole may falsely depress this assay. Thin prep Papanicolaou smear with manual screeningon 11-01-2021 Thin prep Papanicolaou smear with manual screening 35 U/L 15-37 [facility] Work Phone: Thin prep Papanicolaou smear with manual screening 5 5-15 [facility] Work Phone: Thin prep Papanicolaou smear with manual screening 194 U/L 84-246 [facility] Work Phone: Throat specimen bacteria nicolle ntification by culture Bacteria identified Cx Nom (Throat) [facility] Work Phone: Vital Signs Date Time Vital Sign Value Performing Clinician Mahsai satish 08-23-2024 08:15-0400 Body height 157.5 cm Amita MONSALVE DNP Work Phone: [facility] 08-23-2024 08:15-0400 Body mass index (BMI) [Ratio] 22.13 kg/m2 Amita MONSALVE DNP Work Phone: [facility] 08-23-2024 08:15-0400 Body weight 54.88 kg Amita MONSALVE DNP Work Phone: [facility] 08-23-2024 08:15-0400 Diastolic blood pressure 58 mm[Hg] Amita MONSALVE DNP Work Phone: [facility] 08-23-2024 08:15-0400 Systolic blood pressure 118 mm[Hg] Amita MONSALVE DNP Work Phone: [facility] 07-01-2024 08:49-0400 Body mass index (BMI) [Ratio] 22.67 kg/m2 Hayes Lebronyajaira BERRIOS Work Phone: [facility] 07-01-2024 08:49-0400 Body weight 54.43 kg Hayes Carreondulce BERRIOS Work Phone: [facility] 07-01-2024 08:49-0400 Diastolic blood pressure 62 mm[Hg] Hayes Lebronyajaira BERRIOS Work Phone: [facility] 07-01-2024 08:49-0400 Heart rate 82 /min Hayes Carreondulce BERRIOS Work Phone: [facility] 07-01-2024 08:49-0400 SaO2% (BldA) [Mass fraction] 93 % Hayes Lebronyajaira BERRIOS Work Phone: [facility] 07-01-2024 08:49-0400 Systolic blood pressure 108 mm[Hg] Hayes Lebronyajaira BERRIOS Work Phone: [facility] 06-09-2024 10:30-0400 Body height 154.[address] Wilbert Esparza MD Work Phone: [facility] 06-09-2024 10:30-0400 Body mass index (BMI) [Ratio] 23.1 kg/m2 Dr. Wilbert Esparza MD Work Phone: [facility] 06-09-2024 10:30-0400 Body weight 55.[address] Wilbert Esparza MD Work Phone: [facility] 06-09-2024 10:30-0400 Diastolic blood pressure 74 mm[Hg] Dr. Wilbert Esparza MD Work Phone: [facility] 06-09-2024 10:30-0400 Systolic blood pressure 111 mm[Hg] Dr. Wilbert Esparza MD Work Phone: [facility] 02-22-2024 08:07-0500 Body height 154.9 cm Roland Ruiz MD Work Phone: [facility] 02-22-2024 08:07-0500 Diastolic blood pressure 58 mm[Hg] Roland Ruiz MD Work Phone: [facility] 02-22-2024 08:07-0500 Heart rate 79 /min Roland Ruiz MD Work Phone: [facility] 02-22-2024 08:07-0500 Systolic blood pressure 111 mm[Hg] Roland Ruiz MD Work Phone: [facility] 01-05-2024 09:35-0400 Body height 156.2 cm Abena ANDERSONAPPLICATION CONSULTANT Work Phone: [facility] 01-05-2024 09:35-0400 Body mass index (BMI) [Ratio] 23.16 kg/m2 Abena MONSALVE Work Phone: [facility] 01-05-2024 09:35-0400 Body weight 56.52 kg Abena MONSALVE Work Phone: [facility] 01-05-2024 09:35-0400 Diastolic blood pressure 82 mm[Hg] Abena Zuniga APRN-APPLICATION CONSULTANT Work Phone: [facility] 01-05-2024 09:35-0400 Heart rate 80 /min Abena MONSALVE Work Phone: [facility] 01-05-2024 09:35-0400 SaO2% (BldA) [Mass fraction] 98 % Abena MONSALVE Work Phone: [facility] 01-05-2024 09:35-0400 Systolic blood pressure 102 mm[Hg] Abena MONSALVE Work Phone: [facility] 12-03-2023 13:47-0400 Body height 156.2 cm Roland Ruiz MD Work Phone: [facility] 12-03-2023 13:47-0400 Body mass index (BMI) [Ratio] 22.89 kg/m2 Roland Ruiz MD Work Phone: [facility] 12-03-2023 13:47-0400 Body temperature 97.9 [degF] Roland Ruiz MD Work Phone: [facility] 12-03-2023 13:47-0400 Body weight 55.84 kg Roland Ruiz MD Work Phone: [facility] 12-03-2023 13:47-0400 Diastolic blood pressure 71 mm[Hg] Roland Ruiz MD Work Phone: [facility] 12-03-2023 13:47-0400 Heart rate 103 /min Roland Ruiz MD Work Phone: [facility] 12-03-2023 13:47-0400 Respiratory rate 20 /min Roland Ruiz MD Work Phone: [facility] 12-03-2023 13:47-0400 SaO2% (BldA) [Mass fraction] 100 % Roland Ruiz MD Work Phone: [facility] 12-03-2023 13:47-0400 Systolic blood pressure 119 mm[Hg] Roland Ruiz MD Work Phone: [facility] 11-24-2023 08:04-0400 Body height 154.9 cm Roland Ruiz MD Work Phone: [facility] 11-24-2023 08:04-0400 Diastolic blood pressure 62 mm[Hg] Roland Ruiz MD Work Phone: [facility] 11-24-2023 08:04-0400 Heart rate 85 /min Roland Ruiz MD Work Phone: [facility] 11-24-2023 08:04-0400 Systolic blood pressure 105 mm[Hg] Roland Ruiz MD Work Phone: [facility] 09-03-2023 14:52-0400 Body height 156 cm Roland Ruiz MD Work Phone: [facility] 09-03-2023 14:52-0400 Body mass index (BMI) [Ratio] 23.34 kg/m2 Roland Ruiz MD Work Phone: [facility] 09-03-2023 14:52-0400 Body temperature 97.9 [degF] Roland Ruiz MD Work Phone: [facility] 09-03-2023 14:52-0400 Body weight 56.79 kg Roland Ruiz MD Work Phone: [facility] 09-03-2023 14:52-0400 Diastolic blood pressure 58 mm[Hg] Roland Ruiz MD Work Phone: [facility] 09-03-2023 14:52-0400 Heart rate 84 /min Roland Ruiz MD Work Phone: [facility] 09-03-2023 14:52-0400 Respiratory rate 16 /min Roland Ruiz MD Work Phone: [facility] 09-03-2023 14:52-0400 SaO2% (BldA) [Mass fraction] 100 % Roalnd Ruiz MD Work Phone: [facility] 09-03-2023 14:52-0400 Systolic blood pressure 128 mm[Hg] Roland Ruiz MD Work Phone: [facility] 07-03-2023 09:19-0400 Body height 156.2 cm Hayes Menjivar MD, RADUBS Work Phone: [facility] 07-03-2023 09:19-0400 Body mass index (BMI) [Ratio] 23.01 kg/m2 AGUSTINA Germain MD Work Phone: [facility] 07-03-2023 09:19-0400 Body weight 56.16 kg AGUSTINA Germain MD Work Phone: [facility] 07-03-2023 09:19-0400 Diastolic blood pressure 80 mm[Hg] AGUSTINA Germain MD Work Phone: [facility] 07-03-2023 09:19-0400 Heart rate 79 /min AGUSTINA Germain MD Work Phone: [facility] 07-03-2023 09:19-0400 SaO2% (BldA) [Mass fraction] 98 % AGUSTINA Germain MD Work Phone: [facility] 07-03-2023 09:19-0400 Systolic blood pressure 118 mm[Hg] AGUSTINA Germain MD Work Phone: [facility] 02-18-2023 09:46-0500 Body height 157.5 cm Ceci Mckinney MD Work Phone: [facility] 02-18-2023 09:46-0500 Body weight 55.5 kg Ceci Mckinney MD Work Phone: [facility] 02-18-2023 09:46-0500 Diastolic blood pressure 70 mm[Hg] Ceci Mckinney MD Work Phone: [facility] 02-18-2023 09:46-0500 Heart rate 76 /min Ceci Mckinney MD Work Phone: [facility] 02-18-2023 09:46-0500 Systolic blood pressure 112 mm[Hg] Ceci Mckinney MD Work Phone: [facility] 02-18-2023 09:15-0500 Body height 157.5 cm Neo Heredia DO Work Phone: [facility] 02-18-2023 09:15-0500 Body weight 55.5 kg Neo Heredia DO Work Phone: [facility] 02-18-2023 09:15-0500 Diastolic blood pressure 70 mm[Hg] Neo Heredia DO Work Phone: [facility] 02-18-2023 09:15-0500 Heart rate 76 /min Neo Heredia DO Work Phone: [facility] 02-18-2023 09:15-0500 SaO2% (BldA) [Mass fraction] 100 % Neo Heredia DO Work Phone: [facility] 02-18-2023 09:15-0500 Systolic blood pressure 112 mm[Hg] Neo Heredia DO Work Phone: [facility] 07-15-2022 17:05-0400 Body temperature 98.2 [degF] Dr. Wilbert Esparza Work Phone: [facility] 07-15-2022 17:05-0400 Diastolic blood pressure 87 mm[Hg] Dr. Wilbert Esparza Work Phone: [facility] 07-15-2022 17:05-0400 Heart rate 108 /min Dr. Wilbert Esparza Work Phone: [facility] 07-15-2022 17:05-0400 Respiratory rate 18 /min Dr. Wilbert Esparza Work Phone: [facility] 07-15-2022 17:05-0400 SaO2% (BldA) [Mass fraction] 97 % Dr. Wilbert Esparza Work Phone: [facility] 07-15-2022 17:05-0400 Systolic blood pressure 116 mm[Hg] Dr. Wilbert Esparza Work Phone: [facility] 07-15-2022 14:29-0400 Body height 154.[address] Wilbert Esparza Work Phone: [facility] 07-15-2022 14:29-0400 Body mass index (BMI) [Ratio] 25.7 kg/m2 Dr. Wilbert Esparza Work Phone: [facility] 07-15-2022 14:29-0400 Body weight 61.[address] Wilbert Esparza Work Phone: [facility] 05-07-2022 11:49-0500 Diastolic blood pressure 79 mm[Hg] Dr. Wilbert Esparza Work Phone: [facility] 05-07-2022 11:49-0500 Heart rate 114 /min Dr. Wilbert Esparza Work Phone: [facility] 05-07-2022 11:49-0500 Systolic blood pressure 127 mm[Hg] Dr. Wilbert Esparza Work Phone: [facility] 04-29-2022 10:40-0500 Body temperature 98.4 [degF] Dr. Wilbert Esparza Work Phone: [facility] 04-29-2022 10:40-0500 Diastolic blood pressure 70 mm[Hg] Dr. Wilbert Esparza Work Phone: [facility] 04-29-2022 10:40-0500 Heart rate 98 /min Dr. Wilbert Esparza Work Phone: [facility] 04-29-2022 10:40-0500 Respiratory rate 18 /min Dr. Wilbert Esparza Work Phone: [facility] 04-29-2022 10:40-0500 SaO2% (BldA) [Mass fraction] 97 % Dr. Wilbert Esparza Work Phone: [facility] 04-29-2022 10:40-0500 Systolic blood pressure 116 mm[Hg] Dr. Wilbert Esparza Work Phone: [facility] 04-29-2022 09:00-0500 Inhaled oxygen flow rate 2 L/min Dr. Wilbert Esparza Work Phone: [facility] 04-29-2022 08:26-0500 Body height 154.[address] Wilbert Esparza Work Phone: [facility] 04-29-2022 08:26-0500 Body mass index (BMI) [Ratio] 27.1 kg/m2 Dr. Wilbert Esparza Work Phone: [facility] 04-29-2022 08:26-0500 Body weight 65.[address] Wilbert Esparza Work Phone: [facility] 02-20-2022 11:15-0500 Body height 157.[address] Wilbert Esparza Work Phone: [facility] Work Phone: 02-20-2022 11:15-0500 Body mass index (BMI) [Ratio] 26.9 kg/m2 Dr. Wilbert Esparza Work Phone: [facility] 02-20-2022 11:15-0500 Body weight 66.[address] Wilbert Esparza Work Phone: [facility] 02-20-2022 11:15-0500 Diastolic blood pressure 79 mm[Hg] Dr. Wilbert Esparza Work Phone: [facility] 02-20-2022 11:15-0500 Heart rate 94 /min Dr. Wilbert Esparza Work Phone: [facility] 02-20-2022 11:15-0500 SaO2% (BldA) [Mass fraction] 97 % Dr. Wilbert Esparza Work Phone: [facility] 02-20-2022 11:15-0500 Systolic blood pressure 120 mm[Hg] Dr. Wilbert Esparza Work Phone: [facility] 11-28-2021 10:26-0400 Diastolic blood pressure 62 mm[Hg] Dr. Wilbert Esparza Work Phone: [facility] Work Phone: 11-28-2021 10:26-0400 Heart rate 114 /min Dr. Wilbert Esparza Work Phone: [facility] Work Phone: 11-28-2021 10:26-0400 Respiratory rate 16 /min Dr. Wilbert Esparza Work Phone: [facility] Work Phone: 11-28-2021 10:26-0400 Systolic blood pressure 110 mm[Hg] Dr. Wilbert Esparza Work Phone: [facility] Work Phone: 11-25-2021 06:30-0400 Body temperature 98.7 [degF] Dr. Wilbert Esparza Work Phone: [facility] Work Phone: 11-25-2021 06:30-0400 Diastolic blood pressure 64 mm[Hg] Dr. Wilbert Esparza Work Phone: [facility] Work Phone: 11-25-2021 06:30-0400 Heart rate 85 /min Dr. Wilbert Esparza Work Phone: [facility] Work Phone: 11-25-2021 06:30-0400 Respiratory rate 14 /min Dr. Wilbert Esparza Work Phone: [facility] Work Phone: 11-25-2021 06:30-0400 SaO2% (BldA) [Mass fraction] 99 % Dr. Wilbert Esparza Work Phone: [facility] Work Phone: 11-25-2021 06:30-0400 Systolic blood pressure 108 mm[Hg] Dr. Wilbert Esparza Work Phone: [facility] Work Phone: Encounters Encounter Date Encounter Type Care Provider Facility Start: 10-19-2024 ambulatory Wilbert Esparza Facility:[facility] Start: 09-07-2024 End: 09-07-[address] Wilbert Esparza MD Work Phone: -[facility] Start: 09-07-2024 End: 09-07-2024 Patient encounter procedure Elvia Guthrie INDUSTRIAL PAINTER-C -[facility] Work Phone: Start: 09-07-2024 End: 09-07-2024 ambulatory Wilbert Esparza Facility:[facility] Start: 08-25-2024 ambulatory WILBERT Knott ESPARZA Facility:[facility] Start: 08-24-2024 ambulatory BOZENA Laboy ty:[facility] Start: 08-23-2024 End: 08-23-2024 Subsequent hospital visit by physician Amita Caldwell PHYSICAL TESTING SUPERVISOR-APPLICATION CONSULTANT, DNP Work Phone: [facility] [place] Comment on above: Arrived Start: 08-23-2024 ambulatory WILBERT ESPARZA Facility:[facility] Start: 08-16-2024 End: 08-16-[address] Wilbert Esparza MD Work Phone: [facility] Work Phone: Start: 08-16-2024 End: 08-16-2024 Patient encounter procedure Elvia Guthrie INDUSTRIAL PAINTER-C -[facility] Work Phone: Start: 08-16-2024 End: 08-16-2024 ambulatory Wilbert Esparza Facility:[facility] Start: 08-03-2024 End: 08-13-[address] Wilbert Esparza MD Work Phone: -Laboratory [facility] Start: 08-03-2024 End: 08-13-[address] iWlbert Esparza MD Work Phone: [facility] Work Phone: Start: 07-01-2024 End: 07-01-2024 Office outpatient visit 40 minutes Hayes BERRIOS Work Phone: [facility] [place] Comment on above: PSC (primary scleros ing cholangitis) (Primary Dx); Choledochal cyst Start: 07-01-2024 ambulatory HAYES MENJIVAR Facility: [facility] Start: 06-29-2024 End: 06-29-[address] Wilbert Esparza MD Work Phone: [facility] Work Phone: Start: 06-29-2024 End: 06-29-2024 Patient encounter procedure Elvia HAMILTON -Laboratory Work Phone: Start: 06-29-2024 End: 06-29-2024 ambulatory Wilbert Esparza Facility:[facility] Start: 06-09-2024 End: 06-09-2024 Patient encounter procedure Elvia Guthrie NP-C -[facility] [place] Work Phone: Start: 06-09-2024 End: 06-09-2024 ambulatory Wilbert Esparza Facility:[facility] Start: 05-31-2024 End: 05-31-2024 Patient encounter procedure Nathaly Prado PA -[facility] Work Phone: Start: 05-31-2024 End: 05-31-[address] Wilbert Esparza MD Work Phone: [facility] Work Phone: Start: 05-31-2024 End: 05-31-2024 ambulatory Nathaly Prado Facility:[facility] Start: 05-10-2024 End: 05-10-[address] Wilbert Esparza MD Work Phone: [facility] Work Phone: Start: 05-10-2024 End: 05-10-2024 Patient encounter procedure Elvia HAMILTON -Laboratory, [facility] Start: 05-10-2024 End: 05-10-2024 ambulatory Wilbert Esparza Facility:[facility] Start: 05-05-2024 End: 05-13-[address] Wilbert Esparza MD Work Phone: -Laboratory, [facility] Start: 05-05-2024 End: 05-13-2024 ambulatory BOZENA ALEXANDER Facility:[facility] Start: 02-25-2024 ambulatory ROLAND RUIZ Facility :[facility] Start: 02-22-2024 ambulatory AMITA Gary lity:[facility] Start: 02-22-2024 End: 02-22-2024 Subsequent hospital visit by physician Roland Ruiz MD Work Phone: [facility] [place] Comment on above: Arrived Start: 01-27-2024 End: 02-13-[address] Wilbert Esparza MD Work Phone: -Laboratory, [facility] Start: 01-27-2024 End: 02-13-2024 ambulatory BOZENA BENJAMIN Facility:[facility] Start: 01-22-2024 End: 01-22-2024 ambulatory Wilbert Esparza Facility:[facility] Start: 01-05-2024 End: 01-05-2024 Office outpatient visit 25 minutes Abena Zuniga PHYSICAL TESTING SUPERVISOR-APPLICATION CONSULTANT Work Phone: [facility] Comment on above: PSC (primary scleros ing cholangitis) (Primary Dx); Choledochal cyst Start: 01-05-2024 ambulatory ABENA ZUNIGA Facilit y:[facility] Start: 12-24-2023 End: 12-24-2023 ambulatory Wilbert Esparza Facility:[facility] Start: 12-24-2023 End: 12-24-2023 ambulatory Wiblert Esparza Facility:[facility] Start: 12-03-2023 End: 12-03-2023 Office outpatient visit 25 minutes Roland Ruiz MD Work Phone: Division of Surgical Oncology Comment on above: Choledochal cyst (Pr imary Dx) Start: 12-03-2023 ambulatory ROLAND RUIZ Facility :[facility] Start: 11-30-2023 End: 11-30-2023 ambulatory Nathaly Prado Facility:[facility] Start: 11-24-2023 ambulatory AMITA Gary lity:[facility] Start: 11-24-2023 End: 11-24-2023 Subsequent hospital visit by physician Roland Ruiz MD Work Phone: [facility] [place] Comment on above: Arrived Start: 10-30-2023 End: 10-30-2023 ambulatory BOZENA ISABELDARLIN Facility:[facility] Start: 09-03-2023 End: 09-03-2023 Office outpatient new 60 minutes Roland Ruiz MD Work Phone: Division of Surgical Oncology Comment on above: PSC (primary scleros ing cholangitis) (Primary Dx); Choledochal cyst Start: 09-03-2023 ambulatory WILBERT ESPARZA Facility:[facility] Start: 07-03-2023 End: 07-03-2023 Office outpatient new 60 minutes Hayes Menjivar MD, MBBS Work Phone: [facility] Comment on above: PSC (primary scleros ing cholangitis) (Primary Dx) Start: 06-01-2023 End: 06-01-[address] Wilbert Esparza Work Phone: [facility] Work Phone: Start: 06-01-2023 End: 06-01-[address] Wilbert Esparza Work Phone: [facility] Work Phone: Start: 04-24-2023 End: 04-24-[address] Wilbert Esparza Work Phone: [facility] Work Phone: Start: 04-24-2023 End: 04-24-[address] Wilbert Esparza Work Phone: [facility] Work Phone: Start: 04-23-2023 End: 04-23-[address] Wilbert Esparza Work Phone: [facility] Work Phone: Start: 04-23-2023 End: 04-23-[address] Wilbert Esparza Work Phone: [facility]-Laboratory Work Phone: Start: 02-26-2023 End: 02-26-[address] Wilbert Esparza Work Phone: [facility] Work Phone: Start: 02-26-2023 End: 02-26-[address] Wilbert Esparza Work Phone: [facility]-Laboratory Work Phone: Start: 02-24-2023 Telephone encounter Neo Heredia DO Work Phone: Gastroenterology Start: 02-19-2023 End: 02-19-[address] Wilbert Esparza Work Phone: [facility]-Laboratory Work Phone: Start: 02-18-2023 End: 02-18-2023 ambulatory ONEAL VILLALOBOS Facility:[facility] Start: 02-18-2023 End: 02-18-2023 Patient encounter procedure Neo Heredia DO Work Phone: Gastroenterology Comment on above: Gastroparesis (Prima ry Dx) Gastroparesis Start: 01-06-2023 End: 01-06-[address] Wilbert Esparza Work Phone: [facility] Work Phone: Start: 12-16-2022 End: 12-16-[address] Wilbert Esparza Work Phone: [facility] Work Phone: Start: 12-02-2022 End: 12-02-[address] Wilbert Esparza Work Phone: [facility] Work Phone: Start: 12-02-2022 End: 12-02-[address] Wilbert Esparza Work Phone: [facility]-Nuclear Medicine, [facility] Work Phone: Start: 10-28-[address] Wilbert Hernandez [facility] Work Phone: [facility]-Employee Health Start: 09-17-2022 End: 09-17-[address] Wilbert Esparza Work Phone: [facility] Work Phone: Start: 09-17-2022 End: 09-17-[address] Wilbert Esparza Work Phone: [facility]-Laboratory Work Phone: Start: 08-25-2022 End: 08-25-[address] Wilbert Esparza Work Phone: [facility] Work Phone: Start: 07-15-2022 Non-patient / Non-visit Dr. Lai Esparza Work Phone: [facility] Start: 07-15-2022 End: 07-15-2022 Admission to same day surgery center Dr. Wilbert Esparza Work Phone: [facility]-Endoscopy Start: 07-15-2022 End: 07-15-[address] Wilbert Esparza Work Phone: [facility] Work Phone: Start: 07-02-2022 End: 07-02-[address] Wilbert Esparza Work Phone: [facility] Work Phone: Start: 07-02-2022 End: 07-02-[address] Wilbert Esparza Work Phone[facility] Start: 06-19-2022 End: 06-19-[address] Wilbert Esparza Work Phone: [facility] Work Phone: Start: 06-19-2022 End: 06-19-[address] Wilbert Esparza Work Phone: [facility]-Laboratory Start: 05-09-2022 End: 05-09-[address] Wilbert Esparza Work Phone: [facility] Work Phone: Start: 05-09-2022 End: 05-09-[address] Wilbert Esparza Work Phone: [facility]-Laboratory Start: 05-07-2022 End: 05-07-[address] Wilbert Esparza Work Phone: [facility] Gastroenterology Start: 04-29-2022 End: 04-29-[address] Wilbert Esparza Work Phone: [facility] Work Phone: Start: 04-29-2022 End: 04-29-[address] Wilbert Esparza Work Phone: [facility] Start: 04-24-2022 End: 04-24-[address] Wilbert Esparza Work Phone: [facility] Work Phone: Start: 04-24-2022 End: 04-24-[address] Wilbert Esparza Work Phone: [facility]-Laboratory, Specimen Start: 04-23-2022 End: 04-23-[address] Wilbert Esparza Work Phone: [facility] Work Phone: Start: 04-23-2022 End: 04-23-[address] Wilbert Esparza Work Phone: [facility]-Laboratory Start: 04-22-2022 End: 04-22-[address] Wilbert Esparza Work Phone: [facility]-Laboratory Start: 04-21-2022 End: 04-21-[address] Wilbert Esparza Work Phone: [facility] Work Phone: Start: 04-21-2022 End: 04-21-[address] Wilbert Esparza Work Phone: [facility] Start: 02-20-2022 End: 02-20-[address] Wilbert Esparza Work Phone: [facility] Work Phone: Start: 02-20-2022 End: 02-20-[address] Wilbert Esparza Work Phone: [facility] Gastroenterology Start: 01-28-2022 End: 01-28-[address] Wilbert Esparza Work Phone: [facility] Work Phone: Start: 01-28-2022 End: 01-28-[address] Wilbert Esparza Work Phone: [facility]-Laboratory Start: 01-21-2022 End: 01-21-[address] [facility] Start: 01-09-2022 End: 01-09-[address] Wilbert Esparza Work Phone: [facility] Work Phone: Start: 01-09-2022 End: 01-09-[address] Wilbert Esparza Work Phone: [facility] Start: 01-09-2022 End: 01-09-[address] Wilbert Esparza Work Phone: [facility] Start: 01-07-2022 End: 01-07-[address] Wilbert Esparza Work Phone: [facility] Start: 12-11-2021 End: 12-11-[address] Wilbert Esparza Work Phone: [facility] Work Phone: Start: 12-11-2021 End: 12-11-[address] Wilbert Esparza Work Phone: [facility] Start: 11-28-2021 End: 11-28-[address] Wilbert Esparza Work Phone: [facility] Start: 11-25-2021 End: 11-25-[address] Wilbert Esparza Work Phone: [facility] Start: 11-01-[address] Wilbert sutton Work Phone: [facility]-Employee Health Procedures Date Procedure Procedure Detail Performing Clinician Start: 09-07-2024 MRI of pelvis with contrast Dr. Wilbert peña MD Work Phone: Start: 08-25-2024 Follow-up visit Follow-up ROLAND RUIZ Start: 08-23-2024 Mri abdomen w/o & w/contrast material Amita Caldwell PHYSICAL TESTING SUPERVISOR-APPLICATION CONSULTANT, DNP Work Phone: Start: 08-16-[address] Wilbert Esparza MD Work Phone: Start: 08-03-2024 Fol[address] stimulating hormone measurement Dr. Wilbert Esparza MD Work Phone: Comment on above: FEMALE:Follicular: 1.4 - 18.1 mIU/mLMidc ycle: 3.4 - 33.4 mIU/mLLuteal: 1.5 - 9.1 mIU/mLPost Menopause: 23.0 - 116.3 mIU/mLMALE: 1.4 - 18.1 mIU/mL NORMAL REFERENCE RANGES FEMALE FOLLICULAR 2.3 - 12.6 mIU/mL MID-CYCLE PEAK 5.2 - 17.5 mIU/mL LUTEAL 1.7 - 12.9 mIU/mL POST-MENOPAUSAL ON MHT 5.9 - 72.8 mIU/mL NOT ON MHT 12.7 - 132.2 mlU/mL MALE 0.7 - 10.8 mIU/mL Start: 06-29-[address] Wilbert Esparza MD Work Phone: Start: 05-31-2024 Dual energy X-ray absorptiometry Dr. Melany Esparza MD Work Phone: Start: 05-10-[address] stimulating hormone measurement Dr[address] Wilbert Esparza MD Work Phone: Comment on above: FEMALE:Follicular: 1.4 - 18.1 mIU/mLMidc ycle: 3.4 - 33.4 mIU/mLLuteal: 1.5 - 9.1 mIU/mLPost Menopause: 23.0 - 116.3 mIU/mLMALE: 1.4 - 18.1 mIU/mL NORMAL REFERENCE RANGES FEMALE FOLLICULAR 2.3 - 12.6 mIU/mL MID-CYCLE PEAK 5.2 - 17.5 mIU/mL LUTEAL 1.7 - 12.9 mIU/mL POST-MENOPAUSAL ON MHT 5.9 - 72.8 mIU/mL NOT ON MHT 12.7 - 132.2 mlU/mL MALE 0.7 - 10.8 mIU/mL Start: 05-05-2024 Iskrf-3-Zcqyqvknlkl measurement Dr. Wilbert Esparza MD Work Phone: Comment on above: [employer] Electrochemiluminescen ce Immunoassay(ECLIA)Values obtained with different assay methods or kits cannotbe used interchangeably. Results cannot be interpreted asabsolute evidence of the presence or absence of malignantdisease.This test is not interpretable in females. Start: 05-05-[address] Wilbert velasquez MD Work Phone: Comment on above: Nonsmokers <3.9 Smokers <5.6[employer] Electrochemiluminescence Immunoassay(ECLIA)Values obtained with different assay methods or kitscannot be used interchangeably. Results cannot beinterpreted as absolute evidence of the presence orabsence of malignant disease. Start: 05-05-2024 Measurement of renal function Dr. Wilbert sutton MD Work Phone: Comment on above: GFR Calc Start: 02-22-2024 Mri abdomen w/o & w/contrast material Amita Romeroono PHYSICAL TESTING SUPERVISOR-APPLICATION CONSULTANT, DNP Work Phone: Start: 11-24-2023 Mri abdomen w/o & w/contrast material Amita A Javi PHYSICAL TESTING SUPERVISOR-APPLICATION CONSULTANT, DNP Work Phone: Start: 04-24-[address] Wilbert Esparza Work Phone: Start: 12-02-[address] Wilbert Esparza Work Phone: Start: 07-15-[address] Wilbert goodne Work Phone: Start: 07-02-2022 [address] gastric emptying study Dr. Wilbert Esparza Work Phone: Start: 07-02-[address] Wilbert Esparza Work Phone: Start: 04-29-2022 Biopsy/Inj or Needle Placement Dr. Wilbert Esparza Work Phone: Start: 04-21-[address] Wilbert Esparza Work Phone: Start: 01-21-2022 Radionuclide imaging of liver and/or biliary tract using radioactive isotope Dr. Wilbert Esparza Work Phone: Start: 12-11-[address] Wilbert Esparza Work Phone: Bacteria identification test Dr. Wilbert Esparza Work Phone: Bacteria identification test Dr. Wilbert Esparza Work Phone: Lactoferrin measurement Dr. Wilbert Esparza Work Phone: Plan of Treatment Date Care Activity Detail Author Start: 12-10-2030 Tetanus vaccination TETANUS [facility] Start: 12-10-2030 Urine microalbumin profile DTaP,Tdap,Td Vaccine (10 - Td or Tdap) [facility] Start: 11-14-2024 Influenza vaccination INFLUENZA VACCINE (Season Ended) [facility] Start: 08-25-2024 End: 08-25-2024 Telemedicine consultation with patient 08/25/2024 3:30 PM EDT Telemedicine Division of Surgical Oncology [address] [place] [address] Roland Ruiz MD [address] [phone] Division of Surgical Oncology Start: 08-23-2024 End: 08-23-2024 Patient encounter procedure 08/23/2024 8:30 AM EDT Appointment [facility] [place] [address] [place] [address], [place] [address] Amita Caldwell, PHYSICAL TESTING SUPERVISOR-APPLICATION CONSULTANT, DNP [address] [place], [place] [id number] [facility] [place] Start: 08-20-2024 Screening for malignant neoplasm of colon COLORECTAL CANCER SCREENING DISCUSSION [facility] Start: 07-01-2024 End: 07-01-2024 Patient encounter procedure 07/01/2024 9:00 AM EDT Office Visit [facility] [address] [place] [address] Hayes Menjivar MBBS [address] [phone] [facility] Start: 03-03-2024 End: 12-02-2024 MR Abdomen WO and W contrast IV MRI ABDOMEN WITH AND WITHOUT CONTRAST Imaging Routine Choledochal cyst Expected: 03/03/2024, Expires: 12/02/2024 [facility] Comment on above: Expected: 03/03/2024, Expires: Start: 02-25-2024 End: 02-25-2024 Telemedicine consultation with patient 02/25/2024 10:45 AM EST Telemedicine Division of Surgical Oncology [address] [place] [address] Roland Ruiz MD [address] [facility] [address] [place] [phone] Division of Surgical Oncology Start: 02-22-2024 End: 02-22-2024 Patient encounter procedure 02/22/2024 8:30 AM EST Appointment [facility] [place] [address] [place] [phone] Roland Ruiz MD [address] [facility] [address] [place] [phone] [facility] [place] Start: 01-05-2024 End: 01-04-2025 AFP TUMOR MARKER AFP TUMOR MARKER Lab Routine PSC (primary sclerosing cholangitis) Expected: 01/05/2024 (Approximate), Expires: 01/04/2025 [facility] Comment on above: Expected: 01/05/2024 (Approximate), Expi res: 01/04/2025 Start: 01-05-2024 End: 01-04-2025 CA 19-9 CA 19-9 Lab Routine PSC (primary sclerosing cholangitis) Expected: 01/05/2024, Expires: 01/04/2025 [facility] Comment on above: Expected: 01/05/2024, Expires: Start: 01-05-2024 End: 01-04-2025 CHEM 6 (LYTES, BUN CREA) CHEM 6 (LYTES, BUN CREA) Lab Routine PSC (primary sclerosing cholangitis) Expected: 01/05/2024, Expires: 01/04/2025 [facility] Comment on above: Expected: 01/05/2024, Expires: Start: 01-05-2024 End: 01-04-2025 Complete blood count with white cell differential, automated CBC, EDIF, PLATELET Lab Routine PSC (primary sclerosing cholangitis) Expected: 01/05/2024 (Approximate), Expires: 01/04/2025 [facility] Comment on above: Expected: 01/05/2024 (Approximate), Expi res: 01/04/2025 Start: 01-05-2024 End: 01-04-2025 Hepatic function 2000 panel - Serum or Plasma HEPATIC FUNCTION PANEL Lab Routine PSC (primary sclerosing cholangitis) Expected: 01/05/2024 (Approximate), Expires: 01/04/2025 [facility] Comment on above: Expected: 01/05/2024 (Approximate), Expi res: 01/04/2025 Start: 01-05-2024 End: 01-04-2025 PROTIME-INR PROTIME-INR Lab Routine PSC (primary sclerosing cholangitis) Expected: 01/05/2024 (Approximate), Expires: 01/04/2025 [facility] Comment on above: Expected: 01/05/2024 (Approximate), Expi res: 01/04/2025 Start: 01-05-2024 End: 01-05-2024 Patient encounter procedure 01/05/2024 9:30 AM EDT Office Visit [facility] [address] [place] [phone] Abena Zuniga, PHYSICAL TESTING SUPERVISOR-APPLICATION CONSULTANT [address] [place] [address] [facility] Start: 12-04-2023 End: 09-02-2024 CA 19-9 CA 19-9 Lab Routine Choledochal cyst Expected: 12/04/2023, Expires: 09/02/2024 [facility] Comment on above: Expected: 12/04/2023, Expires: Start: 12-04-2023 End: 09-02-2024 Complete blood count with white cell differential, automated CBC, EDIF, PLATELET Lab Routine Choledochal cyst Expected: 12/04/2023, Expires: 09/02/2024 [facility] Comment on above: Expected: 12/04/2023, Expires: Start: 12-04-2023 End: 09-02-2024 Comprehensive metabolic 2000 panel - Serum or Plasma COMPREHENSIVE METABOLIC PANEL Lab Routine Choledochal cyst Expected: 12/04/2023, Expires: 09/02/2024 [facility] Comment on above: Expected: 12/04/2023, Expires: Start: 12-04-2023 End: 09-02-2024 MR Abdomen WO and W contrast IV MRI ABDOMEN WITH AND WITHOUT CONTRAST Imaging Routine Choledochal cyst Expected: 12/04/2023, Expires: 09/02/2024 [facility] Comment on above: Expected: 12/04/2023, Expires: Start: 12-03-2023 End: 12-03-2023 Patient encounter procedure 12/03/2023 1:30 PM EDT Office Visit Division of Surgical Oncology [address] [phone] Roland Ruiz MD [address] [phone] Division of Surgical Oncology Start: 12-03-2023 End: 12-03-2023 Patient encounter procedure 12/03/2023 9:45 AM EDT Office Visit Division of Surgical Oncology [address] [place] [phone] Roland Ruiz MD [address] [phone] Division of Surgical Oncology Start: 11-24-2023 End: 11-24-2023 Patient encounter procedure 11/24/2023 8:20 AM EDT Appointment Imaging and [facility] [address] [place] [address] Roland Ruiz MD [address] [id number] [facility] Start: 11-15-2023 COVID-19 VACCINE ( season) COVID-19 VACCINE ( season) [facility] Start: 11-15-2023 COVID-19 VACCINE ( season) COVID-19 VACCINE ( season) [facility] Start: 11-15-2023 Influenza vaccination INFLUENZA VACCINE (#1) [facility] Start: 10-02-2023 End: 07-02-2024 Colonoscopy flx dx w/collj spec when pfrmd DIAGNOSTIC COLONOSCOPY GI/Bronch Routine PSC (primary sclerosing cholangitis) Expected: 10/02/2023, Expires: 07/02/2024 [facility] Comment on above: Expected: 10/02/2023, Expires: Start: 10-02-2023 End: 07-02-2024 MR Abdomen WO and W contrast IV MRI ABDOMEN WITH AND WITHOUT CONTRAST Imaging Routine PSC (primary sclerosing cholangitis) Expected: 10/02/2023 (Approximate), Expires: 07/02/2024 [facility] Comment on above: Expected: 10/02/2023 (Approximate), Expi res: 07/02/2024 Start: 07-21-2023 Screening for malignant neoplasm of colon COLORECTAL CANCER SCREENING DISCUSSION [facility] Start: 07-03-2023 End: 07-02-2024 AFP TUMOR MARKER AFP TUMOR MARKER Lab Routine PSC (primary sclerosing cholangitis) Expected: 07/03/2023 (Approximate), Expires: 07/02/2024 [facility] Comment on above: Expected: 07/03/2023 (Approximate), Expi res: 07/02/2024 Start: 07-03-2023 End: 07-02-2024 ROBB SCREEN IFA ROBB SCREEN IFA Lab Routine PSC (primary sclerosing cholangitis) Expected: 07/03/2023 (Approximate), Expires: 07/02/2024 [facility] Comment on above: Expected: 07/03/2023 (Approximate), Expi res: 07/02/2024 Start: 07-03-2023 End: 07-02-2024 ANTI MITOCHONDRIAL ANTIBODY ANTI MITOCHONDRIAL ANTIBODY Lab Routine PSC (primary sclerosing cholangitis) Expected: 07/03/2023 (Approximate), Expires: 07/02/2024 [facility] Comment on above: Expected: 07/03/2023 (Approximate), Expi res: 07/02/2024 Start: 07-03-2023 End: 07-02-2024 ANTI SMOOTH MUSCLE ANTIBODY ANTI SMOOTH MUSCLE ANTIBODY Lab Routine PSC (primary sclerosing cholangitis) Expected: 07/03/2023 (Approximate), Expires: 07/02/2024 [facility] Comment on above: Expected: 07/03/2023 (Approximate), Expi res: 07/02/2024 Start: 07-03-2023 End: 07-02-2024 CERULOPLASMIN CERULOPLASMIN Lab Routine PSC (primary sclerosing cholangitis) Expected: 07/03/2023 (Approximate), Expires: 07/02/2024 [facility] Comment on above: Expected: 07/03/2023 (Approximate), Expi res: 07/02/2024 Start: 07-03-2023 End: 07-02-2024 Chronic hepatitis differentiation between hepatitis B and C virus panel - Serum or Plasma HEPATITIS BATTERY, CHRONIC Lab Routine PSC (primary sclerosing cholangitis) Expected: 07/03/2023 (Approximate), Expires: 07/02/2024 [facility] Comment on above: Expected: 07/03/2023 (Approximate), Expi res: 07/02/2024 Start: 07-03-2023 End: 07-02-2024 Ferritin [Mass/volume] in Serum or Plasma FERRITIN Lab Routine PSC (primary sclerosing cholangitis) Expected: 07/03/2023 (Approximate), Expires: 07/02/2024 [facility] Comment on above: Expected: 07/03/2023 (Approximate), Expi res: 07/02/2024 Start: 07-03-2023 End: 07-02-2024 HEP A AB, TOTAL (IGG+IGM) HEP A AB, TOTAL (IGG+IGM) Lab Routine PSC (primary sclerosing cholangitis) Expected: 07/03/2023, Expires: 07/02/2024 [facility] Comment on above: Expected: 07/03/2023, Expires: Start: 07-03-2023 End: 07-02-2024 IGG4 (IMMUNOGLOBULIN G SUBCLASS 4) IGG4 (IMMUNOGLOBULIN G SUBCLASS 4) Lab Routine PSC (primary sclerosing cholangitis) Expected: 07/03/2023, Expires: 07/02/2024 [facility] Comment on above: Expected: 07/03/2023, Expires: Start: 07-03-2023 End: 07-02-2024 IRON/IRON BINDING/TRANSFERRIN IRON/IRON BINDING/TRANSFERRIN Lab Routine PSC (primary sclerosing cholangitis) Expected: 07/03/2023 (Approximate), Expires: 07/02/2024 [facility] Comment on above: Expected: 07/03/2023 (Approximate), Expi res: 07/02/2024 Start: 07-03-2023 End: 07-02-2024 LIPID PANEL W CALCULATED LDL LIPID PANEL W CALCULATED LDL Lab Routine PSC (primary sclerosing cholangitis) Expected: 07/03/2023, Expires: 07/02/2024 [facility] Comment on above: Expected: 07/03/2023, Expires: Start: 07-03-2023 End: 07-02-2024 MONOCLONAL PROT IMMUNO, SERUM MONOCLONAL PROT IMMUNO, SERUM Lab Routine PSC (primary sclerosing cholangitis) Expected: 07/03/2023 (Approximate), Expires: 07/02/2024 [facility] Comment on above: Expected: 07/03/2023 (Approximate), Expi res: 07/02/2024 Start: 02-26-2023 Procedure [facility] Start: 02-19-2023 Procedure [facility] Start: 02-18-2023 End: 05-20-2023 ACETYLCHOLINE REC BINDING AB ACETYLCHOLINE REC BINDING AB Lab Routine Gastroparesis Expected: 02/18/2023, Expires: 05/20/2023 [facility] Work Phone: Comment on above: Expected: 02/18/2023, Expires: 4 Start: 02-18-2023 End: 05-20-2023 AMINO ACIDS, PLASMA W/ CONSULTATION AMINO ACIDS, PLASMA W/ CONSULTATION Lab Routine Gastroparesis Expected: 02/18/2023, Expires: 05/20/2023 [facility] Work Phone: Comment on above: Expected: 02/18/2023, Expires: 4 Start: 02-18-2023 End: 05-20-2023 C reactive protein [Mass/volume] in Serum or Plasma C-REACTIVE PROTEIN (CRP) Lab Routine Gastroparesis Expected: 02/18/2023, Expires: 05/20/2023 [facility] Work Phone: Comment on above: Expected: 02/18/2023, Expires: 4 Start: 02-18-2023 End: 05-20-2023 CARNITINE FREE/TOTAL, PLASMA CARNITINE FREE/TOTAL, PLASMA Lab Routine Gastroparesis Expected: 02/18/2023, Expires: 05/20/2023 [facility] Work Phone: Comment on above: Expected: 02/18/2023, Expires: 4 Start: 02-18-2023 End: 05-20-2023 Creatine kinase [Enzymatic activity/volume] in Serum or Plasma CK CREATINE KINASE Lab Routine Gastroparesis Expected: 02/18/2023, Expires: 05/20/2023 [facility] Work Phone: Comment on above: Expected: 02/18/2023, Expires: 4 Start: 02-18-2023 End: 05-20-2023 CYTOKINE PANEL 13, SERUM CYTOKINE PANEL 13, SERUM Lab Routine Gastroparesis Expected: 02/18/2023, Expires: 05/20/2023 [facility] Work Phone: Comment on above: Expected: 02/18/2023, Expires: Start: 02-18-2023 End: 05-20-2023 Erythrocyte sedimentation rate SED RATE WESTERGREN Lab Routine Gastroparesis Expected: 02/18/2023, Expires: 05/20/2023 [facility] Work Phone: Comment on above: Expected: 02/18/2023, Expires: 4 Start: 02-18-2023 End: 05-20-2023 ESTROGEN FRACTION BL ESTROGEN FRACTION BL Lab Routine Gastroparesis Expected: 02/18/2023, Expires: 05/20/2023 [facility] Work Phone: Comment on above: Expected: 02/18/2023, Expires: 4 Start: 02-18-2023 End: 05-20-2023 Glutamate decarboxylase 65 Ab [Units/volume] in Serum GLUTAMIC AC DECARBOXYLASE AB Lab Routine Gastroparesis Expected: 02/18/2023, Expires: 05/20/2023 [facility] Work Phone: Comment on above: Expected: 02/18/2023, Expires: Start: 02-18-2023 End: 05-20-2023 Hemoglobin A1c in Blood HGB A1C Lab Routine Gastroparesis Expected: 02/18/2023, Expires: 05/20/2023 [facility] Work Phone: Comment on above: Expected: 02/18/2023, Expires: 4 Start: 02-18-2023 End: 05-20-2023 IgA [Mass/volume] in Serum or Plasma IGA BLD Lab Routine Gastroparesis Expected: 02/18/2023, Expires: 05/20/2023 [facility] Work Phone: Comment on above: Expected: 02/18/2023, Expires: Start: 02-18-2023 End: 05-20-2023 IgG [Mass/volume] in Serum or Plasma IGG Lab Routine Gastroparesis Expected: 02/18/2023, Expires: 05/20/2023 [facility] Work Phone: Comment on above: Expected: 02/18/2023, Expires: 4 Start: 02-18-2023 End: 05-20-2023 IgM [Mass/volume] in Serum or Plasma IGM Lab Routine Gastroparesis Expected: 02/18/2023, Expires: 05/20/2023 [facility] Work Phone: Comment on above: Expected: 02/18/2023, Expires: Start: 02-18-2023 End: 05-20-2023 Lactate dehydrogenase [Enzymatic activity/volume] in Serum or Plasma LD LACTATE DEHYDRO Lab Routine Gastroparesis Expected: 02/18/2023, Expires: 05/20/2023 [facility] Work Phone: Comment on above: Expected: 02/18/2023, Expires: 4 Start: 02-18-2023 End: 05-20-2023 ORGANIC ACIDS UR, QUANT W/CONSULTATION ORGANIC ACIDS UR, QUANT W/CONSULTATION Lab Routine Gastroparesis Expected: 02/18/2023, Expires: 05/20/2023 [facility] Work Phone: Comment on above: Expected: 02/18/2023, Expires: Start: 02-18-2023 End: 05-20-2023 PYRUVATE+LACTATE BL PYRUVATE+LACTATE BL Lab Routine Gastroparesis Expected: 02/18/2023, Expires: 05/20/2023 [facility] Work Phone: Comment on above: Expected: 02/18/2023, Expires: Start: 02-18-2023 End: 05-20-2023 Thyrotropin [Units/volume] in Serum or Plasma TSH BLD Lab Routine Gastroparesis Expected: 02/18/2023, Expires: 05/20/2023 [facility] Work Phone: Comment on above: Expected: 02/18/2023, Expires: 4 Start: 02-18-2023 End: 05-20-2023 Thyroxine (T4) free [Mass/volume] in Serum or Plasma T4 FREE/FREE THYROX Lab Routine Gastroparesis Expected: 02/18/2023, Expires: 05/20/2023 [facility] Work Phone: Comment on above: Expected: 02/18/2023, Expires: 4 Start: 02-18-2023 End: 05-20-2023 VOLTAGE GATED CA IGG VOLTAGE GATED CA IGG Lab Routine Gastroparesis Expected: 02/18/2023, Expires: 05/20/2023 [facility] Work Phone: Comment on above: Expected: 02/18/2023, Expires: Start: 02-18-2023 End: 05-20-2023 Voltage-gated potassium channel Ab [Moles/volume] in Serum VOLTAGE-GATED POTASSIUM MAHAN AB Lab Routine Gastroparesis Expected: 02/18/2023, Expires: 05/20/2023 [facility] Work Phone: Comment on above: Expected: 02/18/2023, Expires: Start: 11-14-2022 Covid-19 Vaccine () Covid-19 Vaccine () [facility] Start: 07-15-2022 Egd insert guide wire dilator passage esophagus EGD GUIDE WIRE INSERTION [facility] Start: 07-15-2022 Egd transoral biopsy single/multiple EGD BIOPSY SINGLE/MULTIPLE [facility] Start: 07-15-2022 Patient discharge [facility] Start: 04-29-2022 Biopsy liver needle percutaneous NEEDLE BIOPSY OF LIVER [facility] Start: 04-29-2022 Following clinical pathway protocol [facility] Start: 04-29-2022 Catheterization of vein [facility] Start: 04-29-2022 Oxygen therapy [facility] Start: 04-29-2022 Patient discharge [facility] Start: 04-29-2022 Vital signs measurements [facility] Start: 03-16-2022 Depression Assessment Depression Assessment [facility] Start: 2018 Lipid panel LIPID SCREENING [facility] Start: 2018 Mammography Mammogram Screening [facility] Start: 2018 Screening for malignant neoplasm of breast [facility] Start: 2008 HPV Testing HPV Testing [facility] Start: 2008 Screening for malignant neoplasm of cervix HPV Testing [facility] Start: 07-21-1999 Pap Testing Pap Testing [facility] Start: 07-21-1999 Screening for malignant neoplasm of cervix [facility] Start: 1996 Hepatitis C Screening Hepatitis C Screening [facility] Start: 1996 Hepatitis C screening Hepatitis C Screening [facility] Start: 1996 HIV Screening HIV Screening [facility] Start: 1996 HIV screening HIV Screening [facility] Start: 1993 HIV screening HIV SCREENING DISCUSSION [facility] Start: 1978 Hepatitis C screening HEPATITIS C VIRUS SCREENING [facility] Start: 1978 Potassium [Moles/volume] in Serum or Plasma POTASSIUM [facility] [id number]. samantha or marker [Units/volume] in Serum or Plasma [facility] Cancer antigen 19-9 measurement [facility] CBC W Auto Different ial panel - Blood [facility] End: 07-02-2024 CHEM 6 (LYTES, BUN CREA) CHEM 6 (LYTES, BUN CREA) Lab Routine PSC (primary sclerosing cholangitis) Every 12 Weeks for 6 Occurrences starting 07/03/2023 until 07/02/2024 [facility] Comment on above: Every 12 Weeks for 6 Occurrences startin g 07/03/2023 until 07/02/2024 End: 07-01-2025 CHEM 6 (LYTES, BUN CREA) CHEM 6 (LYTES, BUN CREA) Lab Routine PSC (primary sclerosing cholangitis) Choledochal cyst Every 12 Weeks for 6 Occurrences starting 07/01/2024 until 07/01/2025 [facility] Comment on above: Every 12 Weeks for 6 Occurrences startin g 07/01/2024 until 07/01/2025 End: 07-02-2024 Complete blood count with white cell differential, automated CBC, EDIF, PLATELET Lab Routine PSC (primary sclerosing cholangitis) Every 12 Weeks for 6 Occurrences starting 07/03/2023 until 07/02/2024 [facility] Comment on above: Every 12 Weeks for 6 Occurrences startin g 07/03/2023 until 07/02/2024 End: 07-01-2025 Complete blood count with white cell differential, automated CBC, EDIF, PLATELET Lab Routine PSC (primary sclerosing cholangitis) Choledochal cyst Every 12 Weeks for 6 Occurrences starting 07/01/2024 until 07/01/2025 [facility] Comment on above: Every 12 Weeks for 6 Occurrences startin g 07/01/2024 until 07/01/2025 Comprehensive metabo lic 1999 panel - Serum or Plasma [facility] End: 07-02-2024 Hepatic function 1999 panel - Serum or Plasma HEPATIC FUNCTION PANEL Lab Routine PSC (primary sclerosing cholangitis) Every 12 Weeks for 6 Occurrences starting 07/03/2023 until 07/02/2024 [facility] Comment on above: Every 12 Weeks for 6 Occurrences startin g 07/03/2023 until 07/02/2024 End: 07-01-2025 Hepatic function 2000 panel - Serum or Plasma HEPATIC FUNCTION PANEL Lab Routine PSC (primary sclerosing cholangitis) Choledochal cyst Every 12 Weeks for 6 Occurrences starting 07/01/2024 until 07/01/2025 [facility] Comment on above: Every 12 Weeks for 6 Occurrences startin g 07/01/2024 until 07/01/2025 Lab findings surveillance [facility] Patient Education RAD RN Image-G uided Biopsy RAD RN Biopsy Liver Dc RAD RN Procedural Sedation [facility] Work Phone: Patient referral [facility] Work Phone: Prothrombin time [facility] End: 07-02-2024 PROTIME-INR PROTIME-INR Lab Routine PSC (primary sclerosing cholangitis) Every 12 Weeks for 6 Occurrences starting 07/03/2023 until 07/02/2024 [facility] Comment on above: Every 12 Weeks for 6 Occurrences startin g 07/03/2023 until 07/02/2024 End: 07-01-2025 PROTIME-INR PROTIME-INR Lab Routine PSC (primary sclerosing cholangitis) Choledochal cyst Every 12 Weeks for 6 Occurrences starting 07/01/2024 until 07/01/2025 [facility] Comment on above: Every 12 Weeks for 6 Occurrences startin g 07/01/2024 until 07/01/2025 Thyroid stimulating hormone measurement [facility] Vitamin D, 25-hydrox y measurement [facility] Immunizations Immunization Date Immunization Notes Care Provider [facility] 01-28-2024 influenza, seasonal, injectable, preservative free Dr. Wilbert Esparza MD Work Phone: [facility] 02-02-2023 influenza, injectabl e, quadrivalent, preservative free Dr. Wilbert Esparza Work Phone: [facility] 02-02-2023 influenza virus vaccine, unspecified formulation Roland Ruiz MD Work Phone: [facility] 02-21-[address] Covcolin [address] nt Bo[address] Wilbert Esparza Work Phone: [facility] 01-01-2022 influenza, injectabl e, quadrivalent, preservative free Dr. Wilbert Esparza Work Phone: [facility] 01-01-2022 influenza, seasonal, injectable Dr. Wilbert Esparza Work Phone: [facility] 01-16-2021 influenza, injectabl e, quadrivalent, preservative free Dr. Wilbert Esparza Work Phone: [facility] 01-16-2021 influenza, seasonal, injectable Dr. Wilbert Esparza Work Phone: [facility] 04-11-2020 Covid (Moderna) Dr. Becerra [facility] Work Phone: [facility] 03-14-2020 Belindaid (Moderna) Dr. Wilbert Najera Work Phone: [facility] 01-19-2020 influenza, injectabl e, quadrivalent, preservative free Dr. Wilbert Esparza Work Phone: [facility] 01-19-2020 influenza, seasonal, injectable Dr. Wilbert Esparza Work Phone: [facility] 01-24-2019 influenza, injectabl e, quadrivalent, preservative free Dr. Wilbert Esparza Work Phone: [facility] 01-24-2019 influenza, seasonal, injectable Dr. Wilbert Esparza Work Phone: [facility] 12-28-2017 influenza, injectabl e, quadrivalent, preservative free Dr. Wilbert Esparza Work Phone: [facility] 12-28-2017 influenza, seasonal, injectable Dr. Wilbert Esparza Work Phone: [facility] 01-26-2017 influenza, injectabl e, quadrivalent, preservative free Dr. Wilbert Esparza Work Phone: [facility] 01-26-2017 influenza, seasonal, injectable Dr. Wilbert Esparza Work Phone: [facility] 12-13-2015 influenza, injectabl e, quadrivalent, preservative free Dr. Wilbert Esparza Work Phone: [facility] 12-13-2015 influenza, seasonal, injectable Dr. Wilbert Esparza Work Phone: [facility] 12-28-2014 influenza, injectabl e, quadrivalent, preservative free Dr. Wilbert Esparza Work Phone: [facility] 12-28-2014 influenza, seasonal, injectable Dr. Wilbert Esparza Work Phone: [facility] 12-01-2013 influenza, injectabl e, quadrivalent, preservative free Dr. Wilbert Esparza Work Phone: [facility] 12-01-2013 influenza, seasonal, injectable Dr. Wilbert Esparza Work Phone: [facility] 03-24-[address] Wilbert Esparza Work Phone: [facility] Payers Date Payer Category Payer Self-pay [id number] 2023 Managed Care (unspecified) [employer] [id number] 2022 Private Health Insurance [id number] 2022 Unknown [id number] 2013 Unknown [id number] 1978 Unknown [id number] 2.16.840.1.212471.3.579.2. 594 1978 Unknown [id number] 2.16.840.1.307281.3.579.2. 594 1978 Unknown [id number] 2.16.840.1.553293.3.579.2. 594 1978 Unknown [id number] 2.840.1.169942.3.579.2. 594 1978 Unknown [id number] 2..840.1.679292.3.579.2. 594 1978 Unknown [id number] 2.840.1.002186.3.579.2. 594 1978 Unknown [id number] 2.840.1.546645.3.579.2. 594 1978 Unknown [id number] 2.840.1.869929.3.579.2. 594 1978 Unknown [id number] 2.840.1.776619.3.579.2. 594 Unknown [id number] 2.840.1.314313.3.579.2. 462 Unknown [id number] 2.840.1.098650.3.579.2. 462 Unknown [id number] 2.840.1.050084.3.579.2. 462 Unknown [id number] 2.840.1.231664.3.579.2. 462 Unknown [id number] 2.840.1.253962.3.579.2. 462 Unknown [id number] 2.16.840.1.558934.3.579.2. 462 Unknown [id number] 2.16840.1.369813.3.579.2. 462 Unknown [id number] 2.16840.1.176104.3.579.2. 462 Unknown [id number] 2.840.1.118875.3.579.2. 462 Unknown [id number] 2.16.840.1.118833.3.579.2. 462 Unknown [id number] 2.16.840.1.629904.3.579.2. 462 Unknown [id number] 2.16.840.1.182706.3.579.2. 462 Unknown [id number] 2.16.840.1.253842.3.579.2. 462 Unknown [id number] 2.16.840.1.213615.3.579.2. 462 Unknown [id number] 2.16.840.1.020343.3.579.2. 462 Unknown [id number] 2.16.840.1.914690.3.579.2. 462 Unknown [id number] 2.16.840.1.834927.3.579.2. 462 Unknown [id number] 2.16840.1.853432.3.579.2. 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 (finding) [facility] Start: 02-18-2023 End: 02-25-2024 History of Social function [facility] Start: 02-18-2023 End: 02-25-2024 Area Deprivation Index [facility] National Score (1-100), lower number is lower risk 59 [facility] Start: 1980 Sex Assigned At Not on file [facility] Start: 09-03-2023 End: 08-23-2024 Alcoholic beverage intake Lifetime non-drinker (finding) [facility] Start: 07-03-2023 End: 05-25-2024 Sex Female (finding) [facility] Start: 06-24-2024 Gender identity Identifies as female gender (finding) [facility] Start: 06-24-2024 Sexual orientation Heterosexual (fin ding) [facility] NEGATED: Highlighted row [facility] NEGATED: Highlighted rowStart: NINF History of tobacco use Passive smoker [facility] Goals Date Patient Goal Desired Activity /State Mental Status Date Assessment Result Facility 07-15-2022 Cognitive function Level Of Consciousness Sedated [facility] Work Phone: 07-15-2022 Cognitive function Voice/Name [facility] Work Phone: 04-29-2022 Cognitive function Voice/Name [facility] Work Phone: Clinical Notes 07-15-2022 to 08-17-2024 Marika Emmanuel - 07/01/2024 9:00 AM EDTAGUSTINA Germain - 07/01/2024 9:00 AM EDT Note Date & Type Note Facility 08-17-2024 Radiology Diagnostic study note [facility] [address] [place], [place] [id number] Pelvic w/ Transvaginal MR#: [id number] Acct: [id number] Name: JARAD AVALOS LOUISE Rep #: [id number] : 1980 F 44 From: Zuly Bowens MD PCP: Dr. Wilbert Esparza MD Status: REG CLI Study:Pelvic w/ Transvaginal Date of Exam: 08/16/24 Exam# [id number] Ordering Dr: Elvia Guthrie [employer]USTRI[employer]INTER[employer]C PROCEDURE: PELVIC W/ TRANSVAGINAL 08/16/2024 REASON FOR EXAM: ELEVATED TESTOSTERONE--OVARIAN CONCERN. TECHNIQUE: Transabdominal and transvaginal pelvic ultrasound. Color doppler analysis of the ovaries. COMPARISON: None. FINDINGS: Measurements: Uterus: 8.9 x 3.8 x 6.5 cm for volume of 114.1 mL Endometrial Thickness: Not well visualized due to the prominent vessels Right Ovary: 2.6 x 1.2 x 2.6 cm for volume of 4.3 mL. Left Ovary: Not well visualized due to shadowing bowel gas Uterus: Retroverted. There is an anechoic avascular lesion in the lower uterinesegment measuring 2.8 x 2.2 x 2.4 cm.. There are prominent myometrial vessels throughout the uterus. Right ovary: Normal size and echotexture. Left ovary: Not well visualized due to shadowing bowel gas Cul-de-sac: No free intraperitoneal fluid identified. Color Doppler: Normal color flow doppler signal in the right ovary. US/Pelvic w/ Transvaginal IMPRESSION: 1. Numerous prominent myometrial vessels, as can be seen with enhanced myometrial vascularity or pelvic congestion syndrome. Correlate with symptoms. 2. Cystic lesion near the cervix measuring up to 2.8 cm, likely a nabothian cyst. 3. Poor visualization of the endometrium and left ovary. Unremarkable right ovary. Reading Location: [facility] CC: ALFONSO Guthrie; Dr. Wilbert Esparza MD ~ Legal Billing Analyst: Signed [facility] [facility] 07-01-2024 History of Present illness Narrative This typewriter ribbon winder verified the patient's name and . -Referring Provider for today's consult: Self, Self -Primary Care Provider: Wilbert Esparza History of Present Illness Jarad Avalos is a 43 y.o. female who presents to the [facility] today for follow-up. I have reviewed her extensive medical, surgical, family and social history and have updated medication and allergy information in the computerized patient record. 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 MRI in 02/2024 showed no PSC and no cirrhosis. Patient reports no acute complaints in clinic today. Patient denies ascites, LE edema, SOB, hematemesis, melena, BRBPR, confusion, forgetfulness or reversal in sleep wake cycle. Medications Outpatient Medications Prior to Visit: Baclofen 5 MG tablet, Take 1 tablet by mouth as needed. busPIRone 5 MG tablet, Take 1 tablet by mouth 2 times daily. Fexofenadine (Willow Allergy) 180 MG tablet, Take 1 tablet by mouth daily. Multiple Vitamins-Minerals (WOMENS MULTI VITAMIN & MINERAL PO), Take 1 tablet by mouth daily. Pantoprazole [address] tablet DR, Take 1 tablet by mouth daily. Psyllium (Metamucil) 28.3 % Powder, Take 1 Dose by mouth daily. 1 dose = 1 tbsp Spironolactone 25 MG tablet, Take 1 tablet by mouth daily. Valacyclovir 1 g tablet, Take 1 tablet by mouth 2 times daily as needed for Other (cold sores). Vyvanse 20 MG capsule, Take 1 capsule by mouth daily every morning. Allergies Biaxin [clarithromycin], Latex, and Levofloxacin Review of Systems Constitutional: Negative. HENT: Negative. Cardiovascular: Negative. Musculoskeletal: Negative. Psychiatric: Negative. Lymph/Heme: Negative. Physical Exam vitals were not taken for this visit. There is no height or weight on file to calculate BMI. Constitutional: Breathing easily, in no acute distress. Does not appear cachectic. Head: Normocephalic. Mouth/Throat: Oropharynx is clear and moist. Eyes: No scleral icterus. Neck: Neck supple. Cardiovascular: Normal rate and regular rhythm. Pulmonary/Chest: Breath sounds normal. Abdominal: Soft. No distension and no ascites. Musculoskeletal: No LE edema. Lymphadenopathy: No cervical adenopathy. Neurological: Alert and oriented to person, place, and time. No asterixis Skin: Does not appear jaundiced. Laboratory Evaluation I have reviewed her pertinent laboratory data in the computerized patient record. No results found for: ALT, TRANSFERASEA, AST, GGT, GAMMAGT, ALKPHOS, BILITOTAL, BILIDIRECT Assessment and Plan Ms. 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 She also has h/o gastroparesis. 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 According to her, LFs were abnormal in 2021. In Apr 2022 she underwent liver bx for abnormal LFTs. Prior to that she had MRCP which showed features of PSC. Liver bx in 04/2022 showed hepatocytes with focal mild macrovascular steatosis. Portal areas are unremarkable. No significant portal or lobular inflammation. Trichrome stain does not show significant increased portal or jocelynn-portal fibrosis. Conclusion: liver parenchyma tissue with focal mild macrovesicular steatosis. She had EGD in the past and diagnosed with gastroparesis and Schatzki's ring. Started on PPI. SHe also had a colonoscopy 4-5 yrs ago which according to her was unremarkable. She has no other medical issues. No family h/o liver disease. She has no h/o smoking and drinking. She has two tattoos last week. 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 They have two sons (18 and 15 yrs). Labs from 04/2023: LFTs, CA19-9 WNL. Since last clinic visit in 06/2023: work up for other cause of liver disease was negative. In 08/2023: OSH MRI ABD w/ contrast from 07/27/23 was discussed in our tumor bord. 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 No features of cirrhosis. Tumor board advised referral to surgery for choledochal cyst management . - Seen by Dr. Ruiz in 02/2024: Given stability in size and the magnitude of surgery necessary for resection, will continue active surveillance per our previous conversations and tumor board discussion. F/up in 6 months with MRI. - MRI in 02/2024: Cystic structure in the kate hepatis, near the confluence of the right and left hepatic ducts, measures approximately 1.5 cm x 1.1 cm (series 8, image 35), previously 2.0 x 1.5 cm. - Labs including LFTs from 04/2024: WNL Today, she is accompanied with her for 23 yrs. She has no active complaints, however she feels full in RUQ. Her BM and urine are OK. Plan - Discussed about the suspected PSC without cirrhosis on early MRI without contrast. Recent MRI with contrast in 02/2024 donot show any features of PSC. Liver bx (2021) also donot support PSC and no fibrosis. Also discussed about improvement in size of choledochal cyst from 2 cm to 1.5 cm and f/up with Dr. Ruiz. Plan to get f/up MRI/MRCP as advised by Dr. Ruiz. - Labs every 3 monthly - MRI in 08/2024 as scheduled - Follow with Dr. Ruiz - Over 30 minutes of time in this encounter, with over 50% of that time dedicated to [id number] counseling. I spent 30 minutes before and after clinic reviewing lab, radiologic, endoscopic and pathologic records. - Discussed about the choledochal cyst. Informed that she has no features of PSC or cirrhosis on MRI. - In addition, I would recommend vaccination against hepatitis A and B. I recommend lifelong abstinence from alcohol and tobacco. I would strictly avoid using NSAIDs for pain control given their risk for mucosal ulceration, bleeding and nephrotoxicity. For pain, I recommend acetaminophen, up to but not exceeding 2,000 mg daily. - RTC in as needed Note to patient: The Cures Act makes medical notes like these available to patients in the interest of transparency. However, be advised this is a medical document. It is intended as peer to peer communication. It is written in medical language and may contain abbreviations or verbiage that are unfamiliar. It may appear blunt or direct. Medical documents are intended to carry relevant information, facts as evident, and the clinical opinion of the practitioner. Hayes BERRIOS, MSc Professor-Clinical Medicine Department of Medicine [facility], [place], [place] documented in this encounter [facility] 05-31-2024 Evaluation note Diagnosis Onset Date Resolution Gastroparesis chronic May 31, 2024 8:05am PSC (primary sclerosing cholangitis) chronic May 31, 2024 8:05am [facility] Work Phone: 1(433) 542-473103-18-2025 Evaluation note* Diagnosis Onset Date Resolution Status Admit Date Gastroparesis chronic May 31, 2024 8:05am PSC (primary sclerosing cholangitis) chronic May 31, 2024 8:05am Hot flashes acute June 09, 2 025 10:23am Gastroparesis chronic June 09, 2024 10:23am [facility] Work Phone: 1(346) 415-991910-22-2024 History of Present illness Narrative* Kayla Oviedo - 01/05/2024 9:30 AM EDT Patient has verified full name and . * Abena Zuniga APRN-APPLICATION CONSULTANT - 01/05/2024 9:30 AM EDT Images from the original note were not included. CLINICAL CARE TEAM: -Referring Provider for today's consult: Abena Zuniga APRN-* -Primary Care Provider: Wilbert Esparza HISTORY OF PRESENT ILLNESS: Jarad Avalos is a 43 y.o. female who presents to the [facility] today for follow-up. I have reviewed her medical, surgical, and social history and have updated medication and allergyinformation in the computerized patient record. 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 She also has h/o gastroparesis. 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 According to her, LFTs were abnormal in 2021. In Apr 2022 she underwent liver bx for abnormal LFTs.Prior to that she had MRCP which showed features of PSC. Liver bx in 04/2022 showed hepatocytes with focal mild macrovascular steatosis. Portal areas are unremarkable. No significant portal or lobular inflammation. Trichrome stain does not show significant increased portal or jocelynn-portal fibrosis. Conclusion: liver parenchyma tissue with focal mild macrovesicular steatosis. She had EGD in the past and diagnosed with gastroparesis and Schatzki's ring. Started on PPI. She also had a colonoscopy 08/2023 which was unremarkable, repeat in 10 years. She has no other medical issues. No family h/o liver disease. She has no h/o smoking and drinking. She has two tattoos. 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 They have two sons. MELISA was with Dr. Carreon on 07/03/2023. Jarad Avalos is doing well. Denies any recent ER visits or hospitalizations. Appetite is good, moving her bowels without issues. Denies any swelling in BLE or abd distention. Otherwise, she denies any recent fevers, chills, night sweats, unexpected weight loss, chest pain, shortness of breath, nausea, vomiting, abdominal pain, diarrhea, constipation, melena, hematochezia. PAST MEDICAL, SURGICAL, FAMILY, & SOCIAL HISTORY: Past Medical History: Diagnosis Date ADD (attention deficit disorder) Anxiety Gastroparesis GERD (gastroesophageal reflux disease) No GERD just gastroparesis diagnosed 2022 Primary sclerosing cholangitis Past Surgical History: Procedure Laterality Date COLONOSCOPY W/ BX 08/21/2023 EGD DIAGNOSTIC 08/21/2023 SECTION x 2 EVALUATION ABSCESS/FISTULA/SINUS TRACT anorectal fistula repair x 3 OTHER SURGICAL removed cyst under chin/neck area as a child TONSILLECTOMY TUBAL LIGATION Family History Problem Relation Age of Onset Hypertension Mother Hypertension Father No known problems Sister No known problems Sister No known problems Sister No known problems Sister Breast Cancer Maternal Grandmother Multiple areas of metastasis unsure of primary Aneurysm Maternal Grandfather Diabetes Paternal Grandmother Heart Failure Paternal Grandmother Myocardial Infarction Paternal Grandfather Sudden Cardiac Paternal Grandfather No known problems Son No known problems Son Social History Socioeconomic History Marital status: Tobacco Use Smoking status: Never Passive exposure: Never Smokeless tobacco: Never Vaping Use Vaping status: Never Used Substance and Sexual Activity Alcohol use: Never Drug use: Never Sexual activity: Yes Partners: Male control/protection: Surgical, Tubal Ligation Comment: Uterine ablation/ one partner my spouse Other Topics Concern Occupational Exposure 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 busPIRone 5 MG tablet Take 1 tablet by mouth 3 times daily. Fexofenadine (Willow Allergy) 180 MG tablet Take 1 tablet by mouth daily. Multiple Vitamins-Minerals (WOMENS MULTI VITAMIN & MINERAL PO) Take 1 tablet by mouth daily. Pantoprazole [address] tablet DR Take 1 tablet by mouth daily. Psyllium (Metamucil) 28.3 % Powder Take 1 Dose by mouth daily. 1 dose = 1 tbsp Spironolactone 25 MG tablet Take 1 tablet by mouth daily. Valacyclovir 1 g tablet Take 1 tablet by mouth 2 times daily as needed for Other (cold sores). Vyvanse 20 MG capsule Take 1 capsule by mouth daily every morning. ALLERGIES: Biaxin [clarithromycin], Latex, and Levofloxacin PHYSICAL EXAM: BP 102/82 (BP Location: Left arm, BP Position: Sitting) Pulse 80 Ht 1.562 m (5' 1.5) Wt 56.5kg (124 lb 9.6 oz) SpO2 98% BMI 23.16 kg/m Smoking Status Never Constitutional: Breathing easily, in no acute distress. Does not appear cachectic. HEENT: PER, neg scleral icterus, normal appearing oropharynx, no appreciable cervical LAD Cardiovascular: Normal rate and regular rhythm. Pulmonary/Chest: Breath sounds normal. Abdominal: Soft. NT/ND. No appreciable HS. Extrem: No appreciable edema. No gross focal motor deficits in distal extrem. Neurological: AOx3. No asterixis Skin: Does not appear jaundiced. REVIEW OF SYSTEMS; otherwise full ROS was reviewed and was otherwise negative Review of Systems Constitutional: Negative. HENT: Negative. Cardiovascular: Negative. Musculoskeletal: Negative. Psychiatric: Negative. Lymph/Heme: Negative. LABORATORY EVALUATION: I have reviewed her pertinent laboratory data in the computerized patient record. No results found for: PT, INR, PLATELET, WBC, HGB, POTASSIUM, BUN, CREATSERUM, GFR No results found for: ALT, TRANSFERASEA, AST, GGT, GAMMAGT, ALKPHOS, BILITOTAL, BILIDIRECT MRI ABD 11/24/2023 IMPRESSION: 1. Focal T2 hyperintense area at the kate hepatis seen in close relation with the common hepatic duct and the cystic duct. This could represent a focally dilated cystic duct or a choledochal cyst probably arising from the common hepatic duct. Possibility of an exophytic simple liver cyst along theporta hepatis cannot be totally excluded 2. No gallstones or biliary ductal dilatation in the remainder of the intra and extrahepatic ducts. No MR evidence to suggest holedocholithiasis. 3. Possible mild background hepatic steatosis. No morphological features of cirrhosis. No enhancingfocal liver lesions or areas of washout in the liver. Patent portal vein 4. No upper abdominal ascites or lymphadenopathy by size criteria 5. Punctate T2 bright focus in the pancreatic head could represent an ectatic side branch or a small cystic lesion 6. Additional ancillary findings as described above Colonoscopy 08/21/2023 EGD 08/21/2023 Computed MELD 3.0 unavailable. One or more values for this score either were not found within the given timeframe or did not fit some other criterion. Computed MELD-Na unavailable. One or more values for this score either were not found within the given timeframe or did not fit some other criterion. ASSESSMENT AND PLAN: Jarad Avalos is a 43 y.o. 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 Plan Labs every 3 months as previously ordered. I would recommend ongoing screening for HCC with abdominal imaging in conjunction with serum AFP. MRI ordered by Surg Onc and scheduled 02/22/2024. AFP and Ca 19-9 ordered. Reviewed EGD and Colonoscopy. Discussed about the complications of PSC including cirrhosis, daily management, and indications/contraindications and timing of Liver Transplant evaluation. I discussed my impression and plan with the patient. The patient had the opportunity to ask all questions regarding their condition and answered those questions to the best of my ability Discussion with patient and /or family with regards to: Diagnostic results and or recommended studies Risks and benefits of management or treatment options Important of compliance with chosen treatment Risk factor reduction Patient and family education FOLLOW-UP -For follow up, she will return to Dr. Menjivar's clinic in 6 months. Thank you for allowing me to participate in the care of Jarad Avalos. BELLO Xei Hepatology Nurse Practitioner Division of Gastroenterology, Hepatology, and Nutrition [facility] of Present illness Narrative* BELLO Berrios, DNP - 12/03/2023 1:30 PM EDT Chief Complaint: Follow up choledochal cyst History of Present Illness: Ms. Avalos is a 43 y.o. female with a choledochal cyst. She presents to [facility] clinic for surveillance. History: Jarad Avalos initially presented with RUQ pressure and abnormal LFTs noted on routine lab work. 04/24/2023 MRI OSH: stable 1.8 cm choledochal cyst in the common hepatic duct 07/27/2023 MRI OSH: Difficult to evaluate previously described choledochal cyst and primary sclerosing cholangitis without MRCP sequences. Questionable slightly nodular liver contour, unchanged since prior. No arterially hyperenhancing or delayed washout lesions. 07/30/2023 AFP OSH: <1.8 08/21/2023 endoscopy and colonoscopy: reported as nl 11/24/2023 MRI [facility]: Slightly prominent cystic T2 bright focus is noted close to the kate hepatis measuring 2 x 1.5 cm in size Previous abdominal surgeries: - low, transverse Blood thinners: none Colonoscopy: 2015, 08/21/2023- repeat in 10 years Interval History: Ms. Avalos is here today with her and her parents for her appointment. She complains of chronic pressure RUQ abdomen. Review of Systems: General ROS: negative for - chills, fatigue, fever, or weight loss Cardiovascular ROS: no chest pain or dyspnea on exertion Respiratory ROS: no cough, shortness of breath, or wheezing Gastrointestinal ROS: positive for - abdominal pressure RUQ negative for - appetite loss, constipation, diarrhea, or nausea/vomiting Dermatological ROS: negative Physical Exam: Wt Readings from Last 3 Encounters: 09/03/23 56.8 kg (125 lb 3.2 oz) 07/03/23 56.2 kg (123 lb 12.8 oz) Smoking Status Never General: alert, cooperative, no distress, appears stated age Radiographic evaluation: MRI 11/24/2023: FINDINGS: Lung Bases: Visualized lung bases reveal no definite focal abnormalities in the lower lobes. No pleural or pericardial effusion. No hiatal hernia Visualized cardiomediastinal structures are without focal abnormalities Liver: Liver is normal in size and morphology. Liver outlines are smooth. There are no suspicious discrete T1 or T2 bright focal liver lesions. Subtle signal loss in the liver parenchyma likely relates to background steatosis Portal vein is patent. No intrahepatic biliary ductal dilatation. No perihepatic fluid or collection is seen On the post gadolinium sequences, heterogeneous arterial enhancement is seen in the liver parenchyma without discrete focal hypervascular liver lesions. No clear enhancing liver lesions or areas of washout on the portal venous or the delayed phase images. Main portal vein and its branches are patent. No intrahepatic biliary ductal dilatation. No perihepatic ascites Gallbladder: Gallbladder is distended and folded with no discrete calcified stones or filling defects. Slightly prominent cystic T2 bright focus is noted close to the kate hepatis measuring 2 x 1.5 cm in size on image 45 series 9. This could represent a focally dilated cystic duct or choledochal cyst arising from the common hepatic duct.. No internal filling defects are seen. This appears more conspicuous than the prior comparison studies, previously measured approximately 1.1 x 0.8 cm No GB wall thickening or pericholecystic inflammation. Bile Ducts: Common bile duct is nondilated. No MR evidence to suggest choledocholithiasis Spleen: Spleen is normal in size and signal characteristics. No suspicious focal splenic lesions. Splenic vascular pedicle is patent with no perisplenic fluid or collections. Pancreas: Pancreas shows a punctate T2 bright focus in the pancreatic head which could represent an ectatic side branch measuring up to 3 mm in size on image 71 series 14. Main pancreatic duct is nondilated. There are no peripancreatic inflammatory changes or fluid collections. Adrenals: Both adrenal glands are unremarkable Right Kidney: Right kidney shows normal size and enhancement characteristics. No calculus or hydronephrosis. No definite right renal mass or perinephric collection Left Kidney: Left kidney shows normal size and enhancement characteristics. No calculus or hydronephrosis. No definite focal left renal mass lesions or perinephric collection Gastrointestinal: Stomach is distended with fluid and food residue limiting detailed evaluation. No hiatal hernia. The visualized small bowel loops are grossly unremarkable and nonobstructed. No mesenteric mass or adenopathy is seen. Mild to moderate fecal residue is noted within the colonic loops limiting detailed evaluation. No gross colonic mass or paracolic inflammation is seen. Peritoneum/retroperitoneum: No ascites. No loculated fluid collections in the abdomen or pelvis Lymph nodes: No enlarged or morphologically abnormal lymph nodes in the upper abdomen or retroperitoneum. Vasculature: The abdominal aorta is normal in course and caliber. Patent celiac and superior mesenteric arteries. Patent portal, splenic, and superior mesenteric veins. Renal veins and IVC are patent Body Wall: Diastasis of the rectus muscles with a small umbilical hernia containing fat Bones: Normal for patient age. No aggressive lesion. No focal osseous abnormalities IMPRESSION: 1. Focal T2 hyperintense area at the kate hepatis seen in close relation with the common hepatic duct and the cystic duct. This could represent a focally dilated cystic duct or a choledochal cyst probably arising from the common hepatic duct. Possibility of an exophytic simple liver cyst along the kaet hepatis cannot be totally excluded 2. No gallstones or biliary ductal dilatation in the remainder of the intra and extrahepatic ducts. No MR evidence to suggest choledocholithiasis. 3. Possible mild background hepatic steatosis. No morphological features of cirrhosis. No enhancing focal liver lesions or areas of washout in the liver. Patent portal vein 4. No upper abdominal ascites or lymphadenopathy by size criteria 5. Punctate T2 bright focus in the pancreatic head could represent an ectatic side branch or a small cystic lesion 6. Additional ancillary findings as described above Assessment Ms. Avalos is a 43 y.o. female with a choledochal cyst. MRI stable today, pancreas cystic lesion present. Will discuss at pancreas tumor board and plan to see her back after MRI/MRCP in 3 months. Plan Patient seen and evaluated by myself and Dr. Ruiz, all available relevant imaging and labs reviewed, and the plan was developed collaboratively. Discuss at pancreas review board on 12/15 MRI/MRCP in 3 months Telephone visit with Dr. Ruiz 1 week after MRI Orders Placed This Encounter MRI ABDOMEN WITH AND WITHOUT CONTRAST All questions were answered to the patient's satisfaction. She was instructed to call the office ifthey had further questions. Total time APPLICATION CONSULTANT spent prior to patient visit obtaining and reviewing records, and with patient reviewing HPI, pertinent medical, surgical and social history and conducting physical exam: 15 minutes. Amita Caldwell DNP, PHYSICAL TESTING SUPERVISOR-APPLICATION CONSULTANT Nurse Practitioner, GI Surgical Oncology Attending Physician Note I interviewed and examined this patient with the INDUSTRIAL PAINTER/fellow/resident. I reviewed the history and exam detailed in the note and have edited it as necessary. I agree with the medical decision making with the following comment(s): MRI good quality but still unclear etiology of cyst: could be choledochal cyst at the confluence or simple hepatic cyst. Would lean toward conservative management but will discuss at pancreatobiliary tumor board and call with update. Roland Ruiz MD [facility] NoteRequest received for second opinion consultation by Amita Caldwell APRN-[place]. Please review outside slides. Thank you. Preoperative Diagnosis: PSC, PBC, autoimmune hepatitis.[facility] Medical CenterComment on above:Performed By: #### SURGP #### [facility] (DEFAULT) [address] [place], [place] [address]-20-2024 History and physical note* Mariela Guerrier, DO - 09/03/2023 3:00 PM EDT Images from the original note were not included. Chief Complaint: No chief complaint on file. Clinical Care Team: Referring Provider: Hayes Menjivar MBBS Primary Care Provider: Wilbert Esparza History of Present Illness: Ms. Avalos is a 43 y.o. female with a past medical history significant for MVP, anal fistula, ADD, gastroparesis, PSC. 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 She initially presented with RUQ pressure and abnormal LFTs. She underwent liver biopsy in 04/2022 which demonstrated hepatocytes with focal mild macrovascular steatosis without significant portal or jocelynn-portal fibrosis. Patient was recently diagnosed withgastroparesis, but states that she has been able to manage her abdominal pain and nausea by modifying her diet and eating smaller meals. She denies any family history of PSC or liver disease. She denies a personal history of IBD. She denies any recent unexplained weight loss, diarrhea, or constipation. Oncologic History: Jarad Avalos initially presented with RUQ pressure and abnormal LFTs notedon routine lab work. 04/24/2023 MRI OSH: stable 1.8 cm choledochal cyst in the common hepatic duct 07/27/2023 MRI OSH: Difficult to evaluate previously described choledochal cyst and primary sclerosing cholangitis without MRCP sequences. Questionable slightly nodular liver contour, unchanged since prior. No arterially hyperenhancing or delayed washout lesions. 07/30/2023 AFP OSH: <1.8 08/21/2023 endoscopy and colonoscopy: Previous abdominal surgeries: - low, transverse Blood thinners: none Colonoscopy: 2014, 08/21/2023- repeat in 10 years Our team has reviewed all outside records available prior to patient visit. Ms. Avalos is here today with her mother, father, and for her appointment. No past medical history on file. No past surgical history on file. Allergies Allergen Reactions Latex Blisters Cold sore on lips after dental appt. Levofloxacin Abdominal Discomfort and Itching very red hands and feet/ burning/ itching Current Outpatient Medications Medication Sig Dispense Refill Baclofen 5 MG tablet busPIRone 5 MG tablet Pantoprazole [address] tablet Psyllium (Metamucil) 28.3 % Powder Spironolactone 25 MG tablet Valacyclovir 1 g tablet Vyvanse 20 MG capsule No current facility-administered medications for this visit. Social History Socioeconomic History Marital status: Spouse name: Not on file Number of children: Not on file Years of education: Not on file Highest education level: Not on file Occupational History Not on file Tobacco Use Smoking status: Never Passive exposure: Never Smokeless tobacco: Never Substance and Sexual Activity Alcohol use: Not on file Drug use: Not on file Sexual activity: Not on file Other Topics Concern Not on file Social History Narrative Not on file Social Determinants of Health Financial Resource Strain: Not on file Food Insecurity: Not on file Transportation Needs: Not on file Physical Activity: Not on file Stress: Not on file Social Connections: Not on file Intimate Partner Violence: Not on file Housing Stability: Not on file No family history on file. Review of Systems: Systems negative unless noted in BOLD: Consitutional: fever, chills, significant change in weight, fatigue. Cardiovascular: history of heart disease, hypertension, angina, shortness of breath, ankle swelling, palpitations, or heart murmurs. Respiratory: chronic cough, hemoptysis, asthma. Gastrointestinal: anorexia, nausea, vomiting, diarrhea, constipation, melena, hematemesis, abdominal pain, distension, RUQ fullness. Genitourinary: urinary frequency, urgency, hematuria, or dysuria. Musculoskeletal: back pain, bone pain. Integumentary: rashes, hives Neurological: history of dizziness, falling, numbness or tingling of the hands or feet, forgetfulness. Psychiatric: excessive worry, depression Endocrine: history of thyroid disease Hematologic/Lymphatic: history of easy bruising or bleeding. history of blood clots. Physical Exam: Vitals: Smoking Status Never General: The patient is a well developed, well nourished female who appears her stated age of 43 y.o. Neuro/Psych: Her speech patterns and movements are normal. Her affect is appropriate. She is oriented to person, place and time. Recent and remote memory is intact. HEENT: Normocephalic, atraumatic. EOMI. The sclera are anicteric. The mucous membranes are moist. Hearing is grossly intact. Neck: The trachea is in the midline. Neck is supple without lymphadenopathy or thyromegaly. Lungs/Chest: Clear to auscultation bilaterally without wheezes/rales/rhonchi Cardiac: Regular rate and rhythm without murmurs. Abd: Soft, NT/ND. No hepatosplenomegaly, ascites or hernia. Musculoskeletal:Normal range of motion in all four extremities, with normal strength equally and symmetrically. Warm and dry, 2+ peripheral pulses, no edema Lymphatics: There is no suspicious submandibular, cervical, supraclavicular lymphadenopathy. Integumentary: Skin is warm and dry. Flush, pallor and rash absent. ECOG Performance Status: 0 0 - Asymptomatic (Fully active, able to carry on all predisease activities without restriction) 1 - Symptomatic but completely ambulatory (Restricted in physically strenuous activity but ambulatory and able to carry out work of a light or sedentary nature. For example, light housework, office work) 2 - Symptomatic, <50% in bed during the day (Ambulatory and capable of all self care but unable to carry out any work activities. Up and about more than 50% of waking hours) 3 - Symptomatic, >50% in bed, but not bedbound (Capable of only limited self- care, confined to bed or chair 50% or more of waking hours) 4 - Bedbound (Completely disabled. Cannot carry on any self-care. Totally confined to bed or chair) Laboratory evaluation: No results found for: SODIUM, POTASSIUM, CHLORIDE, CO2, BUN, CREATSERUM, GLUCOSE No results found for: WBC, WBCCOUNT, WBCFETAL, HGB, HCT, PLATELET, MCV No results found for: HGBA1C No results found for: ALT, TRANSFERASEA, AST, GGT, GAMMAGT, ALKPHOS, BILITOTAL, BILIDIRECT Tumor Markers: No results found for: CEA, CA199, AFPTMRMKR, CHROMOGRANA, CA125 Radiographic/ Diagnostic evaluation: EGD OSH 08/21/2023: Findings: A moderate Schatzki ring was found at the gastroesophageal junction. Biopsies were taken with a cold forceps for histology. Verification of patient identification for the specimen was done. Estimated blood loss was minimal. A small hiatal hernia was present. No other significant abnormalities were identified in a careful examination of the stomach. Patchy mildly erythematous mucosa without active bleeding and with no stigmata of bleeding was found in the duodenal bulb. Biopsies were taken with a cold forceps for histology. Verification of patient identification for the specimen was done. Estimated blood loss was minimal. Impression: - Moderate Schatzki ring. Biopsied. - Small hiatal hernia. - Erythematous duodenopathy. Biopsied. Recommendation: - Discharge patient to home. - Resume previous diet. - Continue present medications. - Await pathology results. Colonoscopy OSH 08/21/2023: Findings: The perianal and digital rectal examinations were normal. An area of mildly congested mucosa was found in the rectum and in the cecum. Biopsies were taken with a cold forceps for histology. Verification of patient identification for the specimen was done. Estimated blood loss was minimal. The exam was otherwise without abnormality on direct and retroflexion views. Impression: - Congested mucosa in the rectum and in the cecum. Biopsied. - The examination was otherwise normal on direct and retroflexion views. Recommendation: - Discharge patient to home. - Resume previous diet. - Continue present medications. - Await pathology results. - Repeat colonoscopy in 10 years for screening purposes. MRI OSH 07/27/2023: FINDINGS: Liver: Questionable slightly nodular liver contour, unchanged since prior. Gallbladder: Unremarkable Pancreas: Unremarkable Spleen: Unremarkable Adrenal Glands: Unremarkable Kidneys: Unremarkable GI Tract: Unremarkable Lymphadenopathy: Absent Ascites: Absent Bones: No suspicious lesions MRI/MRI Abd WITH and W/O Contrast IMPRESSION: Difficult to evaluate previously described choledochal cyst and primary sclerosing cholangitis without MRCP sequences. Questionable slightly nodular liver contour, unchanged since prior. No arterially hyperenhancing or delayed washout lesions. 04/24/2023 MRI OSH: FINDINGS: LIVER: No mass. Questionable slightly nodular contour. GALLBLADDER AND BILIARY TREE: No gallstones. No gallbladder distension or wall edema. The CBD measures 2 mm. There is a slightly beaded appearance to the intra and extra hepatic biliary ducts, similar as prior. The peripheral intrahepatic biliary ducts are again not well depicted. Stable 1.8 cm choledochol cyst of the distal common hepatic duct at the bifurcation of the left and right hepatic ducts. No choledochal filling defect. PANCREAS: No obvious mass. No pancreatic duct dilation. SPLEEN: Non-enlarged. ADRENAL GLANDS: No nodules. KIDNEYS: Normal renal size and position. No hydronephrosis. No mass. LYMPH NODES: No enlarged periportal or retroperitoneal lymph nodes. PERITONEUM: No ascites or fluid collection. VESSELS: Aorta is non-dilated. LOWER CHEST: No pleural effusion. MRI/MRCP Abdomen without Contrast IMPRESSION: Stable appearance of primary sclerosing cholangitis. Stable 1.8 cm choledochol cyst of the common hepatic duct. MRI OSH 04/21/2022 Pathology: 08/21/2023 OPERATION: Colonoscopy with biopy, bipolar electrohemostasis, EGD PRE-OP DIAGNOSIS: Choledochal cyst, primary sclerosing cholangitis, Schatzki's ring, gastroparesis, duodenitis TISSUE SUBMITTED: A- Duodenum biopsy, B- Distal esophagus, C- Cecum biopsy, D- Rectum biopsy MICROSCOPIC DIAGNOSIS A. Duodenum, biopsy: No pathologic change. B. Distal esophagus, biopsy: Gastroesophageal junction mucosa with mild chronic inflammation. No evidence of goblet cell metaplasia. See comment. C. Cecum, biopsy: No pathologic change. D. Rectum, biopsy: No pathologic change. Assessment Ms. Avalos is a 43 y.o. female with past medical history significant for MVP, anal fistula, ADD, gastroparesis, PSC. She presents to [facility] clinic for surgicalevaluation of a choledochal cyst [address] Ruiz had a long discussion with the patient regarding the surgery related to benefits, risks and possible complications and outcomes. Plan Patient seen and evaluated by myself and Dr. Ruiz, all available relevant imaging and labs reviewed, and the plan was developed collaboratively. Risks and benefits of resection of the choledochal cyst were discussed with the patient. Given the location of the cyst, patient's history of PSC, and extent of the proposed surgery, close surveillance was also discussed with the patient. Patient and family were comfortable proceeding with close surveillance of the choledochal cyst. Recommend repeat MRI Abdomen and MRCP in November 2023. Will plan for MRI imaging to be completed 1 week prior to patient's follow-up appointment in clinic so that her case can be reviewed at GI conference. Orders Placed This Encounter AMB REFERRAL TO PATHOLOGY All questions were answered to the patient's satisfaction. She was instructed to call the office with any further questions. Mariela Guerrier DO General Surgery, PGY-3 [facility] Work Phone: [phone]) 474-123406-20-2024 History and physical note* Mariela S Chey, - 09/03/2023 3:00 PM EDT Images from the original note were not included. Chief Complaint: No chief complaint on file. Clinical Care Team: Referring Provider: Hayes Menjivar MBBS Primary Care Provider: Wilbert Esparza History of Present Illness: Ms. Avalos is a 43 y.o. female with a past medical history significant for MVP, anal fistula, ADD, gastroparesis, PSC. 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 She initially presented with RUQ pressure and abnormal LFTs. She underwent liver biopsy in 04/2022 which demonstrated hepatocytes with focal mild macrovascular steatosis without significant portal or jocelynn-portal fibrosis. Patient was recently diagnosed withgastroparesis, but states that she has been able to manage her abdominal pain and nausea by modifying her diet and eating smaller meals. She denies any family history of PSC or liver disease. She denies a personal history of IBD. She denies any recent unexplained weight loss, diarrhea, or constipation. Oncologic History: Jarad Avalos initially presented with RUQ pressure and abnormal LFTs notedon routine lab work. 04/24/2023 MRI OSH: stable 1.8 cm choledochal cyst in the common hepatic duct 07/27/2023 MRI OSH: Difficult to evaluate previously described choledochal cyst and primary sclerosing cholangitis without MRCP sequences. Questionable slightly nodular liver contour, unchanged since prior. No arterially hyperenhancing or delayed washout lesions. 07/30/2023 AFP OSH: <1.8 08/21/2023 endoscopy and colonoscopy: Previous abdominal surgeries: - low, transverse Blood thinners: none Colonoscopy: 2014, 08/21/2023- repeat in 10 years Our team has reviewed all outside records available prior to patient visit. Ms. Avalos is here today with her mother, father, and for her appointment. No past medical history on file. No past surgical history on file. Allergies Allergen Reactions Latex Blisters Cold sore on lips after dental appt. Levofloxacin Abdominal Discomfort and Itching very red hands and feet/ burning/ itching Current Outpatient Medications Medication Sig Dispense Refill Baclofen 5 MG tablet busPIRone 5 MG tablet Pantoprazole [address] tablet Psyllium (Metamucil) 28.3 % Powder Spironolactone 25 MG tablet Valacyclovir 1 g tablet Vyvanse 20 MG capsule No current facility-administered medications for this visit. Social History Socioeconomic History Marital status: Spouse name: Not on file Number of children: Not on file Years of education: Not on file Highest education level: Not on file Occupational History Not on file Tobacco Use Smoking status: Never Passive exposure: Never Smokeless tobacco: Never Substance and Sexual Activity Alcohol use: Not on file Drug use: Not on file Sexual activity: Not on file Other Topics Concern Not on file Social History Narrative Not on file Social Determinants of Health Financial Resource Strain: Not on file Food Insecurity: Not on file Transportation Needs: Not on file Physical Activity: Not on file Stress: Not on file Social Connections: Not on file Intimate Partner Violence: Not on file Housing Stability: Not on file No family history on file. Review of Systems: Systems negative unless noted in BOLD: Consitutional: fever, chills, significant change in weight, fatigue. Cardiovascular: history of heart disease, hypertension, angina, shortness of breath, ankle swelling, palpitations, or heart murmurs. Respiratory: chronic cough, hemoptysis, asthma. Gastrointestinal: anorexia, nausea, vomiting, diarrhea, constipation, melena, hematemesis, abdominal pain, distension, RUQ fullness. Genitourinary: urinary frequency, urgency, hematuria, or dysuria. Musculoskeletal: back pain, bone pain. Integumentary: rashes, hives Neurological: history of dizziness, falling, numbness or tingling of the hands or feet, forgetfulness. Psychiatric: excessive worry, depression Endocrine: history of thyroid disease Hematologic/Lymphatic: history of easy bruising or bleeding. history of blood clots. Physical Exam: Vitals: Smoking Status Never General: The patient is a well developed, well nourished female who appears her stated age of 43 y.o. Neuro/Psych: Her speech patterns and movements are normal. Her affect is appropriate. She is oriented to person, place and time. Recent and remote memory is intact. HEENT: Normocephalic, atraumatic. EOMI. The sclera are anicteric. The mucous membranes are moist. Hearing is grossly intact. Neck: The trachea is in the midline. Neck is supple without lymphadenopathy or thyromegaly. Lungs/Chest: Clear to auscultation bilaterally without wheezes/rales/rhonchi Cardiac: Regular rate and rhythm without murmurs. Abd: Soft, NT/ND. No hepatosplenomegaly, ascites or hernia. Musculoskeletal:Normal range of motion in all four extremities, with normal strength equally and symmetrically. Warm and dry, 2+ peripheral pulses, no edema Lymphatics: There is no suspicious submandibular, cervical, supraclavicular lymphadenopathy. Integumentary: Skin is warm and dry. Flush, pallor and rash absent. ECOG Performance Status: 0 0 - Asymptomatic (Fully active, able to carry on all predisease activities without restriction) 1 - Symptomatic but completely ambulatory (Restricted in physically strenuous activity but ambulatory and able to carry out work of a light or sedentary nature. For example, light housework, office work) 2 - Symptomatic, <50% in bed during the day (Ambulatory and capable of all self care but unable to carry out any work activities. Up and about more than 50% of waking hours) 3 - Symptomatic, >50% in bed, but not bedbound (Capable of only limited self- care, confined to bed or chair 50% or more of waking hours) 4 - Bedbound (Completely disabled. Cannot carry on any self-care. Totally confined to bed or chair) Laboratory evaluation: No results found for: SODIUM, POTASSIUM, CHLORIDE, CO2, BUN, CREATSERUM, GLUCOSE No results found for: WBC, WBCCOUNT, WBCFETAL, HGB, HCT, PLATELET, MCV No results found for: HGBA1C No results found for: ALT, TRANSFERASEA, AST, GGT, GAMMAGT, ALKPHOS, BILITOTAL, BILIDIRECT Tumor Markers: No results found for: CEA, CA199, AFPTMRMKR, CHROMOGRANA, CA125 Radiographic/ Diagnostic evaluation: EGD OSH 08/21/2023: Findings: A moderate Schatzki ring was found at the gastroesophageal junction. Biopsies were taken with a cold forceps for histology. Verification of patient identification for the specimen was done. Estimated blood loss was minimal. A small hiatal hernia was present. No other significant abnormalities were identified in a careful examination of the stomach. Patchy mildly erythematous mucosa without active bleeding and with no stigmata of bleeding was found in the duodenal bulb. Biopsies were taken with a cold forceps for histology. Verification of patient identification for the specimen was done. Estimated blood loss was minimal. Impression: - Moderate Schatzki ring. Biopsied. - Small hiatal hernia. - Erythematous duodenopathy. Biopsied. Recommendation: - Discharge patient to home. - Resume previous diet. - Continue present medications. - Await pathology results. Colonoscopy OSH 08/21/2023: Findings: The perianal and digital rectal examinations were normal. An area of mildly congested mucosa was found in the rectum and in the cecum. Biopsies were taken with a cold forceps for histology. Verification of patient identification for the specimen was done. Estimated blood loss was minimal. The exam was otherwise without abnormality on direct and retroflexion views. Impression: - Congested mucosa in the rectum and in the cecum. Biopsied. - The examination was otherwise normal on direct and retroflexion views. Recommendation: - Discharge patient to home. - Resume previous diet. - Continue present medications. - Await pathology results. - Repeat colonoscopy in 10 years for screening purposes. MRI OSH 07/27/2023: FINDINGS: Liver: Questionable slightly nodular liver contour, unchanged since prior. Gallbladder: Unremarkable Pancreas: Unremarkable Spleen: Unremarkable Adrenal Glands: Unremarkable Kidneys: Unremarkable GI Tract: Unremarkable Lymphadenopathy: Absent Ascites: Absent Bones: No suspicious lesions MRI/MRI Abd WITH and W/O Contrast IMPRESSION: Difficult to evaluate previously described choledochal cyst and primary sclerosing cholangitis without MRCP sequences. Questionable slightly nodular liver contour, unchanged since prior. No arterially hyperenhancing or delayed washout lesions. 04/24/2023 MRI OSH: FINDINGS: LIVER: No mass. Questionable slightly nodular contour. GALLBLADDER AND BILIARY TREE: No gallstones. No gallbladder distension or wall edema. The CBD measures 2 mm. There is a slightly beaded appearance to the intra and extra hepatic biliary ducts, similar as prior. The peripheral intrahepatic biliary ducts are again not well depicted. Stable 1.8 cm choledochol cyst of the distal common hepatic duct at the bifurcation of the left and right hepatic ducts. No choledochal filling defect. PANCREAS: No obvious mass. No pancreatic duct dilation. SPLEEN: Non-enlarged. ADRENAL GLANDS: No nodules. KIDNEYS: Normal renal size and position. No hydronephrosis. No mass. LYMPH NODES: No enlarged periportal or retroperitoneal lymph nodes. PERITONEUM: No ascites or fluid collection. VESSELS: Aorta is non-dilated. LOWER CHEST: No pleural effusion. MRI/MRCP Abdomen without Contrast IMPRESSION: Stable appearance of primary sclerosing cholangitis. Stable 1.8 cm choledochol cyst of the common hepatic duct. MRI OSH 04/21/2022 Pathology: 08/21/2023 OPERATION: Colonoscopy with biopy, bipolar electrohemostasis, EGD PRE-OP DIAGNOSIS: Choledochal cyst, primary sclerosing cholangitis, Schatzki's ring, gastroparesis, duodenitis TISSUE SUBMITTED: A- Duodenum biopsy, B- Distal esophagus, C- Cecum biopsy, D- Rectum biopsy MICROSCOPIC DIAGNOSIS A. Duodenum, biopsy: No pathologic change. B. Distal esophagus, biopsy: Gastroesophageal junction mucosa with mild chronic inflammation. No evidence of goblet cell metaplasia. See comment. C. Cecum, biopsy: No pathologic change. D. Rectum, biopsy: No pathologic change. Assessment Ms. Avalos is a 43 y.o. female with past medical history significant for MVP, anal fistula, ADD, gastroparesis, PSC. She presents to [facility] clinic for surgicalevaluation of a choledochal cyst [address] Ruiz had a long discussion with the patient regarding the surgery related to benefits, risks and possible complications and outcomes. Plan Patient seen and evaluated by myself and Dr. Ruiz, all available relevant imaging and labs reviewed, and the plan was developed collaboratively. Risks and benefits of resection of the choledochal cyst were discussed with the patient. Given the location of the cyst, patient's history of PSC, and extent of the proposed surgery, close surveillance was also discussed with the patient. Patient and family were comfortable proceeding with close surveillance of the choledochal cyst. Recommend repeat MRI Abdomen and MRCP in November 2023. Will plan for MRI imaging to be completed 1 week prior to patient's follow-up appointment in clinic so that her case can be reviewed at GI conference. Orders Placed This Encounter AMB REFERRAL TO PATHOLOGY All questions were answered to the patient's satisfaction. She was instructed to call the office with any further questions. Mariela Guerrier, General Surgery, PGY-3 documented in this encounterC[facility] History of Present illness Narrative* Roland Ruiz MD - 09/03/2023 3:00 PM EDT Surgical Oncology Attending Jarad Avalos is a 43yo F who was incidentally found to have a biliary cyst; this was first identified on MRI 04/2022 which is not available for review. MRI with MRCP 04/2023 shows a 1.8cm cyst near the biliary confluence. MRI without MRCP 07/2023 shows stable findings. Labs including LFTs are normal. 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 Previous history notable for possible PSC but prior liver biopsy unremarkable, MRI without biliary strictures, serological work-up normal, and recent colonoscopy reportedly normal. The remainder of the history and physical are available inthe note by Dr Mariela Guerrier which I have reviewed and agree with. My impression is choledochal cyst. Given the limitations of the outside MRIs, it is difficult to accurately characterize its location and type. It may represent a type II near the biliary confluence.I had a long conversation with Jarad and her family about the natural history, prognosis, and management of choledochal cysts. I explained that the standard of care recommendation is surgical resection due to the small but real life time risk of malignancy developing. On the other hand, surgical resection does carry real short- and long-term risks especially given challenging location of the cyst. If she has PSC, the biliary reconstruction would also complicate later monitoring and interventions for biliary strictures. Close monitoring could be considered as an alternative although the exact methods of surveillance for choledochal cysts have not been well formulated. These decisions couldbe supported with better imaging; since she just had two MRIs, we will plan on repeat MRI/MRCP performed here at [facility] in 3-4 months. I also discussed the case with Paul Joe from [facility] and no indications for additional invasive evaluation (e.g. EUS, ERCP, spyglass) at this time. After repeat imaging and tumor board discussion, we will meet again and review options for surgicalresection versus active surveillance. They are comfortable with this plan but are encouraged to contact me if additional questions or concerns arise. [facility] History of Present illness Narrative* Hayes Menjivar MD, MBBS - 07/03/2023 10:00 AM EDT -Referring Provider for today's consult: Oneal Villalobos DO -Primary Care Provider: No primary care provider on file. History of Present Illness Jarad Avalos is a 42 y.o. female who presents to the [facility] today for consultation. I spent over 60 minutes of time in this encounter, with over 50% of that time dedicated to [id number] counseling. I have reviewed her extensive medical, surgical, family and social history andhave updated medication and allergy information in the computerized patient record. 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 Patient denies ascites, LE edema, SOB, hematemesis, melena, BRBPR, confusion, forgetfulness or reversal in sleep wake cycle. Past Medical History She has no past medical history on file. Past Surgical History She has no past surgical history on file. Family History Her family history is not on file. Social History She has no history on file for tobacco use, alcohol use, and drug use. Medications No outpatient medications prior to visit. Allergies Patient has no allergy information on record. Review of Systems Constitutional: Negative. HENT: Negative. Cardiovascular: Negative. Musculoskeletal: Negative. Psychiatric: Negative. Lymph/Heme: Negative. Physical Exam vitals were not taken for this visit. There is no height or weight on file to calculate BMI. Constitutional: Breathing easily, in no acute distress. Does not appear cachectic. Head: Normocephalic. Mouth/Throat: Oropharynx is clear and moist. Eyes: No scleral icterus. Neck: Neck supple. Cardiovascular: Normal rate and regular rhythm. Pulmonary/Chest: Breath sounds normal. Abdominal: Soft. No distension and no ascites. There is no hepatomegaly. No tenderness. Musculoskeletal: No LE edema. Lymphadenopathy: No cervical adenopathy. Neurological: Alert and oriented to person, place, and time. No asterixis Skin: Does not appear jaundiced. Laboratory Evaluation I have reviewed her pertinent laboratory data in the computerized patient record. No results found for: ALT, TRANSFERASEA, AST, GGT, GAMMAGT, ALKPHOS, BILITOTAL, BILIDIRECT Assessment and Plan Ms. 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 She also has h/o gastroparesis. 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 According to her, LFs were abnormal in 2021. In Apr 2022 she underwent liver bx for abnormal LFTs. Prior to that she had MRCP which showed features of PSC. Liver bx in 04/2022 showed hepatocytes with focal mild macrovascular steatosis. Portal areas are unremarkable. No significant portal or lobular inflammation. Trichrome stain does not show significantincreased portal or jocelynn-portal fibrosis. Conclusion: liver parenchyma tissue with focal mild macrovesicular steatosis. She had EGD in the past and diagnosed with gastroparesis and Schatzki's ring. Started on PPI. SHe also had a colonoscopy 4-5 yrs ago which according to her was unremarkable. She has no other medical issues. No family h/o liver disease. She has no h/o smoking and drinking. She has two tattoos last week. 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 They have two sons (18 and 15 yrs). Labs from 04/2023: LFTs, CA19-9 WNL. Today, she is accompanied with her for 23 yrs. She has no active complaints, however she feels full in RUQ. Her BM and urine are OK. Plan - Discussed about the diagnosis of PSC. Not certain about the stage of liver disease. Liver bx showed no features of fibrosis and MRI without contrast showed PSC features and cirrhosis. MRI also showed choledochal cyst 1.8 cm in size. Plan to get MRI with contrast to get a better assessment of liver and choledochal cyst - Get liver extensive labs for etiology of cirrhosis - Check for IgG4 as pointed in MRI scan reporting of pancreas. - schedule for Colonoscopy for IBD screening - Plans have been discussed with the patient and all the questions have been answered to his satisfaction. - Check Lipids - Get MELD labs every 3 monthly - Over 60 minutes of time in this encounter, with over 50% of that time dedicated to [id number] counseling. I spent 30 minutes before and after clinic reviewing lab, radiologic, endoscopic and pathologic records. - Discussed about the complications of PSC and cirrhosis, their daily management, and indications/contraindications and timing of Liver Transplant evaluation. - Information provided on MELD score, portal hypertension, avoidance of NSAIDs and 2,000 mg low salt diet. - In addition, I would recommend vaccination against hepatitis A and B. I recommend lifelong abstinence from alcohol and tobacco. I would strictly avoid using NSAIDs for pain control given their riskfor mucosal ulceration, bleeding and nephrotoxicity. For pain, I recommend acetaminophen, up to butnot exceeding 2,000 mg daily. - RTC in 6 months with APPLICATION CONSULTANT Note to patient: The Century Cures Act makes medical notes like these available to patients inthe interest of transparency. However, be advised this is a medical document. It is intended as peer to peer communication. It is written in medical language and may contain abbreviations or verbiagethat are unfamiliar. It may appear blunt or direct. Medical documents are intended to carry relevant information, facts as evident, and the clinical opinion of the practitioner. [facility] Miscellaneous Notes* Telephone Encounter - Kathy Mccray MA - 02/24/2023 4:21 PM EST Patient outside medical report scanned into [employer] documented in this encounterUk [facility]12-06-2023 NoteHNO ID: [id number] Author: Ashlie Torres, PhD Service: ? Author Type: Psychologist Type: Progress Notes Filed: 02/18/2023 4:45 PM Note Text: [facility] [place] Name: Jarad Avalos MR#: [id number] Date: 02/18/2023 Time: ? hour Referred by: [...] with Dr. Campos was discussed. Ashlie Schultz, Ph.D.[facility]12-06-2023 History of Present illness Narrative* Ashlie Torres, PhD - 02/18/2023 4:40 PM EST Behavioral [facility] [place] Name: Jarad Avalos MR#: [id number] Date: 02/18/2023 Time: hour Referred by: Dr. Heredia Reason for Referral: gastroparesis interdisciplinary clinic - address psychological factors as theyaffect physical condition Information relayed back to referral source via electronic medical record Her chart was reviewed, and she gave her own medical and psych history. She was seen with her . 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 The basic principles [...] discussed. Ashlie Schultz, Ph.D. documented in this encounterUk Healthcare12-06-2023 NoteHNO ID: [id number] Author: Ceci Mckinney MD Service: ? Author Type: Physician Type: Progress Notes Filed: 02/18/2023 10:18 AM Note Text: Assessment ASSESSMENT 42 year old female with medical refractory gastroparesis. PLAN I discussed surgical therapy for gastroparesis in detail. Jarad Avalos is candidate for Continued diet and medical management as her GCSI score is relatively low with diet control. She will contact me if that changes. We did briefly discuss a POP if her symptoms should worsen. NAME: Jarad Avalos CLINIC NO: [id number] DATE OF SERVICE: February 16, 2023 This is an initial consultation for Jarad Avalos who was referred to me by Dr. Neo Heredia for evaluation of medical refractory gastroparesis. My final recommendation will be communicated via shared electronic medical record. 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 Author Type: Physician Type: Progress Notes Filed: 02/18/2023 9:56 AM Note Text: GASTROPARESIS CONSULT Patient is referred by Dr. Oneal Temple Friend for an opinion regarding GP and my final recommendations will be communicated back to the requesting physician by way of a copy of today's office notes. PRESENTING COMPLAINT AND HISTORY Jarad is a 42 yr old female w/hx [...] Medications - Does the patient see a plate painter for chronic abdominal pain?No - Is the [...] - Has the patient met with a botany technician for diet recommendations with Gastroparesis? No - [...] Yes - Botox Injections: No Patient Name Jarad Avalos Age [age] year old Gastroparesis Consult Test Date Completed Results Labs EGD Findings: Impression: Pathology: Colonoscopy 04/14/14 [facility] Post Op: minimal erythema of the transverse colon and proximal descending colon. MRI/MRCP Abd 04/21/22 [place] Impression: See scanned records Gastric Emptying Study 12/02/2022 [facility] Findings: 79% emptying and 21% retention are defined at 4 hours post meal ing (more content not included)...[facility]12-06-2023 History of Present illness Narrative* Ceci Mckinney MD - 02/18/2023 10:00 AM EST Assessment ASSESSMENT 42 year old female with medical refractory gastroparesis. PLAN I discussed surgical therapy for gastroparesis in detail. Jarad Avalos is candidate for Continued diet and medical management as her GCSI score is relatively low with diet control. She will contact me if that changes. We did briefly discuss a POP if her symptoms should worsen. NAME: Jarad Avalos CLINIC NO: [id number] DATE OF SERVICE: February 16, 2023 This is an initial consultation for Jarad Avalos who was referred to me by Dr. Neo Heredia for evaluation of medical refractory gastroparesis. My final recommendation will be communicated via shared electronic medical record. 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 No history of symptoms or problems. FIRE PREVENTION SPECIALIST: Negative for abnormal vaginal bleeding, abnormal vaginal discharge., N/A : N/A Endocrine: No history of diabetes. Has not taken steroids within the past 30 days. No history of endocrinological symptoms or problems. Hematology: No history of bleeding or clotting disorder. Pt is not taking anti- coagulation or platelet medications. No history of hematological [...] Adult) Pulse 76 Ht 157.5 cm (5' 2) Wt 55.5 kg (122 lb 5.7 oz) BMI 22.38 kg/m Gen - NAD Cervical - No Cervical LN, normal ROM HEENT - Anicteric sclera, MMM CV - RRR Pulm - No accessory muscle use, breaths appear even Abd - Soft, ND, NT Ext - No LE Edema documented in this encounterUk Healthcare12-06-2023 History of Present illness Narrative* Neo Heredia DO - 02/18/2023 9:30 AM EST GASTROPARESIS CONSULT Patient is referred by Dr. Oneal Temple Friend for an opinion regarding GP and my final recommendations will be communicated back to the requesting physician by way of a copy of today's office notes. PRESENTING COMPLAINT & HISTORY Jarad is a 42 yr old female w/hx [...] Medications - Does the patient see a plate painter for chronic abdominal pain?No - Is the [...] - Has the patient met with a botany technician for diet recommendations with Gastroparesis? No - [...] Yes - Botox Injections: No Patient Name Jarad Avalos Age [age] year old Gastroparesis Consult Test Date Completed Results Labs EGD Findings: Impression: Pathology: Colonoscopy 04/14/14 [facility] Post Op: minimal erythema of the transverse colon and proximal descending colon. MRI/MRCP Abd 04/21/22 [place] Impression: See scanned records Gastric Emptying Study [...] Paternal Grandmother 59 CHF Heart Paternal Grandfather NE - at 70 Hypertension Paternal Grandmother Hypertension [...] No history of dysuria, frequency or incontinence FIRE PREVENTION SPECIALIST: SEE HPI MUSCULOSKELETAL: Negative for joint pain [...] speech normal, mental status intact, cranial nerves 2- 12 intact Plan Given the risk of autoimmune [...] IGG IGM C-REACTIVE PROTEIN (CRP) SED RATE [facility] CYTOKINE PANEL 13, SERUM ESTROGEN FRACTION BL Neo Heredia DO 02/17/2023 documented in this encounterUk Healthcare05-02-2023 [facility] N[facility]* Chief Complaint COVID TEST/[facility] EMPLO COLLADO COVID-19 RUQ PAIN INT LABS RUQ Pain RUQ PAIN INT LABS EORDERS E ORDER Abnormal findings on diagnostic imaging of other p Reason for Visit Elevated alkaline ph osphatase level Elevated ALT measurement Elevated serum GGT level RUQ abdominal pain [facility] Work Phone: Chief complaint+Reason for visit Narrative* Chief Complaint COVID-19 RUQ PAIN INT LABS RUQ Pain RUQ PAIN INT LABS EORDERS E ORDER Abnormal findings on diagnostic imaging of other p FU Reason for Visit Elevated alkaline ph osphatase level Elevated ALT measurement Elevated serum GGT level RUQ abdominal pain PSC (primary sclerosing cholangitis) [facility] Work Phone: Chief complaint+Reason for visit Narrative* Chief Complaint GASTROPARESIS COVID-19 COVID-19 [facility] Work Phone: Chief complaint+Reason for visit Narrative* Chief Complaint COVID-19 PRIMARY SCLEROSING CHOLANGITIS [facility] Work Phone: Evaluation note* Diagnosis Onset Date Resolution Status Contact with and (suspected) exposure to other viral communicable diseases acute Acute sinusitis, unspecified acute [facility] Work Phone: Evaluation note* Diagnosis Onset Date Resolution Status Contact with and (suspected) exposure to other viral communicable diseases acute Acute sinusitis, unspecified acute Elevated alkaline phosphatase level acute Elevated ALT measurement acu te Elevated serum GGT level acu te RUQ abdominal pain acute [facility] Work Phone: Evaluation note* Diagnosis Onset Date Resolution Status Elevated alkaline phosphatase level acute Elevated ALT measurement acu te Elevated serum GGT level acu te RUQ abdominal pain acute [facility] Work Phone: Evaluation note* Diagnosis Onset Date Resolution Status Elevated alkaline phosphatase level acute Elevated ALT measurement acu te Elevated serum GGT level acu te RUQ abdominal pain acute PSC (primary sclerosing cholangitis) chronic [facility] Work Phone: Evaluation note* Diagnosis Onset Date Resolution Status PSC (primary sclerosing cholangitis) chronic [facility] Work Phone: Evaluation note* Diagnosis Onset Date Resolution Status Duodenitis acute Gastroparesis acute 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 chronic [facility] Work Phone: Evaluation note* Diagnosis Gastroparesis- Primary documented in this encounter [facility] note* Diagnosis Gastroparesis documented in this encounter [facility] note* Diagnosis Gastroparesis- Primary documented in this encounter [facility] noteNo assessment information availableWCincinnati Children's [facility] Work Phone: Evaluation note* Diagnosis Onset Date Resolution Status Duodenitis acute Choledochal cyst chronic Gastroparesis chronic 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 Diagnosis Choledochal cyst- Primary Other congenital anomaly of gallbladder, bile ducts, and liver 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 Author Oneal Villalobos [facility] July 15, 2022 4:51pm Note Date/Time July 15, 2022 4:51pm [facility] Medical Records Department [address] [place] [address] History & Physical Exam 07/15/22 1651 MR#: [id number] Acct: [id number] Name: JARAD AVALOS LOUISE Rep #:[id number] : 1980 41 From: Oneal Villalobos DO PCP: Dr. Wilbert Esparza MD Status:[facility] [place] Location: [place] [address] History and Physical Date of Admission: 07/15/22 41 F who presents to the office today for f/u intermittent RUQ pain, intermittent mild elevation in ALT, alk phos and GGT. For approx one yr she has had intermittent RUQ pain and transient elevations of ALT, alkaline phosphatase and GGT. She had normal RUQ US and normal HIDA scan. MRCP is abnormal--a slightly beaded appearance to the intra and extra hepatic biliary ducts; focal dilatation of the distal common hepatic duct at the bifurcation of the left and right hepatic ducts; slightly nodular liver contour; and prominent pancreas. Radiologist raised question of PSC considering the beaded appearance of biliary ducts, slightly nodular liver contour, and hx rectal fistula. She had fistula inano repaired by Dr Vizcarra in approx 2009; it was thought possibly due to constipation post-. AMA and ASMA negative. IgG subclasses normal. Liver biopsy was obtained due to nodular contour of liver on MRCP and the possibility of PSC--focal mild macrovesicular steatosis. We started her on ursodiol 300 mg BID for possible PSC and liver steatosis. The RUQ pain is never severe, feels like a spasm, is dull. Maybe occurs 1-2x perweek. Pain doesn't radiate. Can occur after eating, but doesn't have to be postprandial. No associated symptom, no nausea or vomiting. The RUQ pain didn't occur when on decadron for bronchitis, but she did have acid reflux while on steroid. Takes pepcid prn for heartburn. Intermittent bloating upper abd. No bowel issues; no diarrhea, constipation, melena, hematochezia. 04/2022 liver panel normal, lipase normal 120, IgG subclasses normal, stool calprotectin normal, stool lactoferrin normal 02/2022 esr 15, crp 4.5, ferr 119, normal ggt, normal ast, normal alt, alk phos 120 H, LDH normal, AFP normal, AMA neg, ASMA neg, ROBB-comprehensive neg, ANCA normal 01/2022 Elevated GGT 70 (5-55), remainder of liver profile normal 10/2021 ast normal 35, alt slighty elevated 59, alk phos slightly elevated 119 01/2021 ast normal 28, alt 77, alk phos 136 08/2020 ast normal 18, alt normal 29, alk phos 119 2014 colonoscopy for abd pain, minimal erythema, no gross inflammatory changes, no pathologic diagnosis on biopsies 04/30/22 Liver Biopsy MICROSCOPIC DIAGNOSIS Right lobe liver, CT-guided core biopsy: ?Liver parenchymal tissue with focal mild macrovesicular steatosis. ?See microscopic description and comment. MICROSCOPIC DESCRIPTION Slides are reviewed. The specimen shows liver parenchymal tissue with preserved lobular architecture.? Hepatocytes show focal mild macrovesicular steatosis.? Portal areas are essentially unremarkable.? No significant portal or lobular inflammation is noted.? Iron stain shows trace amount of iron in the hepatocytes.? Reticulin stain show normal hepatic architecture.? Trichrome stain does not show significant increased portal or periportal fibrosis.? PAS stain with and without diastase do not show any abnormal accumulation of protein.? All stains are performed with appropriate matched controls 04/21/22 MRI/MRCP Abdomen without Contrast IMPRESSION: FINDINGS: LIVER: No mass. Questionable slightly nodular contour. GALLBLADDER AND BILIARY TREE: No gallstones. No gallbladder distension or wall edema. The CBD measures 2 mm. There is a slightly beaded appearance to the intra and axial hepatic biliary ducts. The peripheral intrahepatic biliary ducts are not well depicted. There is focal dilatation of the distal common hepatic duct at the bifurcation of the left and right hepatic ducts. No choledochal filling defect. PANCREAS: Prominent size.? No obvious mass. No pancreatic duct dilation. SPLEEN: Non-enlarged. ADRENAL GLANDS: No nodules. KIDNEYS: Normal renal size and position. No hydronephrosis.? No mass. LYMPH NODES: No enlarged periportal or retroperitoneal lymph nodes. PERITONEUM: No ascites or fluid collection. VESSELS: Aorta is non-dilated. LOWER CHEST: No pleural effusion. Constellation of findings including beaded appearance to the intrahepatic and extrahepatic biliary ducts, slightly nodular liver contour and history of rectal fistulas is concerning for primary sclerosing cholangitis. Focal dilatation of the distal common hepatic duct could represent a choledochal cyst versus versus a saccular dilatation/diverticula secondary to a distal stricture.? Consider ERCP. Prominent pancreas with no surrounding inflammatory changes.? Correlate with lipase and IgG4 levels for possible autoimmune pancreatitis. 12/11/21 US/Abdomen Complete IMPRESSION: Normal abdominal ultrasound examination. 01/21/22 NM/Hepatobilliary Img w/Pharm Int IMPRESSION: 1.? NORMAL 99m Tc Mebrofenin hepatobiliary imaging examination with Cholecystokinin. A.? A gallbladder ejection fraction calculated to be greater than 35% following the administration of Cholecystokinin makes the probability of functional hepatobiliary disease (gallbladder and/or sphincter of Oddi dyskinesia) and/or organic hepatobiliary disease (chronic acalculous cholecystitis and/or cystic duct syndrome) to be low. (Mandy Marmolejo al, Journal of Nuclear Medicine 32:1695, 1990). ROS Const Constitutional: No fatigue ENT ENT: No difficulty swallowing Gastro GI: No abdominal pain, belching, bloating, change in bowel habits, change in stool character, coffee ground emesis, constipation, cramping, diarrhea, heartburn, difficulty swallowing, feeling full early, excessive flatus, incontinent of stools, Vomiting blood/hematemesis, Blood in stool, loose stools,Black,tarry stools, nausea/dyspepsia, pain with swallowing, vomiting or other Musc Musculoskeletal: No joint pain Skin Skin: No yellowing of the eye or itchy eyes Psych Psychiatric: No anxiety and No depression Endo Endocrine: No fatigue Aller/Imm Allergy/Immunologic: No itchy eyes Dariusz/Lymp Hematologic/Lymphatic: No easy bleeding or easy bruising Exam Const General: cooperative, healthy appearing and comfortable Nutritional Appearance: average body habitus Orientation: alert, awake and oriented x3 Quality Reporting Tobacco Screening ([facility] 138) Smoking Status: Never smoker Assessment and Plan Assessment and Plan (1) PSC (primary sclerosing cholangitis): ?Status:?Chronic ?Plan: 41 yr old female with intermittent RUQ pain, intermittent elevations of alk phos, ggt, ALT. Working diagnosis of PSC based on beaded appearance of bile ducts on MRCP. Next step is ERCP so Dr Villalobos can evaluate for strictures and beading, get biopsies. Liver bx showed focal mild macrovesicular steatosis. She is now on ursodiol 300 mg bid. f/u with Dr Villalobos after the ERCP. I have examined the patient and the H&P has been reviewed. There are no clinicalchanges since date of exam. 07/15/22 1651 <Electronically signed by Oneal Villalobos DO> Cosigner Signature (if applicable): CC: Dr. Wilbert Esparza MD; Oneal Villalobos DO~ Signed [facility] Work Phone: Reason for referral (narrative)No reason for referral information availableWCincinnati [facility] Work Phone: Reason for visit Narrative* MRI/CAT Scan (Routine) - Closed Specialty Diagnoses / Procedures Referred By Contac t Referred To Contact Diagnoses PSC (primary sclerosing cholangitis) Choledochal cyst Procedures MRI ABDOMEN WITH AND WITHOUT CONTRAST CHG MRI ABDOMEN W/O & W/CONTRAST MATERIAL Amita Caldwell, PHYSICAL TESTING SUPERVISOR-APPLICATION CONSULTANT, DNP [address] [place] [address] Phone: tel: fax: Referral ID Status Reason Start Date Expiration Date Visits Re quested Visits Authorized [id number] Closed 02/25/2024 03/21/2025 1 1 [facility] Chief Complaint and Reason for Visit Chief Complaint 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 COVID TEST/[facility] [facility] [employer] [employer] COVID TEST/[employer] EM[employer]OYEE Sinus infection ELEVATED LIVER ENZYMES Reason for Visit Contact with and (valente spected) exposure to other viral communicable diseases Acute sinusitis, unspecified Chief Complaint 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 COVID TEST/[employer] EM[employer]EE COVID TEST/[employer] EM[employer]EE Sinus infection ELEVATED LIVER ENZYMES COVID TEST/[employer] EMPLOYEE COVID-19 Reason for Visit Contact with and (valente spected) exposure to other viral communicable diseases Acute sinusitis, unspecified Chief Complaint 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 COVID TEST/[facility] EM[employer]EE COVID TEST/[employer] [facility] EM[employer] Sinus infection ELEVATED LIVER ENZYMES COVID TEST/[employer] EMPLOYEE COVID-19 RUQ PAIN INT LABS Reason for Visit Contact with and (valente spected) exposure to other viral communicable diseases Acute sinusitis, unspecified Chief Complaint 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 COVID TEST/[facility] [facility] EM[employer]EE COVID TEST/[employer] [employer] EM[employer] Sinus infection ELEVATED LIVER ENZYMES COVID TEST/[employer] [facility] EM[employer]OYEE COVID-19 RUQ PAIN INT LABS RUQ Pain Reason for Visit Contact with and (valente spected) exposure to other viral communicable diseases Acute sinusitis, unspecified Elevated alkaline phosphatase level Elevated ALT measurement Elevated serum GGT level RUQ abdominal pain Chief Complaint RUQ PAIN INT LABS RUQ Pain RUQ PAIN INT LABS EORDERS E ORDER Abnormal findings on diagnostic imaging of other p FU EORDERS Reason for Visit Elevated alkaline ph osphatase level Elevated ALT measurement Elevated serum GGT level RUQ abdominal pain PSC (primary sclerosing cholangitis) Chief Complaint RUQ PAIN INT LABS EORDERS E ORDER Abnormal findings on diagnostic imaging of other p FU EORDERS INT LABS Reason for Visit PSC (primary scleros ing cholangitis) Chief Complaint RUQ PAIN INT LABS EORDERS E ORDER Abnormal findings on diagnostic imaging of other p FU EORDERS INT LABS RUQ PAIN Reason for Visit PSC (primary scleros ing cholangitis) Chief Complaint INT LABS RUQ PAIN FU Reason for Visit Duodenitis Gastroparesis PSC (primary sclerosing cholangitis) Schatzki's ring Chief Complaint FU EMPLOYEE LABS GASTROPARESIS Reason for Visit Duodenitis Gastroparesis PSC (primary sclerosing cholangitis) Schatzki's ring Chief Complaint PRIMARY SCLEROSING C HOLANGITIS 4 MO FU Reason for Visit Duodenitis Choledochal cyst Gastroparesis PSC (primary sclerosing cholangitis) Schatzki's ring Chief Complaint Admit Date S/O LABS EVERY 12 WEEKS 2 DRS ARE S/O No vember 2023 9:01am S/O LABS EVERY 12 WEEKS 2 DRS ARE S/O Fe marinaary 2024 10:00am Chief Complaint Admit Date S/O LABS EVERY 12 WEEKS 2 D[facility] May 31, 2024 8:0 5am K83.01 Primary sclerosing cholangitis [facility] 2024 8:14am Reason for Visit Admit Date Gastroparesis May 31, 2024 8:0 5am PSC (primary sclerosing cholangitis) [facility] 2024 8:05am Chief Complaint Admit Date S/O LABS EVERY 12 WEEKS 2 DRS ARE S[facility]O [facility] 10:[facility] 6 M FU May 31, 2024 8:0 5am K83.01 Primary sclerosing cholangitis [facility] 2024 8:14am MENOPAUSE LAB F/U June 09, 2024 10: 23am Reason for Visit Admit Date Gastroparesis May 31, 2024 8:0 5am PSC (primary sclerosing cholangitis) [facility] 2024 8:05am Hot flashes June 09, 2024 10: 23am Gastroparesis June 09, 2024 10: 23am Chief Complaint Admit Date S/O LABS EVERY 12 WEEKS 2 DRS ARE S/O Fe chandu 2024 10:00am 6 M FU May 31, 2024 8:0 5am K83.01 Primary sclerosing cholangitis [facility] 2024 8:14am MENOPAUSE LAB F/U June 09, 2024 10: 23am S/O LABS EVERY 12 WEEKS 2 DRS ARE S/O Ma daljit 2024 9:09am Chief Complaint Admit Date S/O LABS EVERY 12 WEEKS 2 DRS ARE S/O Fe bruary 2024 10:00am 6 M FU May 31, 2024 8:0 5am K83.01 Primary sclerosing cholangitis [facility] 2024 8:14am MENOPAUSE LAB F/U June 09, 2024 10: 23am S/O LABS EVERY 12 WEEKS 2 DRS ARE S/O Ma y 2024 9:09am ELEVATED TESTOSTERONE OVARIAN CONCERN [facility] 2024 12:11pm Chief Complaint Admit Date 6 M FU May 31, 2024 8:0 5am K83.01 Primary sclerosing cholangitis [facility] 2024 8:14am MENOPAUSE LAB F/U June 09, 2024 10: 23am S/O LABS EVERY 12 WEEKS 2 DRS ARE S/O Ma y 2024 9:09am ELEVATED TESTOSTERONE OVARIAN CONCERN [facility] 2024 12:11pm pelvic congestion syndrome September 07 1:09pm Family History No Family History Records Found Relationship Condition Age at Onset Recorded Date/T ami Not Specified Diabetes mellitus Unknown Hypertension Unknown Relationship Condition Age at Onset Recorded Date/T ami grandmother Malignant neoplasm of breast 78 Advance Directives No Advanced Directives Records Found Advance Directive Response Recorded Date/ Time Living Will Yes April 14 10:36am Power of Plate Stacker Hand Yes April 14, 2014 10:36am Advance Directive Response Recorded Date/ Time Living Will Yes April 14 9:36am Power of Plate Stacker Hand Yes April 14, 2014 9:36am Advance Directive Response Recorded Date/ Time Name of Medical Power of Plate Stacker Hand SPOUSE July 10, 2022 1:21pm Living Will Yes July 10, 2022 1:21pm Power of Plate Stacker Hand Yes July 10 1:21pm Advance Directive Response Recorded Date/ Time Living Will Yes July 10, 2022 1:21pm Power of Plate Stacker Hand Yes July 10 1:21pm Advance Directive Response Recorded Date/ Time Living Will Yes July 10, 2022 12:21pm Power of Plate Stacker Hand Yes July 10 12:21pm Advance Directive Response Recorded Date/ Time Living Will Yes February 13 1:35am Power of Plate Stacker Hand Yes February 14, 2024 1:35am Living Will Yes August 19, 2023 8 :49am Power of Plate Stacker Hand Yes August 19, 2023 8:49am Advance Directive Response Recorded Date/ Time Living Will Yes August 19, 2023 8 :49am Do you have a Healthcare Power of Plate Stacker Hand? Yes August 19, 2023 8:49am Living Will Yes February 13 1:35am Do you have a Healthcare Power of Plate Stacker Hand? Yes February 14, 2024 1:35am Advance Directive Response Recorded Date/ Time Living Will Yes August 19, 2023 8 :49am Do you have a Healthcare Power of Plate Stacker Hand? Yes August 19, 2023 8:49am Living Will Yes February 13 1:35am Do you have a Healthcare Power of Plate Stacker Hand? Yes February 14, 2024 1:35am Living Will Yes May 14, 2024 1:15am Do you have a Healthcare Power of Plate Stacker Hand? Yes May 14, 2024 1:15am Advance Directive Response Recorded Date/ Time Living Will Yes August 19, 2023 8 :49am Do you have a Healthcare Power of Plate Stacker Hand? Yes August 19, 2023 8:49am Living Will Yes May 14, 2024 1:15am Do you have a Healthcare Power of Plate Stacker Hand? Yes May 14, 2024 1:15am Summary Purpose Reason for Referral Specialty Diagnoses / Procedures Referred By Sabrina sequeira Referred To Contact Diagnoses PSC (primary sclerosing cholangitis) Procedures DIAGNOSTIC COLONOSCOPY AR COLONOSCOPY FLX DX W/COLLJ SPEC WHEN PFRMHayes Vargas MD, MBBS [address] [address] Referral ID Status Reason Start Date Expiration Date V isits Requested Visits Authorized [id number] New Request 07/03/2023 07/27/2024 1 1 Specialty Diagnoses / Procedures Referred By Contac t Referred To Contact Diagnoses PSC (primary sclerosing cholangitis) Procedures MRI ABDOMEN WITH AND WITHOUT CONTRAST AR MRI, ABDOMEN, COMBO Hayes Menjivar MD, AGUSTINA [address] [address] Referral ID Status Reason Start Date Expiration Date V isits Requested Visits Authorized [id number] New Request 07/03/2023 07/27/2024 1 1 Specialty Diagnoses / Procedures Referred By Sabrina sequeira Referred To Contact Diagnoses Choledochal cyst Procedures MRI ABDOMEN WITH AND WITHOUT CONTRAST CHG MRI ABDOMEN W/O & W/CONTRAST MATERIAL Amita Caldwell, PHYSICAL TESTING SUPERVISOR-APPLICATION CONSULTANT, DNP [address] [place] [address] Referral ID Status Reason Start Date Expiration Date V isits Requested Visits Authorized [id number] New Request 09/03/2023 09/27/2024 1 1 Specialty Diagnoses / Procedures Referred By Sabrina sequeira Referred To Contact Clinical Pathology/Laboratory Medicine Diagnoses PSC (primary sclerosing cholangitis) Choledochal cyst Amita Caldwell, PHYSICAL TESTING SUPERVISOR-APPLICATION CONSULTANT, DNP [address] [place] [id number] Referral ID Status Reason Start Date Expiration Date V isits Requested Visits Authorized [id number] New Request 09/02/2023 09/26/2024 1 1 Referral ID Status Reason Start Date Expiration Date Visits Re quested Visits Authorized [id number] Closed 09/03/2023 09/27/2024 1 1 Referral ID Status Reason Start Date Expiration Date V isits Requested Visits Authorized [id number] New Request 12/03/2023 12/27/2024 1 1 Referral ID Status Reason Start Date Expiration Date Visits Re quested Visits Authorized [id number] Closed 12/03/2023 12/27/2024 1 1 Additional Source Comments Goals (unrecognized section and content) Goals may be documented in a n alternate sectionGoals may be documented in an alternate sectionGoals may be documented in an alternate sectionGoals may be documented in an alternate sectionGoals may be documented in an alternate sectionGoals may be documented in an alternate sectionGoals may be documented in an alternate sectionGoals may be documented in an alternate sectionGoals may be documented in an alternate sectionGoals may be documented in an alternate sectionGoals may be documented in an alternate sectionGoals may be documented in an alternate sectionGoals may be documented in an alternate sectionGoals may be documented in an alternate sectionGoals may be documented in an alternate sectionGoals may be documented in an alternate sectionGoals may be documented in an alternate sectionGoals may be documented in an alternate sectionGoals may be documented in an alternate sectionGoals may be documented in an alternate sectionGoals may be documented in an alternate sectionGoals may be documented in an alternate section Care Teams (unrecognized sec tion and content) Team Status: Active Member Role Status Dates Dr. Wilbert Esparza MD Family Provider Active Dr. Wilbert Esparza MD Primary Care Provider Active Team Status: Inactive Member Role Status Dates Dr. Wilbert Esparza MD Primary Care Provider, Referring P rovider Active Jarad Dillon INDUSTRIAL PAINTER, INDUSTRIAL PAINTER-C Attending Provider Active Team Status: Inactive Member Role Status Dates Dr. Wilbert Esparza MD Primary Care Provider, Referring P rovider Active Stanislaw HERRON, PA Attending Provider Active Team Status: Inactive Member Role Status Dates Dr. Wilbert Esparza MD Primary Care Provider, Referring P rovider Active Felipe Paula PA, PA Attending Provider Active Team Status: Inactive Member Role Status Dates Dr. Wilbert Esparza MD Primary Care Provide r, Attending Provider, Referring Provider Active Team Status: Inactive Member Role Status Dates Dr. Wilbert Esparza MD Primary Care Provider Active Jarad Dillon INDUSTRIAL PAINTER, INDUSTRIAL PAINTER-C Attending Provider, Referrin g Provider Active Team Status: Active Member Role Status Dates Dr. Wilbert Esparza MD Primary Care Provider Active Jarad Dillon INDUSTRIAL PAINTER, INDUSTRIAL PAINTER-C Attending Provider, Referrin g Provider Active Team Status: Active Member Role Status Dates Dr. Wilbert Esparza MD Primary Care Provider Active Jarad Dillon INDUSTRIAL PAINTER, INDUSTRIAL PAINTER-C Attending Provider Active Team Status: Inactive Member Role Status Dates Dr. Wilbert Esparza MD Primary Care Provider Active Jarad Dillon INDUSTRIAL PAINTER, INDUSTRIAL PAINTER-C Attending Provider Active Team Status: Inactive Member Role Status Dates Dr. Wilbert Esparza MD Primary Care Provider Active Dr. Edita Kasper DO Attending Provider, Referrin g Provider Active Team Status: Active Member Role Status Dates Dr. Wilbert Esparza MD Primary Care Provider, Referring P rovider Active Dr. Oneal Villalobos DO Attending Provider, Other Prov ider Active Team Status: Inactive Member Role Status Dates Dr. Wilbert Esparza MD Primary Care Provider, Referring P rovider Active Dr. Oneal Villalobos DO Attending Provider Active Team Status: Inactive Member Role Status Dates Dr. Wilbert Esparza MD Primary Care Provider Active Dr. Oneal Villalobos DO Attending Provider, Referring Provider Active Team Status: Active Member Role Status Dates Dr. Wilbert Esparza MD Primary Care Provider Active Health Risk Assessment Attending Provider, Referring P jeffrey Active Team Status: Inactive Member Role Status Dates FAUSTINA LARSON Attending Provider, Referring Provider Active Dr. Wilbert Esparza MD Primary Care Provider Active Dr. Oneal Villalobos DO Other Provider Active Team Status: Inactive Member Role Status Dates Dr. Wilbert Esparza MD Primary Care Provider Active NEOFAUSTINA Attending Provider, Referring Provider Active Dr. Oneal Villalobos DO Other Provider Active Team Status: Active Member Role Status Dates Dr. Wilbert Esparza MD Primary Care Provider Active Dr. Oneal Villalobos DO Attending Provider, Referring Provider Active Team Status: Inactive Member Role Status Dates Dr. Wilbert Esparza MD Referring Provider Active Dr. Oneal Villalobos DO Attending Provider Active Team Status: Inactive Member Role Status Dates Dr. Wilbert Esparza MD Primary Care Provider Active Dr. Oneal Villalobos DO Attending Provider Active Nursing Informatics Clinical Analyst Relationship Specialty Start Date End Date Wilbert Esparza MD [address] [place] [address] PCP - General Family Medicine 09/03/23 Oneal Villalobos DO [address] [place] [address] Gastroenterology 09/03/23 Nursing Informatics Clinical Analyst Relationship Specialty Start Date End Date Wilbert Esparza MD [address] [place] [address] PCP - General Family Medicine 09/03/23 Oneal Villalobos DO [address] [place] [address] Gastroenterology 09/03/23 Nursing Informatics Clinical Analyst Relationship Specialty Start Date End Date Wilbert Esparza MD [address] [place] [address] PCP - General Family Medicine 09/03/23 Oneal Villalobos DO [address] [place] [address] Gastroenterology 09/03/23 Nursing Informatics Clinical Analyst Relationship Specialty Start Date End Date Wilbert Esparza MD [address] [facility], [place] [id number] PCP - General Family Medicine 09/03/23 Oneal Villalobos DO [address] [place] [address] Gastroenterology 09/03/23 Team Status: Active Member Role Status Dates Dr. Wilbert Esparza MD Primary Care Provider Active Team Status: Inactive Member Role Status Dates Dr. Wilbert Esparza MD Primary Care Provider Active Start: January 27, 2024 End: February 13, 2024 TIARA MARIE Attending Provider Active Start: January 27, 2024 End: February 13, 2024 TIARA MARIE Referring Provider Active Start: January 27, 2024 End: February 13, 2024 JAVI BRIAN Other Provider Active Start: Kishor randolph 2023 End: February 13, 2024 Dr. Oneal Villalobos DO Other Provider Active St art: January 27, 2024 End: February 13, 2024 EFRAIN WALKER Other Provider Active Start: Jax smith 2023 End: February 13, 2024 GOPAL Farah Other Provider Active Star t: January 27, 2024 End: February 13, 2024 Team Status: Inactive Member Role Status Dates Dr. Wilbert Esparza MD Primary Care Provider Active Start: May 05, 2024 End: May 13, 2024 TIARA MARIE Attending Provider Active Start: May 05, 2024 End: May 13, 2024 TIARA MARIE Referring Provider Active Start: May 05, 2024 End: May 13, 2024 JAVI BRIAN Other Provider Active Start: Justyn owen 2024 End: May 13, 2024 Dr. Oneal Villalobos DO Other Provider Active St art: May 05, 2024 End: May 13, 2024 ABENAEFRAIN Other Provider Active Start: 2024 End: May 13, 2024 GOPAL Farah Other Provider Active Star t: May 05, 2024 End: May 13, 2024 Team Status: Inactive Member Role Status Dates Dr. Wilbert Esparza MD Primary Care Provider Active Start: May 10, 2024 End: May 10, 2024 ALFONSO Godinez Attending Provider Active Start: May 10, 2024 End: May 10, 2024 ALFONSO Godinez Referring Provider Active Start: May 10, 2024 End: May 10, 2024 Team Status: Inactive Member Role Status Dates Dr. Wiblert Esparza MD Primary Care Provider Active Start: May 31, 2024 End: May 31, 2024 Dr. Wilbert Esparza MD Referring Provider Active St art: May 31, 2024 End: May 31, 2024 GOPAL Farah Attending Provider Active Start: May 31, 2024 End: May 31, 2024 Team Status: Inactive Member Role Status Dates Dr. Wilbert Esparza MD Primary Care Provider Active Start: May 31, 2024 End: May 31, 2024 GOPAL Farah Attending Provider Active Start: May 31, 2024 End: May 31, 2024 GOPAL Farah Referring Provider Active Start: May 31, 2024 End: May 31, 2024 Nursing Informatics Clinical Analyst Relationship Specialty Start Date End Date Wilbert Esparza MD PCP - General Family Medicine 09/03/23 Oneal [facility]alobos DO [address] [facility] [address] [address] Gastroenterology 09/03/23 Team Status: Inactive Member Role Status Dates Dr. Wilbert Esparza MD Primary Care Provider Active Start: June 09, 2024 End: June 09, 2024 Dr. Wilbert Esparza MD Referring Provider Active St art: June 09, 2024 End: June 09, 2024 ALFONSO Godinez Attending Provider Active Start: June 09, 2024 End: June 09, 2024 Team Status: Inactive Member Role Status Dates Dr. Wilbert Esparza MD Primary Care Provider Active Start: June 29, 2024 End: June 29, 2024 ALFONSO Godinez Attending Provider Active Start: June 29, 2024 End: June 29, 2024 ALFONSO Godinez Referring Provider Active Start: June 29, 2024 End: June 29, 2024 Team Status: Inactive Member Role Status Dates Dr. Wilbert Esparza MD Primary Care Provider Active Start: August 03, 2024 End: August 13, 2024 TIARA MARIE Attending Provider Active Start: August 03, 2024 End: August 13, 2024 TIARA MARIE Referring Provider Active Start: August 03, 2024 End: August 13, 2024 JAVI BRIAN Other Provider Active Start: 2024 End: August 13, 2024 Dr. Oneal Villalobos DO Other Provider Active St art: August 03, 2024 End: August 13, 2024 EFRAIN WALKRE Other Provider Active Start: August 03, 2024 End: August 13, 2024 GOPAL Farah Other Provider Active Star t: August 03, 2024 End: August 13, 2024 ALFONSO Godinez Other Provider Active Star t: August 03, 2024 End: August 13, 2024 Team Status: Inactive Member Role Status Dates Dr. Wilbert Esparza MD Primary Care Provider Active Start: August 16, 2024 End: August 16, 2024 ALFONSO Godinez Attending Provider Active Start: August 16, 2024 End: August 16, 2024 ALFONSO Godinez Referring Provider Active Start: August 16, 2024 End: August 16, 2024 Nursing Informatics Clinical Analyst Relationship Specialty Start Date End Date Wilbert Esparza MD PCP - General Family Medicine 09/03/23 Oneal Villalobos DO [address] [facility] [address] [address] Gastroenterology 09/03/23 Team Status: Active Member Role/Relationship Status Dates Dr. Wilbert Esparza MD Primary Care Provider Active Team Status: Inactive Member Role/Relationship Status Dates Dr. Wilbert Esparza MD Primary Care Provider Active Start: May 31, 2024 End: May 31, 2024 Dr. Wilbert Esparza MD Referring Provider Active St art: May 31, 2024 End: May 31, 2024 GOPAL Farah Attending Provider Active Start: May 31, 2024 End: May 31, 2024 Team Status: Inactive Member Role/Relationship Status Dates Dr. Wilbert Esparza MD Primary Care Provider Active Start: May 31, 2024 End: May 31, 2024 GOPAL Farah Attending Provider Active Start: May 31, 2024 End: May 31, 2024 GOPAL Farah Referring Provider Active Start: May 31, 2024 End: May 31, 2024 Team Status: Inactive Member Role/Relationship Status Dates Dr. Wilbert Esparza MD Primary Care Provider Active Start: June 09, 2024 End: June 09, 2024 Dr. Wilbert Esparza MD Referring Provider Active St art: June 09, 2024 End: June 09, 2024 ALFONSO Godinez Attending Provider Active Start: June 09, 2024 End: June 09, 2024 Team Status: Inactive Member Role/Relationship Status Dates Dr. Wilbert Esparza MD Primary Care Provider Active Start: June 29, 2024 End: June 29, 2024 ALFONSO Godinez Attending Provider Active Start: June 29, 2024 End: June 29, 2024 ALFONSO Godinez Referring Provider Active Start: June 29, 2024 End: June 29, 2024 Team Status: Inactive Member Role/Relationship Status Dates Dr. Wilbert Esparza MD Primary Care Provider Active Start: August 03, 2024 End: August 13, 2024 TIARA MARIE Attending Provider Active Start: August 03, 2024 End: August 13, 2024 TIARA MARIE Referring Provider Active Start: August 03, 2024 End: August 13, 2024 JAVI BRIAN Other Provider Active Start: Laurita gabriel 2024 End: August 13, 2024 Dr. Oneal Villalobos DO Other Provider Active St art: August 03, 2024 End: August 13, 2024 EFRAIN WALKER Other Provider Active Start: August 03, 2024 End: August 13, 2024 GOPAL Farah Other Provider Active Star t: August 03, 2024 End: August 13, 2024 ALFONSO Godinez Other Provider Active Star t: August 03, 2024 End: August 13, 2024 Team Status: Inactive Member Role/Relationship Status Dates Dr. Wilbert Esparza MD Primary Care Provider Active Start: August 16, 2024 End: August 16, 2024 ALFONSO Godinez Attending Provider Active Start: August 16, 2024 End: August 16, 2024 ALFONSO Godinez Referring Provider Active Start: August 16, 2024 End: August 16, 2024 Team Status: Inactive Member Role/Relationship Status Dates Dr. Wilbert Esparza MD Primary Care Provider Active Start: September 07, 2024 End: September 07, 2024 ALFONSO Godinez Attending Provider Active Start: September 07, 2024 End: September 07, 2024 ALFONSO Godinez Referring Provider Active Start: September 07, 2024 End: September 07, 2024 Source Comments (unrecognize d section and content) In the event this informatio n is protected by the Federal Confidentiality of Alcohol and Drug Abuse Patient Records regulations: The Federal rules restrict any use of the information to criminally investigate or prosecute any alcohol or drug abuse patient.Uk HealthcareIn the event this information is protected by the Federal Confidentiality of Alcohol and Drug Abuse Patient Records regulations: The Federal rules restrict any use of the information to criminally investigate or prosecute any alcohol or drug abuse patient.Uk HealthcareIn the event this information is protected by the Federal Confidentiality of Alcohol and Drug Abuse Patient Records regulations: The Federal rules restrict any use of the information to criminally investigate or prosecute any alcohol or drug abuse patient.[facility] HealthcareIn the event this information is protected by the Federal Confidentiality of Alcohol and Drug Abuse Patient Records regulations: The Federal rules restrict any use of the information to criminally investigate or prosecute any alcohol or drug abuse patient.[facility] Reason for Visit (unrecogniz ed section and content) Reason Comments New Patient Specialty Diagnoses / Procedures Referred By Contac t Referred To Contact Surgical Oncology Diagnoses PSC (primary sclerosing cholangitis) Choledochal cyst Hayes Menjivar MBBS [address] [phone] Roland Ruiz MD [address] [facility] [address] [place] [address] Referral ID Status Reason Start Date Expiration Date V isits Requested Visits Authorized [id number] New Request 08/21/2023 09/14/2024 1 1 Reason Comments Gastroparesis Reason Comments New Patient Gp consult Specialty Diagnoses / Procedures Referred By Contac t Referred To Contact Gastroenterology Diagnoses Primary sclerosing cholangitis Choledochal cyst Isacc, DO Onael [address] [address] [facility] [address] [place] [address] Referral ID Status Reason Start Date Expiration Date V isits Requested Visits Authorized [id number] Pending Review 05/14/2023 06/07/2024 1 1 Specialty Diagnoses / Procedures Referred By Contac t Referred To Contact Diagnoses Choledochal cyst Procedures MRI ABDOMEN WITH AND WITHOUT CONTRAST CHG MRI ABDOMEN W/O & W/CONTRAST MATERIAL Amita Caldwell, PHYSICAL TESTING SUPERVISOR-APPLICATION CONSULTANT, DNP [address] [place] [address] Referral ID Status Reason Start Date Expiration Date Visits Re quested Visits Authorized [id number] Closed 09/03/2023 09/27/2024 1 1 Reason Comments Follow-up Reason Comments Follow-up Referral ID Status Reason Start Date Expiration Date Visits Re quested Visits Authorized [id number] Closed 12/03/2023 12/27/2024 1 1 Reason Comments PSC INFORMATION SOURCE (unrecogn ized section and content) DATE CREATED AUTHOR 03/27/2023 [facility] DATE CREATED AUTHOR AUTHOR'S ORGANIZ ATION 08/27/2024 [facility] DATE CREATED AUTHOR AUTHOR'S ORGANIZ ATION 10/14/[address] [facility] FOR RECORDS PERTAINING TO PATIENTS WHO ARE [...] BE BASED ON THE PRIMARY CLINICAL RECORDS. [employer] provides no warranty or guarantee of the accuracy or completeness of information in this document.
[2024-10-15 11:00] LABS: AST(SGOT) 23 U/L (<=31); Alanine Aminotransfer ALT/SGPT 21 U/L (<=34); Albumin, Serum 4.4 g/dL (3.5-5.0); Alkaline Phosphatase 102 U/L (35-104); Anion Gap 11 (5-15); BUN 15 mg/dL (4-19); BUN/Creat Ratio 22.3 RATIO (10-20); Bilirubin, Direct 0.17 mg/dL (0.00-0.30); Calcium,Total 9.3 mg/dL (7.6-11.0); Carbon Dioxide 24.3 mmol/L (21.0-32.0); Chloride 102 mmol/L (98-108); Globulin 2.9 g/dL (2.2-4.2); Glucose 98 mg/dL (70-99); Potassium 3.8 mmol/L (3.3-5.1)
== END | disposition home or self-care (01) ==
LOC: LAB 10:11
PROVIDERS: PCP Family Medicine; Referring Provider Nurse Practitioner Family; Visit Provider Nurse Practitioner Family
DX: K83.01 Primary sclerosing cholangitis (principal); N95.1 Menopausal and female climacteric states; R23.2 Flushing
CPT/HCPCS: 36415; 80053; 82248

== ENCOUNTER → 2024-11-15 | Outpatient (CLI) | payer OTHER, SELFPAY ==
[2024-11-15 10:28] LABS: Hematocrit 39.0 % (37-47); Hemoglobin 13.2 g/dL (12.0-15.0); Immature Granulocytes Count 0.020 X10^3/uL (0.0-0.0); Mean Corp Hgb Conc 33.8 g/dL (32-36); Mean Corpuscular Volume 93.8 fL (81-99); Mean Platelet Vol. 11.0 fl (6.2-12.0); NRBC Flagged by Analyzer 0 % (0-5); Platelet Count 197 K/mm3 (150-450); RBC Distribution Width CV 12.7 % (11.6-14.6); RBC Distribution Width SD 44.1 fl (35.1-43.9); Red Blood Count 4.16 M/mm3 (4.2-5.4); White Blood Count 7.1 K/mm3 (4.4-11.0)
[2024-11-15 11:11] LABS: Prothrombin Time (Protime)PT. 13.2 SECONDS (11.7-14.9)
[2024-11-15 11:18] LABS: AST(SGOT) 22 U/L (<=31); Alanine Aminotransfer ALT/SGPT 19 U/L (<=34); Albumin, Serum 4.5 g/dL (3.5-5.0); Alkaline Phosphatase 97 U/L (35-104); Anion Gap 10 (5-15); BUN 13 mg/dL (4-19); BUN/Creat Ratio 20.8 RATIO (10-20); Calcium,Total 9.3 mg/dL (7.6-11.0); Carbon Dioxide 25.1 mmol/L (21.0-32.0); Chloride 102 mmol/L (98-108); Globulin 2.8 g/dL (2.2-4.2); Glucose 100 mg/dL (70-99); Potassium 4.0 mmol/L (3.3-5.1); Vitamin D,25 Hydroxy 68.7 ng/mL (30-100)
[2024-11-16 10:08] LABS: Carbohydrate Ag 19-9 2261 4 U/mL (0-35); Carcinoembryonic Antigen 2139 1.0 ng/mL (0.0-4.7)
[2024-11-16 21:22] LABS: CEA Serial Monitor Graph SEE SCANNED GRAPH
== END | disposition home or self-care (01) ==
LOC: PAVLAB 10:07
PROVIDERS: PCP Family Medicine; Referring Provider Student in an Organized Health Care Education/Training Program; Visit Provider Student in an Organized Health Care Education/Training Program
DX: K83.01 Primary sclerosing cholangitis (principal)
CPT/HCPCS: 36415; 80053; 82105; 82306; 82378; 84443; 85025; 85610; 86301

== ENCOUNTER → 2024-12-21 | Outpatient (CLI) | payer OTHER, SELFPAY ==
[2024-12-21 15:48] LABS: AST(SGOT) 19 U/L (<=31); Alanine Aminotransfer ALT/SGPT 18 U/L (<=34); Albumin, Serum 4.4 g/dL (3.5-5.0); Alkaline Phosphatase 100 U/L (35-104); Anion Gap 11 (5-15); BUN 13 mg/dL (4-19); BUN/Creat Ratio 22.1 RATIO (10-20); Calcium,Total 9.1 mg/dL (7.6-11.0); Carbon Dioxide 25.8 mmol/L (21.0-32.0); Chloride 102 mmol/L (98-108); Globulin 2.6 g/dL (2.2-4.2); Glucose 88 mg/dL (70-99); Potassium 3.5 mmol/L (3.3-5.1)
== END | disposition home or self-care (01) ==
LOC: LAB 13:47
PROVIDERS: PCP Family Medicine; Referring Provider Nurse Practitioner Family; Visit Provider Nurse Practitioner Family
DX: N95.1 Menopausal and female climacteric states (principal)
CPT/HCPCS: 36415; 80053

== ENCOUNTER → 2025-02-03 | Outpatient (CLI) | payer OTHER, SELFPAY ==
--- NOTE | 2025-02-03 09:15 | BI_ITS ---
EXAM: SCRN MAMM (CAD)W/TIAN BILAT DATE: 02/03/2025 CLINICAL HISTORY: F, Age 44 y/o , SCREEN FOR BREAST CANCER TECHNIQUE: Procedure Code: [id number] Modality: MG Procedure: SCRN MAMM (CAD)W/TIAN BILAT COMPARISON: Prior exam(s) were compared. FINDINGS: TISSUE DENSITY: The breasts are extremely dense, which lowers the sensitivity of mammography. Bilateral Breast Mammographic Findings: No significant masses, calcifications or other abnormalities are identified. BI/SCRN MAMM (CAD)W/TIAN BILAT IMPRESSION: No mammographic evidence of malignancy in either breast. OVERALL FINAL ASSESSMENT BI-RADS 1: NEGATIVE. RECOMMENDATION: Routine annual follow-up in 1 Year Additional Recommendation none A letter with findings and recommendations will be mailed to the patient. Reading Location: [id number]
== END | disposition home or self-care (01) ==
LOC: OPBI 09:12
PROVIDERS: PCP Family Medicine; Referring Provider Nurse Practitioner Family; Visit Provider Nurse Practitioner Family
DX: Z12.31 Encounter for screening mammogram for malignant neoplasm of breast (principal)
CPT/HCPCS: 77063; 77067

== ENCOUNTER → 2025-02-13 | Outpatient (CLI) | payer OTHER, SELFPAY ==
[2025-02-13 16:30] LABS: AST(SGOT) 25 U/L (<=31); Alanine Aminotransfer ALT/SGPT 25 U/L (<=34); Albumin, Serum 4.5 g/dL (3.5-5.0); Alkaline Phosphatase 111 U/L (35-104); Bilirubin, Direct 0.11 mg/dL (0.00-0.30); Globulin 2.9 g/dL (2.2-4.2)
== END | disposition home or self-care (01) ==
LOC: PAVLAB 15:25
PROVIDERS: PCP Family Medicine
DX: Q44.4 Choledochal cyst (principal)
CPT/HCPCS: 36415; 80076; 86301